=== PATIENT | male | born 1950 | race Caucasian/White ===

== ENCOUNTER 2016-12-19 18:30 | Emergency (ER) | payer OTHER ==
[~2016-12-19] VITALS: Ht 165.1 cm; Wt 72.5 kg
[2016-12-19 18:35] VITALS: Ht 165.1 cm; Wt 72.5 kg
[2016-12-19] MEDS ORDERED: METOCLOPRAMIDE (1 MG/ML) 10 ML CUP PO STA (20:56)
[2016-12-19] MEDS ORDERED: METOCLOPRAMIDE (1 MG/ML) 10 ML CUP PO PRN (21:00)
[2016-12-19 21:19] LABS: BASOPHILS % 0.4 % (0.0-2.0); EOSINOPHILS # 0.1 10^3/ul (0.0-0.5); EOSINOPHILS % 0.9 % (0.0-7.0); HEMATOCRIT 41.3 % (42.0-52.0); HEMOGLOBIN 13.7 g/dl (14.0-18.0); LYMPHOCYTES # 1.3 10^3/ul (0.8-2.9); LYMPHOCYTES % 17.3 % (15.0-51.0); MEAN CORPUSCULAR HEMOGLOBIN 28.9 pg (29.0-33.0); MEAN CORPUSCULAR HGB CONC 33.2 g/dl (32.0-37.0); MEAN CORPUSCULAR VOLUME 87.1 fl (82.0-101.0); MEAN PLATELET VOLUME 9.2 fl (7.4-10.4); MONOCYTE # 0.7 10^3/ul (0.3-0.9); MONOCYTES % 9.4 % (0.0-11.0); NEUTROPHIL # 5.5 10^3/ul (1.6-7.5); NEUTROPHILS % 71.7 % (39.0-77.0); PLATELET COUNT 147 10^3/UL (140-415); RED BLOOD COUNT 4.74 10^6/ul (4.70-6.10); RED CELL DISTRIBUTION WIDTH 12.1 % (11.5-14.5); WHITE BLOOD COUNT 7.7 10^3/ul (4.8-10.8)
[2016-12-19 21:31] LABS: ADD UMIC NO; UR ASCORBIC ACID NEGATIVE (NEGATIVE); UR BILIRUBIN (Dip) NEGATIVE (NEGATIVE); UR BLOOD (Dip) NEGATIVE (NEGATIVE); UR CLARITY CLEAR (CLEAR); UR COLOR YELLOW (YELLOW); UR GLUCOSE (Dip) NEGATIVE (NEGATIVE); UR KETONES (Dip) NEGATIVE (NEGATIVE); UR LEUKOCYTE ESTERASE (Dip) NEGATIVE Leu/ul (NEGATIVE); UR NITRITE (Dip) NEGATIVE (NEGATIVE); UR SPECIFIC GRAVITY (Dip) 1.026 (1.003-1.030); UR TOTAL PROTEIN (Dip) NEGATIVE (NEGATIVE); UR UROBILINOGEN (Dip) NEGATIVE (NEGATIVE)
[2016-12-19 21:39] LABS: ALBUMIN/GLOBULIN RATIO 1.17; BILIRUBIN,INDIRECT 0.8 mg/dl (0-1.1); BILIRUBIN,TOTAL 0.8 mg/dl (0.2-1.3); CREATININE 0.94 mg/dl (0.61-1.24); POTASSIUM 4.1 mmol/L (3.5-5.1); TOTAL PROTEIN 7.4 g/dl (6.1-8.1)
[2016-12-19] MEDS ORDERED: UDREG PO (22:02)
--- NOTE | 2016-12-20 01:26 | ERD ---
ER Documentation Chief Complaint Date/Time DATE: 12/20/16 TIME: 01:23 Chief Complaint Difficulty swallowing hot and cold food. Hx:neck surgery when he was 7yo HPI This is a 66-year-old male presenting to the emergency department complaining of esophageal spasms and difficulty swallowing solid and liquid food for the past month. Denies any fevers. Patient states that he was seen at [facility] yesterday and they did x-rays, ultrasound did not show any evidence. These have discussed with him that he needs to follow-up with a gastroneurologist. Patient states that he is in process of doing that. Denies any drooling or shortness of breath at this time ROS All systems reviewed and are negative except as per history of present illness. Medications Home Meds Active Scripts Metoclopramide* (Reglan*) 10 Mg/10 Ml Soln, 10 MG PO Q6, #120 ML Prov:JOSIE SOLIS PA-C 12/19/16 Allergies Allergies: Coded Allergies: No Known Allergy (Unverified , 12/19/16) PMhx/Soc Medical and Surgical Hx: pt denies Medical Hx History of Surgery: Yes (esphagus from chemical ingestion at 7 years) Anesthesia Reaction: No Hx Neurological Disorder: No Hx Respiratory Disorders: No Hx Cardiac Disorders: No Hx Psychiatric Problems: No Hx Miscellaneous Medical Probl: No Hx Alcohol Use: No Hx Substance Use: No Hx Tobacco Use: No Smoking Status: Never smoker Physical Exam Vitals Vital Signs Date Time Temp Pulse Resp B/P Pulse Ox O2 Delivery O2 Flow Rate FiO2 12/19/16 18:35 98.9 95 18 125/74 95 Physical Exam Const: [] Head: Atraumatic Eyes: Normal Conjunctiva ENT: Normal External Ears, Nose and Mouth. Neck: Full range of motion..~ No meningismus. Resp: Clear to auscultation bilaterally Cardio: Regular rate and rhythm, no murmurs Abd: Soft, non tender, non distended. Normal bowel sounds Skin: No petechiae or rashes Back: No midline or flank tenderness Ext: No cyanosis, or edema Neur: Awake and alert Psych: Normal Mood and Affect Result Diagram: 12/19/16202912/19/16 2030 Results 24 hrs Laboratory Tests Test 12/19/16 20:30 12/19/16 21:11 White Blood Count 7.710^3/ul Red Blood Count 4.7410^6/ul Hemoglobin 13.7g/dl Hematocrit 41.3% Mean Corpuscular Volume 87.1fl Mean Corpuscular Hemoglobin 28.9pg Mean Corpuscular Hemoglobin Concent 33.2g/dl Red Cell Distribution Width 12.1% Platelet Count 52710^3/UL Mean Platelet Volume 9.2fl Neutrophils % 71.7% Lymphocytes % 17.3% Monocytes % 9.4% Eosinophils % 0.9% Basophils % 0.4% Nucleated Red Blood Cells % 0.0/100WBC Neutrophils # 5.510^3/ul Lymphocytes # 1.310^3/ul Monocytes # 0.710^3/ul Eosinophils # 0.110^3/ul Basophils # 0.010^3/ul Nucleated Red Blood Cells # 0.010^3/ul Sodium Level 142mmol/L Potassium Level 4.1mmol/L Chloride Level 99mmol/L Carbon Dioxide Level 28mmol/L Anion Gap 19 Blood Urea Nitrogen 18mg/dl Creatinine 0.94mg/dl Glucose Level 99mg/dl Calcium Level 9.0mg/dl Total Bilirubin 0.8mg/dl Direct Bilirubin 0.00mg/dl Indirect Bilirubin 0.8mg/dl Aspartate Amino Transf (AST/SGOT) 20IU/L Alanine Aminotransferase (ALT/SGPT) 38IU/L Alkaline Phosphatase 90IU/L Total Protein 7.4g/dl Albumin 4.0g/dl Globulin 3.40g/dl Albumin/Globulin Ratio 1.17 Lipase 37U/L Urine Color YELLOW Urine Clarity CLEAR Urine pH 5.0 Urine Specific [place] 1.026 Urine Ketones NEGATIVEmg/dL Urine Nitrite NEGATIVEmg/dL Urine Bilirubin NEGATIVEmg/dL Urine Urobilinogen NEGATIVEmg/dL Urine Leukocyte Esterase NEGATIVELeu/ul Urine Hemoglobin NEGATIVEmg/dL Urine Glucose NEGATIVEmg/dL Urine Total Protein NEGATIVEmg/dl Current Medications Medications (Trade) Dose Ordered Sig/Ivette Route PRN Reason Start Time Stop Time Status Last Admin Dose Admin Metoclopramide HCl (Reglan Liq) 10 mg ONCE PRN PO SORE THROAT 12/19/16 21:00 12/19/16 21:00 DC Metoclopramide HCl (Reglan Liq) 10 mg ONCE STAT PO 12/19/16 20:56 12/19/16 20:57 DC 12/19/16 21:34 Procedures/MDM This is a 66-year-old male presenting to the emergency department with dysphagia for the past month. On examination, patient airways were intact. There was no evidence of any mass or swelling on examination. His vitals are stable. In the ED patient was given 10 mg of Reglan and passed the fluid challenge test. Patient states that he was able to drink a whole glass of water which is an improvement for him in the past month. I discussed with him that he is stable to be discharged home to follow-up with his GI specialist. Discussed return to the ER for worsening sensitive. He understands and agrees with plan. Prescription for Reglan was provided Departure Diagnosis: Primary Impression: Dysphagia Condition: Stable Patient Instructions: Dysphagia: Exercises, Understanding Dysphagia Additional Instructions: FOLLOW UP WITH YOUR PRIMARY CARE PHYSICIAN TOMORROW.Return to this facility if you are not improving as expected. Take all medicines as directed. Return to this facility if you are not improving as expected. JOSIE SOLIS PA-C Dec 20, 2016 01:26
== END 2016-12-19 22:04 | disposition home or self-care (01) ==
LOC: FTE 18:30
DX: R13.10 Dysphagia, unspecified (principal)
CPT/HCPCS: 36415; 80053; 81003; 83690; 85025; Z7502; Z7610; 99283

== ENCOUNTER 2017-01-25 07:37 | Day surgery (SDC) | payer OTHER ==
[2017-01-25] VITALS (8 sets, daily range): BP systolic 103–119; BP diastolic 59–72; PULSE 68–85; RESP 12–20; Ht 170.2 cm; Wt 70.0 kg
[~2017-01-25] VITALS: Ht 170.2 cm; Wt 70.0 kg
[~2017-01-25 07:37] MED LIST: UDREG PO
[2017-01-25] MEDS ORDERED: PRED10TA PO (08:28)
[2017-01-25] MEDS ORDERED: CEFAZOLIN 1 GM/50 ML (PMX) 50 ML IVPB ONE ×2 (08:30→09:57)
[2017-01-25] MEDS ORDERED: SOD CHLORIDE 0.9% 1,000 ML IV ONE (08:30)
[2017-01-25] MEDS ORDERED: POLYMYXIN/BACITRACIN 1L IRRIG IRR ONE (08:30)
[2017-01-25] MEDS ORDERED: LIDOCAINE 2%/EPI 30 ML INJ ONE (08:47)
[2017-01-25] MEDS ORDERED: HEPARIN 1000 UNITS/ML 10 ML INJ ONE (08:47)
[2017-01-25] MEDS ORDERED: SOD CHLORIDE 0.9% 500 ML ONE (08:47)
[2017-01-25] MEDS ORDERED: FENTAnyl 50 MCG/ML VIAL ONE (09:57)
[2017-01-25] MEDS ORDERED: MIDAZOLAM 1 MG/ML 2 ML INJ ONE (09:57)
[2017-01-25] MEDS ORDERED: HYDROCODONE/APAP (5/325) TAB PO PRN (11:00)
--- NOTE | 2017-01-25 11:54 | RADRPT ---
PROCEDURE: FLUOROSCOPIC AND ULTRASONOGRAPHIC-GUIDED PLACEMENT OF RIGHT CHEST PORT. CLINICAL INDICATION: History of esophageal cancer. Venous access for chemotherapy. TECHNIQUE: INTRAPROCEDURE MEDICATIONS: PB antibiotic solution 40 cc applied topically. 1 gram Ancef intravenous ly, intra-op. IV Versed and Fentanyl per protocol. Informed consent was obtained. The procedure, risks, benefits, complications and alternatives were explained to the patient. Risks including bleeding, infection, and pneumothorax were explained. The patient understood and was willing to proceed. A procedural pause was performed. The patient's name , date of , and procedure to be performed were verified. The central line was inserted with al l elements of maximal sterile barrier technique. All of the following were used: head covering, faci al mask, sterile gown, sterile gloves, a large sterile sheet, hand hygiene, and 2% chlorhexidine fo r cutaneous antisepsis. The right neck and anterior/superior chest wall were prepped and draped in usual sterile fashion. Limited sonography of the right neck was then performed. Noted is a patent right internal jugular ve in. Following the local injection of 1% lidocaine, the right internal jugular vein was punctured under s onographic guidance with a 20-gauge needle through which a 0.018 inch floppy tip guidewire was advan maddie into the superior vena cava with fluoroscopic guidance. The tract was dilated to 5 [place] and the wire was then replaced with a 0.035 in Amplatz guidewire. Serial dilatation was then performed and a 7 [place] peel away sheath was introduced. A site just inferior to the clavicle in the superior anterior right chest wall was localized. One pe rcent lidocaine was used as local anesthesia. A transverse 2.5 cm incision was made utilizing a 15 b lade scalpel. Utilizing blunt dissection a subcutaneous pocket was created inferior to the incision. The cavity was flushed with approximately 40 cc of PB antibiotic solution. The catheter was tunneled underneath the skin from the newly created pocket to the puncture site in the neck. The central line catheter was pulled through the tract. The catheter was then advanced thr ough the sheath until the tip was positioned in the right atrium. The peel-away sheath was removed. The catheter was flushed and clamped. The 6.6 [place] catheter was then connected to the Angiodynamics power port. The port was then placed into the pocket. Prior to closing the instrument and sponge count was verified and was correct. The subcutaneous tissue was closed with 3-0 Vicryl interrupted suture. The skin at the site of the pock et and in the neck was closed with 4-0 Vicryl suture in a running subcuticular technique. The port w as flushed with 1500 units of heparin in 1.5 cc utilizing a Tineo needle. The needle was removed. A dressing was applied. The patient tolerated procedure well. COMPARISON: None. FINDINGS: Ultrasound images were recorded and stored in the patient's medical record. Final radiographic images demonstrate the tip of the catheter in the upper right atrium. A total of 0.1 minutes of fluoroscopy time was used. 5 images of the chest were obtained with the Mango DSP. The ultrasound images demonstrate the needle entering the internal jugular vein. IMPRESSION: 1. Successful ultrasonographic and fluoroscopic guided placement of right chest power port. RPTAT: QQ .Star José MD, Date Time Electronically viewed and signed by .Star José MD, on 01/25/2017 11:53 .R/
--- NOTE | 2017-01-25 15:53 | RADRPT ---
PROCEDURE: Ultrasound guidance for placement of needle in right internal jugular vein. CLINICAL INDICATION: Venous access. TECHNIQUE: Prior to the procedure, informed consent was obtained. Risks including bleeding, infection, and pneu mothorax were explained to the patient. The patient understood and was willing to proceed. A procedu ral pause was performed. The patient's name, date of , and procedure to be performed were verif ied. The central line was inserted with all elements of maximal sterile barrier technique. All of th e following were used: head covering, facial mask, sterile gown, sterile gloves, a large sterile she et, hand hygiene, and 2% chlorhexidine for cutaneous antisepsis. The right neck and anterior/super ior chest wall was prepped and draped in usual sterile fashion. Limited sonography of the right neck was then performed. Noted is a patent right internal jugular ve in. Ultrasound images were recorded and stored in the patient's medical record. Following the local injection of Xylocaine, the right internal jugular vein was punctured under sono graphic guidance with a 20-gauge needle through which a 0.018 inch floppy tip guidewire was advanced into the superior vena cava. The patient tolerated the procedure well. The remainder of the proce dure was performed and dictated under separate cover. COMPARISON: None. FINDINGS: The ultrasound images demonstrate a patent right internal jugular vein. The subsequent images demon strate the needle entering the right internal jugular vein. IMPRESSION: 1. Ultrasound guidance for a needle placement in right internal jugular vein. RPTAT: QQ .Star José MD, Date Time Electronically viewed and signed by .Star José MD, on 01/25/2017 15:52 .R/
== END 2017-01-25 14:05 | disposition home or self-care (01) ==
LOC: SDS 07:37
PROVIDERS: ATTEND Internal Medicine Hematology & Oncology
DX: C15.9 Malignant neoplasm of esophagus, unspecified (principal)
CPT/HCPCS: 36561; 76942; C1788; J0690; J1644; J2250; J3010; J7040; Z7610

== ENCOUNTER 2017-02-27 21:46 | Inpatient (IN) | payer OTHER ==
[~2017-02-27] VITALS: Ht 166.4 cm; Wt 68.0 kg
[~2017-02-27 21:46] MED LIST changes: +PRED10TA PO; -UDREG PO
[2017-02-28] VITALS (13 sets, daily range): BP systolic 97–130; BP diastolic 57–67; PULSE 72–81; RESP 17–26; Ht 166.4 cm; Wt 68.0 kg
[2017-02-28] MEDS ORDERED: SOD CHLORIDE 0.9% 1,000 ML IV STA (02:28)
--- NOTE | 2017-02-28 02:39 | ERA ---
ER Documentation Chief Complaint Date/Time DATE: 02/28/17 TIME: 02:37 Chief Complaint SWALLOWING PROBLEM DUE TO ESOPHOGEAL CANCER TREATMENT HPI This is a 66-year-old male who is having some difficulty swallowing for the past couple of weeks but is getting worse the past couple days and today where he cannot even tolerate drinking water. Patient has a history of esophageal cancer and is postoperative. He is getting chemo and radiation to the esophagus. Patient states she has gradually had worsening ability to eat food and now drinking water. He said he able was able to drink some soup today at 3 PM but since that time cannot tolerate drinking any water. He says if he tries to drink water he starts to cough and gag. He says he has been coughing and spitting up clear mucus for 1 day. No fever no chest pain shortness of breath no abdominal pain vomiting or diarrhea ROS All systems reviewed and are negative except as per history of present illness. Medications Home Meds Reported Medications Prednisone* (Prednisone*) 10 Mg Tab, 45 MG PO DAILY, TAB 01/25/17 Allergies Allergies: Coded Allergies: No Known Allergy (Unverified , 01/25/17) PMhx/Soc History of Surgery: No Anesthesia Reaction: No Hx Neurological Disorder: No Hx Respiratory Disorders: Yes (Asthma) Hx Cardiac Disorders: No Hx Psychiatric Problems: No Hx Miscellaneous Medical Probl: Yes (esophageal cancer) Hx Alcohol Use: Yes (social) Hx Substance Use: No Hx Tobacco Use: No Smoking Status: Never smoker FmHx Family History: No coronary disease Physical Exam Vitals Vital Signs Date Time Temp Pulse Resp B/P Pulse Ox O2 Delivery O2 Flow Rate FiO2 02/28/17 04:00 91 19 117/68 98 Room Air 02/28/17 03:00 89 16 109/66 97 Room Air 02/28/17 02:00 85 21 109/67 100 Room Air 02/27/17 22:03 100.8 108 20 127/60 95 Physical Exam Const: Well-developed, well-nourished Head: Atraumatic, normocephalic Eyes: Normal Conjunctiva, PERRLA, EOMI, normal sclera, no nystagmus ENT: Normal External Ears, Nose and Mouth, moist mucus membranes. Neck: Full range of motion. No meningismus, no lymphadenopathy. Resp: Clear to auscultation bilaterally, no wheezing, rhonchi, rales Cardio: Regular rate and rhythm, no murmurs, S1 S2 present Abd: Soft, non tender x 4, non distended. Normal bowel sounds, no guarding or rebound, no pulsitile abdominal masses or bruits Skin: No petechiae or rashes, no ecchymosis , no maculopapular rash Back: No midline or flank tenderness Ext: No cyanosis, or edema, FROM x 4, normal inspection, neurovascularly intact x 4 Neur: Awake and alert, STR 5/5 x 4, sensation intact x 4, no focal findings, cerebellum intact Psych: Normal Mood and Affect Result Diagram: 02/28/175 02/28/17 0255 Results 24 hrs Laboratory Tests Test 02/28/17 02:55 White Blood Count 5.710^3/ul Red Blood Count 3.4010^6/ul Hemoglobin 9.8g/dl Hematocrit 29.7% Mean Corpuscular Volume 87.4fl Mean Corpuscular Hemoglobin 28.8pg Mean Corpuscular Hemoglobin Concent 33.0g/dl Red Cell Distribution Width 14.1% Platelet Count 81959^3/UL Mean Platelet Volume 9.4fl Neutrophils % % Segmented Neutrophils % (Manual) 91% Band Neutrophils % (Manual) 2% Lymphocytes % % Lymphocytes % (Manual) 4% Monocytes % % Monocytes % (Manual) 3% Eosinophils % % Basophils % % Nucleated Red Blood Cells % 0.0/100WBC Neutrophils # 10^3/ul Neutrophils # (Manual) 5.210^3/ul Band Neutrophils # 0.110^3/ul Absolute Lymphocytes (Manual) 0.210^3/ul Lymphocytes # 0.210^3/ul Monocytes # 0.210^3/ul Absolute Monocytes (Manual) 0.110^3/ul Eosinophils # 10^3/ul Basophils # 10^3/ul Nucleated Red Blood Cells # 10^3/ul Anisocytosis 1+ Ovalocytes FEW Sodium Level 142mmol/L Potassium Level 3.7mmol/L Chloride Level 105mmol/L Carbon Dioxide Level 32mmol/L Anion Gap 9 Blood Urea Nitrogen 17mg/dl Creatinine 0.82mg/dl Glucose Level 114mg/dl Calcium Level 8.3mg/dl Total Bilirubin 1.1mg/dl Direct Bilirubin 0.00mg/dl Indirect Bilirubin 1.1mg/dl Aspartate Amino Transf (AST/SGOT) 28IU/L Alanine Aminotransferase (ALT/SGPT) 51IU/L Alkaline Phosphatase 62IU/L Total Protein 5.8g/dl Albumin 3.0g/dl Globulin 2.80g/dl Albumin/Globulin Ratio 1.07 Current Medications Medications (Trade) Dose Ordered Sig/Ivette Route PRN Reason Start Time Stop Time Status Last Admin Dose Admin Sodium Chloride (NS) 1,000 ml @ 1,000 mls/hr Q1H STAT IV 02/28/17 02:28 02/28/17 03:27 DC 02/28/17 03:01 Procedures/MDM PROCEDURE: XR Chest. CLINICAL INDICATION: Abdominal pain TECHNIQUE: AP upright Portable chest. COMPARISON: No pertinent prior examinations were submitted for comparison. FINDINGS: The right port catheter is in satisfactory position. The cardiomediastinal silhouette is normal. The aorta is normal. There is mild bibasilar atelectasis No focal consolidation, pleural effusion or pneumothorax is seen. The osseous structures are intact. IMPRESSION: Right port catheter in satisfactory position. Bibasilar atelectasis. Physician Mary Jo Date Time Electronically viewed and signed by Physician Mary Jo on 02/28/2017 03: 43 CS/ CC: JO STEIN DO Spoke with Dr. Jessica andrew of GI. Patient be admitted to the hospital for EGD tomorrow. Patient esophagus causing some stricture or other pathology. He may need dilated or have a feeding tube placed We will admit for inpatient Departure Diagnosis: Primary Impression: Swallowing disorder Additional Impression: Dysphasia Condition: Stable JO STEIN DO Feb 28, 2017 02:39
--- NOTE | 2017-02-28 03:43 | RADRPT ---
PROCEDURE: XR Chest. CLINICAL INDICATION: Abdominal pain TECHNIQUE: AP upright Portable chest. COMPARISON: No pertinent prior examinations were submitted for comparison. FINDINGS: The right port catheter is in satisfactory position. The cardiomediastinal silhouette is normal. The aorta is normal. There is mild bibasilar atelectasi s No focal consolidation, pleural effusion or pneumothorax is seen. The osseous structures are int act. IMPRESSION: Right port catheter in satisfactory position. Bibasilar atelectasis. Physician Mary Jo Date Time Electronically viewed and signed by Nelly Olea Physician on 02/28/2017 03:43 CS/
[2017-02-28] MEDS ORDERED: SOD CHLORIDE 0.9% 1,000 ML IV SCH (04:48)
[2017-02-28] MEDS ORDERED: ONDANSETRON 4 MG INJ IV PRN ×3 (05:00→20:00)
[2017-02-28] MEDS ORDERED: ACETAMINOPHEN 325 MG TAB PO PRN (05:00)
[2017-02-28] MEDS: PANTOPRAZOLE 40 MG INJ IV SCH (08:26)
[2017-02-28] MEDS: DEXTROSE 5%-0.9% NACL 1,000 ML IV SCH ×2 (10:11→20:20)
--- NOTE | 2017-02-28 10:22 | QN ---
Documentation Comment Pt seen and examined RENEE HAN MD Feb 28, 2017 10:22
--- NOTE | 2017-02-28 10:22 | QN ---
Documentation Comment Pt seen and examined RENEE HAN MD Feb 28, 2017 10:22
--- NOTE | 2017-02-28 11:10 | CONS ---
Date/Time of Note Date/Time of Note DATE: 02/28/17 TIME: 10:52 Assessment/Plan Assessment/Plan Chief Complaint/Hosp Course Summary Assessment and Plan: Assessment: Dysphagia * esophageal cancer * Rule out radiation esophagitis Plan: Will order CT chest Will speak with patient's oncologist with tentative plan to place PEG Patient with dysphagia will remain n.p.o. Endoscopy - risks/benefits/alternatives/indications of procedure and sedation/ anesthesia discussed with patient who states understanding and gives informed consent to proceed. PARQ held and questions were answered. Patient seen in collaboration with Dr. Queen Chief Complaint/Reason for Visit: Dysphagia * esophageal cancer Chief Complaint/Reason for Visit: This is a pleasant 66-year-old male with recent diagnosis of esophageal cancer in October of this year status post chemotherapy 2, radiation 10. He had some kind of esophageal surgery at age 7 he cannot remember reason for surgery or which type of surgery. He began to complain of "tightness" when swallowing for the past 2 days. Yesterday unable to swallow at all.Attempted to drink water and subsequently vomited. He denies abd pain, nausea/vomiting, rectal bleeding, pyrosis, change in bowel habits. Has never had a colonoscopy, there is no family history of colon cancer. Last endoscopy was in October. Patient will need a PEG, however, per request of the family and oncologist will speak with oncologist Stephen Mariano before moving forward with procedure. Past Medical History: Esophageal l cancer S/P radiation 10 Chemotherapy 2 Allergies: No known allergies Family History: No pertinent Social History: Denies smoking Problems: Consultation Date/Type/Reason Admit Date/Time Feb 28, 2017 at 04:49 Date of Consultation: Feb 28, 2017 Type of Consultation: GI Reason for Consultation Dysphagia Constitutional: no complaints Eyes: no complaints ENT: dysphagia Respiratory: no complaints Cardiovascular: no complaints Gastrointestinal: flatus, passing stool, No blood, No constipation, No diarrhea, No nausea, No pain, No vomiting Genitourinary: no complaints Musculoskeletal: no complaints Skin: no complaints Psychological: no complaints Past Medical History Medical History: no pertinent history, cancer (Esophageal) Past Surgical History Esophageal surgery at age 7 Family History Significant Family History: no pertinent family hx Social History Smoking Status: Never smoker Exam/Review of Systems Vital Signs Vitals Vital Signs Date Time Temp Pulse Resp B/P Pulse Ox O2 Delivery O2 Flow Rate FiO2 02/28/17 07:20 98.3 82 18 121/66 97 02/28/17 06:30 Room Air Exam Constitutional: alert, oriented Psych: no complaints Head: atraumatic, normocephalic Eyes: nl conjunctiva ENMT: nl external ears & nose Neck: other (scar), supple Respiratory: clear to auscultation Cardiovascular: regular rate and rhythm Gastrointestinal: bowel sounds, other, soft, surgical scars, No ascites, No distended, No firm, No hepatomegaly, No mass, No rebound or guarding, No splenomegaly, No tender Genitourinary - Male: nl penis Extremities: normal pulses Results Result Diagram: 02/28/17 0255 02/28/17 0255 Results 24 hrs Laboratory Tests Test 02/28/17 02:55 White Blood Count 5.7 # Red Blood Count 3.40 #L Hemoglobin 9.8 #L Hematocrit 29.7 #L Mean Corpuscular Volume 87.4 Mean Corpuscular Hemoglobin 28.8 L Mean Corpuscular Hemoglobin Concent 33.0 Red Cell Distribution Width 14.1 Platelet Count 102 #L Mean Platelet Volume 9.4 Neutrophils % Segmented Neutrophils % (Manual) 91 H Band Neutrophils % (Manual) 2 Lymphocytes % Lymphocytes % (Manual) 4 L Monocytes % Monocytes % (Manual) 3 Eosinophils % Basophils % Nucleated Red Blood Cells % 0.0 Neutrophils # Neutrophils # (Manual) 5.2 Band Neutrophils # 0.1 Absolute Lymphocytes (Manual) 0.2 L Lymphocytes # 0.2 L Monocytes # 0.2 L Absolute Monocytes (Manual) 0.1 L Eosinophils # Basophils # Nucleated Red Blood Cells # Anisocytosis 1+ Ovalocytes FEW Sodium Level 142 Potassium Level 3.7 Chloride Level 105 Carbon Dioxide Level 32 H Anion Gap 9 Blood Urea Nitrogen 17 Creatinine 0.82 Glucose Level 114 Calcium Level 8.3 L Total Bilirubin 1.1 Direct Bilirubin 0.00 Indirect Bilirubin 1.1 Aspartate Amino Transf (AST/SGOT) 28 Alanine Aminotransferase (ALT/SGPT) 51 Alkaline Phosphatase 62 Total Protein 5.8 L Albumin 3.0 L Globulin 2.80 Albumin/Globulin Ratio 1.07 Medications Medications Current Medications Sodium Chloride 1,000 ml @ 80 mls/hr [id number] IV ; Start 02/28/17 at 04:48; Stop 02/28/17 at 17:17 Dextrose/Sodium Chloride (D5-NS) 1,000 ml @ 75 mls/hr [id number] IV Last administered on 02/28/17 10:11; Admin Dose 75 MLS/HR; Start 02/28/17 at 07:00 Pantoprazole (Protonix Iv) 40 mg DAILY@06 IV Last administered on 02/28/17 08 :26; Admin Dose 40 MG; Start 02/28/17 at 07:00 Morphine Sulfate (morphine) 2 mg Q4H PRN IV pain; Start 02/28/17 at 07:00 Acetaminophen (Tylenol Supp) 650 mg Q6H PRN NV pain and fever; Start 02/28/17 at 07:00 Ondansetron HCl (Zofran Inj) 4 mg Q6H PRN IV NAUSEA AND/OR VOMITING; Start at 07:00 Copies To: CC: RODRICK QUEEN MD, VICTORIA Feb 28, 2017 11:10
--- NOTE | 2017-02-28 13:51 | RADRPT ---
PROCEDURE: CT Chest without contrast. CLINICAL INDICATION: Dysphasia. Post esophageal surgery. TECHNIQUE: CT scan of the chest without contrast was performed on a multidetector high-resolution CT scanner. Coronal and sagittal reformatted images were obtained from the axial source images. The total exam CTDI equals 10.49 mGy and the total exam DLP equals 429.9 mGy-cm. One or more of the following dose reduction techniques were used: Automated exposure control. Adjustment of the mA and/or kV according to patient size. Use of iterative reconstruction technique. COMPARISON: None FINDINGS: There is a loop of extrathoracic bowel graft anastomosed with distal gastric body. There is patulous appearance of the bypassed upper thoracic esophagus which communicates with the posterior wall of t he trachea on image 4-34. There is mild bronchial wall thickening in the lung bases. Patchy ground-glass opacities are seen in the lung bases. No mass lesion to suggest neoplasm is identified. The central tracheobronchial tr ee is clear. The mediastinum is unremarkable without evidence for mass or lymphadenopathy. Right chest Port-A-Cat h with tip at the cavoatrial junction is present. The vascular structures of the mediastinum are nor mal in course and caliber. The heart size is normal without evidence for pericardial thickening or e ffusion. The axillary regions, subpectoral regions, and supraclavicular regions are all unremarkable. Imagin g obtained through the upper abdomen reveals no acute abnormality. The surrounding osseous structur es are remarkable for degenerative spondylosis of the spine. No osteolytic or osteoblastic lesion i s detected. IMPRESSION: 1. Extrathoracic bowel graft from the upper thoracic esophagus anastomosed with anterior wall of th e distal gastric body. 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 2. Mild bronchial wall thickening and patchy areas of ground-glass opacities in the lung bases which are nonspecific but can be seen with aspiration. RPTAT: BB .Seymour Gonzalez MD, Date Time Electronically viewed and signed by .Seymour Gonzalez MD, on 02/28/2017 13:50 .O/
[2017-02-28] MEDS ORDERED: CEFAZOLIN 1 GM/50 ML (PMX) 50 ML IVPB ONE (15:30)
[2017-02-28] MEDS ORDERED: PROPOFOL 200 MG INJ ONE (18:00)
[2017-02-28] MEDS ORDERED: LIDOCAINE 2% (SDV) 5 ML INJ ONE (18:55)
[2017-02-28] MEDS ORDERED: CEFAZOLIN 2 GM/50 ML (PMX) 50 ML IVPB ONE (19:05)
--- NOTE | 2017-02-28 19:43 | OPPN ---
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 Extracorporeal esophagogastric colonic bypass Post uneventful PEG Plan: Start feedings tomorrow Procedure Performed: Endoscopy (EGD plus PEG) Surgeon RODRICK MICHELE MD See signature line Dog Day Care Attendant none Anesthesia Type: MAC Anesthesiologist: TASIA BOURNE Tourniquet Time none EBL none Transfusion required none Biopsy 1: None Grafts/Implants Uzbek 20 gastrostomy tube Tubes/Drains none Complication(s) none Procedure Description After informed consent, with the patient/relatives understanding the procedure, its indications, potential risks and complications, including but not limited to : Allergic reaction, bleeding, perforation or infection, and all after all pertinent questions were answered to the patient's satisfaction, patient/ relative signed witnessed informed consent. Following this, premedication was administered slowly IV push under care of cardiovascular respiratory monitoring with pulse oximetry, and automatic blood pressure, and aoc aadc operations staff officer. Once to sedative effect was achieved the patient was placed in the left lateral decubitus, the panendoscope was introduced and advanced under visual control. Careful examination of the upper gastrointestinal tract, both on insertion as well as withdrawal of the instrument disclosed following findings: Esophagus: The [place] esophagus is obstructed by a large mass in the midesophagus. We will identify the extracorporeal esophagogastric bypass and antegrade advancing carefully until we reach the stomach. Stomach: Upon entrance to the stomach air was insufflated, the gastric garcia distended normally. There is evidence of previous surgery. Otherwise the mucosa appears within normal limits with no abnormalities. There is no evidence of gastritis, ulcers or neoplasm.] Pylorus: The pylorus was carefully examined and showed the following findings: [The pylorus appears patent and within normal limits, with no evidence of gastric outlet obstruction.] Duodenum: The duodenal mucosa was carefully examined in the duodenal bulb as well as the second portion of the duodenum and showed the following findings: [The mucosa appears unremarkable with no evidence of duodenitis, ulcer or neoplasm.] The instrument was then brought back to the stomach and the anterior wall mid- body was identified by transillumination and "finger indentation", this area was then marked in the anterior wall of the abdomen, it was cleansed with Betadine and infiltrated with Xylocaine 1%. Following this a trocar needle was introduced into the gastric lumen under visual control with the endoscope, once in the gastric lumen a guide wire was advanced and secured with a polypectomy snare, at this point the endoscope was withdrawn bringing the guidewire out through the patient's mouth. Following this a Uzbek #20 gastrostomy tube was introduced over the guidewire, with the Sachs-Vinne technique without difficulty , a small incision was performed in the skin to allow easy passage of the G-tube , once the position of the gastrostomy was confirmed, the external stopper and connectors were installed, and a clean dressing applied. The patient tolerated the procedure well and was transferred out of the endoscopy suite awake, and in good condition to continue recovery under observation, feedings will start in the next 12-24 hours and the discharge in the care will be instituted. Copies To: CC: RODRICK MICHELE MD, MORDO MD Feb 28, 2017 19:43
--- NOTE | 2017-02-28 19:43 | OPPN ---
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 Extracorporeal esophagogastric colonic bypass Post uneventful PEG Plan: Start feedings tomorrow Procedure Performed: Endoscopy (EGD plus PEG) Surgeon RODRICK MICHELE MD See signature line Supervisor Reinforced Steel Placing none Anesthesia Type: MAC Anesthesiologist: TASIA BOURNE Tourniquet Time none EBL none Transfusion required none Biopsy 1: None Grafts/Implants Divehi 20 gastrostomy tube Tubes/Drains none Complication(s) none Procedure Description After informed consent, with the patient/relatives understanding the procedure, its indications, potential risks and complications, including but not limited to : Allergic reaction, bleeding, perforation or infection, and all after all pertinent questions were answered to the patient's satisfaction, patient/ relative signed witnessed informed consent. Following this, premedication was administered slowly IV push under care of cardiovascular respiratory monitoring with pulse oximetry, and automatic blood pressure, and environmental monitoring technician. Once to sedative effect was achieved the patient was placed in the left lateral decubitus, the panendoscope was introduced and advanced under visual control. Careful examination of the upper gastrointestinal tract, both on insertion as well as withdrawal of the instrument disclosed following findings: Esophagus: The [place] esophagus is obstructed by a large mass in the midesophagus. We will identify the extracorporeal esophagogastric bypass and antegrade advancing carefully until we reach the stomach. Stomach: Upon entrance to the stomach air was insufflated, the gastric garcia distended normally. There is evidence of previous surgery. Otherwise the mucosa appears within normal limits with no abnormalities. There is no evidence of gastritis, ulcers or neoplasm.] Pylorus: The pylorus was carefully examined and showed the following findings: [The pylorus appears patent and within normal limits, with no evidence of gastric outlet obstruction.] Duodenum: The duodenal mucosa was carefully examined in the duodenal bulb as well as the second portion of the duodenum and showed the following findings: [The mucosa appears unremarkable with no evidence of duodenitis, ulcer or neoplasm.] The instrument was then brought back to the stomach and the anterior wall mid- body was identified by transillumination and "finger indentation", this area was then marked in the anterior wall of the abdomen, it was cleansed with Betadine and infiltrated with Xylocaine 1%. Following this a trocar needle was introduced into the gastric lumen under visual control with the endoscope, once in the gastric lumen a guide wire was advanced and secured with a polypectomy snare, at this point the endoscope was withdrawn bringing the guidewire out through the patient's mouth. Following this a Divehi #20 gastrostomy tube was introduced over the guidewire, with the Sachs-Vinne technique without difficulty , a small incision was performed in the skin to allow easy passage of the G-tube , once the position of the gastrostomy was confirmed, the external stopper and connectors were installed, and a clean dressing applied. The patient tolerated the procedure well and was transferred out of the endoscopy suite awake, and in good condition to continue recovery under observation, feedings will start in the next 12-24 hours and the discharge in the care will be instituted. Copies To: CC: RODRICK MICHELE MD, MORDO MD Feb 28, 2017 19:43
[2017-02-28] MEDS ORDERED: LABETALOL HCL 20MG INJ IV PRN (20:00)
[2017-02-28] MEDS ORDERED: DIPHENHYDRAMINE 50 MG INJ IV PRN (20:00)
[2017-02-28] MEDS ORDERED: MEPERIDINE 25 MG INJ IV PRN (20:00)
[2017-02-28] MEDS ORDERED: ALBUTEROL 0.083% (NEB) 2.5 MG/3 ML AMP HHN PRN (20:00)
[2017-02-28] MEDS ORDERED: EPHEDrine SULFATE 50 MG/5 ML SYG IV PRN (20:00)
[2017-02-28] MEDS ORDERED: OXYCODONE/ACETAMINOPHEN (5/325) TAB PO PRN ×2 (20:00)
[2017-02-28] MEDS ORDERED: FENTAnyl 50 MCG/ML VIAL IV PRN ×3 (20:00)
[2017-02-28] MEDS ORDERED: hydrALAzine 20 MG INJ IV PRN (20:00)
[2017-02-28] MEDS ORDERED: KETOROLAC 30 MG INJ IV PRN (20:00)
[2017-02-28] MEDS ORDERED: IPRATROPIUM (NEB) 0.5 MG/2.5 ML AMP HHN PRN (20:00)
[2017-02-28] MEDS ORDERED: CEFAZOLIN 1 GM/50 ML (PMX) 50 ML IVPB SCH (21:14)
[2017-03-01 02:00] VITALS: BP 119/61; PULSE 102; RESP 18
[2017-03-01] MEDS: DEXTROSE 5%-0.9% NACL 1,000 ML IV SCH (03:41)
[2017-03-01] MEDS: PANTOPRAZOLE 40 MG INJ IV SCH (05:36)
[2017-03-01 07:33] VITALS: BP 106/61; RESP 20
--- NOTE | 2017-03-01 10:19 | CONS ---
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 Extracorporeal esophagogastric colonic bypass Post uneventful PEG Plan: I ordered dietary consult for tube feed and rate ok to use PEG for meds and tube feeds Problems: Consultation Date/Type/Reason Admit Date/Time Feb 28, 2017 at 04:49 Initial Consult Date 02/28/17 Type of Consultation: GI 24 HR Interval Summary Free Text/Dictation no abdominal pain, s/p successful PEG placement Constitutional: improved Exam/Review of Systems Vital Signs Vitals Vital Signs Date Time Temp Pulse Resp B/P Pulse Ox O2 Delivery O2 Flow Rate FiO2 03/01/17 07:33 97.7 81 20 106/61 95 03/01/17 02:00 Room Air 02/28/17 19:31 5 Intake and Output 02/28/17 02/28/17 03/01/17 15:00 23:00 07:00 Intake Total 600 ml 515 ml Balance 600 ml 515 ml Exam Constitutional: alert, oriented, well developed Psych: nl mood/affect, no complaints Head: atraumatic, normocephalic Eyes: EOMI, nl conjunctiva, nl lids, nl sclera ENMT: mucosa pink and moist, nl external ears & nose, nl lips & teeth, nl nasal mucosa & septum Neck: non-tender, supple Respiratory: clear to auscultation, normal air movement Cardiovascular: nl pulses, regular rate and rhythm Gastrointestinal: bowel sounds, non-tender, other (PEG c/d/i), soft Results Result Diagram: 03/01/17 0449 03/01/17 0449 Results 24 hrs Laboratory Tests Test 03/01/17 04:49 White Blood Count 1.6 #L Red Blood Count 3.36 L Hemoglobin 9.6 L Hematocrit 29.3 L Mean Corpuscular Volume 87.2 Mean Corpuscular Hemoglobin 28.6 L Mean Corpuscular Hemoglobin Concent 32.8 Red Cell Distribution Width 13.7 Platelet Count 91 L Mean Platelet Volume 9.4 Neutrophils % Lymphocytes % Monocytes % Eosinophils % Basophils % Nucleated Red Blood Cells % 0.0 Neutrophils # Lymphocytes # Monocytes # Eosinophils # Basophils # Nucleated Red Blood Cells # Sodium Level 137 Potassium Level 3.5 Chloride Level 102 Carbon Dioxide Level 27 Anion Gap 12 Blood Urea Nitrogen 11 Creatinine 0.77 Glucose Level 139 Calcium Level 7.8 L Total Bilirubin 1.0 Direct Bilirubin 0.00 Indirect Bilirubin 1.0 Aspartate Amino Transf (AST/SGOT) 22 Alanine Aminotransferase (ALT/SGPT) 46 Alkaline Phosphatase 58 Total Protein 5.4 L Albumin 2.8 L Globulin 2.60 Albumin/Globulin Ratio 1.07 Medications Medications Current Medications Dextrose/Sodium Chloride (D5-NS) 1,000 ml @ 75 mls/hr [id number] IV Last administered on 03/01/17 03:41; Admin Dose 75 MLS/HR; Start 02/28/17 at 07:00 Pantoprazole (Protonix Iv) 40 mg DAILY@06 IV Last administered on 03/01/17 05 :36; Admin Dose 40 MG; Start 02/28/17 at 07:00 Morphine Sulfate (morphine) 2 mg Q4H PRN IV pain; Start 02/28/17 at 07:00 Acetaminophen (Tylenol Supp) 650 mg Q6H PRN [place] pain and fever; Start 02/28/17 at 07:00 Ondansetron HCl (Zofran Inj) 4 mg Q6H PRN IV NAUSEA AND/OR VOMITING; Start at 07:00 JAMESON LYN MD Mar 01, 2017 10:19
--- NOTE | 2017-03-01 10:19 | CONS ---
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 Extracorporeal esophagogastric colonic bypass Post uneventful PEG Plan: I ordered dietary consult for tube feed and rate ok to use PEG for meds and tube feeds Problems: Consultation Date/Type/Reason Admit Date/Time Feb 28, 2017 at 04:49 Initial Consult Date 02/28/17 Type of Consultation: GI 24 HR Interval Summary Free Text/Dictation no abdominal pain, s/p successful PEG placement Constitutional: improved Exam/Review of Systems Vital Signs Vitals Vital Signs Date Time Temp Pulse Resp B/P Pulse Ox O2 Delivery O2 Flow Rate FiO2 03/01/17 07:33 97.7 81 20 106/61 95 03/01/17 02:00 Room Air 02/28/17 19:31 5 Intake and Output 02/28/17 02/28/17 03/01/17 15:00 23:00 07:00 Intake Total 600 ml 515 ml Balance 600 ml 515 ml Exam Constitutional: alert, oriented, well developed Psych: nl mood/affect, no complaints Head: atraumatic, normocephalic Eyes: EOMI, nl conjunctiva, nl lids, nl sclera ENMT: mucosa pink and moist, nl external ears & nose, nl lips & teeth, nl nasal mucosa & septum Neck: non-tender, supple Respiratory: clear to auscultation, normal air movement Cardiovascular: nl pulses, regular rate and rhythm Gastrointestinal: bowel sounds, non-tender, other (PEG c/d/i), soft Results Result Diagram: 03/01/17 0449 03/01/17 0449 Results 24 hrs Laboratory Tests Test 03/01/17 04:49 White Blood Count 1.6 #L Red Blood Count 3.36 L Hemoglobin 9.6 L Hematocrit 29.3 L Mean Corpuscular Volume 87.2 Mean Corpuscular Hemoglobin 28.6 L Mean Corpuscular Hemoglobin Concent 32.8 Red Cell Distribution Width 13.7 Platelet Count 91 L Mean Platelet Volume 9.4 Neutrophils % Lymphocytes % Monocytes % Eosinophils % Basophils % Nucleated Red Blood Cells % 0.0 Neutrophils # Lymphocytes # Monocytes # Eosinophils # Basophils # Nucleated Red Blood Cells # Sodium Level 137 Potassium Level 3.5 Chloride Level 102 Carbon Dioxide Level 27 Anion Gap 12 Blood Urea Nitrogen 11 Creatinine 0.77 Glucose Level 139 Calcium Level 7.8 L Total Bilirubin 1.0 Direct Bilirubin 0.00 Indirect Bilirubin 1.0 Aspartate Amino Transf (AST/SGOT) 22 Alanine Aminotransferase (ALT/SGPT) 46 Alkaline Phosphatase 58 Total Protein 5.4 L Albumin 2.8 L Globulin 2.60 Albumin/Globulin Ratio 1.07 Medications Medications Current Medications Dextrose/Sodium Chloride (D5-NS) 1,000 ml @ 75 mls/hr [id number] IV Last administered on 03/01/17 03:41; Admin Dose 75 MLS/HR; Start 02/28/17 at 07:00 Pantoprazole (Protonix Iv) 40 mg DAILY@06 IV Last administered on 03/01/17 05 :36; Admin Dose 40 MG; Start 02/28/17 at 07:00 Morphine Sulfate (morphine) 2 mg Q4H PRN IV pain; Start 02/28/17 at 07:00 Acetaminophen (Tylenol Supp) 650 mg Q6H PRN [place] pain and fever; Start 02/28/17 at 07:00 Ondansetron HCl (Zofran Inj) 4 mg Q6H PRN IV NAUSEA AND/OR VOMITING; Start at 07:00 JAMESON LYN MD Mar 01, 2017 10:19
--- NOTE | 2017-03-01 10:51 | HP ---
DATE OF ADMISSION: 02/28/2017 REASON FOR ADMISSION: Dysphagia and odynophagia. HISTORY OF PRESENT ILLNESS: This is a 66-year-old male with a past medical history of [place] ingestio n when he was 7 years old. According to the patient, after that patient had a remnant of esophagus that was left. The patient just recently diagnosed with a cancer of the esophagus in October and just recently started on chemotherapy and radiation. According to the patient, he has taken 2 doses of c hemotherapy and has also taken 10 sessions of radiation. His last radiation was yesterday. All his consultants have been in [facility]. According to the patient, he had been doing fine un til he started began to have some tightness when swallowing for the last 2 days. Yesterday, the tawanda goldberg was unable to swallow at all. He attempted to drink water and subsequently vomited, even when he was eating with solids he was drinking with a little more water so that it can break it up. The patient denied any abdominal pain, nausea, vomiting and came to the emergency department. On arriva l to ED, the vital signs were: Blood pressure 101/63, heart rate 96, respirations 19, pulse 76. Arron ballard was started on IV fluids and we were called for further management. PAST MEDICAL HISTORY: Recently diagnosed esophageal cancer status post chemotherapy and radiation. ALLERGIES: NONE. PAST SURGICAL HISTORY: 1. The patient also had a PEG feeding tube placement when he was 7 years old. 2. Esophageal surgery when 7 years old. Status post [place] ingestion. SOCIAL HISTORY: Denies any history of smoking, alcohol or any drug use. Currently lives at home wi th the family. FAMILY HISTORY: No history of any cancer in the family. HOME MEDICATIONS: None. REVIEW OF SYSTEMS: The patient complains of some dysphagia, especially with liquids, some odynophag ia. Denies any chest pain, shortness of breath. Patient has been also having some cough. Denied a ny nausea, vomiting, diarrhea. Denies any hematemesis, any melena, any bright red per rectum. Leo es any focal neurological deficits. PHYSICAL EXAMINATION: VITAL SIGNS: Temperature afebrile, heart rate 76, respirations 19, blood pressure 101/63, saturatin g 96% on room air. GENERAL: The patient is awake, alert, oriented x4, does not appear to be in any acute distress. HEENT: Pupils equal, round, reactive to light. NECK: Supple. No JVD. HEART: Regular rate and rhythm. LUNGS: Clear to auscultate bilaterally. ABDOMEN: Soft, nontender. Positive bowel sounds. The patient had surgical scars. The patient has esophageal implantation just below the skin. The patient also has surgical scars from the prior fe eding tube. EXTREMITIES: No clubbing, cyanosis, or edema. NEUROLOGIC: A BMP within normal limit. BUN of 17, creatinine 0.82, albumin 3.0. White count 5.7, hemoglobin 9.8, platelet count 102. ASSESSMENT AND PLAN: Chest x-ray showed a right Port-A-Cath in satisfactory position, bibasilar ate lectasis. ASSESSMENT AND PLAN: 1. This is a 66-year-old male presenting with dysphagia, odynophagia, with a history of esophageal cancer status post chemotherapy and radiation. Patient has significant dysphagia and odynophagia. The patient had been receiving chemotherapy and radiation. It could be all due to radiation esophag itis or chemotherapy-induced. Plus, the patient has some remnant of the prior esophagus. 2. Thrombocytopenia, likely secondary to chemotherapy. PLAN: At this period of time, the patient is admitted to med/surg unit. The patient will be kept n .p.o., IV fluids, pain control, GI consultation with Dr. Queen has already been requested. The pat ient will most likely need a feeding tube. The rest of the treatment will depend on the patient's h ospitalization course. Dictated By: RENEE SINGH/SUSAN Conf#: [id number] DID#: [id number]
[2017-03-01 13:12] VITALS: BP 113/64; RESP 20
--- NOTE | 2017-03-01 13:40 | PN ---
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 #Extracorporeal esophagogastric colonic bypass # Dysphagia and odonophagia due to Radiation/chemo s/p G tube on # Pancytopenia likely secondary to chemo/radiation Recs - G tube feeding to be started today per Count Team Clerk - Home health arrangement - c/w monitor counts - Possible dc tmw Problems: Subjective 24 Hr Interval Summary Free Text/Dictation S/P PEG placement yesterday Not started on feeding yet Exam/Review of Systems Vital Signs Vitals Vital Signs Date Time Temp Pulse Resp B/P Pulse Ox O2 Delivery O2 Flow Rate FiO2 03/01/17 13:12 98.7 82 20 113/64 95 03/01/17 02:00 Room Air 02/28/17 19:31 5 Intake and Output 02/28/17 02/28/17 03/01/17 15:00 23:00 07:00 Intake Total 600 ml 515 ml Balance 600 ml 515 ml Exam Gen: Awake,alert Neck:supple CVS:Regular rate and rthym Abdomen: new G tube Skin: extracorporeal osophagus ext: no edema Results Result Diagram: 03/01/17 0449 03/01/17 0449 Results 24 hrs Laboratory Tests Test 03/01/17 04:49 White Blood Count 1.6 #L Red Blood Count 3.36 L Hemoglobin 9.6 L Hematocrit 29.3 L Mean Corpuscular Volume 87.2 Mean Corpuscular Hemoglobin 28.6 L Mean Corpuscular Hemoglobin Concent 32.8 Red Cell Distribution Width 13.7 Platelet Count 91 L Mean Platelet Volume 9.4 Neutrophils % Segmented Neutrophils % (Manual) 80 H Band Neutrophils % (Manual) 4 Lymphocytes % Lymphocytes % (Manual) 10 L Monocytes % Monocytes % (Manual) 6 Eosinophils % Basophils % Nucleated Red Blood Cells % 0.0 Neutrophils # Neutrophils # (Manual) 1.3 L Band Neutrophils # 0.0 Absolute Lymphocytes (Manual) 0.1 L Lymphocytes # Monocytes # Absolute Monocytes (Manual) 0.0 L Eosinophils # Basophils # Nucleated Red Blood Cells # Platelet Estimate DECREASED Polychromasia 3+ Poikilocytosis 1+ Anisocytosis 2+ Microcytosis 2+ Sodium Level 137 Potassium Level 3.5 Chloride Level 102 Carbon Dioxide Level 27 Anion Gap 12 Blood Urea Nitrogen 11 Creatinine 0.77 Glucose Level 139 Calcium Level 7.8 L Total Bilirubin 1.0 Direct Bilirubin 0.00 Indirect Bilirubin 1.0 Aspartate Amino Transf (AST/SGOT) 22 Alanine Aminotransferase (ALT/SGPT) 46 Alkaline Phosphatase 58 Total Protein 5.4 L Albumin 2.8 L Globulin 2.60 Albumin/Globulin Ratio 1.07 Medications Medications Current Medications Dextrose/Sodium Chloride (D5-NS) 1,000 ml @ 75 mls/hr [id number] IV Last administered on 03/01/17 03:41; Admin Dose 75 MLS/HR; Start 02/28/17 at 07:00 Pantoprazole (Protonix Iv) 40 mg DAILY@06 IV Last administered on 03/01/17 05 :36; Admin Dose 40 MG; Start 02/28/17 at 07:00 Morphine Sulfate (morphine) 2 mg Q4H PRN IV pain; Start 02/28/17 at 07:00 Acetaminophen (Tylenol Supp) 650 mg Q6H PRN [place] pain and fever; Start 02/28/17 at 07:00 Ondansetron HCl (Zofran Inj) 4 mg Q6H PRN IV NAUSEA AND/OR VOMITING; Start at 07:00 RENEE HAN MD Mar 01, 2017 13:40
--- NOTE | 2017-03-01 13:40 | PN ---
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 #Extracorporeal esophagogastric colonic bypass # Dysphagia and odonophagia due to Radiation/chemo s/p G tube on # Pancytopenia likely secondary to chemo/radiation Recs - G tube feeding to be started today per Entertainment Lawyer - Home health arrangement - c/w monitor counts - Possible dc tmw Problems: Subjective 24 Hr Interval Summary Free Text/Dictation S/P PEG placement yesterday Not started on feeding yet Exam/Review of Systems Vital Signs Vitals Vital Signs Date Time Temp Pulse Resp B/P Pulse Ox O2 Delivery O2 Flow Rate FiO2 03/01/17 13:12 98.7 82 20 113/64 95 03/01/17 02:00 Room Air 02/28/17 19:31 5 Intake and Output 02/28/17 02/28/17 03/01/17 15:00 23:00 07:00 Intake Total 600 ml 515 ml Balance 600 ml 515 ml Exam Gen: Awake,alert Neck:supple CVS:Regular rate and rthym Abdomen: new G tube Skin: extracorporeal osophagus ext: no edema Results Result Diagram: 03/01/17 0449 03/01/17 0449 Results 24 hrs Laboratory Tests Test 03/01/17 04:49 White Blood Count 1.6 #L Red Blood Count 3.36 L Hemoglobin 9.6 L Hematocrit 29.3 L Mean Corpuscular Volume 87.2 Mean Corpuscular Hemoglobin 28.6 L Mean Corpuscular Hemoglobin Concent 32.8 Red Cell Distribution Width 13.7 Platelet Count 91 L Mean Platelet Volume 9.4 Neutrophils % Segmented Neutrophils % (Manual) 80 H Band Neutrophils % (Manual) 4 Lymphocytes % Lymphocytes % (Manual) 10 L Monocytes % Monocytes % (Manual) 6 Eosinophils % Basophils % Nucleated Red Blood Cells % 0.0 Neutrophils # Neutrophils # (Manual) 1.3 L Band Neutrophils # 0.0 Absolute Lymphocytes (Manual) 0.1 L Lymphocytes # Monocytes # Absolute Monocytes (Manual) 0.0 L Eosinophils # Basophils # Nucleated Red Blood Cells # Platelet Estimate DECREASED Polychromasia 3+ Poikilocytosis 1+ Anisocytosis 2+ Microcytosis 2+ Sodium Level 137 Potassium Level 3.5 Chloride Level 102 Carbon Dioxide Level 27 Anion Gap 12 Blood Urea Nitrogen 11 Creatinine 0.77 Glucose Level 139 Calcium Level 7.8 L Total Bilirubin 1.0 Direct Bilirubin 0.00 Indirect Bilirubin 1.0 Aspartate Amino Transf (AST/SGOT) 22 Alanine Aminotransferase (ALT/SGPT) 46 Alkaline Phosphatase 58 Total Protein 5.4 L Albumin 2.8 L Globulin 2.60 Albumin/Globulin Ratio 1.07 Medications Medications Current Medications Dextrose/Sodium Chloride (D5-NS) 1,000 ml @ 75 mls/hr [id number] IV Last administered on 03/01/17 03:41; Admin Dose 75 MLS/HR; Start 02/28/17 at 07:00 Pantoprazole (Protonix Iv) 40 mg DAILY@06 IV Last administered on 03/01/17 05 :36; Admin Dose 40 MG; Start 02/28/17 at 07:00 Morphine Sulfate (morphine) 2 mg Q4H PRN IV pain; Start 02/28/17 at 07:00 Acetaminophen (Tylenol Supp) 650 mg Q6H PRN [place] pain and fever; Start 02/28/17 at 07:00 Ondansetron HCl (Zofran Inj) 4 mg Q6H PRN IV NAUSEA AND/OR VOMITING; Start at 07:00 RENEE HAN MD Mar 01, 2017 13:40
[2017-03-01] MEDS ORDERED: ACETAMINOPHEN 1000 MG/100 ML IVPB IVPB PRN (14:30)
[2017-03-01 20:00] VITALS: BP 119/66; PULSE 100; RESP 18
[2017-03-01] MEDS: ACETAMINOPHEN 650 MG SUPP PR PRN (22:37)
[2017-03-02 02:00] VITALS: BP 124/63; PULSE 99; RESP 18
[2017-03-02] MEDS: CEFTRIAXONE 1 GM/50 ML (PMX) 50 ML IVPB SCH (05:24)
[2017-03-02 07:46] VITALS: BP 108/56; RESP 18
[2017-03-02] MEDS: FAMOTIDINE 20 MG INJ IV SCH ×2 (09:33→21:26)
--- NOTE | 2017-03-02 14:18 | CONS ---
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 Extracorporeal esophagogastric colonic bypass Post uneventful PEG Plan: routine PEG care ok to use PEG for meds and tube feeds continue other supportive care per primary and other consultants Problems: Consultation Date/Type/Reason Admit Date/Time Mar 01, 2017 at 19:36 Initial Consult Date 02/28/17 Type of Consultation: GI 24 HR Interval Summary Free Text/Dictation tolerating tube feeds, no n/v Exam/Review of Systems Vital Signs Vitals Vital Signs Date Time Temp Pulse Resp B/P Pulse Ox O2 Delivery O2 Flow Rate FiO2 03/02/17 07:46 99.8 106 18 108/56 96 03/02/17 02:00 Room Air 02/28/17 19:31 5 Intake and Output 03/01/17 03/01/17 03/02/17 15:00 23:00 07:00 Intake Total 620 ml 61 ml 50 ml Balance 620 ml 61 ml 50 ml Exam Constitutional: alert, oriented, well developed Psych: nl mood/affect, no complaints Head: atraumatic, normocephalic Eyes: EOMI, nl conjunctiva, nl lids ENMT: nl external ears & nose, nl lips & teeth, nl nasal mucosa & septum Neck: non-tender, supple Respiratory: clear to auscultation, normal air movement Cardiovascular: nl pulses, regular rate and rhythm Gastrointestinal: bowel sounds, non-tender, soft Results Result Diagram: 03/02/17 0527 03/01/17 0449 Results 24 hrs Laboratory Tests Test 03/02/17 05:00 03/02/17 05:27 Urine Color YELLOW Urine Clarity CLEAR Urine pH 7.0 Urine Specific [place] 1.015 Urine Ketones NEGATIVE Urine Nitrite NEGATIVE Urine Bilirubin NEGATIVE Urine Urobilinogen 2+ H Urine Leukocyte Esterase NEGATIVE Urine Microscopic RBC 1 Urine Microscopic WBC 1 Urine Amorphous Crystals FEW A Urine Hemoglobin 2+ H Urine Glucose NEGATIVE Urine Total Protein NEGATIVE White Blood Count 0.6 #L Red Blood Count 3.84 L Hemoglobin 11.0 L Hematocrit 33.0 L Mean Corpuscular Volume 85.9 Mean Corpuscular Hemoglobin 28.6 L Mean Corpuscular Hemoglobin Concent 33.3 Red Cell Distribution Width 13.7 Platelet Count 110 #L Mean Platelet Volume 9.6 Neutrophils % Segmented Neutrophils % (Manual) 54 Band Neutrophils % (Manual) 1 Lymphocytes % Lymphocytes % (Manual) 30 Monocytes % Monocytes % (Manual) 13 H Eosinophils % Eosinophils % (Manual) 2 Basophils % Nucleated Red Blood Cells % 0.0 Neutrophils # Neutrophils # (Manual) 0.3 L Band Neutrophils # 0.0 Absolute Lymphocytes (Manual) 0.1 L Lymphocytes # Monocytes # Absolute Monocytes (Manual) 0.0 L Eosinophils # Basophils # Nucleated Red Blood Cells # Platelet Estimate DECREASED Giant Platelets 2 H Polychromasia 3+ Poikilocytosis 1+ Anisocytosis 2+ Ovalocytes 1+ Medications Medications Current Medications Morphine Sulfate (morphine) 2 mg Q4H PRN IV pain; Start 02/28/17 at 07:00 Acetaminophen (Tylenol Supp) 650 mg Q6H PRN [place] pain and fever Last administered on 03/01/17 22:37; Admin Dose 650 MG; Start 02/28/17 at 07:00 Ondansetron HCl (Zofran Inj) 4 mg Q6H PRN IV NAUSEA AND/OR VOMITING; Start at 07:00 Famotidine (Pepcid Iv) 20 mg Q12 IV Last administered on 03/02/17 09:33; Admin Dose 20 MG; Start 03/02/17 at 09:00 Acetaminophen 1000 mg 1,000 mg Q6H PRN IVPB PAIN; Start 03/01/17 at 14:30 Ceftriaxone Sodium (Rocephin) 50 ml @ 100 mls/hr Q24H IVPB Last administered on 03/02/17 05:24; Admin Dose 100 MLS/HR; Start 03/02/17 at 04:30 Filgrastim (Neupogen) 300 mcg DAILY@17 SC ; Start 03/02/17 at 17:00; Stop at 17:01 JAMESON LYN MD Mar 02, 2017 14:18
[2017-03-02 14:36] VITALS: BP 116/57; RESP 18
[2017-03-02] MEDS: ACETAMINOPHEN 650 MG SUPP PR PRN (15:46)
--- NOTE | 2017-03-02 16:54 | PN ---
Date/Time of Note Date/Time of Note DATE: 03/02/17 TIME: 16:52 Assessment/Plan VTE Prophylaxis VTE Prophylaxis Intervention: ambulation Lines/Catheters [facility] Saline [facility] Urinary Cath still in place: No Assessment/Plan Chief Complaint/Hosp Course 1. 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 Extracorporeal esophagogastric colonic bypass 3. Dysphagia and odonophagia due to Radiation/chemo s/p G tube on 4. Pancytopenia likely secondary to chemo/radiation 5. Bronchitis with sputum production Problems: Assessment/Plan 1. continue tube feeding 2. Start breathing treatment 3. Pain control Subjective 24 Hr Interval Summary Constitutional: no complaints Respiratory: cough, sputum Skin: no complaints Exam/Review of Systems Vital Signs Vitals Vital Signs Date Time Temp Pulse Resp B/P Pulse Ox O2 Delivery O2 Flow Rate FiO2 03/02/17 14:36 100.3 101 18 116/57 95 03/02/17 02:00 Room Air 02/28/17 19:31 5 Intake and Output 03/01/17 03/01/17 03/02/17 15:00 23:00 07:00 Intake Total 620 ml 61 ml 50 ml Balance 620 ml 61 ml 50 ml Exam Constitutional: alert, oriented Neck: other (scar) Cardiovascular: regular rate and rhythm Gastrointestinal: soft Genitourinary - Male: nl penis Results Result Diagram: 03/02/17 0527 03/01/17 0449 Results 24 hrs Laboratory Tests Test 03/02/17 05:00 03/02/17 05:27 Urine Color YELLOW Urine Clarity CLEAR Urine pH 7.0 Urine Specific [place] 1.015 Urine Ketones NEGATIVE Urine Nitrite NEGATIVE Urine Bilirubin NEGATIVE Urine Urobilinogen 2+ H Urine Leukocyte Esterase NEGATIVE Urine Microscopic RBC 1 Urine Microscopic WBC 1 Urine Amorphous Crystals FEW A Urine Hemoglobin 2+ H Urine Glucose NEGATIVE Urine Total Protein NEGATIVE White Blood Count 0.6 #L Red Blood Count 3.84 L Hemoglobin 11.0 L Hematocrit 33.0 L Mean Corpuscular Volume 85.9 Mean Corpuscular Hemoglobin 28.6 L Mean Corpuscular Hemoglobin Concent 33.3 Red Cell Distribution Width 13.7 Platelet Count 110 #L Mean Platelet Volume 9.6 Neutrophils % Segmented Neutrophils % (Manual) 54 Band Neutrophils % (Manual) 1 Lymphocytes % Lymphocytes % (Manual) 30 Monocytes % Monocytes % (Manual) 13 H Eosinophils % Eosinophils % (Manual) 2 Basophils % Nucleated Red Blood Cells % 0.0 Neutrophils # Neutrophils # (Manual) 0.3 L Band Neutrophils # 0.0 Absolute Lymphocytes (Manual) 0.1 L Lymphocytes # Monocytes # Absolute Monocytes (Manual) 0.0 L Eosinophils # Basophils # Nucleated Red Blood Cells # Platelet Estimate DECREASED Giant Platelets 2 H Polychromasia 3+ Poikilocytosis 1+ Anisocytosis 2+ Ovalocytes 1+ Medications Medications Current Medications Morphine Sulfate (morphine) 2 mg Q4H PRN IV pain; Start 02/28/17 at 07:00 Acetaminophen (Tylenol Supp) 650 mg Q6H PRN [place] pain and fever Last administered on 03/02/17 15:46; Admin Dose 650 MG; Start 02/28/17 at 07:00 Ondansetron HCl (Zofran Inj) 4 mg Q6H PRN IV NAUSEA AND/OR VOMITING; Start at 07:00 Famotidine (Pepcid Iv) 20 mg Q12 IV Last administered on 03/02/17 09:33; Admin Dose 20 MG; Start 03/02/17 at 09:00 Acetaminophen 1000 mg 1,000 mg Q6H PRN IVPB PAIN; Start 03/01/17 at 14:30 Ceftriaxone Sodium (Rocephin) 50 ml @ 100 mls/hr Q24H IVPB Last administered on 03/02/17 05:24; Admin Dose 100 MLS/HR; Start 03/02/17 at 04:30 Filgrastim (Neupogen) 300 mcg DAILY@17 SC ; Start 03/02/17 at 17:00; Stop at 17:01 LICO SALAS Mar 02, 2017 16:54
[2017-03-02] MEDS: ALBUTEROL/IPRATROPIUM (NEB) 3 ML AMP HHN SCH ×2 (17:00→20:46)
[2017-03-02] MEDS ORDERED: HYDROCODONE/APAP (5/325) TAB GTB PRN (17:00)
[2017-03-02] MEDS: FILGRASTIM 300 MCG INJ SC SCH (18:00)
[2017-03-02] MEDS ORDERED: VANCOMYCIN IV PER PHARMACY XX SCH (18:00)
--- NOTE | 2017-03-02 18:18 | RADRPT ---
PROCEDURE: XR Chest. CLINICAL INDICATION: Cough and fever. TECHNIQUE: Single frontal view. COMPARISON: None. FINDINGS: There is mild atelectasis at the lung bases. The lungs are otherwise clear. There is a tunneled righ t internal jugular vein implanted port central venous catheter with a week real junction region. The heart size is normal. There is no pleural effusion. There is no pneumothorax. IMPRESSION: 1. Right IJ implanted port central line in satisfactory position. 2. Mild atelectasis at the lung bases. 3. Otherwise unremarkable chest radiograph. 4. No change from 02/28/2017. RPTAT: QQ .Star José MD, MD Date Time Electronically viewed and signed by .Star José MD, MD on 03/02/2017 18:17 .R/
[2017-03-02 19:41] VITALS: BP 113/67; RESP 20
[2017-03-02] MEDS ORDERED: VANCOMYCIN 1.25 GM in SOD CHLORIDE 0.9% 250 ML IVPB SCH (20:30)
[2017-03-03] MEDS: ALBUTEROL/IPRATROPIUM (NEB) 3 ML AMP HHN SCH ×6 (01:41→20:10)
[2017-03-03 02:26] VITALS: BP 112/55; RESP 20
[2017-03-03] MEDS: CEFTRIAXONE 1 GM/50 ML (PMX) 50 ML IVPB SCH (04:14)
[2017-03-03 07:41] VITALS: BP 117/60; RESP 18
[2017-03-03] MEDS: FAMOTIDINE 20 MG INJ IV SCH ×2 (08:12→20:58)
[2017-03-03] MEDS: VANCOMYCIN 750 MG in SOD CHLORIDE 0.9% 150 ML IVPB SCH ×2 (09:52→20:59)
--- NOTE | 2017-03-03 13:02 | PN ---
Date/Time of Note Date/Time of Note DATE: 03/03/17 TIME: 13:00 Assessment/Plan VTE Prophylaxis VTE Prophylaxis Intervention: SCD's Lines/Catheters IV [facility]from [facility] Saline [facility] Urinary Cath still in place: No Assessment/Plan Chief Complaint/Hosp Course 1. 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 Extracorporeal esophagogastric colonic bypass 3. Dysphagia and odonophagia due to Radiation/chemo s/p G tube on 4. Pancytopenia likely secondary to chemo/radiation 5. Bronchitis with sputum production Problems: Assessment/Plan 1. continue breathing treatment 2.continue neutropenic precaution 3. continue a/b Subjective 24 Hr Interval Summary Constitutional: improved, no complaints Respiratory: cough, no complaints, other, pain, pleuritic pain, shortness of breath, sputum, wheezing Gastrointestinal: no complaints Exam/Review of Systems Vital Signs Vitals Vital Signs Date Time Temp Pulse Resp B/P Pulse Ox O2 Delivery O2 Flow Rate FiO2 03/03/17 09:48 98 20 98 21 03/03/17 07:41 100.4 117/60 03/02/17 02:00 Room Air 02/28/17 19:31 5 Intake and Output 03/02/17 03/02/17 03/03/17 15:00 23:00 07:00 Intake Total 660 ml 700 ml 1200 ml Balance 660 ml 700 ml 1200 ml Exam Constitutional: alert, oriented Head: atraumatic, normocephalic Eyes: nl conjunctiva Respiratory: congested cough, crackles/rales, diminished breath sounds Cardiovascular: regular rate and rhythm Results Result Diagram: 03/03/17 0600 03/03/17 0559 Results 24 hrs Laboratory Tests Test 03/03/17 05:59 03/03/17 06:00 Sodium Level 137 Potassium Level 3.5 Chloride Level 103 Carbon Dioxide Level 28 Anion Gap 10 Blood Urea Nitrogen 13 Creatinine 0.75 Glucose Level 161 Lactic Acid Level 1.1 Calcium Level 8.1 L White Blood Count 0.2 #L Red Blood Count 3.18 L Hemoglobin 9.0 L Hematocrit 26.9 L Mean Corpuscular Volume 84.6 Mean Corpuscular Hemoglobin 28.3 L Mean Corpuscular Hemoglobin Concent 33.5 Red Cell Distribution Width 13.7 Platelet Count 77 #L Mean Platelet Volume 10.0 Neutrophils % Segmented Neutrophils % (Manual) 19 L Band Neutrophils % (Manual) 4 Lymphocytes % Lymphocytes % (Manual) 59 H Reactive Lymphocytes % (Manual) 2 H Monocytes % Monocytes % (Manual) 14 H Eosinophils % Eosinophils % (Manual) 1 Basophils % Basophils % (Manual) 1 Myelocytes % (Manual) 1 H Nucleated Red Blood Cells % 1 H Neutrophils # Neutrophils # (Manual) 0.0 L Band Neutrophils # 0.0 Absolute Lymphocytes (Manual) 0.1 L Lymphocytes # Reactive Lymphocytes # 0.0 Monocytes # Absolute Monocytes (Manual) 0.0 L Eosinophils # Basophils # Basophils # (Manual) 0.0 Myelocytes # 0.0 Nucleated Red Blood Cells # Platelet Estimate DECREASED Giant Platelets 1 H Polychromasia 1+ Poikilocytosis 1+ Anisocytosis 3+ Microcytosis 3+ Medications Medications Current Medications Morphine Sulfate (morphine) 2 mg Q4H PRN IV pain; Start 02/28/17 at 07:00 Acetaminophen (Tylenol Supp) 650 mg Q6H PRN [place] pain and fever Last administered on 03/02/17 15:46; Admin Dose 650 MG; Start 02/28/17 at 07:00 Ondansetron HCl (Zofran Inj) 4 mg Q6H PRN IV NAUSEA AND/OR VOMITING; Start at 07:00 Famotidine (Pepcid Iv) 20 mg Q12 IV Last administered on 03/03/17 08:12; Admin Dose 20 MG; Start 03/02/17 at 09:00 Acetaminophen 1000 mg 1,000 mg Q6H PRN IVPB PAIN; Start 03/01/17 at 14:30 Ceftriaxone Sodium (Rocephin) 50 ml @ 100 mls/hr Q24H IVPB Last administered on 03/03/17 04:14; Admin Dose 100 MLS/HR; Start 03/02/17 at 04:30 Filgrastim (Neupogen) 300 mcg DAILY@17 SC Last administered on 03/02/17 18:00 ; Admin Dose 300 MCG; Start 03/02/17 at 17:00; Stop 03/06/17 at 17:01 Acetaminophen/ Hydrocodone Bitart 1 tab 1 tab Q6 PRN GTB MODERATE PAIN LEVEL 4- 6; Start 03/02/17 at 17:00 Vancomycin HCl/ Sodium Chloride (Vancocin/NS) 150 ml @ 75 mls/hr Q12H IVPB Last administered on 03/03/17t 09:52; Admin Dose 75 MLS/HR; Start 03/03/17 at 09:30 LICO SALAS Mar 03, 2017 13:02
[2017-03-03 14:00] VITALS: BP 117/66; RESP 18
[2017-03-03] MEDS: FILGRASTIM 300 MCG INJ SC SCH (16:42)
--- NOTE | 2017-03-03 18:45 | CONS ---
Date/Time of Note Date/Time of Note DATE: 03/03/17 TIME: 18:15 Assessment/Plan Assessment/Plan Chief Complaint/Hosp Course 65 yo with #Cervical Esophageal Squamous Cell Carcinoma - s/p 10 fractions of XRT and 2 doses of Carboplatin/ Taxol last given on - once patient acute issues resolve patient will resume treatment with radiation and chemotherapy. #Radiation Esophagitis -s/p PEG placement -continue tube feedings #Neutropenic fevers -UA with GNR -continue Broad spectrum antibiotics -continue Neupogen at least until ANC > 1000 #Bronchitis -continue breathing treatments Problems: Consultation Date/Type/Reason Admit Date/Time Mar 01, 2017 at 19:36 Date of Consultation: Mar 04, 2017 Type of Consultation: oncology Reason for Consultation esophageal cancer Referring Provider: KATHERINE ELDER of Present Illness 66-year-old with a recent diagnosis of esophageal cancer, currently being treated by Dr Mariano in [place]. PT initally presented with 3 mo of progressive cough and fullness in the upper chest. Pt has a significant past medical history other than esophageal stricture status post chemical ingestion at age 7 and underwent Extracorporeal esophagogastric colonic bypass. The patient was referred to a maintenance carpenter , he underwent a formal upper endoscopy, he was found demonstrate evidence of partial obstruction in the upper third of the esophagus, biopsy was consistent with squamous cell carcinoma. Pt awad since started concurrent chemotherapy with radiation. Cyce 1 was given on 02/05 and cycle 2 on 02/26. He has received 10 doses of radiation. Pt presented on 02/28 with tightness in his chest and inability to tolerate po' s including water. Pt has since been evaluated by GI and had a PEG placed on . Pt has since developed Thrombocytopenia including severe neutropenia. Pt is now on broad spectrum antibiotics including vancomycin and ceftriaxone for neutropenic fever. Urine culture is positive for GNR. We have been consulted to assist with management of this patient. Constitutional: improved, no complaints Eyes: no complaints ENT: dysphagia Respiratory: cough, no complaints, other, pain, pleuritic pain, shortness of breath, sputum, wheezing Cardiovascular: no complaints Gastrointestinal: no complaints Genitourinary: no complaints Musculoskeletal: no complaints Skin: no complaints Psychological: nl mood/affect, no complaints Past Medical History Medical History: no pertinent history, cancer (Esophageal) Past Surgical History s/p transposition of colon at 7 years old Family History Significant Family History: no pertinent family hx Social History Alcohol Use: none Smoking Status: Never smoker Drug Use: none Exam/Review of Systems Vital Signs Vitals Vital Signs Date Time Temp Pulse Resp B/P Pulse Ox O2 Delivery O2 Flow Rate FiO2 03/03/17 17:30 95 20 97 21 03/03/17 14:00 99.1 117/66 03/02/17 02:00 Room Air 02/28/17 19:31 5 Intake and Output 03/02/17 03/02/17 03/03/17 15:00 23:00 07:00 Intake Total 660 ml 700 ml 1200 ml Balance 660 ml 700 ml 1200 ml Exam Constitutional: alert, frail, oriented Psych: no complaints Head: normocephalic Eyes: nl conjunctiva ENMT: nl external ears & nose Neck: non-tender, supple Respiratory: clear to auscultation Cardiovascular: nl pulses, regular rate and rhythm Gastrointestinal: other (PEG in place) Musculoskeletal: nl extremities to inspection Extremities: normal pulses Neurological: PHYSICIAN ASSISTANT SURGERY II-XII intact Results Result Diagram: 03/03/17 0600 03/03/17 0559 Results 24 hrs Laboratory Tests Test 03/03/17 05:59 03/03/17 06:00 Sodium Level 137 Potassium Level 3.5 Chloride Level 103 Carbon Dioxide Level 28 Anion Gap 10 Blood Urea Nitrogen 13 Creatinine 0.75 Glucose Level 161 Lactic Acid Level 1.1 Calcium Level 8.1 L White Blood Count 0.2 #L Red Blood Count 3.18 L Hemoglobin 9.0 L Hematocrit 26.9 L Mean Corpuscular Volume 84.6 Mean Corpuscular Hemoglobin 28.3 L Mean Corpuscular Hemoglobin Concent 33.5 Red Cell Distribution Width 13.7 Platelet Count 77 #L Mean Platelet Volume 10.0 Neutrophils % Segmented Neutrophils % (Manual) 19 L Band Neutrophils % (Manual) 4 Lymphocytes % Lymphocytes % (Manual) 59 H Reactive Lymphocytes % (Manual) 2 H Monocytes % Monocytes % (Manual) 14 H Eosinophils % Eosinophils % (Manual) 1 Basophils % Basophils % (Manual) 1 Myelocytes % (Manual) 1 H Nucleated Red Blood Cells % 1 H Neutrophils # Neutrophils # (Manual) 0.0 L Band Neutrophils # 0.0 Absolute Lymphocytes (Manual) 0.1 L Lymphocytes # Reactive Lymphocytes # 0.0 Monocytes # Absolute Monocytes (Manual) 0.0 L Eosinophils # Basophils # Basophils # (Manual) 0.0 Myelocytes # 0.0 Nucleated Red Blood Cells # Platelet Estimate DECREASED Giant Platelets 1 H Polychromasia 1+ Poikilocytosis 1+ Anisocytosis 3+ Microcytosis 3+ Medications Medications Current Medications Morphine Sulfate (morphine) 2 mg Q4H PRN IV pain; Start 02/28/17 at 07:00 Acetaminophen (Tylenol Supp) 650 mg Q6H PRN [place] pain and fever Last administered on 03/02/17 15:46; Admin Dose 650 MG; Start 02/28/17 at 07:00 Ondansetron HCl (Zofran Inj) 4 mg Q6H PRN IV NAUSEA AND/OR VOMITING; Start at 07:00 Famotidine (Pepcid Iv) 20 mg Q12 IV Last administered on 03/03/17 08:12; Admin Dose 20 MG; Start 03/02/17 at 09:00 Acetaminophen 1000 mg 1,000 mg Q6H PRN IVPB PAIN; Start 03/01/17 at 14:30 Ceftriaxone Sodium (Rocephin) 50 ml @ 100 mls/hr Q24H IVPB Last administered on 03/03/17 04:14; Admin Dose 100 MLS/HR; Start 03/02/17 at 04:30 Filgrastim (Neupogen) 300 mcg DAILY@17 SC Last administered on 03/03/17 16:42 ; Admin Dose 300 MCG; Start 03/02/17 at 17:00; Stop 03/06/17 at 17:01 Acetaminophen/ Hydrocodone Bitart 1 tab 1 tab Q6 PRN GTB MODERATE PAIN LEVEL 4- 6; Start 03/02/17 at 17:00 Vancomycin HCl/ Sodium Chloride (Vancocin/NS) 150 ml @ 75 mls/hr Q12H IVPB Last administered on 03/03/17 09:52; Admin Dose 75 MLS/HR; Start 03/03/17 at 09:30 Miscellaneous Information (*Rx Drug Level Order Reminder*) VANCO TROUGH @ 0, 830 ON ... ONCE ONCE XX ; Start 03/04/17 at 08:30; Stop 03/04/17 at 08:31 ROSEMARY TOLENTINO M.D. Mar 03, 2017 18:25
[2017-03-03 20:53] VITALS: BP 137/65; RESP 18
--- NOTE | 2017-03-03 22:13 | CONS ---
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 Queen to resume care of this patient tomorrow. Problems: Consultation Date/Type/Reason Admit Date/Time Mar 01, 2017 at 19:36 Initial Consult Date 02/28/17 Type of Consultation: GI Referring Provider: KATHERINE ELDER MD 24 HR Interval Summary Free Text/Dictation tolerates tube feeds, no n/v Exam/Review of Systems Vital Signs Vitals Vital Signs Date Time Temp Pulse Resp B/P Pulse Ox O2 Delivery O2 Flow Rate FiO2 03/03/17 20:53 98.6 125 18 137/65 95 03/03/17 20:11 21 03/02/17 02:00 Room Air 02/28/17 19:31 5 Intake and Output 03/02/17 03/02/17 03/03/17 15:00 23:00 07:00 Intake Total 660 ml 700 ml 1200 ml Balance 660 ml 700 ml 1200 ml Exam Constitutional: alert, oriented, well developed Psych: nl mood/affect, no complaints Head: atraumatic, normocephalic Eyes: EOMI, nl conjunctiva, nl lids ENMT: nl external ears & nose, nl lips & teeth, nl nasal mucosa & septum Neck: non-tender, supple Respiratory: clear to auscultation, normal air movement Cardiovascular: nl pulses, regular rate and rhythm Gastrointestinal: bowel sounds, non-tender, other (PEG c/d/i), soft Results Result Diagram: 03/03/17 0600 03/03/17 0559 Results 24 hrs Laboratory Tests Test 03/03/17 05:59 03/03/17 06:00 Sodium Level 137 Potassium Level 3.5 Chloride Level 103 Carbon Dioxide Level 28 Anion Gap 10 Blood Urea Nitrogen 13 Creatinine 0.75 Glucose Level 161 Lactic Acid Level 1.1 Calcium Level 8.1 L White Blood Count 0.2 #L Red Blood Count 3.18 L Hemoglobin 9.0 L Hematocrit 26.9 L Mean Corpuscular Volume 84.6 Mean Corpuscular Hemoglobin 28.3 L Mean Corpuscular Hemoglobin Concent 33.5 Red Cell Distribution Width 13.7 Platelet Count 77 #L Mean Platelet Volume 10.0 Neutrophils % Segmented Neutrophils % (Manual) 19 L Band Neutrophils % (Manual) 4 Lymphocytes % Lymphocytes % (Manual) 59 H Reactive Lymphocytes % (Manual) 2 H Monocytes % Monocytes % (Manual) 14 H Eosinophils % Eosinophils % (Manual) 1 Basophils % Basophils % (Manual) 1 Myelocytes % (Manual) 1 H Nucleated Red Blood Cells % 1 H Neutrophils # Neutrophils # (Manual) 0.0 L Band Neutrophils # 0.0 Absolute Lymphocytes (Manual) 0.1 L Lymphocytes # Reactive Lymphocytes # 0.0 Monocytes # Absolute Monocytes (Manual) 0.0 L Eosinophils # Basophils # Basophils # (Manual) 0.0 Myelocytes # 0.0 Nucleated Red Blood Cells # Platelet Estimate DECREASED Giant Platelets 1 H Polychromasia 1+ Poikilocytosis 1+ Anisocytosis 3+ Microcytosis 3+ Medications Medications Current Medications Morphine Sulfate (morphine) 2 mg Q4H PRN IV pain; Start 02/28/17 at 07:00 Acetaminophen (Tylenol Supp) 650 mg Q6H PRN [place] pain and fever Last administered on 03/02/17 15:46; Admin Dose 650 MG; Start 02/28/17 at 07:00 Ondansetron HCl (Zofran Inj) 4 mg Q6H PRN IV NAUSEA AND/OR VOMITING; Start at 07:00 Famotidine (Pepcid Iv) 20 mg Q12 IV Last administered on 03/03/17 20:58; Admin Dose 20 MG; Start 03/02/17 at 09:00 Acetaminophen 1000 mg 1,000 mg Q6H PRN IVPB PAIN; Start 03/01/17 at 14:30 Ceftriaxone Sodium (Rocephin) 50 ml @ 100 mls/hr Q24H IVPB Last administered on 03/03/17 04:14; Admin Dose 100 MLS/HR; Start 03/02/17 at 04:30 Filgrastim (Neupogen) 300 mcg DAILY@17 SC Last administered on 03/03/17 16:42 ; Admin Dose 300 MCG; Start 03/02/17 at 17:00; Stop 03/06/17 at 17:01 Acetaminophen/ Hydrocodone Bitart 1 tab 1 tab Q6 PRN GTB MODERATE PAIN LEVEL 4- 6; Start 03/02/17 at 17:00 Vancomycin HCl/ Sodium Chloride (Vancocin/NS) 150 ml @ 75 mls/hr Q12H IVPB Last administered on 03/03/17t 20:59; Admin Dose 75 MLS/HR; Start 03/03/17 at 09:30 Miscellaneous Information (*Rx Drug Level Order Reminder*) VANCO TROUGH @ 0, 830 ON ... ONCE ONCE XX ; Start 03/04/17 at 08:30; Stop 03/04/17 at 08:31 JAMESON LYN MD Mar 03, 2017 22:13
[2017-03-04] MEDS: ALBUTEROL/IPRATROPIUM (NEB) 3 ML AMP HHN SCH ×6 (00:20→21:21)
[2017-03-04 02:42] VITALS: BP 114/67; RESP 18
[2017-03-04] MEDS: CEFTRIAXONE 1 GM/50 ML (PMX) 50 ML IVPB SCH (05:03)
[2017-03-04 07:19] VITALS: BP 119/74; RESP 20
[2017-03-04] MEDS: VANCOMYCIN 750 MG in SOD CHLORIDE 0.9% 150 ML IVPB SCH (09:44)
--- NOTE | 2017-03-04 11:36 | PN ---
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 Queen Subjective: Course reviewed with nursing staff Patient interviewed and examined All labs, imaging and other results reviewed The patient c/o diarrhea x2 days, denies BRBPR stool for c-diff sent in and is currently pending. Patient started on antibiotic therapy, will need to consider changing TF if c-diff in negative. Problems: Exam/Review of Systems Vital Signs Vitals Vital Signs Date Time Temp Pulse Resp B/P Pulse Ox O2 Delivery O2 Flow Rate FiO2 03/04/17 10:07 98 20 98 21 03/04/17 07:19 98.0 119/74 03/02/17 02:00 Room Air 02/28/17 19:31 5 Intake and Output 03/03/17 03/03/17 03/04/17 15:00 23:00 07:00 Intake Total 150 ml 850 ml 1130 ml Balance 150 ml 850 ml 1130 ml Results Result Diagram: 03/04/17 0836 03/03/17 0559 Results 24 hrs Laboratory Tests Test 03/04/17 08:36 White Blood Count 0.4 #L Red Blood Count 3.69 L Hemoglobin 10.6 L Hematocrit 31.2 L Mean Corpuscular Volume 84.6 Mean Corpuscular Hemoglobin 28.7 L Mean Corpuscular Hemoglobin Concent 34.0 Red Cell Distribution Width 13.7 Platelet Count 98 #L Mean Platelet Volume 10.2 Neutrophils % Segmented Neutrophils % (Manual) 22 L Band Neutrophils % (Manual) 2 Lymphocytes % Lymphocytes % (Manual) 66 H Reactive Lymphocytes % (Manual) 1 H Monocytes % Monocytes % (Manual) 9 Eosinophils % Basophils % Nucleated Red Blood Cells % 0.0 Neutrophils # Neutrophils # (Manual) 0.1 L Band Neutrophils # 0.0 Absolute Lymphocytes (Manual) 0.2 L Lymphocytes # 0.3 L Reactive Lymphocytes # 0.0 Monocytes # 0.0 L Absolute Monocytes (Manual) 0.0 L Eosinophils # Basophils # Nucleated Red Blood Cells # Vancomycin Level Trough < 5.0 L Medications Medications Current Medications Morphine Sulfate (morphine) 2 mg Q4H PRN IV pain; Start 02/28/17 at 07:00 Acetaminophen (Tylenol Supp) 650 mg Q6H PRN [place] pain and fever Last administered on 03/02/17 15:46; Admin Dose 650 MG; Start 02/28/17 at 07:00 Ondansetron HCl (Zofran Inj) 4 mg Q6H PRN IV NAUSEA AND/OR VOMITING; Start at 07:00 Acetaminophen 1000 mg 1,000 mg Q6H PRN IVPB PAIN; Start 03/01/17 at 14:30 Ceftriaxone Sodium (Rocephin) 50 ml @ 100 mls/hr Q24H IVPB Last administered on 03/04/17 05:03; Admin Dose 100 MLS/HR; Start 03/02/17 at 04:30 Filgrastim (Neupogen) 300 mcg DAILY@17 SC Last administered on 03/03/17 16:42 ; Admin Dose 300 MCG; Start 03/02/17 at 17:00; Stop 03/06/17 at 17:01 Acetaminophen/ Hydrocodone Bitart 1 tab 1 tab Q6 PRN GTB MODERATE PAIN LEVEL 4- 6; Start 03/02/17 at 17:00 Vancomycin HCl/ Sodium Chloride (Vancocin/NS) 150 ml @ 75 mls/hr Q12H IVPB Last administered on 03/04/17 09:44; Admin Dose 75 MLS/HR; Start 03/03/17 at 09:30 Famotidine 20 mg 20 mg Q12 PEG ; Start 03/04/17 at 21:00 Sodium Chloride (NS) 1,000 ml @ 75 mls/hr [id number] IV ; Start 03/04/17 at 11:30 RASTA HUGHES Mar 04, 2017 11:36
--- NOTE | 2017-03-04 11:36 | PN ---
Date/Time of Note Date/Time of Note DATE: 03/04/17 TIME: 11:33 Assessment/Plan VTE Prophylaxis VTE Prophylaxis Intervention: SCD's Lines/Catheters 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 Queen Subjective: Course reviewed with nursing staff Patient interviewed and examined All labs, imaging and other results reviewed The patient c/o diarrhea x2 days, denies BRBPR stool for c-diff sent in and is currently pending. Patient started on antibiotic therapy, will need to consider changing TF if c-diff in negative. Problems: Exam/Review of Systems Vital Signs Vitals Vital Signs Date Time Temp Pulse Resp B/P Pulse Ox O2 Delivery O2 Flow Rate FiO2 03/04/17 10:07 98 20 98 21 03/04/17 07:19 98.0 119/74 03/02/17 02:00 Room Air 02/28/17 19:31 5 Intake and Output 03/03/17 03/03/17 03/04/17 15:00 23:00 07:00 Intake Total 150 ml 850 ml 1130 ml Balance 150 ml 850 ml 1130 ml Results Result Diagram: 03/04/17 0836 03/03/17 0559 Results 24 hrs Laboratory Tests Test 03/04/17 08:36 White Blood Count 0.4 #L Red Blood Count 3.69 L Hemoglobin 10.6 L Hematocrit 31.2 L Mean Corpuscular Volume 84.6 Mean Corpuscular Hemoglobin 28.7 L Mean Corpuscular Hemoglobin Concent 34.0 Red Cell Distribution Width 13.7 Platelet Count 98 #L Mean Platelet Volume 10.2 Neutrophils % Segmented Neutrophils % (Manual) 22 L Band Neutrophils % (Manual) 2 Lymphocytes % Lymphocytes % (Manual) 66 H Reactive Lymphocytes % (Manual) 1 H Monocytes % Monocytes % (Manual) 9 Eosinophils % Basophils % Nucleated Red Blood Cells % 0.0 Neutrophils # Neutrophils # (Manual) 0.1 L Band Neutrophils # 0.0 Absolute Lymphocytes (Manual) 0.2 L Lymphocytes # 0.3 L Reactive Lymphocytes # 0.0 Monocytes # 0.0 L Absolute Monocytes (Manual) 0.0 L Eosinophils # Basophils # Nucleated Red Blood Cells # Vancomycin Level Trough < 5.0 L Medications Medications Current Medications Morphine Sulfate (morphine) 2 mg Q4H PRN IV pain; Start 02/28/17 at 07:00 Acetaminophen (Tylenol Supp) 650 mg Q6H PRN [place] pain and fever Last administered on 03/02/17 15:46; Admin Dose 650 MG; Start 02/28/17 at 07:00 Ondansetron HCl (Zofran Inj) 4 mg Q6H PRN IV NAUSEA AND/OR VOMITING; Start at 07:00 Acetaminophen 1000 mg 1,000 mg Q6H PRN IVPB PAIN; Start 03/01/17 at 14:30 Ceftriaxone Sodium (Rocephin) 50 ml @ 100 mls/hr Q24H IVPB Last administered on 03/04/17 05:03; Admin Dose 100 MLS/HR; Start 03/02/17 at 04:30 Filgrastim (Neupogen) 300 mcg DAILY@17 SC Last administered on 03/03/17 16:42 ; Admin Dose 300 MCG; Start 03/02/17 at 17:00; Stop 03/06/17 at 17:01 Acetaminophen/ Hydrocodone Bitart 1 tab 1 tab Q6 PRN GTB MODERATE PAIN LEVEL 4- 6; Start 03/02/17 at 17:00 Vancomycin HCl/ Sodium Chloride (Vancocin/NS) 150 ml @ 75 mls/hr Q12H IVPB Last administered on 03/04/17 09:44; Admin Dose 75 MLS/HR; Start 03/03/17 at 09:30 Famotidine 20 mg 20 mg Q12 PEG ; Start 03/04/17 at 21:00 Sodium Chloride (NS) 1,000 ml @ 75 mls/hr [id number] IV ; Start 03/04/17 at 11:30 RASTA HUGHES Mar 04, 2017 11:36
--- NOTE | 2017-03-04 11:40 | PN ---
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 s/p 10 fractions of XRT and 2 doses of Carboplatin/ Taxol last given on 02/25/17 #Extracorporeal esophagogastric colonic bypass # Dysphagia and odonophagia due to Radiation/chemo s/p G tube on # Pancytopenia likely secondary to chemo/radiation # Bronchitis # Diarrhoea r/o Cdiff/chemo induced/ tube feeding # Neutropenic fevers with Enterbacter UTI/ Bronchitis and now diarrhoea Recs - Spoke to Dr Retana, hold chemo for tmw as pt is neutropenic - c/w Neupogen - Pending C diff, start on iv fluids for diarrhoea - Nebs - c/w Vancomycin and Rocephin - c/w Isolation - GI/DVT prophylaxsis - Will consider switching TF formula id diarrhoea is non infectious/ not chemo induced Problems: Subjective 24 Hr Interval Summary Free Text/Dictation Pt having diarrhoea since last night had 1 episode last night , 5 episodes this am Feels weak, tired Exam/Review of Systems Vital Signs Vitals Vital Signs Date Time Temp Pulse Resp B/P Pulse Ox O2 Delivery O2 Flow Rate FiO2 03/04/17 10:07 98 20 98 21 03/04/17 07:19 98.0 119/74 03/02/17 02:00 Room Air 02/28/17 19:31 5 Intake and Output 03/03/17 03/03/17 03/04/17 15:00 23:00 07:00 Intake Total 150 ml 850 ml 1130 ml Balance 150 ml 850 ml 1130 ml Exam Constitutional: alert, oriented Head: atraumatic, normocephalic Eyes: nl conjunctiva Respiratory: congested cough, crackles/rales, diminished breath sounds Cardiovascular: regular rate and rhythm Results Result Diagram: 03/04/17 0836 03/03/17 0559 Results 24 hrs Laboratory Tests Test 03/04/17 08:36 White Blood Count 0.4 #L Red Blood Count 3.69 L Hemoglobin 10.6 L Hematocrit 31.2 L Mean Corpuscular Volume 84.6 Mean Corpuscular Hemoglobin 28.7 L Mean Corpuscular Hemoglobin Concent 34.0 Red Cell Distribution Width 13.7 Platelet Count 98 #L Mean Platelet Volume 10.2 Neutrophils % Segmented Neutrophils % (Manual) 22 L Band Neutrophils % (Manual) 2 Lymphocytes % Lymphocytes % (Manual) 66 H Reactive Lymphocytes % (Manual) 1 H Monocytes % Monocytes % (Manual) 9 Eosinophils % Basophils % Nucleated Red Blood Cells % 0.0 Neutrophils # Neutrophils # (Manual) 0.1 L Band Neutrophils # 0.0 Absolute Lymphocytes (Manual) 0.2 L Lymphocytes # 0.3 L Reactive Lymphocytes # 0.0 Monocytes # 0.0 L Absolute Monocytes (Manual) 0.0 L Eosinophils # Basophils # Nucleated Red Blood Cells # Vancomycin Level Trough < 5.0 L Medications Medications Current Medications Morphine Sulfate (morphine) 2 mg Q4H PRN IV pain; Start 02/28/17 at 07:00 Acetaminophen (Tylenol Supp) 650 mg Q6H PRN [place] pain and fever Last administered on 03/02/17 15:46; Admin Dose 650 MG; Start 02/28/17 at 07:00 Ondansetron HCl (Zofran Inj) 4 mg Q6H PRN IV NAUSEA AND/OR VOMITING; Start at 07:00 Acetaminophen 1000 mg 1,000 mg Q6H PRN IVPB PAIN; Start 03/01/17 at 14:30 Ceftriaxone Sodium (Rocephin) 50 ml @ 100 mls/hr Q24H IVPB Last administered on 03/04/17 05:03; Admin Dose 100 MLS/HR; Start 03/02/17 at 04:30 Filgrastim (Neupogen) 300 mcg DAILY@17 SC Last administered on 03/03/17 16:42 ; Admin Dose 300 MCG; Start 03/02/17 at 17:00; Stop 03/06/17 at 17:01 Acetaminophen/ Hydrocodone Bitart 1 tab 1 tab Q6 PRN GTB MODERATE PAIN LEVEL 4- 6; Start 03/02/17 at 17:00 Vancomycin HCl/ Sodium Chloride (Vancocin/NS) 150 ml @ 75 mls/hr Q12H IVPB Last administered on 03/04/17 09:44; Admin Dose 75 MLS/HR; Start 03/03/17 at 09:30 Famotidine (Pepcid) 20 mg Q12 PEG ; Start 03/04/17 at 21:00 RENEE HAN MD Mar 04, 2017 11:40
[2017-03-04] MEDS: SOD CHLORIDE 0.9% 1,000 ML IV SCH (12:25)
[2017-03-04 12:57] VITALS: BP 132/75; RESP 20
[2017-03-04] MEDS ORDERED: LOPERAMIDE LIQUID CUP 1 MG/5 ML CUP GTB PRN (16:30)
[2017-03-04] MEDS: FILGRASTIM 300 MCG INJ SC SCH (17:00)
[2017-03-04] MEDS: VANCOMYCIN 1 GM in NS 250 ML IVPB SCH (18:41)
[2017-03-04 20:35] VITALS: BP 130/68; RESP 20
[2017-03-04] MEDS: CEFEPIME 1GM/50 ML (PMX) 50 ML IVPB SCH (20:56)
[2017-03-04] MEDS: FAMOTIDINE 20 MG TAB PEG SCH (20:56)
[2017-03-05] MEDS: SOD CHLORIDE 0.9% 1,000 ML IV SCH ×3 (00:34→14:10)
[2017-03-05] MEDS: ALBUTEROL/IPRATROPIUM (NEB) 3 ML AMP HHN SCH ×6 (01:16→20:17)
[2017-03-05] MEDS: VANCOMYCIN 1 GM in NS 250 ML IVPB SCH ×2 (01:45→09:45)
[2017-03-05 02:30] VITALS: BP 125/63; RESP 20
[2017-03-05 07:28] VITALS: BP 118/68; RESP 19
[2017-03-05] MEDS: CEFEPIME 1GM/50 ML (PMX) 50 ML IVPB SCH ×2 (08:33→20:49)
[2017-03-05] MEDS: FAMOTIDINE 20 MG TAB PEG SCH ×2 (08:35→20:49)
--- NOTE | 2017-03-05 10:48 | PN ---
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 s/p 10 fractions of XRT and 2 doses of Carboplatin/ Taxol last given on 02/25/17 #Extracorporeal esophagogastric colonic bypass # Dysphagia and odonophagia due to Radiation/chemo s/p G tube on # Pancytopenia likely secondary to chemo/radiation # Bronchitis resolving # Diarrhoea r/o Cdiff/chemo induced/ tube feeding # Neutropenic fevers with Enterbacter UTI/ Bronchitis and now diarrhoea Recs - Counts improving WBC 1.8, - Talking to GI regarding TF as still residuals - C diff negative - c/w gentle iv fluids total 1 L - d/c vancomycin - c/w Cefepime - GI/DVT prophylaxsis - Will consider switching TF formula id diarrhoea is non infectious/ not chemo induced Problems: Subjective 24 Hr Interval Summary Free Text/Dictation Feels little better No bm today Still having lot of residuals Exam/Review of Systems Vital Signs Vitals Vital Signs Date Time Temp Pulse Resp B/P Pulse Ox O2 Delivery O2 Flow Rate FiO2 03/05/17 09:08 100 21 03/05/17 09:02 114 20 03/05/17 07:28 98.6 118/68 03/02/17 02:00 Room Air Intake and Output 03/04/17 03/04/17 03/05/17 14:59 22:59 06:59 Intake Total 150 ml 1375 ml 1775 ml Balance 150 ml 1375 ml 1775 ml Exam Constitutional: alert, oriented Head: atraumatic, normocephalic Eyes: nl conjunctiva Respiratory: congested cough, diminished breath sounds Cardiovascular: regular rate and rhythm Results Result Diagram: 03/05/17 0609 03/05/17 0609 Results 24 hrs Laboratory Tests Test 03/05/17 06:09 White Blood Count 1.8 #L Red Blood Count 3.49 L Hemoglobin 9.7 L Hematocrit 30.2 L Mean Corpuscular Volume 86.5 Mean Corpuscular Hemoglobin 27.8 L Mean Corpuscular Hemoglobin Concent 32.1 Red Cell Distribution Width 14.8 H Platelet Count 126 #L Mean Platelet Volume 10.2 Neutrophils % Lymphocytes % Monocytes % Eosinophils % Basophils % Nucleated Red Blood Cells % 1.1 H Neutrophils # Lymphocytes # Monocytes # Eosinophils # Basophils # Nucleated Red Blood Cells # Sodium Level 141 Potassium Level 3.8 Chloride Level 106 Carbon Dioxide Level 28 Anion Gap 11 Blood Urea Nitrogen 19 Creatinine 0.84 Glucose Level 182 Calcium Level 8.7 Phosphorus Level 2.5 Magnesium Level 1.9 Medications Medications Current Medications Morphine Sulfate (morphine) 2 mg Q4H PRN IV pain; Start 02/28/17 at 07:00 Acetaminophen (Tylenol Supp) 650 mg Q6H PRN [place] pain and fever Last administered on 03/02/17 15:46; Admin Dose 650 MG; Start 02/28/17 at 07:00 Ondansetron HCl (Zofran Inj) 4 mg Q6H PRN IV NAUSEA AND/OR VOMITING; Start at 07:00 Acetaminophen (Ofirmev 1000mg/ 100ml Iv) 1,000 mg Q6H PRN IVPB PAIN; Start at 14:30 Filgrastim (Neupogen) 300 mcg DAILY@17 SC Last administered on 03/04/17 17:00 ; Admin Dose 300 MCG; Start 03/02/17 at 17:00; Stop 03/06/17 at 17:01 Acetaminophen/ Hydrocodone Bitart ([place] (5/325)) 1 tab Q6 PRN GTB MODERATE PAIN LEVEL 4-6; Start 03/02/17 at 17:00 Famotidine 20 mg 20 mg Q12 PEG Last administered on 03/05/17 08:35; Admin Dose 20 MG; Start 03/04/17 at 21:00 Sodium Chloride 1,000 ml @ 75 mls/hr [id number] IV Last administered on 05:47; Admin Dose 75 MLS/HR; Start 03/04/17 at 11:30 Vancomycin HCl 250 ml @ 125 mls/hr Q8H IVPB Last administered on 03/05/17 09 :45; Admin Dose 125 MLS/HR; Start 03/04/17 at 18:00 Cefepime HCl (Maxipime 1gm/50 ml (Pmx)) 50 ml @ 100 mls/hr Q12 IVPB Last administered on 03/05/17t 08:33; Admin Dose 100 MLS/HR; Start 03/04/17 at 21: 00 Loperamide HCl (Imodium Liquid Cup) 2 mg QID PRN GTB DIARRHEA; Start 03/04/17 at 16:30 RENEE HAN MD Mar 05, 2017 10:48
--- NOTE | 2017-03-05 10:48 | PN ---
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 s/p 10 fractions of XRT and 2 doses of Carboplatin/ Taxol last given on 02/25/17 #Extracorporeal esophagogastric colonic bypass # Dysphagia and odonophagia due to Radiation/chemo s/p G tube on # Pancytopenia likely secondary to chemo/radiation # Bronchitis resolving # Diarrhoea r/o Cdiff/chemo induced/ tube feeding # Neutropenic fevers with Enterbacter UTI/ Bronchitis and now diarrhoea Recs - Counts improving WBC 1.8, - Talking to GI regarding TF as still residuals - C diff negative - c/w gentle iv fluids total 1 L - d/c vancomycin - c/w Cefepime - GI/DVT prophylaxsis - Will consider switching TF formula id diarrhoea is non infectious/ not chemo induced Problems: Subjective 24 Hr Interval Summary Free Text/Dictation Feels little better No bm today Still having lot of residuals Exam/Review of Systems Vital Signs Vitals Vital Signs Date Time Temp Pulse Resp B/P Pulse Ox O2 Delivery O2 Flow Rate FiO2 03/05/17 09:08 100 21 03/05/17 09:02 114 20 03/05/17 07:28 98.6 118/68 03/02/17 02:00 Room Air Intake and Output 03/04/17 03/04/17 03/05/17 14:59 22:59 06:59 Intake Total 150 ml 1375 ml 1775 ml Balance 150 ml 1375 ml 1775 ml Exam Constitutional: alert, oriented Head: atraumatic, normocephalic Eyes: nl conjunctiva Respiratory: congested cough, diminished breath sounds Cardiovascular: regular rate and rhythm Results Result Diagram: 03/05/17 0609 03/05/17 0609 Results 24 hrs Laboratory Tests Test 03/05/17 06:09 White Blood Count 1.8 #L Red Blood Count 3.49 L Hemoglobin 9.7 L Hematocrit 30.2 L Mean Corpuscular Volume 86.5 Mean Corpuscular Hemoglobin 27.8 L Mean Corpuscular Hemoglobin Concent 32.1 Red Cell Distribution Width 14.8 H Platelet Count 126 #L Mean Platelet Volume 10.2 Neutrophils % Lymphocytes % Monocytes % Eosinophils % Basophils % Nucleated Red Blood Cells % 1.1 H Neutrophils # Lymphocytes # Monocytes # Eosinophils # Basophils # Nucleated Red Blood Cells # Sodium Level 141 Potassium Level 3.8 Chloride Level 106 Carbon Dioxide Level 28 Anion Gap 11 Blood Urea Nitrogen 19 Creatinine 0.84 Glucose Level 182 Calcium Level 8.7 Phosphorus Level 2.5 Magnesium Level 1.9 Medications Medications Current Medications Morphine Sulfate (morphine) 2 mg Q4H PRN IV pain; Start 02/28/17 at 07:00 Acetaminophen (Tylenol Supp) 650 mg Q6H PRN [place] pain and fever Last administered on 03/02/17 15:46; Admin Dose 650 MG; Start 02/28/17 at 07:00 Ondansetron HCl (Zofran Inj) 4 mg Q6H PRN IV NAUSEA AND/OR VOMITING; Start at 07:00 Acetaminophen (Ofirmev 1000mg/ 100ml Iv) 1,000 mg Q6H PRN IVPB PAIN; Start at 14:30 Filgrastim (Neupogen) 300 mcg DAILY@17 SC Last administered on 03/04/17 17:00 ; Admin Dose 300 MCG; Start 03/02/17 at 17:00; Stop 03/06/17 at 17:01 Acetaminophen/ Hydrocodone Bitart ([place] (5/325)) 1 tab Q6 PRN GTB MODERATE PAIN LEVEL 4-6; Start 03/02/17 at 17:00 Famotidine 20 mg 20 mg Q12 PEG Last administered on 03/05/17 08:35; Admin Dose 20 MG; Start 03/04/17 at 21:00 Sodium Chloride 1,000 ml @ 75 mls/hr [id number] IV Last administered on 05:47; Admin Dose 75 MLS/HR; Start 03/04/17 at 11:30 Vancomycin HCl 250 ml @ 125 mls/hr Q8H IVPB Last administered on 03/05/17 09 :45; Admin Dose 125 MLS/HR; Start 03/04/17 at 18:00 Cefepime HCl (Maxipime 1gm/50 ml (Pmx)) 50 ml @ 100 mls/hr Q12 IVPB Last administered on 03/05/17t 08:33; Admin Dose 100 MLS/HR; Start 03/04/17 at 21: 00 Loperamide HCl (Imodium Liquid Cup) 2 mg QID PRN GTB DIARRHEA; Start 03/04/17 at 16:30 RENEE HAN MD Mar 05, 2017 10:48
--- NOTE | 2017-03-05 11:20 | PN ---
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 Queen Subjective: Course reviewed with nursing staff Patient interviewed and examined All labs, imaging and other results reviewed The patient area has resolved, C. difficile negative Antibiotics have been D/C'd, pt feels discouraged regarding poor absorption of TF. Problems: Exam/Review of Systems Vital Signs Vitals Vital Signs Date Time Temp Pulse Resp B/P Pulse Ox O2 Delivery O2 Flow Rate FiO2 03/05/17 09:08 100 21 03/05/17 09:02 114 20 03/05/17 07:28 98.6 118/68 03/02/17 02:00 Room Air Intake and Output 03/04/17 03/04/17 03/05/17 15:00 23:00 07:00 Intake Total 150 ml 1375 ml 1775 ml Balance 150 ml 1375 ml 1775 ml Exam Constitutional: alert, frail, oriented Psych: no complaints Head: atraumatic, normocephalic Eyes: nl conjunctiva Neck: non-tender Respiratory: clear to auscultation Cardiovascular: regular rate and rhythm Gastrointestinal: bowel sounds, soft, surgical scars, No ascites, No distended, No firm, No hepatomegaly, No mass, No rebound or guarding, No splenomegaly, No tender Results Result Diagram: 03/05/17 0609 03/05/17 0609 Results 24 hrs Laboratory Tests Test 03/05/17 06:09 White Blood Count 1.8 #L Red Blood Count 3.49 L Hemoglobin 9.7 L Hematocrit 30.2 L Mean Corpuscular Volume 86.5 Mean Corpuscular Hemoglobin 27.8 L Mean Corpuscular Hemoglobin Concent 32.1 Red Cell Distribution Width 14.8 H Platelet Count 126 #L Mean Platelet Volume 10.2 Neutrophils % Lymphocytes % Monocytes % Eosinophils % Basophils % Nucleated Red Blood Cells % 1.1 H Neutrophils # Lymphocytes # Monocytes # Eosinophils # Basophils # Nucleated Red Blood Cells # Sodium Level 141 Potassium Level 3.8 Chloride Level 106 Carbon Dioxide Level 28 Anion Gap 11 Blood Urea Nitrogen 19 Creatinine 0.84 Glucose Level 182 Calcium Level 8.7 Phosphorus Level 2.5 Magnesium Level 1.9 Medications Medications Current Medications Morphine Sulfate (morphine) 2 mg Q4H PRN IV pain; Start 02/28/17 at 07:00 Acetaminophen (Tylenol Supp) 650 mg Q6H PRN [place] pain and fever Last administered on 03/02/17 15:46; Admin Dose 650 MG; Start 02/28/17 at 07:00 Ondansetron HCl (Zofran Inj) 4 mg Q6H PRN IV NAUSEA AND/OR VOMITING; Start at 07:00 Acetaminophen (Ofirmev 1000mg/ 100ml Iv) 1,000 mg Q6H PRN IVPB PAIN; Start at 14:30 Filgrastim (Neupogen) 300 mcg DAILY@17 SC Last administered on 03/04/17 17:00 ; Admin Dose 300 MCG; Start 03/02/17 at 17:00; Stop 03/06/17 at 17:01 Acetaminophen/ Hydrocodone Bitart ([place] (5/325)) 1 tab Q6 PRN GTB MODERATE PAIN LEVEL 4-6; Start 03/02/17 at 17:00 Famotidine 20 mg 20 mg Q12 PEG Last administered on 03/05/17 08:35; Admin Dose 20 MG; Start 03/04/17 at 21:00 Sodium Chloride 1,000 ml @ 75 mls/hr [id number] IV Last administered on 05:47; Admin Dose 75 MLS/HR; Start 03/04/17 at 11:30 Cefepime HCl (Maxipime 1gm/50 ml (Pmx)) 50 ml @ 100 mls/hr Q12 IVPB Last administered on 03/05/17 08:33; Admin Dose 100 MLS/HR; Start 03/04/17 at 21: 00 Loperamide HCl (Imodium Liquid Cup) 2 mg QID PRN GTB DIARRHEA; Start 03/04/17 at 16:30 RASTA HUGHES Mar 05, 2017 11:20
--- NOTE | 2017-03-05 11:20 | PN ---
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 Queen Subjective: Course reviewed with nursing staff Patient interviewed and examined All labs, imaging and other results reviewed The patient area has resolved, C. difficile negative Antibiotics have been D/C'd, pt feels discouraged regarding poor absorption of TF. Problems: Exam/Review of Systems Vital Signs Vitals Vital Signs Date Time Temp Pulse Resp B/P Pulse Ox O2 Delivery O2 Flow Rate FiO2 03/05/17 09:08 100 21 03/05/17 09:02 114 20 03/05/17 07:28 98.6 118/68 03/02/17 02:00 Room Air Intake and Output 03/04/17 03/04/17 03/05/17 15:00 23:00 07:00 Intake Total 150 ml 1375 ml 1775 ml Balance 150 ml 1375 ml 1775 ml Exam Constitutional: alert, frail, oriented Psych: no complaints Head: atraumatic, normocephalic Eyes: nl conjunctiva Neck: non-tender Respiratory: clear to auscultation Cardiovascular: regular rate and rhythm Gastrointestinal: bowel sounds, soft, surgical scars, No ascites, No distended, No firm, No hepatomegaly, No mass, No rebound or guarding, No splenomegaly, No tender Results Result Diagram: 03/05/17 0609 03/05/17 0609 Results 24 hrs Laboratory Tests Test 03/05/17 06:09 White Blood Count 1.8 #L Red Blood Count 3.49 L Hemoglobin 9.7 L Hematocrit 30.2 L Mean Corpuscular Volume 86.5 Mean Corpuscular Hemoglobin 27.8 L Mean Corpuscular Hemoglobin Concent 32.1 Red Cell Distribution Width 14.8 H Platelet Count 126 #L Mean Platelet Volume 10.2 Neutrophils % Lymphocytes % Monocytes % Eosinophils % Basophils % Nucleated Red Blood Cells % 1.1 H Neutrophils # Lymphocytes # Monocytes # Eosinophils # Basophils # Nucleated Red Blood Cells # Sodium Level 141 Potassium Level 3.8 Chloride Level 106 Carbon Dioxide Level 28 Anion Gap 11 Blood Urea Nitrogen 19 Creatinine 0.84 Glucose Level 182 Calcium Level 8.7 Phosphorus Level 2.5 Magnesium Level 1.9 Medications Medications Current Medications Morphine Sulfate (morphine) 2 mg Q4H PRN IV pain; Start 02/28/17 at 07:00 Acetaminophen (Tylenol Supp) 650 mg Q6H PRN [place] pain and fever Last administered on 03/02/17 15:46; Admin Dose 650 MG; Start 02/28/17 at 07:00 Ondansetron HCl (Zofran Inj) 4 mg Q6H PRN IV NAUSEA AND/OR VOMITING; Start at 07:00 Acetaminophen (Ofirmev 1000mg/ 100ml Iv) 1,000 mg Q6H PRN IVPB PAIN; Start at 14:30 Filgrastim (Neupogen) 300 mcg DAILY@17 SC Last administered on 03/04/17 17:00 ; Admin Dose 300 MCG; Start 03/02/17 at 17:00; Stop 03/06/17 at 17:01 Acetaminophen/ Hydrocodone Bitart ([place] (5/325)) 1 tab Q6 PRN GTB MODERATE PAIN LEVEL 4-6; Start 03/02/17 at 17:00 Famotidine 20 mg 20 mg Q12 PEG Last administered on 03/05/17 08:35; Admin Dose 20 MG; Start 03/04/17 at 21:00 Sodium Chloride 1,000 ml @ 75 mls/hr [id number] IV Last administered on 05:47; Admin Dose 75 MLS/HR; Start 03/04/17 at 11:30 Cefepime HCl (Maxipime 1gm/50 ml (Pmx)) 50 ml @ 100 mls/hr Q12 IVPB Last administered on 03/05/17 08:33; Admin Dose 100 MLS/HR; Start 03/04/17 at 21: 00 Loperamide HCl (Imodium Liquid Cup) 2 mg QID PRN GTB DIARRHEA; Start 03/04/17 at 16:30 RASTA HUGHES Mar 05, 2017 11:20
[2017-03-05] MEDS: METOCLOPRAMIDE 10 MG INJ IV SCH ×3 (11:58→23:30)
--- NOTE | 2017-03-05 13:29 | CONS ---
Date/Time of Note Date/Time of Note DATE: 03/05/17 TIME: 13:28 Assessment/Plan Assessment/Plan Chief Complaint/Hosp Course 65 yo with #Cervical Esophageal Squamous Cell Carcinoma - s/p 10 fractions of XRT and 2 doses of Carboplatin/ Taxol last given on - once patient acute issues resolve patient will resume treatment with radiation and chemotherapy. #Radiation Esophagitis -s/p PEG placement -continue tube feedings #Neutropenic fevers -UA with GNR -continue Broad spectrum antibiotics -continue Neupogen at least until ANC > 1000 #Bronchitis -continue breathing treatments Problems: Consultation Date/Type/Reason Admit Date/Time Mar 01, 2017 at 19:36 Initial Consult Date 03/04/17 Type of Consultation: Oncology Reason for Consultation esophageal cancer Referring Provider: KATHERINE ELDER MD 24 HR Interval Summary Free Text/Dictation pt still with high residuals from G tube. no fevers. remains neutropenic Exam/Review of Systems Vital Signs Vitals Vital Signs Date Time Temp Pulse Resp B/P Pulse Ox O2 Delivery O2 Flow Rate FiO2 03/05/17 12:20 101 18 100 21 03/05/17 07:28 98.6 118/68 03/02/17 02:00 Room Air Intake and Output 03/04/17 03/04/17 03/05/17 15:00 23:00 07:00 Intake Total 150 ml 1375 ml 1775 ml Balance 150 ml 1375 ml 1775 ml Exam Constitutional: alert, oriented Psych: no complaints Head: atraumatic, normocephalic Eyes: nl conjunctiva ENMT: nl external ears & nose Neck: non-tender, supple Respiratory: clear to auscultation, normal air movement Cardiovascular: regular rate and rhythm Gastrointestinal: other (G tube in place), soft Musculoskeletal: nl extremities to inspection Results Result Diagram: 03/05/17 0609 03/05/17 0609 Results 24 hrs Laboratory Tests Test 03/05/17 06:09 White Blood Count 1.8 #L Red Blood Count 3.49 L Hemoglobin 9.7 L Hematocrit 30.2 L Mean Corpuscular Volume 86.5 Mean Corpuscular Hemoglobin 27.8 L Mean Corpuscular Hemoglobin Concent 32.1 Red Cell Distribution Width 14.8 H Platelet Count 126 #L Mean Platelet Volume 10.2 Neutrophils % Lymphocytes % Monocytes % Eosinophils % Basophils % Nucleated Red Blood Cells % 1.1 H Neutrophils # Lymphocytes # Monocytes # Eosinophils # Basophils # Nucleated Red Blood Cells # Sodium Level 141 Potassium Level 3.8 Chloride Level 106 Carbon Dioxide Level 28 Anion Gap 11 Blood Urea Nitrogen 19 Creatinine 0.84 Glucose Level 182 Calcium Level 8.7 Phosphorus Level 2.5 Magnesium Level 1.9 Medications Medications Current Medications Morphine Sulfate (morphine) 2 mg Q4H PRN IV pain; Start 02/28/17 at 07:00 Acetaminophen (Tylenol Supp) 650 mg Q6H PRN [place] pain and fever Last administered on 03/02/17 15:46; Admin Dose 650 MG; Start 02/28/17 at 07:00 Ondansetron HCl (Zofran Inj) 4 mg Q6H PRN IV NAUSEA AND/OR VOMITING; Start at 07:00 Acetaminophen (Ofirmev 1000mg/ 100ml Iv) 1,000 mg Q6H PRN IVPB PAIN; Start at 14:30 Filgrastim (Neupogen) 300 mcg DAILY@17 SC Last administered on 03/04/17 17:00 ; Admin Dose 300 MCG; Start 03/02/17 at 17:00; Stop 03/06/17 at 17:01 Acetaminophen/ Hydrocodone Bitart ([place] (5/325)) 1 tab Q6 PRN GTB MODERATE PAIN LEVEL 4-6; Start 03/02/17 at 17:00 Famotidine 20 mg 20 mg Q12 PEG Last administered on 03/05/17 08:35; Admin Dose 20 MG; Start 03/04/17 at 21:00 Sodium Chloride 1,000 ml @ 75 mls/hr [id number] IV Last administered on 05:47; Admin Dose 75 MLS/HR; Start 03/04/17 at 11:30 Cefepime HCl (Maxipime 1gm/50 ml (Pmx)) 50 ml @ 100 mls/hr Q12 IVPB Last administered on 03/05/17 08:33; Admin Dose 100 MLS/HR; Start 03/04/17 at 21: 00 Loperamide HCl (Imodium Liquid Cup) 2 mg QID PRN GTB DIARRHEA; Start 03/04/17 at 16:30 Metoclopramide HCl (Reglan) 10 mg Q6 IV Last administered on 03/05/17t 11:58; Admin Dose 10 MG; Start 03/05/17 at 12:00 ROSEMARY TOLENTINO M.D. Mar 05, 2017 13:29
[2017-03-05 14:14] VITALS: BP 130/72; RESP 19
[2017-03-05] MEDS: FILGRASTIM 300 MCG INJ SC SCH (17:24)
[2017-03-05 20:41] VITALS: BP 119/72; RESP 20
[2017-03-06] MEDS: ALBUTEROL/IPRATROPIUM (NEB) 3 ML AMP HHN SCH ×6 (01:07→21:01)
[2017-03-06 02:00] VITALS: BP 130/78; RESP 20
[2017-03-06] MEDS: METOCLOPRAMIDE 10 MG INJ IV SCH ×4 (05:45→23:26)
[2017-03-06 07:47] VITALS: BP 125/77; RESP 16
[2017-03-06] MEDS: CEFEPIME 1GM/50 ML (PMX) 50 ML IVPB SCH ×2 (08:55→20:34)
[2017-03-06] MEDS: FAMOTIDINE 20 MG TAB PEG SCH ×2 (09:00→20:34)
--- NOTE | 2017-03-06 09:46 | PN ---
Date/Time of Note Date/Time of Note DATE: 03/06/17 TIME: 09:41 Assessment/Plan VTE Prophylaxis VTE Prophylaxis Intervention: SCD's Lines/Catheters IV C[facility] Type (from [facility]): Peripheral IV Urinary Cath still in place: No Assessment/Plan Chief Complaint/Hosp Course 66 y/o with #Esophageal Squamou s CA in [place] esophagus s/p 10 fractions of XRT and 2 doses of Carboplatin/ Taxol last given on 02/25/17 #Extracorporeal esophagogastric colonic bypass # Dysphagia and odonophagia due to Radiation/chemo s/p G tube on # Pancytopenia likely secondary to chemo/radiation # Bronchitis resolving # Diarrhoea r/o Cdiff/chemo induced/ tube feeding resolved # Neutropenic fevers with Enterbacter UTI/ Bronchitis and now diarrhoea resolved Recs - Counts improving WBC 5.4, d/c neutropenic precautions ans neupogen - KUB stat to r/o obstruction - c/w iv reglan - if no bowel obstruction then will change to bolus feeding - c/w gentle iv fluids total 1 L - c/w Cefepime - GI/DVT prophylaxsis - Will consider switching TF formula id diarrhoea is non infectious/ not chemo induced Problems: Subjective 24 Hr Interval Summary Free Text/Dictation +Stilll not able to tolerate feeding no BM X 1 day Exam/Review of Systems Vital Signs Vitals Vital Signs Date Time Temp Pulse Resp B/P Pulse Ox O2 Delivery O2 Flow Rate FiO2 03/06/17 08:55 108 16 95 21 03/06/17 07:47 98.0 125/77 Intake and Output 03/05/17 03/05/17 03/06/17 15:00 23:00 07:00 Intake Total 300 ml 1020 ml 485 ml Output Total 200 ml Balance 300 ml 1020 ml 285 ml Exam onstitutional: alert, oriented Head: atraumatic, normocephalic Eyes: nl conjunctiva Respiratory: congested cough, diminished breath sounds Cardiovascular: regular rate and rhythm Abdomen:decreased bowel sounds Results Result Diagram: 03/06/17 0545 03/06/17 0545 Results 24 hrs Laboratory Tests Test 03/06/17 05:45 White Blood Count 5.4 # Red Blood Count 3.50 L Hemoglobin 10.0 L Hematocrit 30.2 L Mean Corpuscular Volume 86.3 Mean Corpuscular Hemoglobin 28.6 L Mean Corpuscular Hemoglobin Concent 33.1 Red Cell Distribution Width 14.8 H Platelet Count 117 L Mean Platelet Volume 10.8 H Neutrophils % Segmented Neutrophils % (Manual) 49 Band Neutrophils % (Manual) 30 H Lymphocytes % Lymphocytes % (Manual) 5 L Reactive Lymphocytes % (Manual) 4 H Monocytes % Monocytes % (Manual) 11 Eosinophils % Basophils % Metamyelocytes % (manual) 1 H Myelocytes % (Manual) 1 H Nucleated Red Blood Cells % 3 H Neutrophils # Neutrophils # (Manual) 2.7 Band Neutrophils # 1.6 H Absolute Lymphocytes (Manual) 0.2 L Lymphocytes # Reactive Lymphocytes # 0.2 H Monocytes # Absolute Monocytes (Manual) 0.5 Eosinophils # Basophils # Metamyelocytes # 0.0 Myelocytes # 0.0 Nucleated Red Blood Cells # Platelet Estimate DECREASED Polychromasia 1+ Poikilocytosis 2+ Anisocytosis 2+ Microcytosis 2+ Ovalocytes 1+ Sodium Level 143 Potassium Level 3.8 Chloride Level 106 Carbon Dioxide Level 26 Anion Gap 15 Blood Urea Nitrogen 27 H Creatinine 0.75 Glucose Level 153 Calcium Level 8.6 Phosphorus Level 3.3 Magnesium Level 2.0 Total Bilirubin 0.4 Direct Bilirubin 0.00 Indirect Bilirubin 0.4 Aspartate Amino Transf (AST/SGOT) 25 Alanine Aminotransferase (ALT/SGPT) 39 Alkaline Phosphatase 81 Total Protein 6.3 Albumin 3.1 L Globulin 3.20 Albumin/Globulin Ratio 0.96 Medications Medications Current Medications Morphine Sulfate (morphine) 2 mg Q4H PRN IV pain; Start 02/28/17 at 07:00 Acetaminophen (Tylenol Supp) 650 mg Q6H PRN [place] pain and fever Last administered on 03/02/17 15:46; Admin Dose 650 MG; Start 02/28/17 at 07:00 Ondansetron HCl (Zofran Inj) 4 mg Q6H PRN IV NAUSEA AND/OR VOMITING; Start at 07:00 Acetaminophen (Ofirmev 1000mg/ 100ml Iv) 1,000 mg Q6H PRN IVPB PAIN; Start at 14:30 Acetaminophen/ Hydrocodone Bitart ([place] (5/325)) 1 tab Q6 PRN GTB MODERATE PAIN LEVEL 4-6; Start 03/02/17 at 17:00 Famotidine 20 mg 20 mg Q12 PEG Last administered on 03/05/17 20:49; Admin Dose 20 MG; Start 03/04/17 at 21:00 Cefepime HCl (Maxipime 1gm/50 ml (Pmx)) 50 ml @ 100 mls/hr Q12 IVPB Last administered on 03/06/17 08:55; Admin Dose 100 MLS/HR; Start 03/04/17 at 21: 00 Loperamide HCl (Imodium Liquid Cup) 2 mg QID PRN GTB DIARRHEA; Start 03/04/17 at 16:30 Metoclopramide HCl 10 mg 10 mg Q6 IV Last administered on 03/06/17 05:45; Admin Dose 10 MG; Start 03/05/17 at 12:00 Sodium Chloride (NS) 1,000 ml @ 50 mls/hr Q20H IV ; Start 03/06/17 at 10:00; Status UNV RENEE HAN MD Mar 06, 2017 09:46
--- NOTE | 2017-03-06 10:08 | PN ---
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 Continue Reglan Continue other supportive care per primary and other consultants Patient seen in collaboration with Dr. Queen Subjective: Course reviewed with nursing staff Patient interviewed and examined All labs, imaging and other results reviewed The patient without bm for 3 days, BS hypoactive, KUB ordered Will reevaulate feeding type Pt feeling discouraged at this time Problems: Exam/Review of Systems Vital Signs Vitals Vital Signs Date Time Temp Pulse Resp B/P Pulse Ox O2 Delivery O2 Flow Rate FiO2 03/06/17 08:55 108 16 95 21 03/06/17 07:47 98.0 125/77 Intake and Output 03/05/17 03/05/17 03/06/17 15:00 23:00 07:00 Intake Total 300 ml 1020 ml 485 ml Output Total 200 ml Balance 300 ml 1020 ml 285 ml Exam Constitutional: alert, oriented Psych: no complaints Head: atraumatic, normocephalic Eyes: nl conjunctiva ENMT: nl external ears & nose, nl lips & teeth Neck: non-tender, supple Respiratory: clear to auscultation Cardiovascular: regular rate and rhythm Gastrointestinal: bowel sounds (hypoactive), surgical scars, No ascites, No distended, No firm, No hepatomegaly, No mass, No rebound or guarding, No splenomegaly, No tender Musculoskeletal: muscle weakness Results Result Diagram: 03/06/1745 03/06/17 0545 Results 24 hrs Laboratory Tests Test 03/06/17 05:45 White Blood Count 5.4 # Red Blood Count 3.50 L Hemoglobin 10.0 L Hematocrit 30.2 L Mean Corpuscular Volume 86.3 Mean Corpuscular Hemoglobin 28.6 L Mean Corpuscular Hemoglobin Concent 33.1 Red Cell Distribution Width 14.8 H Platelet Count 117 L Mean Platelet Volume 10.8 H Neutrophils % Segmented Neutrophils % (Manual) 49 Band Neutrophils % (Manual) 30 H Lymphocytes % Lymphocytes % (Manual) 5 L Reactive Lymphocytes % (Manual) 4 H Monocytes % Monocytes % (Manual) 11 Eosinophils % Basophils % Metamyelocytes % (manual) 1 H Myelocytes % (Manual) 1 H Nucleated Red Blood Cells % 3 H Neutrophils # Neutrophils # (Manual) 2.7 Band Neutrophils # 1.6 H Absolute Lymphocytes (Manual) 0.2 L Lymphocytes # Reactive Lymphocytes # 0.2 H Monocytes # Absolute Monocytes (Manual) 0.5 Eosinophils # Basophils # Metamyelocytes # 0.0 Myelocytes # 0.0 Nucleated Red Blood Cells # Platelet Estimate DECREASED Polychromasia 1+ Poikilocytosis 2+ Anisocytosis 2+ Microcytosis 2+ Ovalocytes 1+ Sodium Level 143 Potassium Level 3.8 Chloride Level 106 Carbon Dioxide Level 26 Anion Gap 15 Blood Urea Nitrogen 27 H Creatinine 0.75 Glucose Level 153 Calcium Level 8.6 Phosphorus Level 3.3 Magnesium Level 2.0 Total Bilirubin 0.4 Direct Bilirubin 0.00 Indirect Bilirubin 0.4 Aspartate Amino Transf (AST/SGOT) 25 Alanine Aminotransferase (ALT/SGPT) 39 Alkaline Phosphatase 81 Total Protein 6.3 Albumin 3.1 L Globulin 3.20 Albumin/Globulin Ratio 0.96 Medications Medications Current Medications Morphine Sulfate (morphine) 2 mg Q4H PRN IV pain; Start 02/28/17 at 07:00 Acetaminophen (Tylenol Supp) 650 mg Q6H PRN [place] pain and fever Last administered on 03/02/17 15:46; Admin Dose 650 MG; Start 02/28/17 at 07:00 Ondansetron HCl (Zofran Inj) 4 mg Q6H PRN IV NAUSEA AND/OR VOMITING; Start at 07:00 Acetaminophen (Ofirmev 1000mg/ 100ml Iv) 1,000 mg Q6H PRN IVPB PAIN; Start at 14:30 Acetaminophen/ Hydrocodone Bitart ([place] (5/325)) 1 tab Q6 PRN GTB MODERATE PAIN LEVEL 4-6; Start 03/02/17 at 17:00 Famotidine 20 mg 20 mg Q12 PEG Last administered on 03/05/17 20:49; Admin Dose 20 MG; Start 03/04/17 at 21:00 Cefepime HCl (Maxipime 1gm/50 ml (Pmx)) 50 ml @ 100 mls/hr Q12 IVPB Last administered on 03/06/17 08:55; Admin Dose 100 MLS/HR; Start 03/04/17 at 21: 00 Loperamide HCl (Imodium Liquid Cup) 2 mg QID PRN GTB DIARRHEA; Start 03/04/17 at 16:30 Metoclopramide HCl 10 mg 10 mg Q6 IV Last administered on 03/06/17 05:45; Admin Dose 10 MG; Start 03/05/17 at 12:00 Sodium Chloride (NS) 1,000 ml @ 50 mls/hr Q20H IV ; Start 03/06/17 at 10:00 RASTA HUGHES Mar 06, 2017 10:08
[2017-03-06] MEDS: SOD CHLORIDE 0.9% 1,000 ML IV SCH (11:30)
[2017-03-06 15:01] VITALS: BP 132/74; RESP 16
--- NOTE | 2017-03-06 16:40 | RADRPT ---
PROCEDURE: XR ABDOMEN. CLINICAL INDICATION: Abdominal pain. Rule out obstruction. TECHNIQUE: 2 views of the abdomen were obtained. COMPARISON: None. FINDINGS: There is a single loop of dilated small bowel within the right side of the abdomen, measuring 4.3 cm . Stool filled large bowel noted. No evidence of subdiaphragmatic free air. No gross abnormal calcif ications overlying the urinary tracts. The visualized osseous structures are unremarkable. A percuta neous gastrostomy tube is noted. IMPRESSION: 1. Single loop of dilated small bowel within the right side of the abdomen. Findings may represent f ocal ileus. Normal caliber loops of large bowel are identified. No gross evidence of complete bowel obstruction noted at this time. RPTAT: AAPP Physician Sebastian Date Time Electronically viewed and signed by Physician Sebastian on 03/06/2017 16:39 RICHARD/
[2017-03-06 19:36] VITALS: BP 128/75; RESP 20
[2017-03-07] MEDS: ALBUTEROL/IPRATROPIUM (NEB) 3 ML AMP HHN SCH ×4 (01:20→11:55)
[2017-03-07 02:16] VITALS: BP 127/70; RESP 20
[2017-03-07] MEDS: METOCLOPRAMIDE 10 MG INJ IV SCH ×3 (06:32→18:00)
[2017-03-07] MEDS: SOD CHLORIDE 0.9% 1,000 ML IV SCH (06:34)
[2017-03-07 07:44] VITALS: BP 116/70; RESP 16
[2017-03-07] MEDS: FAMOTIDINE 20 MG TAB PEG SCH (09:00)
--- NOTE | 2017-03-07 09:07 | PN ---
Date/Time of Note Date/Time of Note DATE: 03/07/17 TIME: 09:07 Assessment/Plan VTE Prophylaxis VTE Prophylaxis Intervention: contraindicated Lines/Catheters IV Catheter Type (from [facility]): Peripheral IV Urinary Cath still in place: No Assessment/Plan Chief Complaint/Hosp Course 66 y/o with #Esophageal Squamou s CA in [place] esophagus s/p 10 fractions of XRT and 2 doses of Carboplatin/ Taxol last given on 02/25/17 #Extracorporeal esophagogastric colonic bypass # Dysphagia and odonophagia due to Radiation/chemo s/p G tube on # Pancytopenia likely secondary to chemo/radiation # Bronchitis resolving # Diarrhoea r/o Cdiff/chemo induced/ tube feeding resolved # Neutropenic fevers with Enterbacter UTI/ Bronchitis and now diarrhoea resolved Recs - Counts improved - NPO - Small bowel follow thru per GI - hold TF - c/w iv reglan - c/w gentle iv fluids total 1 L - c/w Cefepime - GI/DVT prophylaxsis Problems: Subjective 24 Hr Interval Summary Free Text/Dictation No BM X 2 days Still high residuals KUB+Ileus Exam/Review of Systems Vital Signs Vitals Vital Signs Date Time Temp Pulse Resp B/P Pulse Ox O2 Delivery O2 Flow Rate FiO2 03/07/17 08:04 114 18 98 21 03/07/17 07:44 98.1 116/70 Intake and Output 03/06/17 03/06/17 03/07/17 15:00 23:00 07:00 Intake Total 50 ml 950 ml 575 ml Balance 50 ml 950 ml 575 ml Exam Constitutional: alert, oriented Head: atraumatic, normocephalic Eyes: nl conjunctiva Respiratory: congested cough, diminished breath sounds Cardiovascular: regular rate and rhythm Abdomen:decreased bowel sounds Results Result Diagram: 03/07/17 0515 03/06/17 0545 Results 24 hrs Laboratory Tests Test 03/07/17 05:15 White Blood Count 4.9 Red Blood Count 3.33 L Hemoglobin 9.3 L Hematocrit 28.9 L Mean Corpuscular Volume 86.8 Mean Corpuscular Hemoglobin 27.9 L Mean Corpuscular Hemoglobin Concent 32.2 Red Cell Distribution Width 15.3 H Platelet Count 105 L Mean Platelet Volume 10.4 Neutrophils % 80.7 H Lymphocytes % 4.1 L Monocytes % 7.5 Eosinophils % 0.0 Basophils % 0.8 Nucleated Red Blood Cells % 0.6 H Neutrophils # 4.0 Lymphocytes # 0.2 L Monocytes # 0.4 Eosinophils # 0.0 Basophils # 0.0 Nucleated Red Blood Cells # 0.0 Medications Medications Current Medications Morphine Sulfate (morphine) 2 mg Q4H PRN IV pain; Start 02/28/17 at 07:00 Acetaminophen (Tylenol Supp) 650 mg Q6H PRN [place] pain and fever Last administered on 03/02/17 15:46; Admin Dose 650 MG; Start 02/28/17 at 07:00 Ondansetron HCl (Zofran Inj) 4 mg Q6H PRN IV NAUSEA AND/OR VOMITING; Start at 07:00 Acetaminophen (Ofirmev 1000mg/ 100ml Iv) 1,000 mg Q6H PRN IVPB PAIN; Start at 14:30 Acetaminophen/ Hydrocodone Bitart ([place] (5/325)) 1 tab Q6 PRN GTB MODERATE PAIN LEVEL 4-6; Start 03/02/17 at 17:00 Famotidine 20 mg 20 mg Q12 PEG Last administered on 03/06/17 20:34; Admin Dose 20 MG; Start 03/04/17 at 21:00 Cefepime HCl (Maxipime 1gm/50 ml (Pmx)) 50 ml @ 100 mls/hr Q12 IVPB Last administered on 03/06/17 20:34; Admin Dose 100 MLS/HR; Start 03/04/17 at 21: 00 Loperamide HCl (Imodium Liquid Cup) 2 mg QID PRN GTB DIARRHEA; Start 03/04/17 at 16:30 Metoclopramide HCl 10 mg 10 mg Q6 IV Last administered on 03/07/17 06:32; Admin Dose 10 MG; Start 03/05/17 at 12:00 Sodium Chloride (NS) 1,000 ml @ 50 mls/hr Q20H IV Last administered on 06:34; Admin Dose 50 MLS/HR; Start 03/06/17 at 10:00 RENEE HAN MD Mar 07, 2017 09:07
[2017-03-07] MEDS: CEFEPIME 1GM/50 ML (PMX) 50 ML IVPB SCH ×2 (09:17→20:58)
[2017-03-07] MEDS: morphine 2 MG INJ IV PRN ×2 (09:23→16:29)
--- NOTE | 2017-03-07 09:41 | PN ---
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 Queen Subjective: Course reviewed with nursing staff Patient interviewed and examined All labs, imaging and other results reviewed The patient without bm for 3 days, BS hypoactive Will keep npo and obtain further work-up discussed results with patient Problems: Exam/Review of Systems Vital Signs Vitals Vital Signs Date Time Temp Pulse Resp B/P Pulse Ox O2 Delivery O2 Flow Rate FiO2 03/07/17 08:04 114 18 98 21 03/07/17 07:44 98.1 116/70 Intake and Output 03/06/17 03/06/17 03/07/17 15:00 23:00 07:00 Intake Total 50 ml 950 ml 575 ml Balance 50 ml 950 ml 575 ml Results Result Diagram: 03/07/17 0515 03/06/17 0545 Results 24 hrs Laboratory Tests Test 03/07/17 05:15 White Blood Count 4.9 Red Blood Count 3.33 L Hemoglobin 9.3 L Hematocrit 28.9 L Mean Corpuscular Volume 86.8 Mean Corpuscular Hemoglobin 27.9 L Mean Corpuscular Hemoglobin Concent 32.2 Red Cell Distribution Width 15.3 H Platelet Count 105 L Mean Platelet Volume 10.4 Neutrophils % 80.7 H Lymphocytes % 4.1 L Monocytes % 7.5 Eosinophils % 0.0 Basophils % 0.8 Nucleated Red Blood Cells % 0.6 H Neutrophils # 4.0 Lymphocytes # 0.2 L Monocytes # 0.4 Eosinophils # 0.0 Basophils # 0.0 Nucleated Red Blood Cells # 0.0 Medications Medications Current Medications Morphine Sulfate (morphine) 2 mg Q4H PRN IV pain Last administered on t 09:23; Admin Dose 2 MG; Start 02/28/17 at 07:00 Acetaminophen (Tylenol Supp) 650 mg Q6H PRN [place] pain and fever Last administered on 03/02/17 15:46; Admin Dose 650 MG; Start 02/28/17 at 07:00 Ondansetron HCl (Zofran Inj) 4 mg Q6H PRN IV NAUSEA AND/OR VOMITING Last administered on 03/07/17 09:17; Admin Dose 4 MG; Start 02/28/17 at 07:00 Acetaminophen (Ofirmev 1000mg/ 100ml Iv) 1,000 mg Q6H PRN IVPB PAIN; Start at 14:30 Acetaminophen/ Hydrocodone Bitart 1 tab 1 tab Q6 PRN GTB MODERATE PAIN LEVEL 4- 6; Start 03/02/17 at 17:00 Cefepime HCl (Maxipime 1gm/50 ml (Pmx)) 50 ml @ 100 mls/hr Q12 IVPB Last administered on 03/07/17 09:17; Admin Dose 100 MLS/HR; Start 03/04/17 at 21: 00 Loperamide HCl (Imodium Liquid Cup) 2 mg QID PRN GTB DIARRHEA; Start 03/04/17 at 16:30 Metoclopramide HCl 10 mg 10 mg Q6 IV Last administered on 03/07/17 06:32; Admin Dose 10 MG; Start 03/05/17 at 12:00 Sodium Chloride (NS) 1,000 ml @ 50 mls/hr Q20H IV Last administered on 06:34; Admin Dose 50 MLS/HR; Start 03/06/17 at 10:00 Famotidine (Pepcid Iv) 20 mg BID IV ; Start 03/07/17 at 21:00; Status RASTA FARAH Mar 07, 2017 09:41
[2017-03-07] MEDS ORDERED: ALBUTEROL/IPRATROPIUM (NEB) 3 ML AMP HHN PRN (12:30)
[2017-03-07] MEDS ORDERED: DIATR MEGLU/DIATRIZOATE SODIUM 120 ML BTL ONE (13:41)
[2017-03-07 16:03] VITALS: BP 145/82; RESP 18
[2017-03-07] MEDS: DEXTROSE 5%-0.9% NACL 1,000 ML IV SCH (17:30)
--- NOTE | 2017-03-07 17:36 | CONS ---
Date/Time of Note Date/Time of Note DATE: 03/07/17 TIME: 17:35 Assessment/Plan Assessment/Plan Chief Complaint/Hosp Course 65 yo with #Cervical Esophageal Squamous Cell Carcinoma - s/p 10 fractions of XRT and 2 doses of Carboplatin/ Taxol last given on - once patient acute issues resolve patient will resume treatment with radiation and chemotherapy. #Radiation Esophagitis -s/p PEG placement -continue tube feedings #Neutropenic fevers -UA with GNR -continue Broad spectrum antibiotics -continue Neupogen at least until ANC > 1000 #Bronchitis -continue breathing treatments Problems: Consultation Date/Type/Reason Admit Date/Time Mar 01, 2017 at 19:36 Initial Consult Date 03/04/17 Type of Consultation: Oncology Reason for Consultation esophageal ca Referring Provider: KATHERINE ELDER MD 24 HR Interval Summary Free Text/Dictation pt is very nauseous this morning Exam/Review of Systems Vital Signs Vitals Vital Signs Date Time Temp Pulse Resp B/P Pulse Ox O2 Delivery O2 Flow Rate FiO2 03/07/17 16:03 97.7 137 18 145/82 94 03/07/17 08:04 21 Intake and Output 03/06/17 03/06/17 03/07/17 15:00 23:00 07:00 Intake Total 50 ml 950 ml 575 ml Balance 50 ml 950 ml 575 ml Exam Constitutional: alert, distress, oriented Psych: no complaints Head: normocephalic Eyes: nl conjunctiva ENMT: nl external ears & nose Neck: non-tender, supple Respiratory: clear to auscultation Cardiovascular: regular rate and rhythm Gastrointestinal: other (g tube in place) Musculoskeletal: nl extremities to inspection Extremities: normal pulses Neurological: BLASTING CLAY MINER II-XII intact Results Result Diagram: 03/07/17 0515 03/06/17 0545 Results 24 hrs Laboratory Tests Test 03/07/17 05:15 White Blood Count 4.9 Red Blood Count 3.33 L Hemoglobin 9.3 L Hematocrit 28.9 L Mean Corpuscular Volume 86.8 Mean Corpuscular Hemoglobin 27.9 L Mean Corpuscular Hemoglobin Concent 32.2 Red Cell Distribution Width 15.3 H Platelet Count 105 L Mean Platelet Volume 10.4 Neutrophils % 80.7 H Lymphocytes % 4.1 L Monocytes % 7.5 Eosinophils % 0.0 Basophils % 0.8 Nucleated Red Blood Cells % 0.6 H Neutrophils # 4.0 Lymphocytes # 0.2 L Monocytes # 0.4 Eosinophils # 0.0 Basophils # 0.0 Nucleated Red Blood Cells # 0.0 Medications Medications Current Medications Morphine Sulfate (morphine) 2 mg Q4H PRN IV pain Last administered on 16:29; Admin Dose 2 MG; Start 02/28/17 at 07:00 Acetaminophen (Tylenol Supp) 650 mg Q6H PRN [place] pain and fever Last administered on 03/02/17 15:46; Admin Dose 650 MG; Start 02/28/17 at 07:00 Ondansetron HCl (Zofran Inj) 4 mg Q6H PRN IV NAUSEA AND/OR VOMITING Last administered on 03/07/17 09:17; Admin Dose 4 MG; Start 02/28/17 at 07:00 Acetaminophen (Ofirmev 1000mg/ 100ml Iv) 1,000 mg Q6H PRN IVPB PAIN; Start at 14:30 Acetaminophen/ Hydrocodone Bitart 1 tab 1 tab Q6 PRN GTB MODERATE PAIN LEVEL 4- 6; Start 03/02/17 at 17:00 Cefepime HCl (Maxipime 1gm/50 ml (Pmx)) 50 ml @ 100 mls/hr Q12 IVPB Last administered on 03/07/17 09:17; Admin Dose 100 MLS/HR; Start 03/04/17 at 21: 00 Loperamide HCl (Imodium Liquid Cup) 2 mg QID PRN GTB DIARRHEA; Start 03/04/17 at 16:30 Metoclopramide HCl (Reglan) 10 mg Q6 IV Last administered on 03/07/17 16:28; Admin Dose 10 MG; Start 03/05/17 at 12:00 Famotidine 20 mg 20 mg BID IV ; Start 03/07/17 at 21:00 Dextrose/Sodium Chloride (D5-NS) 1,000 ml @ 75 mls/hr [id number] IV ; Start 03/07 at 17:30 ROSEMARY TOLENTINO M.D. Mar 07, 2017 17:36
[2017-03-07 20:00] VITALS: BP 146/68; RESP 20
[2017-03-07] MEDS: FAMOTIDINE 20 MG INJ IV SCH (20:58)
[2017-03-08] MEDS: METOCLOPRAMIDE 10 MG INJ IV SCH ×5 (00:11→20:21)
[2017-03-08 02:00] VITALS: BP 123/69; RESP 20
[2017-03-08] MEDS: DEXTROSE 5%-0.9% NACL 1,000 ML IV SCH ×2 (02:55→06:16)
[2017-03-08 07:24] VITALS: BP 131/66; RESP 16
--- NOTE | 2017-03-08 09:00 | RADRPT ---
PROCEDURE: Small bowel follow-through. CLINICAL INDICATION: Abdomen pain. TECHNIQUE: Water-soluble contrast was administered Via the gastrostomy tubeand several spot and ov erhead radiographs of the abdomen were obtained. COMPARISON: CT scan of the chest dated 02/28/2017. FINDINGS: On the preliminary radiograph, the gastrostomy tube is noted in the stomach. There is gaseous disten francois of the small bowel. The initial image with contrast in the stomach demonstrates reflux into a segment of colon which is extending superiorly in the anterior chest wall as seen on prior CT scan. Subsequent images of the abdomen up to 2 hours demonstrate dilated proximal small bowel with decreas ed motility. The final images a 3-hour image which demonstrates markedly dilated gastrointestinal contrast.. IMPRESSION: 1. Gastrostomy tube in the stomach. 2. Reflux of contrast from the stomach into a segment of colon extending superiorly in the anterior chest wall as seen on prior CT scan. 3. Dilated small bowel consistent with ileus or obstruction. 4. Markedly dilated contrast seen on the final 3-hour image. It cannot be determined whether or not there is a mechanical obstruction. RPTAT: QQ .Star José MD, Date Time Electronically viewed and signed by .Star José MD, on 03/08/2017 09:00 .R/
[2017-03-08] MEDS: CEFEPIME 1GM/50 ML (PMX) 50 ML IVPB SCH ×2 (09:17→22:09)
[2017-03-08] MEDS: FAMOTIDINE 20 MG INJ IV SCH ×2 (09:17→20:21)
--- NOTE | 2017-03-08 09:49 | PN ---
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 Reflux of contrast from the stomach into a segment of colon extending superiorly in the anterior chest wall as seen on prior CT scan. Dilated small bowel consistent with ileus or obstruction. Markedly dilated contrast seen on the final 3-hour image. It cannot be determined whether or not there is a mechanical obstruction. Keep NPO G-tube to LIS KUB tomorrow Continue other supportive care per primary and other consultants Patient seen in collaboration with Dr. Queen Subjective: Course reviewed with nursing staff Patient interviewed and examined All labs, imaging and other results reviewed discussed results with patient Problems: Exam/Review of Systems Vital Signs Vitals Vital Signs Date Time Temp Pulse Resp B/P Pulse Ox O2 Delivery O2 Flow Rate FiO2 03/08/17 07:24 98.1 105 16 131/66 96 03/07/17 08:04 21 Intake and Output 03/07/17 03/07/17 03/08/17 15:00 23:00 07:00 Intake Total 50 ml 650 ml 225 ml Output Total 203 ml Balance 50 ml 447 ml 225 ml Results Result Diagram: 03/08/17 0614 03/08/17 0614 Results 24 hrs Laboratory Tests Test 03/08/17 06:14 White Blood Count 4.3 L Red Blood Count 3.08 L Hemoglobin 8.9 L Hematocrit 27.7 L Mean Corpuscular Volume 89.9 Mean Corpuscular Hemoglobin 28.9 L Mean Corpuscular Hemoglobin Concent 32.1 Red Cell Distribution Width 15.6 H Platelet Count 121 L Mean Platelet Volume 10.3 Neutrophils % 80.0 H Lymphocytes % 6.2 L Monocytes % 6.7 Eosinophils % 0.0 Basophils % 0.9 Nucleated Red Blood Cells % 0.5 H Neutrophils # 3.5 Lymphocytes # 0.3 L Monocytes # 0.3 Eosinophils # 0.0 Basophils # 0.0 Nucleated Red Blood Cells # 0.0 Sodium Level 148 H Potassium Level 3.3 L Chloride Level 114 H Carbon Dioxide Level 26 Anion Gap 11 Blood Urea Nitrogen 30 H Creatinine 0.88 Glucose Level 118 Calcium Level 8.7 Medications Medications Current Medications Morphine Sulfate (morphine) 2 mg Q4H PRN IV pain Last administered on 16:29; Admin Dose 2 MG; Start 02/28/17 at 07:00 Acetaminophen (Tylenol Supp) 650 mg Q6H PRN [place] pain and fever Last administered on 03/02/17 15:46; Admin Dose 650 MG; Start 02/28/17 at 07:00 Ondansetron HCl (Zofran Inj) 4 mg Q6H PRN IV NAUSEA AND/OR VOMITING Last administered on 03/07/17 09:17; Admin Dose 4 MG; Start 02/28/17 at 07:00 Acetaminophen (Ofirmev 1000mg/ 100ml Iv) 1,000 mg Q6H PRN IVPB PAIN; Start at 14:30 Acetaminophen/ Hydrocodone Bitart 1 tab 1 tab Q6 PRN GTB MODERATE PAIN LEVEL 4- 6; Start 03/02/17 at 17:00 Cefepime HCl (Maxipime 1gm/50 ml (Pmx)) 50 ml @ 100 mls/hr Q12 IVPB Last administered on 03/08/17 09:17; Admin Dose 100 MLS/HR; Start 03/04/17 at 21: 00 Loperamide HCl (Imodium Liquid Cup) 2 mg QID PRN GTB DIARRHEA; Start 03/04/17 at 16:30 Metoclopramide HCl (Reglan) 10 mg Q6 IV Last administered on 03/08/17 05:33; Admin Dose 10 MG; Start 03/05/17 at 12:00 Famotidine 20 mg 20 mg BID IV Last administered on 03/08/17 09:17; Admin Dose 20 MG; Start 03/07/17 at 21:00 Dextrose/Sodium Chloride 1,000 ml @ 70 mls/hr [id number] IV ; Start 03/08/17 at 10:00 Potassium Chloride (KCl 40 MEQ/250 ML NS) 250 ml @ 62.5 mls/hr ONCE ONCE IVPB ; Start 03/08/17 at 10:00; Stop 03/08/17 at 13:59 RASTA HUGHES Mar 08, 2017 09:49
[2017-03-08] MEDS ORDERED: POTASSIUM CHLORIDE 250 ML IVPB ONE (10:00)
[2017-03-08] MEDS: DEXTROSE 5%-0.45% NACL 1,000 ML IV SCH (10:38)
--- NOTE | 2017-03-08 12:19 | PN ---
LICO SALAS 03/08/17 1219: Date/Time of Note Date/Time of Note DATE: 03/08/17 TIME: 12:19 Assessment/Plan VTE Prophylaxis VTE Prophylaxis Intervention: ambulation Lines/Catheters IV [facility] (from [facility]): Peripheral IV Urinary Cath still in place: No Assessment/Plan Chief Complaint/Hosp Course 1. Esophageal CA in [place] esophagus 2. Extracorporeal esophagogastric colonic bypass 3. Dysphagia and odonophagia due to Radiation/chemo s/p G tube on 4. Pancytopenia likely secondary to chemo/radiation, resolved 5. Bronchitis with sputum production, resolved 6. tube feeding problems Problems: Assessment/Plan 1.Npo 2. KUB tomorrow 3. Continue current regime Subjective 24 Hr Interval Summary Gastrointestinal: diarrhea Exam/Review of Systems Vital Signs Vitals Vital Signs Date Time Temp Pulse Resp B/P Pulse Ox O2 Delivery O2 Flow Rate FiO2 03/08/17 07:24 98.1 105 16 131/66 96 03/07/17 08:04 21 Intake and Output 03/07/17 03/07/17 03/08/17 15:00 23:00 07:00 Intake Total 50 ml 650 ml 225 ml Output Total 203 ml Balance 50 ml 447 ml 225 ml Exam Constitutional: alert, oriented Respiratory: clear to auscultation Cardiovascular: regular rate and rhythm Gastrointestinal: other (GT), soft Results Result Diagram: 03/08/17 0614 03/08/17 0614 Results 24 hrs Laboratory Tests Test 03/08/17 06:14 White Blood Count 4.3 L Red Blood Count 3.08 L Hemoglobin 8.9 L Hematocrit 27.7 L Mean Corpuscular Volume 89.9 Mean Corpuscular Hemoglobin 28.9 L Mean Corpuscular Hemoglobin Concent 32.1 Red Cell Distribution Width 15.6 H Platelet Count 121 L Mean Platelet Volume 10.3 Neutrophils % 80.0 H Lymphocytes % 6.2 L Monocytes % 6.7 Eosinophils % 0.0 Basophils % 0.9 Nucleated Red Blood Cells % 0.5 H Neutrophils # 3.5 Lymphocytes # 0.3 L Monocytes # 0.3 Eosinophils # 0.0 Basophils # 0.0 Nucleated Red Blood Cells # 0.0 Sodium Level 148 H Potassium Level 3.3 L Chloride Level 114 H Carbon Dioxide Level 26 Anion Gap 11 Blood Urea Nitrogen 30 H Creatinine 0.88 Glucose Level 118 Calcium Level 8.7 Medications Medications Current Medications Morphine Sulfate (morphine) 2 mg Q4H PRN IV pain Last administered on 16:29; Admin Dose 2 MG; Start 02/28/17 at 07:00 Acetaminophen (Tylenol Supp) 650 mg Q6H PRN [place] pain and fever Last administered on 03/02/17 15:46; Admin Dose 650 MG; Start 02/28/17 at 07:00 Ondansetron HCl (Zofran Inj) 4 mg Q6H PRN IV NAUSEA AND/OR VOMITING Last administered on 03/07/17 09:17; Admin Dose 4 MG; Start 02/28/17 at 07:00 Acetaminophen (Ofirmev 1000mg/ 100ml Iv) 1,000 mg Q6H PRN IVPB PAIN; Start at 14:30 Acetaminophen/ Hydrocodone Bitart 1 tab 1 tab Q6 PRN GTB MODERATE PAIN LEVEL 4- 6; Start 03/02/17 at 17:00 Cefepime HCl (Maxipime 1gm/50 ml (Pmx)) 50 ml @ 100 mls/hr Q12 IVPB Last administered on 03/08/17 09:17; Admin Dose 100 MLS/HR; Start 03/04/17 at 21: 00 Loperamide HCl (Imodium Liquid Cup) 2 mg QID PRN GTB DIARRHEA; Start 03/04/17 at 16:30 Metoclopramide HCl (Reglan) 10 mg Q6 IV Last administered on 03/08/17 05:33; Admin Dose 10 MG; Start 03/05/17 at 12:00 Famotidine 20 mg 20 mg BID IV Last administered on 03/08/17 09:17; Admin Dose 20 MG; Start 03/07/17 at 21:00 Dextrose/Sodium Chloride 1,000 ml @ 70 mls/hr [id number] IV Last administered on 03/08/17 10:38; Admin Dose 70 MLS/HR; Start 03/08/17 at 10:00 Potassium Chloride (KCl 40 MEQ/250 ML NS) 250 ml @ 62.5 mls/hr ONCE ONCE IVPB Last administered on 03/08/17 10:42; Admin Dose 62.5 MLS/HR; Start at 10:00; Stop 03/08/17 at 13:59 RENEE HAN MD 03/08/17 1754: Exam/Review of Systems Results Result Diagram: 03/08/17 0614 03/08/17 0614 LICO SALAS Mar 08, 2017 12:19 RENEE HAN MD Mar 08, 2017 17:54
[2017-03-08 14:25] VITALS: BP 133/71; RESP 16
[2017-03-08 20:00] VITALS: BP 121/68; RESP 20
[2017-03-09] MEDS: METOCLOPRAMIDE 10 MG INJ IV SCH ×5 (01:24→23:46)
[2017-03-09 02:00] VITALS: BP 128/65; RESP 20
[2017-03-09] MEDS: DEXTROSE 5%-0.45% NACL 1,000 ML IV SCH ×3 (05:10→18:52)
[2017-03-09 07:43] VITALS: BP 136/67; RESP 16
[2017-03-09] MEDS: FAMOTIDINE 20 MG INJ IV SCH ×2 (09:54→20:44)
[2017-03-09] MEDS: CEFEPIME 1GM/50 ML (PMX) 50 ML IVPB SCH ×2 (09:54→20:44)
--- NOTE | 2017-03-09 10:37 | RADRPT ---
PROCEDURE: XR Abdomen. CLINICAL INDICATION: Obstruction TECHNIQUE: AP abdomen x-ray. COMPARISON: CT chest from 02/28/2017 and small bowel study from 03/07/2017 FINDINGS: A gastrostomy tube is again noted. Previously administered contrast is now noted to opacify the dist al ascending colon, transverse colon, descending colon and proximal sigmoid colon. No significant co ntrast opacification of small bowel loops is noted. No dilated loops of small bowel or air-fluid lev els are noted to suggest a small bowel obstruction. IMPRESSION: Oral contrast is noted to opacify the colon without evidence of a small bowel obstruction, as above. RPTAT: EE Physician Blanca Date Time Electronically viewed and signed by Physician Blanca on 03/09/2017 10:36 /
--- NOTE | 2017-03-09 12:42 | PN ---
Date/Time of Note Date/Time of Note DATE: 03/09/17 TIME: 12:40 Assessment/Plan VTE Prophylaxis VTE Prophylaxis Intervention: ambulation Lines/Catheters IV [facility]ter Type (from [facility]): Peripheral IV Urinary Cath still in place: No Assessment/Plan Chief Complaint/Hosp Course 1. Esophageal CA in [place] esophagus 2. Extracorporeal esophagogastric colonic bypass 3. Dysphagia and odonophagia due to Radiation/chemo s/p G tube on 4. Pancytopenia likely secondary to chemo/radiation, resolved 5. Bronchitis with sputum production, resolved 6.Ileus resolving Problems: Assessment/Plan 1. continue IV fluids while NPO 2. Wait for GI dr to clear him up and start po feeding Subjective 24 Hr Interval Summary Constitutional: improved, no complaints Exam/Review of Systems Vital Signs Vitals Vital Signs Date Time Temp Pulse Resp B/P Pulse Ox O2 Delivery O2 Flow Rate FiO2 03/09/17 07:43 97.9 92 16 136/67 99 03/07/17 08:04 21 Intake and Output 03/08/17 03/08/17 03/09/17 15:00 23:00 07:00 Intake Total 275 ml 500 ml 800 ml Output Total 100 ml Balance 275 ml 400 ml 800 ml Exam Constitutional: alert, oriented Neck: supple Respiratory: clear to auscultation Cardiovascular: regular rate and rhythm Gastrointestinal: bowel sounds (present), soft Results Result Diagram: 03/09/17 0525 03/08/17 0614 Results 24 hrs Laboratory Tests Test 03/09/17 05:25 White Blood Count 2.9 #L Red Blood Count 2.88 L Hemoglobin 8.2 L Hematocrit 26.5 L Mean Corpuscular Volume 92.0 Mean Corpuscular Hemoglobin 28.5 L Mean Corpuscular Hemoglobin Concent 30.9 L Red Cell Distribution Width 15.3 H Platelet Count 87 #L Mean Platelet Volume 9.9 Neutrophils % Segmented Neutrophils % (Manual) 80 H Band Neutrophils % (Manual) 7 H Lymphocytes % Lymphocytes % (Manual) 5 L Monocytes % Monocytes % (Manual) 5 Eosinophils % Basophils % Myelocytes % (Manual) 3 H Nucleated Red Blood Cells % 0.0 Neutrophils # Neutrophils # (Manual) 2.3 Band Neutrophils # 0.2 Absolute Lymphocytes (Manual) 0.1 L Lymphocytes # Monocytes # Absolute Monocytes (Manual) 0.1 L Eosinophils # Basophils # Myelocytes # 0.0 Nucleated Red Blood Cells # Platelet Estimate DECREASED Giant Platelets 1 H Polychromasia 3+ Poikilocytosis 1+ Anisocytosis 1+ Microcytosis 1+ Medications Medications Current Medications Morphine Sulfate (morphine) 2 mg Q4H PRN IV pain Last administered on 16:29; Admin Dose 2 MG; Start 02/28/17 at 07:00 Acetaminophen (Tylenol Supp) 650 mg Q6H PRN [place] pain and fever Last administered on 03/02/17 15:46; Admin Dose 650 MG; Start 02/28/17 at 07:00 Ondansetron HCl (Zofran Inj) 4 mg Q6H PRN IV NAUSEA AND/OR VOMITING Last administered on 03/07/17 09:17; Admin Dose 4 MG; Start 02/28/17 at 07:00 Acetaminophen (Ofirmev 1000mg/ 100ml Iv) 1,000 mg Q6H PRN IVPB PAIN; Start at 14:30 Acetaminophen/ Hydrocodone Bitart 1 tab 1 tab Q6 PRN GTB MODERATE PAIN LEVEL 4- 6; Start 03/02/17 at 17:00 Cefepime HCl (Maxipime 1gm/50 ml (Pmx)) 50 ml @ 100 mls/hr Q12 IVPB Last administered on 03/09/17 09:54; Admin Dose 100 MLS/HR; Start 03/04/17 at 21: 00 Loperamide HCl (Imodium Liquid Cup) 2 mg QID PRN GTB DIARRHEA; Start 03/04/17 at 16:30 Metoclopramide HCl (Reglan) 10 mg Q6 IV Last administered on 03/09/17 06:18; Admin Dose 10 MG; Start 03/05/17 at 12:00 Famotidine 20 mg 20 mg BID IV Last administered on 03/09/17 09:54; Admin Dose 20 MG; Start 03/07/17 at 21:00 Dextrose/Sodium Chloride (D5-1/2ns) 1,000 ml @ 70 mls/hr [id number] IV Last administered on 03/09/17 05:10; Admin Dose 70 MLS/HR; Start 03/08/17 at 10:00 LICO SALAS Mar 09, 2017 12:42
[2017-03-09 13:42] VITALS: BP 126/64; RESP 18
--- NOTE | 2017-03-09 14:13 | PN ---
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 Continue other supportive care per primary and other consultants Patient seen in collaboration with Dr. Queen Subjective: Course reviewed with nursing staff Patient interviewed and examined All labs, imaging and other results reviewed Pt very excited to restart TF- denies n/v or abd pain PHYSICAL EXAMINATION: GENERAL: Well developed, well nourished, alert & oriented x 3, in no acute distress SKIN: No lesions, no stigmata chronic liver disease, no evidence of bleeding diathesis LYMPHATIC: No palpable lymphadenopathy. HEAD: Normocephalic, atraumatic, no tenderness. EYES: Pupils equal reactive to light and accommodation, full extraocular movements, sclera clear, non-icteric, no discharge. EARS/NOSE AND THROAT: Ears normal, nose normal, oropharynx normal, oral membranes well hydrated without lesions. NECK: Supple, no masses, thyroid normal, JVP within normal limits, carotids normal without bruits. CHEST: Inspection within normal limits. CARDIOVASCULAR: Heart: Regular rate and rhythm, no murmurs, gallops or rubs. Peripheral pulses present within normal limits, no cyanosis, clubbing or edemas. No pulsatile abdominal mass RESPIRATORY: Lungs clear to auscultation and percussion, no wheezing, no rubs GASTROINTESTINAL AND LIVER: Abdomen: Soft, non tenderness, non-distended, no hernias, no masses, no organomegaly, no ascites, no guarding, no rebound tenderness, normoactive bowel sounds. Rectal: Deferred. Problems: Exam/Review of Systems Vital Signs Vitals Vital Signs Date Time Temp Pulse Resp B/P Pulse Ox O2 Delivery O2 Flow Rate FiO2 03/09/17 13:42 97.5 91 18 126/64 97 03/07/17 08:04 21 Intake and Output 03/08/17 03/08/17 03/09/17 15:00 23:00 07:00 Intake Total 275 ml 500 ml 800 ml Output Total 100 ml Balance 275 ml 400 ml 800 ml Results Result Diagram: 03/09/17 0525 03/08/17 0614 Results 24 hrs Laboratory Tests Test 03/09/17 05:25 White Blood Count 2.9 #L Red Blood Count 2.88 L Hemoglobin 8.2 L Hematocrit 26.5 L Mean Corpuscular Volume 92.0 Mean Corpuscular Hemoglobin 28.5 L Mean Corpuscular Hemoglobin Concent 30.9 L Red Cell Distribution Width 15.3 H Platelet Count 87 #L Mean Platelet Volume 9.9 Neutrophils % Segmented Neutrophils % (Manual) 80 H Band Neutrophils % (Manual) 7 H Lymphocytes % Lymphocytes % (Manual) 5 L Monocytes % Monocytes % (Manual) 5 Eosinophils % Basophils % Myelocytes % (Manual) 3 H Nucleated Red Blood Cells % 0.0 Neutrophils # Neutrophils # (Manual) 2.3 Band Neutrophils # 0.2 Absolute Lymphocytes (Manual) 0.1 L Lymphocytes # Monocytes # Absolute Monocytes (Manual) 0.1 L Eosinophils # Basophils # Myelocytes # 0.0 Nucleated Red Blood Cells # Platelet Estimate DECREASED Giant Platelets 1 H Polychromasia 3+ Poikilocytosis 1+ Anisocytosis 1+ Microcytosis 1+ Medications Medications Current Medications Morphine Sulfate (morphine) 2 mg Q4H PRN IV pain Last administered on 16:29; Admin Dose 2 MG; Start 02/28/17 at 07:00 Acetaminophen (Tylenol Supp) 650 mg Q6H PRN [place] pain and fever Last administered on 03/02/17 15:46; Admin Dose 650 MG; Start 02/28/17 at 07:00 Ondansetron HCl (Zofran Inj) 4 mg Q6H PRN IV NAUSEA AND/OR VOMITING Last administered on 03/07/17 09:17; Admin Dose 4 MG; Start 02/28/17 at 07:00 Acetaminophen (Ofirmev 1000mg/ 100ml Iv) 1,000 mg Q6H PRN IVPB PAIN; Start at 14:30 Acetaminophen/ Hydrocodone Bitart 1 tab 1 tab Q6 PRN GTB MODERATE PAIN LEVEL 4- 6; Start 03/02/17 at 17:00 Cefepime HCl (Maxipime 1gm/50 ml (Pmx)) 50 ml @ 100 mls/hr Q12 IVPB Last administered on 03/09/17 09:54; Admin Dose 100 MLS/HR; Start 03/04/17 at 21: 00 Loperamide HCl (Imodium Liquid Cup) 2 mg QID PRN GTB DIARRHEA; Start 03/04/17 at 16:30 Metoclopramide HCl (Reglan) 10 mg Q6 IV Last administered on 03/09/17 13:21; Admin Dose 10 MG; Start 03/05/17 at 12:00 Famotidine 20 mg 20 mg BID IV Last administered on 03/09/17 09:54; Admin Dose 20 MG; Start 03/07/17 at 21:00 Dextrose/Sodium Chloride (D5-1/2ns) 1,000 ml @ 70 mls/hr [id number] IV Last administered on 03/09/17 05:10; Admin Dose 70 MLS/HR; Start 03/08/17 at 10:00 RASTA HUGHES Mar 09, 2017 14:13
[2017-03-09 19:49] VITALS: BP 116/63; RESP 20
[2017-03-10 01:44] VITALS: BP 111/64; RESP 18
[2017-03-10] MEDS: DEXTROSE 5%-0.45% NACL 1,000 ML IV SCH ×2 (04:54→09:37)
[2017-03-10] MEDS: METOCLOPRAMIDE 10 MG INJ IV SCH ×4 (06:06→23:34)
[2017-03-10 07:26] VITALS: BP 113/69; RESP 18
[2017-03-10] MEDS: FAMOTIDINE 20 MG INJ IV SCH ×2 (09:30→20:21)
[2017-03-10] MEDS: CEFEPIME 1GM/50 ML (PMX) 50 ML IVPB SCH ×2 (09:30→20:21)
[2017-03-10] MEDS ORDERED: POTASSIUM CHLORIDE 250 ML IVPB ONE (10:00)
[2017-03-10] MEDS ORDERED: DEXTROSE 5% 500 ML IV SCH (10:30)
--- NOTE | 2017-03-10 10:34 | PN ---
Date/Time of Note Date/Time of Note DATE: 03/10/17 TIME: 10:27 Assessment/Plan VTE Prophylaxis VTE Prophylaxis Intervention: SCD's Lines/Catheters [facility] (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 s/p 10 fractions of XRT and 2 doses of Carboplatin/ Taxol last given on 02/25/17 #Extracorporeal esophagogastric colonic bypass # Dysphagia and odonophagia due to Radiation/chemo s/p G tube on # Pancytopenia likely secondary to chemo/radiation> worsening again # Bronchitis resolving # Diarrhoea r/o Cdiff/chemo induced/ tube feeding resolved # Neutropenic fevers with Enterbacter UTI/ Bronchitis and now diarrhoea resolved # Ileus resolving # Hypokalemia Recs - Counts dropping again, c/w monitor - Increase TF to goal today - Home health - Change iv fluids to d5 w for 500 cc for hypernatremia - Replete K - c/w iv reglan - c/w Cefepime - GI/DVT prophylaxsis Problems: Subjective 24 Hr Interval Summary Free Text/Dictation Tolerating TF at 30 cc/hr Had BM this am Exam/Review of Systems Vital Signs Vitals Vital Signs Date Time Temp Pulse Resp B/P Pulse Ox O2 Delivery O2 Flow Rate FiO2 03/10/17 07:26 97.5 87 18 113/69 96 03/07/17 08:04 21 Intake and Output 03/09/17 03/09/17 03/10/17 15:00 23:00 07:00 Intake Total 50 ml 850 ml 1020 ml Output Total 3 ml Balance 50 ml 850 ml 1017 ml Exam onstitutional: alert, oriented Head: atraumatic, normocephalic Eyes: nl conjunctiva Respiratory: congested cough, diminished breath sounds Cardiovascular: regular rate and rhythm Abdomen:+ bowel sounds, G tube Results Result Diagram: 03/10/17 0531 03/10/17 0531 Results 24 hrs Laboratory Tests Test 03/10/17 05:31 White Blood Count 2.3 #L Red Blood Count 2.81 L Hemoglobin 8.1 L Hematocrit 25.5 L Mean Corpuscular Volume 90.7 Mean Corpuscular Hemoglobin 28.8 L Mean Corpuscular Hemoglobin Concent 31.8 L Red Cell Distribution Width 14.8 H Platelet Count 87 L Mean Platelet Volume 9.8 Neutrophils % 74.5 Lymphocytes % 12.3 L Monocytes % 7.5 Eosinophils % 0.0 Basophils % 0.4 Nucleated Red Blood Cells % 0.0 Neutrophils # 1.7 Lymphocytes # 0.3 L Monocytes # 0.2 L Eosinophils # 0.0 Basophils # 0.0 Nucleated Red Blood Cells # 0.0 Sodium Level 148 H Potassium Level 3.2 L Chloride Level 114 H Carbon Dioxide Level 28 Anion Gap 9 Blood Urea Nitrogen 16 # Creatinine 0.66 Glucose Level 129 Calcium Level 8.3 L Medications Medications Current Medications Morphine Sulfate (morphine) 2 mg Q4H PRN IV pain Last administered on 16:29; Admin Dose 2 MG; Start 02/28/17 at 07:00 Acetaminophen (Tylenol Supp) 650 mg Q6H PRN [place] pain and fever Last administered on 03/02/17 15:46; Admin Dose 650 MG; Start 02/28/17 at 07:00 Ondansetron HCl (Zofran Inj) 4 mg Q6H PRN IV NAUSEA AND/OR VOMITING Last administered on 03/07/17 09:17; Admin Dose 4 MG; Start 02/28/17 at 07:00 Acetaminophen (Ofirmev 1000mg/ 100ml Iv) 1,000 mg Q6H PRN IVPB PAIN; Start at 14:30 Acetaminophen/ Hydrocodone Bitart 1 tab 1 tab Q6 PRN GTB MODERATE PAIN LEVEL 4- 6; Start 03/02/17 at 17:00 Cefepime HCl (Maxipime 1gm/50 ml (Pmx)) 50 ml @ 100 mls/hr Q12 IVPB Last administered on 03/10/17 09:30; Admin Dose 100 MLS/HR; Start 03/04/17 at 21: 00 Loperamide HCl (Imodium Liquid Cup) 2 mg QID PRN GTB DIARRHEA; Start 03/04/17 at 16:30 Metoclopramide HCl (Reglan) 10 mg Q6 IV Last administered on 03/10/17 06:06; Admin Dose 10 MG; Start 03/05/17 at 12:00 Famotidine 20 mg 20 mg BID IV Last administered on 03/10/17 09:30; Admin Dose 20 MG; Start 03/07/17 at 21:00 Potassium Chloride (KCl 40 MEQ/250 ML NS) 250 ml @ 62.5 mls/hr ONCE ONCE IVPB ; Start 03/10/17 at 10:00; Stop 03/10/17 at 13:59 RENEE HAN MD Mar 10, 2017 10:34
[2017-03-10 13:46] VITALS: BP 123/70; RESP 20
--- NOTE | 2017-03-10 15:13 | PN ---
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 Queen Subjective: Course reviewed with nursing staff Patient interviewed and examined All labs, imaging and other results reviewed Pt feels well tolerating tube feeding without issues, wound culture from ostomy site plan results positive for gram negative rods will continue antibiotics Change routine PEG care to 4 times daily with Betadine and Polysporin, continue to monitor closely. PHYSICAL EXAMINATION: GENERAL: Well developed, well nourished, alert & oriented x 3, in no acute distress SKIN: No lesions, no stigmata chronic liver disease, no evidence of bleeding diathesis, drainage from ostomy site. LYMPHATIC: No palpable lymphadenopathy. HEAD: Normocephalic, atraumatic, no tenderness. EYES: Pupils equal reactive to light and accommodation, full extraocular movements, sclera clear, non-icteric, no discharge. EARS/NOSE AND THROAT: Ears normal, nose normal, oropharynx normal, oral membranes well hydrated without lesions. NECK: Supple, no masses, thyroid normal, JVP within normal limits, carotids normal without bruits. CHEST: Inspection within normal limits. CARDIOVASCULAR: Heart: Regular rate and rhythm, no murmurs, gallops or rubs. Peripheral pulses present within normal limits, no cyanosis, clubbing or edemas. No pulsatile abdominal mass RESPIRATORY: Lungs clear to auscultation and percussion, no wheezing, no rubs GASTROINTESTINAL AND LIVER: Abdomen: Soft, non tenderness, non-distended, no hernias, no masses, no organomegaly, no ascites, no guarding, no rebound tenderness, normoactive bowel sounds. Rectal: Deferred. Problems: Exam/Review of Systems Vital Signs Vitals Vital Signs Date Time Temp Pulse Resp B/P Pulse Ox O2 Delivery O2 Flow Rate FiO2 03/10/17 13:46 97.6 85 20 123/70 98 03/07/17 08:04 21 Intake and Output 03/09/17 03/09/17 03/10/17 15:00 23:00 07:00 Intake Total 50 ml 850 ml 1020 ml Output Total 3 ml Balance 50 ml 850 ml 1017 ml Results Result Diagram: 03/10/17 0531 03/10/17 0531 Results 24 hrs Laboratory Tests Test 03/10/17 05:31 White Blood Count 2.3 #L Red Blood Count 2.81 L Hemoglobin 8.1 L Hematocrit 25.5 L Mean Corpuscular Volume 90.7 Mean Corpuscular Hemoglobin 28.8 L Mean Corpuscular Hemoglobin Concent 31.8 L Red Cell Distribution Width 14.8 H Platelet Count 87 L Mean Platelet Volume 9.8 Neutrophils % 74.5 Lymphocytes % 12.3 L Monocytes % 7.5 Eosinophils % 0.0 Basophils % 0.4 Nucleated Red Blood Cells % 0.0 Neutrophils # 1.7 Lymphocytes # 0.3 L Monocytes # 0.2 L Eosinophils # 0.0 Basophils # 0.0 Nucleated Red Blood Cells # 0.0 Sodium Level 148 H Potassium Level 3.2 L Chloride Level 114 H Carbon Dioxide Level 28 Anion Gap 9 Blood Urea Nitrogen 16 # Creatinine 0.66 Glucose Level 129 Calcium Level 8.3 L Medications Medications Current Medications Morphine Sulfate (morphine) 2 mg Q4H PRN IV pain Last administered on 16:29; Admin Dose 2 MG; Start 02/28/17 at 07:00 Acetaminophen (Tylenol Supp) 650 mg Q6H PRN [place] pain and fever Last administered on 03/02/17 15:46; Admin Dose 650 MG; Start 02/28/17 at 07:00 Ondansetron HCl (Zofran Inj) 4 mg Q6H PRN IV NAUSEA AND/OR VOMITING Last administered on 03/07/17 09:17; Admin Dose 4 MG; Start 02/28/17 at 07:00 Acetaminophen (Ofirmev 1000mg/ 100ml Iv) 1,000 mg Q6H PRN IVPB PAIN; Start at 14:30 Acetaminophen/ Hydrocodone Bitart 1 tab 1 tab Q6 PRN GTB MODERATE PAIN LEVEL 4- 6; Start 03/02/17 at 17:00 Cefepime HCl (Maxipime 1gm/50 ml (Pmx)) 50 ml @ 100 mls/hr Q12 IVPB Last administered on 03/10/17 09:30; Admin Dose 100 MLS/HR; Start 03/04/17 at 21: 00 Loperamide HCl (Imodium Liquid Cup) 2 mg QID PRN GTB DIARRHEA; Start 03/04/17 at 16:30 Metoclopramide HCl (Reglan) 10 mg Q6 IV Last administered on 03/10/17 12:50; Admin Dose 10 MG; Start 03/05/17 at 12:00 Famotidine 20 mg 20 mg BID IV Last administered on 03/10/17 09:30; Admin Dose 20 MG; Start 03/07/17 at 21:00 Dextrose (D5W) 500 ml @ 50 mls/hr Q10H IV Last administered on 03/10/17 11: 04; Admin Dose 50 MLS/HR; Start 03/10/17 at 10:30; Stop 03/10/17 at 20:29 RASTA HUGHES Mar 10, 2017 15:13
[2017-03-10 20:17] VITALS: BP 110/65; RESP 18
[2017-03-11 02:00] VITALS: BP 116/70; RESP 18
[2017-03-11] MEDS: METOCLOPRAMIDE 10 MG INJ IV SCH ×4 (05:37→23:57)
[2017-03-11 07:25] VITALS: BP 123/73; RESP 20
[2017-03-11] MEDS: CEFEPIME 1GM/50 ML (PMX) 50 ML IVPB SCH ×2 (10:04→20:36)
[2017-03-11] MEDS: FAMOTIDINE 20 MG INJ IV SCH (10:04)
[2017-03-11 13:48] VITALS: BP 118/75; RESP 20
--- NOTE | 2017-03-11 18:22 | PN ---
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 s/p 10 fractions of XRT and 2 doses of Carboplatin/ Taxol last given on 02/25/17 #Extracorporeal esophagogastric colonic bypass # Dysphagia and odonophagia due to Radiation/chemo s/p G tube on # Pancytopenia likely secondary to chemo/radiation> worsening again # Bronchitis resolving # Diarrhoea r/o Cdiff/chemo induced/ tube feeding resolved # Neutropenic fevers with Enterbacter UTI/ Bronchitis and now diarrhoea resolved # Ileus resolving ESBL INF PLAN ANTIBIOTIC Problems: Subjective 24 Hr Interval Summary Respiratory: no complaints Cardiovascular: no complaints Gastrointestinal: No pain Exam/Review of Systems Vital Signs Vitals Vital Signs Date Time Temp Pulse Resp B/P Pulse Ox O2 Delivery O2 Flow Rate FiO2 03/11/17 13:48 98.4 99 20 118/75 98 03/07/17 08:04 21 Intake and Output 03/10/17 03/10/17 03/11/17 15:00 23:00 07:00 Intake Total 1285 ml 980 ml Output Total 350 ml Balance 1285 ml 630 ml Exam Neck: supple Respiratory: clear to auscultation Cardiovascular: regular rate and rhythm Gastrointestinal: bowel sounds (+), soft Results Result Diagram: 03/11/17 0511 03/11/17 0511 Results 24 hrs Laboratory Tests Test 03/11/17 05:11 White Blood Count 5.2 # Red Blood Count 3.24 L Hemoglobin 9.3 L Hematocrit 28.7 L Mean Corpuscular Volume 88.6 Mean Corpuscular Hemoglobin 28.7 L Mean Corpuscular Hemoglobin Concent 32.4 Red Cell Distribution Width 14.9 H Platelet Count 118 #L Mean Platelet Volume 10.4 Neutrophils % 86.8 H Lymphocytes % 6.5 L Monocytes % 4.6 Eosinophils % 0.0 Basophils % 0.4 Nucleated Red Blood Cells % 0.0 Neutrophils # 4.5 Lymphocytes # 0.3 L Monocytes # 0.2 L Eosinophils # 0.0 Basophils # 0.0 Nucleated Red Blood Cells # 0.0 Sodium Level 143 Potassium Level 3.6 Chloride Level 109 Carbon Dioxide Level 26 Anion Gap 12 Blood Urea Nitrogen 15 Creatinine 0.65 Glucose Level 155 Calcium Level 8.0 L Phosphorus Level 3.3 Magnesium Level 1.9 Total Bilirubin 0.4 Direct Bilirubin 0.00 Indirect Bilirubin 0.4 Aspartate Amino Transf (AST/SGOT) 30 Alanine Aminotransferase (ALT/SGPT) 54 Alkaline Phosphatase 86 Total Protein 5.4 L Albumin 2.8 L Globulin 2.60 Albumin/Globulin Ratio 1.07 Medications Medications Current Medications Morphine Sulfate (morphine) 2 mg Q4H PRN IV pain Last administered on 16:29; Admin Dose 2 MG; Start 02/28/17 at 07:00 Acetaminophen (Tylenol Supp) 650 mg Q6H PRN [place] pain and fever Last administered on 03/02/17 15:46; Admin Dose 650 MG; Start 02/28/17 at 07:00 Ondansetron HCl (Zofran Inj) 4 mg Q6H PRN IV NAUSEA AND/OR VOMITING Last administered on 03/07/17 09:17; Admin Dose 4 MG; Start 02/28/17 at 07:00 Acetaminophen (Ofirmev 1000mg/ 100ml Iv) 1,000 mg Q6H PRN IVPB PAIN; Start at 14:30 Acetaminophen/ Hydrocodone Bitart 1 tab 1 tab Q6 PRN GTB MODERATE PAIN LEVEL 4- 6; Start 03/02/17 at 17:00 Cefepime HCl (Maxipime 1gm/50 ml (Pmx)) 50 ml @ 100 mls/hr Q12 IVPB Last administered on 03/11/17 10:04; Admin Dose 100 MLS/HR; Start 03/04/17 at 21: 00 Loperamide HCl (Imodium Liquid Cup) 2 mg QID PRN GTB DIARRHEA; Start 03/04/17 at 16:30 Metoclopramide HCl (Reglan) 10 mg Q6 IV Last administered on 03/11/17 18:19; Admin Dose 10 MG; Start 03/05/17 at 12:00 Famotidine (Pepcid Iv) 20 mg BID IV Last administered on 03/11/17 10:04; Admin Dose 20 MG; Start 03/07/17 at 21:00 KATHERINE ELDER MD Mar 11, 2017 18:22
--- NOTE | 2017-03-11 20:06 | PN ---
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 Post uneventful PEG 02/28/17 Diarrhea/resolved Plan: PEG care QID with polysporin and Betadine Continue TF feeding increase as tolerated Continue other supportive care per primary and other consultants Subjective: Course reviewed with nursing staff Patient interviewed and examined All labs, imaging and other results reviewed Pt feels well tolerating tube feeding without issues, Wound appears better with new GT site care We will continue present regimen for the time being PHYSICAL EXAMINATION: GENERAL: Well developed, well nourished, alert & oriented x 3, in no acute distress SKIN: No lesions, no stigmata chronic liver disease, no evidence of bleeding diathesis, drainage from ostomy site. LYMPHATIC: No palpable lymphadenopathy. HEAD: Normocephalic, atraumatic, no tenderness. EYES: Pupils equal reactive to light and accommodation, full extraocular movements, sclera clear, non-icteric, no discharge. EARS/NOSE AND THROAT: Ears normal, nose normal, oropharynx normal, oral membranes well hydrated without lesions. NECK: Supple, no masses, thyroid normal, JVP within normal limits, carotids normal without bruits. CHEST: Inspection within normal limits. CARDIOVASCULAR: Heart: Regular rate and rhythm, no murmurs, gallops or rubs. Peripheral pulses present within normal limits, no cyanosis, clubbing or edemas. No pulsatile abdominal mass RESPIRATORY: Lungs clear to auscultation and percussion, no wheezing, no rubs GASTROINTESTINAL AND LIVER: Abdomen: GT tube in place minimal skin erythema. Soft, non tenderness, non-distended, no hernias, no masses, no organomegaly, no ascites, no guarding, no rebound tenderness, normoactive bowel sounds. Rectal: Deferred. Problems: Exam/Review of Systems Vital Signs Vitals Vital Signs Date Time Temp Pulse Resp B/P Pulse Ox O2 Delivery O2 Flow Rate FiO2 03/11/17 13:48 98.4 99 20 118/75 98 03/07/17 08:04 21 Intake and Output 10/03/10/17 03/11/17 15:00 23:00 07:00 Intake Total 1285 ml 1360 ml Output Total 350 ml Balance 1285 ml 1010 ml Results Result Diagram: 03/11/17 0511 03/11/17 0511 Results 24 hrs Laboratory Tests Test 03/11/17 05:11 White Blood Count 5.2 # Red Blood Count 3.24 L Hemoglobin 9.3 L Hematocrit 28.7 L Mean Corpuscular Volume 88.6 Mean Corpuscular Hemoglobin 28.7 L Mean Corpuscular Hemoglobin Concent 32.4 Red Cell Distribution Width 14.9 H Platelet Count 118 #L Mean Platelet Volume 10.4 Neutrophils % 86.8 H Lymphocytes % 6.5 L Monocytes % 4.6 Eosinophils % 0.0 Basophils % 0.4 Nucleated Red Blood Cells % 0.0 Neutrophils # 4.5 Lymphocytes # 0.3 L Monocytes # 0.2 L Eosinophils # 0.0 Basophils # 0.0 Nucleated Red Blood Cells # 0.0 Sodium Level 143 Potassium Level 3.6 Chloride Level 109 Carbon Dioxide Level 26 Anion Gap 12 Blood Urea Nitrogen 15 Creatinine 0.65 Glucose Level 155 Calcium Level 8.0 L Phosphorus Level 3.3 Magnesium Level 1.9 Total Bilirubin 0.4 Direct Bilirubin 0.00 Indirect Bilirubin 0.4 Aspartate Amino Transf (AST/SGOT) 30 Alanine Aminotransferase (ALT/SGPT) 54 Alkaline Phosphatase 86 Total Protein 5.4 L Albumin 2.8 L Globulin 2.60 Albumin/Globulin Ratio 1.07 Medications Medications Current Medications Morphine Sulfate (morphine) 2 mg Q4H PRN IV pain Last administered on 16:29; Admin Dose 2 MG; Start 02/28/17 at 07:00 Acetaminophen (Tylenol Supp) 650 mg Q6H PRN [place] pain and fever Last administered on 03/02/17 15:46; Admin Dose 650 MG; Start 02/28/17 at 07:00 Ondansetron HCl (Zofran Inj) 4 mg Q6H PRN IV NAUSEA AND/OR VOMITING Last administered on 03/07/17 09:17; Admin Dose 4 MG; Start 02/28/17 at 07:00 Acetaminophen (Ofirmev 1000mg/ 100ml Iv) 1,000 mg Q6H PRN IVPB PAIN; Start at 14:30 Acetaminophen/ Hydrocodone Bitart 1 tab 1 tab Q6 PRN GTB MODERATE PAIN LEVEL 4- 6; Start 03/02/17 at 17:00 Cefepime HCl (Maxipime 1gm/50 ml (Pmx)) 50 ml @ 100 mls/hr Q12 IVPB Last administered on 03/11/17 10:04; Admin Dose 100 MLS/HR; Start 03/04/17 at 21: 00 Loperamide HCl (Imodium Liquid Cup) 2 mg QID PRN GTB DIARRHEA; Start 03/04/17 at 16:30 Metoclopramide HCl (Reglan) 10 mg Q6 IV Last administered on 03/11/17 18:19; Admin Dose 10 MG; Start 03/05/17 at 12:00 Famotidine (Pepcid) 20 mg BID PEG ; Start 03/11/17 at 21:00 RODRICK MICHELE MD Mar 11, 2017 20:06
[2017-03-11 20:12] VITALS: BP 108/68; RESP 20
[2017-03-11] MEDS: FAMOTIDINE 20 MG TAB PEG SCH (20:35)
[2017-03-12 02:04] VITALS: BP 119/71; RESP 20
[2017-03-12] MEDS: METOCLOPRAMIDE 10 MG INJ IV SCH ×3 (05:28→17:39)
[2017-03-12 08:00] VITALS: BP 144/65; RESP 18
[2017-03-12] MEDS: FAMOTIDINE 20 MG TAB PEG SCH ×2 (09:44→21:33)
[2017-03-12] MEDS: CEFEPIME 1GM/50 ML (PMX) 50 ML IVPB SCH ×2 (09:44→21:34)
--- NOTE | 2017-03-12 10:53 | RADRPT ---
PROCEDURE: Ultrasound of the left lower extremity venous system. CLINICAL INDICATION: Left lower extremity pain and swelling. TECHNIQUE: Lira scale with and without compression, color doppler, spectral doppler of the venous system of the left lower extremity was performed. Venous augmentation maneuvers were utilized. COMPARISON: No prior studies are available for comparison. FINDINGS: RIGHT: Common femoral vein:Patent and compressible. Femoral vein:Noncompressible thrombus present. Popliteal vein:Noncompressible thrombus present. Visualized calf veins:Patent and compressible. Soft tissues:Normal IMPRESSION: 1. Findings consistent with deep venous thrombosis in the left femoral and popliteal veins. Note: A telephone message was left for Lauro George on 03/12/2017 10:50:36 AM. RPTAT: [facility] Physician Willi Date Time Electronically viewed and signed by Physician Willi on 03/12/2017 10:52 /
--- NOTE | 2017-03-12 11:48 | PN ---
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 Queen Subjective: Course reviewed with nursing staff Patient interviewed and examined All labs, imaging and other results reviewed Pt feels well tolerating tube feeding without issues, Wound appears better with new GT site care, Cleared from GI point of view However, new evidence of DVT will need anticoagulant therapy PHYSICAL EXAMINATION: GENERAL: Well developed, well nourished, alert & oriented x 3, in no acute distress SKIN: No lesions, no stigmata chronic liver disease, no evidence of bleeding diathesis, drainage from ostomy site. LYMPHATIC: No palpable lymphadenopathy. HEAD: Normocephalic, atraumatic, no tenderness. EYES: Pupils equal reactive to light and accommodation, full extraocular movements, sclera clear, non-icteric, no discharge. EARS/NOSE AND THROAT: Ears normal, nose normal, oropharynx normal, oral membranes well hydrated without lesions. NECK: Supple, no masses, thyroid normal, JVP within normal limits, carotids normal without bruits. CHEST: Inspection within normal limits. CARDIOVASCULAR: Heart: Regular rate and rhythm, no murmurs, gallops or rubs. Peripheral pulses present within normal limits, no cyanosis, clubbing or edemas. No pulsatile abdominal mass RESPIRATORY: Lungs clear to auscultation and percussion, no wheezing, no rubs GASTROINTESTINAL AND LIVER: Abdomen: Soft, non tenderness, non-distended, no hernias, no masses, no organomegaly, no ascites, no guarding, no rebound tenderness, normoactive bowel sounds. Rectal: Deferred. Problems: Exam/Review of Systems Vital Signs Vitals Vital Signs Date Time Temp Pulse Resp B/P Pulse Ox O2 Delivery O2 Flow Rate FiO2 03/12/17 08:00 97.8 59 18 144/65 94 Intake and Output 03/11/17 03/11/17 03/12/17 15:00 23:00 07:00 Intake Total 50 ml 625 ml Balance 50 ml 625 ml Results Result Diagram: 03/11/1711 03/11/17 0511 Medications Medications Current Medications Morphine Sulfate (morphine) 2 mg Q4H PRN IV pain Last administered on 16:29; Admin Dose 2 MG; Start 02/28/17 at 07:00 Acetaminophen (Tylenol Supp) 650 mg Q6H PRN [place] pain and fever Last administered on 03/02/17 15:46; Admin Dose 650 MG; Start 02/28/17 at 07:00 Ondansetron HCl (Zofran Inj) 4 mg Q6H PRN IV NAUSEA AND/OR VOMITING Last administered on 03/07/17 09:17; Admin Dose 4 MG; Start 02/28/17 at 07:00 Acetaminophen (Ofirmev 1000mg/ 100ml Iv) 1,000 mg Q6H PRN IVPB PAIN; Start at 14:30 Acetaminophen/ Hydrocodone Bitart 1 tab 1 tab Q6 PRN GTB MODERATE PAIN LEVEL 4- 6; Start 03/02/17 at 17:00 Cefepime HCl (Maxipime 1gm/50 ml (Pmx)) 50 ml @ 100 mls/hr Q12 IVPB Last administered on 03/12/17 09:44; Admin Dose 100 MLS/HR; Start 03/04/17 at 21: 00 Loperamide HCl (Imodium Liquid Cup) 2 mg QID PRN GTB DIARRHEA; Start 03/04/17 at 16:30 Metoclopramide HCl (Reglan) 10 mg Q6 IV Last administered on 03/12/17 05:28; Admin Dose 10 MG; Start 03/05/17 at 12:00 Famotidine (Pepcid) 20 mg BID PEG Last administered on 03/12/17 09:44; Admin Dose 20 MG; Start 03/11/17 at 21:00 Apixaban (Eliquis) 10 mg BID PO ; Start 03/12/17 at 11:30; Stop 03/18/17 at 11: 29 Apixaban (Eliquis) 5 mg BID PO ; Start 03/18/17 at 21:00 RASTA HUGHES Mar 12, 2017 11:48
[2017-03-12] MEDS: APIXABAN 5 MG TABLET PO SCH ×2 (12:52→21:34)
[2017-03-12 15:02] VITALS: BP 108/64; RESP 20
[2017-03-12] MEDS ORDERED: ENOXAPARIN 80 MG/0.8 ML SYG SC ONE (17:00)
--- NOTE | 2017-03-12 17:14 | PN ---
Date/Time of Note Date/Time of Note DATE: 03/12/17 TIME: 17:12 Assessment/Plan VTE Prophylaxis VTE Prophylaxis Intervention: other Lines/Catheters [facility] Type (from [facility]): Peripheral IV Urinary Cath still in place: No Assessment/Plan Chief Complaint/Hosp Course #Esophageal [place] in [place] esophagus s/p 10 fractions of XRT and 2 doses of Carboplatin/ Taxol last given on 02/25/17 #Extracorporeal esophagogastric colonic bypass # Dysphagia and odonophagia due to Radiation/chemo s/p G tube on # Pancytopenia likely secondary to chemo/radiation> worsening again # Bronchitis resolving # Diarrhoea r/o Cdiff/chemo induced/ tube feeding resolved # Neutropenic fevers with Enterbacter UTI/ Bronchitis and now diarrhoea resolved # Ileus resolving dvt ESBL INF PLAN ANTIBIOTIC eliquis Problems: Subjective 24 Hr Interval Summary Subjective hx not possible: other (left leg edema positive dvt) Exam/Review of Systems Vital Signs Vitals Vital Signs Date Time Temp Pulse Resp B/P Pulse Ox O2 Delivery O2 Flow Rate FiO2 03/12/17 15:02 97.6 101 20 108/64 96 Intake and Output 03/11/17 03/11/17 03/12/17 15:00 23:00 07:00 Intake Total 50 ml 625 ml Balance 50 ml 625 ml Exam Neck: supple Respiratory: clear to auscultation Cardiovascular: regular rate and rhythm Gastrointestinal: bowel sounds (+), soft Extremities: edema (++) Results Result Diagram: 03/11/17 0503/11/17 0511 Medications Medications Current Medications Morphine Sulfate (morphine) 2 mg Q4H PRN IV pain Last administered on 16:29; Admin Dose 2 MG; Start 02/28/17 at 07:00 Acetaminophen (Tylenol Supp) 650 mg Q6H PRN [place] pain and fever Last administered on 03/02/17 15:46; Admin Dose 650 MG; Start 02/28/17 at 07:00 Ondansetron HCl (Zofran Inj) 4 mg Q6H PRN IV NAUSEA AND/OR VOMITING Last administered on 03/07/17 09:17; Admin Dose 4 MG; Start 02/28/17 at 07:00 Acetaminophen (Ofirmev 1000mg/ 100ml Iv) 1,000 mg Q6H PRN IVPB PAIN; Start at 14:30 Acetaminophen/ Hydrocodone Bitart 1 tab 1 tab Q6 PRN GTB MODERATE PAIN LEVEL 4- 6; Start 03/02/17 at 17:00 Cefepime HCl (Maxipime 1gm/50 ml (Pmx)) 50 ml @ 100 mls/hr Q12 IVPB Last administered on 03/12/17 09:44; Admin Dose 100 MLS/HR; Start 03/04/17 at 21: 00 Loperamide HCl (Imodium Liquid Cup) 2 mg QID PRN GTB DIARRHEA; Start 03/04/17 at 16:30 Metoclopramide HCl (Reglan) 10 mg Q6 IV Last administered on 03/12/17 12:52; Admin Dose 10 MG; Start 03/05/17 at 12:00 Famotidine (Pepcid) 20 mg BID PEG Last administered on 03/12/17 09:44; Admin Dose 20 MG; Start 03/11/17 at 21:00 Apixaban (Eliquis) 10 mg BID PO Last administered on 03/12/17 12:52; Admin Dose 10 MG; Start 03/12/17 at 11:30; Stop 03/18/17 at 11:29 Apixaban (Eliquis) 5 mg BID PO ; Start 03/18/17 at 21:00 KATHERINE ELDER MD Mar 12, 2017 17:14
[2017-03-12 19:33] VITALS: RESP 20
[2017-03-13] MEDS: METOCLOPRAMIDE 10 MG INJ IV SCH ×3 (00:08→12:40)
[2017-03-13 02:00] VITALS: BP 112/63; RESP 20
[2017-03-13 07:41] VITALS: BP 111/59; RESP 16
[2017-03-13] MEDS: APIXABAN 5 MG TABLET PO SCH (09:25)
[2017-03-13] MEDS: FAMOTIDINE 20 MG TAB PEG SCH (09:25)
[2017-03-13] MEDS: CEFEPIME 1GM/50 ML (PMX) 50 ML IVPB SCH (09:25)
--- NOTE | 2017-03-13 10:23 | PN ---
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 Queen Subjective: Course reviewed with nursing staff Patient interviewed and examined All labs, imaging and other results reviewed Pt feels well, Wilber TF at goal of 40ml/hr, ostomy site continues to heal well continue PEG care. Cleared from GI point of view positive for DVT on Eliquis PHYSICAL EXAMINATION: GENERAL: Well developed, well nourished, alert & oriented x 3, in no acute distress SKIN: No lesions, no stigmata chronic liver disease, no evidence of bleeding diathesis, drainage from ostomy site. LYMPHATIC: No palpable lymphadenopathy. HEAD: Normocephalic, atraumatic, no tenderness. EYES: Pupils equal reactive to light and accommodation, full extraocular movements, sclera clear, non-icteric, no discharge. EARS/NOSE AND THROAT: Ears normal, nose normal, oropharynx normal, oral membranes well hydrated without lesions. NECK: Supple, no masses, thyroid normal, JVP within normal limits, carotids normal without bruits. CHEST: Inspection within normal limits. CARDIOVASCULAR: Heart: Regular rate and rhythm, no murmurs, gallops or rubs. Peripheral pulses present within normal limits, no cyanosis, clubbing or edemas. No pulsatile abdominal mass RESPIRATORY: Lungs clear to auscultation and percussion, no wheezing, no rubs GASTROINTESTINAL AND LIVER: Abdomen: Soft, non tenderness, non-distended, no hernias, no masses, no organomegaly, no ascites, no guarding, no rebound tenderness, normoactive bowel sounds. Rectal: Deferred. Problems: Exam/Review of Systems Vital Signs Vitals Vital Signs Date Time Temp Pulse Resp B/P Pulse Ox O2 Delivery O2 Flow Rate FiO2 03/13/17 07:41 97.9 97 16 111/59 99 Intake and Output 03/12/17 03/12/17 03/13/17 15:00 23:00 07:00 Intake Total 50 ml 610 ml 0 ml Balance 50 ml 610 ml 0 ml Results Result Diagram: 03/11/1751003/11/17 0511 Medications Medications Current Medications Morphine Sulfate (morphine) 2 mg Q4H PRN IV pain Last administered on 16:29; Admin Dose 2 MG; Start 02/28/17 at 07:00 Acetaminophen (Tylenol Supp) 650 mg Q6H PRN [place] pain and fever Last administered on 03/02/17 15:46; Admin Dose 650 MG; Start 02/28/17 at 07:00 Ondansetron HCl (Zofran Inj) 4 mg Q6H PRN IV NAUSEA AND/OR VOMITING Last administered on 03/07/17 09:17; Admin Dose 4 MG; Start 02/28/17 at 07:00 Acetaminophen (Ofirmev 1000mg/ 100ml Iv) 1,000 mg Q6H PRN IVPB PAIN; Start at 14:30 Acetaminophen/ Hydrocodone Bitart 1 tab 1 tab Q6 PRN GTB MODERATE PAIN LEVEL 4- 6; Start 03/02/17 at 17:00 Cefepime HCl (Maxipime 1gm/50 ml (Pmx)) 50 ml @ 100 mls/hr Q12 IVPB Last administered on 03/13/17 09:25; Admin Dose 100 MLS/HR; Start 03/04/17 at 21:00 Loperamide HCl (Imodium Liquid Cup) 2 mg QID PRN GTB DIARRHEA; Start 03/04/17 at 16:30 Metoclopramide HCl (Reglan) 10 mg Q6 IV Last administered on 03/13/17 05:55; Admin Dose 10 MG; Start 03/05/17 at 12:00 Famotidine (Pepcid) 20 mg BID PEG Last administered on 03/13/17 09:25; Admin Dose 20 MG; Start 03/11/17 at 21:00 Apixaban (Eliquis) 10 mg BID PO Last administered on 03/13/17 09:25; Admin Dose 10 MG; Start 03/12/17 at 11:30; Stop 03/18/17 at 11:29 Apixaban (Eliquis) 5 mg BID PO ; Start 03/18/17 at 21:00 RASTA HUGHES Mar 13, 2017 10:23
--- NOTE | 2017-03-13 10:29 | PDOCDIS ---
Discharge Instructions CONDITION Patient Condition: Stable HOME CARE INSTRUCTIONS: Special Diet: Tube feeding ACTIVITY: Activity Restrictions: Slowly Increase Activity FOLLOW UP/APPOINTMENTS Follow-up Plan f/u own pcp1 wk f/u dr arnett or own oncologist [address] phan 2 wks KATHERINE ELDER MD Mar 13, 2017 10:29
[2017-03-13] MEDS ORDERED: APIX5TAB PO (10:33)
[2017-03-13] MEDS ORDERED: CEFE1FRO IV (10:33)
[2017-03-13] MEDS ORDERED: FAMO20TA18 PEG (10:33)
--- NOTE | 2017-03-13 15:00 | CONS ---
Date/Time of Note Date/Time of Note DATE: 03/13/17 TIME: 14:59 Assessment/Plan Assessment/Plan Chief Complaint/Hosp Course 65 yo with #Cervical Esophageal Squamous Cell Carcinoma - s/p 10 fractions of XRT and 2 doses of Carboplatin/ Taxol last given on - once patient acute issues resolve patient will resume treatment with radiation and chemotherapy. #Radiation Esophagitis -s/p PEG placement -continue tube feedings #Neutropenic fevers -UA with GNR -continue Broad spectrum antibiotics -continue Neupogen at least until ANC > 1000 #Bronchitis -continue breathing treatments #LLE DVT, acute -started on Eliquis 5 mg BID Problems: Consultation Date/Type/Reason Admit Date/Time Mar 01, 2017 at 19:36 Initial Consult Date 03/04/17 Type of Consultation: Oncology Reason for Consultation esophageal cancer, DVT Referring Provider: KATHERINE ELDER MD 24 HR Interval Summary Free Text/Dictation pt was diagnosed with LLE DVT yesterday. started on Eliquis Exam/Review of Systems Vital Signs Vitals Vital Signs Date Time Temp Pulse Resp B/P Pulse Ox O2 Delivery O2 Flow Rate FiO2 03/13/17 07:41 97.9 97 16 111/59 99 Intake and Output 03/12/17 03/12/17 03/13/17 15:00 23:00 07:00 Intake Total 50 ml 610 ml 0 ml Balance 50 ml 610 ml 0 ml Exam Constitutional: alert, oriented Head: normocephalic Eyes: nl conjunctiva ENMT: nl external ears & nose Neck: non-tender, supple Respiratory: clear to auscultation Cardiovascular: regular rate and rhythm Gastrointestinal: other ( G tube in place) Musculoskeletal: nl extremities to inspection Results Result Diagram: 03/11/1751003/11/17510 Medications Medications Current Medications Morphine Sulfate (morphine) 2 mg Q4H PRN IV pain Last administered on 16:29; Admin Dose 2 MG; Start 02/28/17 at 07:00 Acetaminophen (Tylenol Supp) 650 mg Q6H PRN [place] pain and fever Last administered on 03/02/17 15:46; Admin Dose 650 MG; Start 02/28/17 at 07:00 Ondansetron HCl (Zofran Inj) 4 mg Q6H PRN IV NAUSEA AND/OR VOMITING Last administered on 03/07/17 09:17; Admin Dose 4 MG; Start 02/28/17 at 07:00 Acetaminophen (Ofirmev 1000mg/ 100ml Iv) 1,000 mg Q6H PRN IVPB PAIN; Start at 14:30 Acetaminophen/ Hydrocodone Bitart 1 tab 1 tab Q6 PRN GTB MODERATE PAIN LEVEL 4- 6; Start 03/02/17 at 17:00 Cefepime HCl (Maxipime 1gm/50 ml (Pmx)) 50 ml @ 100 mls/hr Q12 IVPB Last administered on 03/13/17 09:25; Admin Dose 100 MLS/HR; Start 03/04/17 at 21:00 Loperamide HCl (Imodium Liquid Cup) 2 mg QID PRN GTB DIARRHEA; Start 03/04/17 at 16:30 Metoclopramide HCl (Reglan) 10 mg Q6 IV Last administered on 03/13/17 12:40; Admin Dose 10 MG; Start 03/05/17 at 12:00 Famotidine (Pepcid) 20 mg BID PEG Last administered on 03/13/17 09:25; Admin Dose 20 MG; Start 03/11/17 at 21:00 Apixaban (Eliquis) 10 mg BID PO Last administered on 03/13/17 09:25; Admin Dose 10 MG; Start 03/12/17 at 11:30; Stop 03/18/17 at 11:29 Apixaban (Eliquis) 5 mg BID PO ; Start 03/18/17 at 21:00 ROSEMARY TOLENTINO M.D. Mar 13, 2017 15:00
[2017-03-13 15:18] VITALS: BP 110/63; RESP 16
--- NOTE | 2017-03-17 11:52 | QN ---
Documentation Comment [id number] KATHERINE ELDER MD Mar 17, 2017 11:52
--- NOTE | 2017-03-17 11:52 | QN ---
Documentation Comment [id number] KATHERINE ELDER MD Mar 17, 2017 11:52
--- NOTE | 2017-03-17 18:50 | DS ---
DATE OF ADMISSION: 03/01/2017 DATE OF DISCHARGE: 03/13/2017 HOSPITAL COURSE: The patient was admitted with the diagnosis of dysphagia, has history of esophageal cancer, history of chemoradiation, thrombocytopenia, was seen by Dr. Queen in consultation, underwent G-tube placement. The patient had a diagnosis of dysphagia radiation- induced, esophageal cancer in [place] esophagus, extracorporeal esophagogastric chronic bypass. The patient started on feeding, was also seen by Dr. Coco Retana in consultation. Dr. Retana's impressions, cervical esophageal squamous cell carcinoma status post of x-ray treatment and two doses of carboplatin, Taxol, radiation esophagitis, neutropenic fever, bronchitis. The patient received pain medicine and PPI. Patient also required a feeding through a pump. The patient had Enterobacter UTI and bronchitis, which is being treated. The patient has status post diarrhea, is resolved. Patient has lower extremity edema, noted to have a deep venous thrombosis of the left lower extremity and was started on Eliquis and patient was cleared to be discharged home. DISCHARGE DIAGNOSES: Cervical esophageal squamous cell carcinoma, history of radiation and chemo and radiation esophagitis, status post G-tube placement, neutropenic fever, resolved, bronchitis. The patient has deep venous thrombosis of the left lower extremity, malnutrition, anemia, thrombocytopenia, electrolyte imbalance. DISCHARGE MEDICATIONS: Patient to continue apixaban, cefepime and Pepcid. DISCHARGE INSTRUCTIONS: Follow up with PCP, Dr. Retana, as an outpatient. The patient is stable at the time of discharge. Dictated By: KATHERINE ELDER MD BS/NTS Conf#: [id number] DID#: [id number] [facility]
--- NOTE | 2017-03-17 18:50 | DS ---
DATE OF ADMISSION: 03/01/2017 DATE OF DISCHARGE: 03/13/2017 HOSPITAL COURSE: The patient was admitted with the diagnosis of dysphagia, has history of esophageal cancer, history of chemoradiation, thrombocytopenia, was seen by Dr. Queen in consultation, underwent G-tube placement. The patient had a diagnosis of dysphagia radiation- induced, esophageal cancer in [place] esophagus, extracorporeal esophagogastric chronic bypass. The patient started on feeding, was also seen by Dr. Coco Retana in consultation. Dr. Retana's impressions, cervical esophageal squamous cell carcinoma status post of x-ray treatment and two doses of carboplatin, Taxol, radiation esophagitis, neutropenic fever, bronchitis. The patient received pain medicine and PPI. Patient also required a feeding through a pump. The patient had Enterobacter UTI and bronchitis, which is being treated. The patient has status post diarrhea, is resolved. Patient has lower extremity edema, noted to have a deep venous thrombosis of the left lower extremity and was started on Eliquis and patient was cleared to be discharged home. DISCHARGE DIAGNOSES: Cervical esophageal squamous cell carcinoma, history of radiation and chemo and radiation esophagitis, status post G-tube placement, neutropenic fever, resolved, bronchitis. The patient has deep venous thrombosis of the left lower extremity, malnutrition, anemia, thrombocytopenia, electrolyte imbalance. DISCHARGE MEDICATIONS: Patient to continue apixaban, cefepime and Pepcid. DISCHARGE INSTRUCTIONS: Follow up with PCP, Dr. Retana, as an outpatient. The patient is stable at the time of discharge. Dictated By: KATHERINE ELDER MD BS/NTS Conf#: [id number] DID#: [id number] [facility]
[2017-03-18] MEDS ORDERED: APIXABAN 5 MG TABLET PO SCH (21:00)
== END 2017-03-13 18:40 | disposition home health service (06) | DRG 374 ==
LOC: FTE 21:46 → MS2 02-28 04:49 → OBSVTOIN 03-01 19:36 → MS2 03-01 23:00
PROVIDERS: ADMIT Internal Medicine Nephrology; ATTEND Internal Medicine Nephrology
PROC: 0DH63UZ Insertion of Feeding Device into Stomach, Percutaneous Approach (ICD-10-PCS; principal; 2017-02-28 18:30)
PROC: 3E04305 Introduction of Other Antineoplastic into Central Vein, Percutaneous Approach (ICD-10-PCS; 2017-03-01)
DX: C15.4 Malignant neoplasm of middle third of esophagus (principal); D61.810 Antineoplastic chemotherapy induced pancytopenia; K22.2 Esophageal obstruction; Z94.82 Intestine transplant status; D70.9 Neutropenia, unspecified; N39.0 Urinary tract infection, site not specified; K56.7 Ileus, unspecified; B96.89 Other specified bacterial agents as the cause of diseases classified elsewhere; J40 Bronchitis, not specified as acute or chronic; K20.8 Other esophagitis; R50.81 Fever presenting with conditions classified elsewhere; T45.1X5A Adverse effect of antineoplastic and immunosuppressive drugs, initial encounter; Y84.2 Radiological procedure and radiotherapy as the cause of abnormal reaction of the patient, or of later complication, without mention of misadventure at the time of the procedure; Y73.1 Therapeutic (nonsurgical) and rehabilitative gastroenterology and urology devices associated with adverse incidents; R19.7 Diarrhea, unspecified; R60.9 Edema, unspecified
CPT/HCPCS: 36415; 71010; 71250; 74000; 74250; 80048; 80053; 80202; 81001; 83605; 83735; 84100; 85025; 87040; 87070; 87075; 87086; 93971; 94640; 94664; C9113; G0378; J0690; J0692; J0696; J2270; J2405; J2765; J3370; J3480; J7030; J7042; J7050; J7070

== ENCOUNTER 2017-03-29 16:41 | Inpatient (IN) | payer OTHER ==
[~2017-03-29] VITALS: Ht 165.1 cm; Wt 71.5 kg
[~2017-03-29 16:41] MED LIST changes: +APIX5TAB PO; +CEFE1FRO IV; +FAMO20TA18 PEG; -PRED10TA PO
--- NOTE | 2017-03-29 18:53 | ERD ---
ER Documentation Chief Complaint Chief Complaint Sent from MD for evaluation R/O Anemia HPI This is a 66-year-old male with a past medical history of esophageal cancer status post esophagectomy and esophageal replacement, currently on chemoradiation, last chemo was 1 week ago, last radiation was today, left lower extremity DVT currently on Eliquis, GERD on Pepcid who is presenting with concerns of anemia. The patient is reportedly been pale, fatigued with some mild lightheadedness over the last week, since his last chemotherapy. He had blood work drawn yesterday, and his physician called him today and stated that his hemoglobin was quite low and that he needed to come to the hospital for transfusion. His hemoglobin was reportedly 6.6. The patient otherwise feels well. The patient denies feeling sick recently. The patient denies fever or chills. The patient has had no headache or vision changes. The patient does not endorse neck or back pain. The patient denies lightheadedness or dizziness. The patient has had no chest pain or shortness of breath or trouble breathing. The patient denies nausea or vomiting. The patient denies abdominal pain or changes to bowel movements or urination. The patient has had no focal deficits. The patient has had no weakness or numbness or tingling to the face or extremities. ROS All systems reviewed and are negative except as per history of present illness. Medications Home Meds Active Scripts Famotidine* (Famotidine*) 20 Mg Tablet, 20 MG PEG BID for 30 Days, TAB Prov:KATHERINE ELDER MD 03/13/17 Reported Medications Apixaban* (Eliquis*) 5 Mg Tablet, 10 MG PO BID, TAB 03/29/17 Discontinued Reported Medications Famotidine* (Famotidine*) 20 Mg Tablet, 20 MG PO BID, #60 TAB 03/29/17 Discontinued Scripts Cefepime Hcl/Dextrose, Iso-Osm (Cefepime 1 Gm Injection) 1 Gm/50 Ml Froz.piggy, 1 GM IV BID for 3 Days Prov:KATHERINE ELDER MD 03/13/17 Apixaban* (Eliquis*) 5 Mg Tablet, 10 MG PO BID, #14 TAB Prov:KATHERINE ELDER MD 03/13/17 Apixaban* (Eliquis*) 5 Mg Tablet, 5 MG PO BID, #60 TAB Prov:KATHERINE ELDER MD 03/13/17 Allergies Allergies: Coded Allergies: No Known Allergy (Unverified , 03/29/17) PMhx/Soc History of Surgery: Yes (Esophagectomy and replacement, G-tube placement) Anesthesia Reaction: No Hx Neurological Disorder: No Hx Respiratory Disorders: No Hx Cardiac Disorders: Yes (Anemia) Hx Psychiatric Problems: No Hx Miscellaneous Medical Probl: Yes (Esophageal cancer) Hx Alcohol Use: No Hx Substance Use: No Hx Tobacco Use: No FmHx Family History: No coronary disease, No diabetes Physical Exam Vitals Vital Signs Date Time Temp Pulse Resp B/P Pulse Ox O2 Delivery O2 Flow Rate FiO2 03/29/17 19:19 98.0 81 20 111/65 99 Room Air 03/29/17 16:47 98.0 96 20 106/55 99 Physical Exam Const: No apparent distress, well-developed, well-nourished Head: Normocephalic, Atraumatic Eyes: Conjunctival pallor. extraocular movements intact. Pupils equal, round and reactive to light ENT: Normal External Ears, Nose and Mouth. Neck: Full range of motion. No meningismus. Resp: Clear to auscultation bilaterally, No wheezes, rales or rhonchi Cardio: Regular rate and rhythm. No murmurs, rubs or gallops. R chest port. Palpable esophageal replacement in chest, unchanged from baseline. Abd: Soft, non tender, non distended. Normal bowel sounds Skin: No petechiae or rashes. Pallor Back: No midline tenderness. No CVA tenderness Ext: No cyanosis, or edema Neur: Awake and alert, oriented 4. Cranial nerves intact. No facial droop. Normal strength, sensation and coordination. Psych: Normal Mood and Affect Result Diagram: 03/30/17 0701 03/30/17 0652 Results 24 hrs Laboratory Tests Test 03/29/17 19:13 03/29/17 21:30 White Blood Count 2.610^3/ul Red Blood Count 1.9410^6/ul Hemoglobin 5.7g/dl Hematocrit 18.2% Mean Corpuscular Volume 93.8fl Mean Corpuscular Hemoglobin 29.4pg Mean Corpuscular Hemoglobin Concent 31.3g/dl Red Cell Distribution Width 19.9% Platelet Count 9110^3/UL Mean Platelet Volume 10.5fl Neutrophils % % Segmented Neutrophils % (Manual) 77% Lymphocytes % % Lymphocytes % (Manual) 12% Monocytes % % Monocytes % (Manual) 11% Eosinophils % % Basophils % % Nucleated Red Blood Cells % 0.0/100WBC Neutrophils # 10^3/ul Absolute Lymphocytes (Manual) 0.310^3/ul Lymphocytes # 0.310^3/ul Monocytes # 0.310^3/ul Absolute Monocytes (Manual) 0.210^3/ul Eosinophils # 10^3/ul Basophils # 10^3/ul Nucleated Red Blood Cells # 10^3/ul Prothrombin Time 16.6Sec Prothrombin Time Ratio 1.3 INR International Normalized Ratio 1.33 Activated Partial Thromboplast Time 49.0Sec Sodium Level 140mmol/L Potassium Level 3.8mmol/L Chloride Level 100mmol/L Carbon Dioxide Level 29mmol/L Anion Gap 15 Blood Urea Nitrogen 15mg/dl Creatinine 0.80mg/dl Glucose Level 99mg/dl Calcium Level 8.1mg/dl Total Bilirubin 0.3mg/dl Direct Bilirubin 0.00mg/dl Indirect Bilirubin 0.3mg/dl Aspartate Amino Transf (AST/SGOT) 16IU/L Alanine Aminotransferase (ALT/SGPT) 30IU/L Alkaline Phosphatase 91IU/L Total Protein 5.8g/dl Albumin 3.0g/dl Globulin 2.80g/dl Albumin/Globulin Ratio 1.07 Urine Color YELLOW Urine Clarity CLEAR Urine pH 5.0 Urine Specific [place] 1.025 Urine Ketones NEGATIVEmg/dL Urine Nitrite NEGATIVEmg/dL Urine Bilirubin NEGATIVEmg/dL Urine Urobilinogen 2+mg/dL Urine Leukocyte Esterase NEGATIVELeu/ul Urine Hemoglobin NEGATIVEmg/dL Urine Glucose NEGATIVEmg/dL Urine Total Protein NEGATIVEmg/dl Current Medications Medications (Trade) Dose Ordered Sig/Ivette Route PRN Reason Start Time Stop Time Status Last Admin Dose Admin Sodium Chloride (NS) 250 ml @ 0 mls/hr Q0M ONCE IV 03/29/17 19:30 03/29/17 19:34 DC 03/29/17 19:30 Procedures/MDM MDM The patient's presentation warrants further investigation. LABS The patient's blood work was obtained and reviewed. The patient's CBC shows pancytopenia, likely associated with his chemotherapy. The patient does not have signs or symptoms of an infection at this time. He is not neutropenic and does not have a fever. While his platelet count is low, it does not need to be emergently repleted. The patient's hemoglobin is less than 6. The patient is quite pale, and I do feel that he would benefit from a transfusion of packed red blood cells. The patient's CMP shows no signs of metabolic or electrolyte emergencies. The patient has unremarkable renal and hepatic function testing. He does have a mild hypoalbuminemia. INR was mildly elevated at 1.33. EKG EKG read by me: Rate/Rhythm: Regular rate and rhythm at a rate of 97 bpm Intervals: Normal [place]: Normal Impression: No evidence of ischemia or arrhythmia IMAGING CXR There is a tunneled right internal jugular vein implanted port central venous catheter with the tip in the cavoatrial junction. The lungs are clear. The heart size is normal. There is no pleural effusion. There is no pneumothorax. IMPRESSION: Satisfactory position of central venous catheter. Otherwise unremarkable chest radiograph. Electronically viewed and signed by .Star José MD, on 03/29/2017 18:56 TREATMENT/DISPOSITION The patient will be admitted to the hospital for blood transfusion and monitoring of his hematologic status. The risks and benefits of blood transfusion was discussed and the patient consented to the transfusion. At this time, I feel that the patient requires admission for further evaluation and management. The patient will be admitted to [facility] in accordance with the patient's insurance. The patient was accepted by Dr. Elder at 21:38PM on March 29, 2017. CRITICAL CARE NOTE Time: 35 minutes excluding all billable procedures. Treatments/Evaluations: Evaluation of the patient's medical record including previous records & current laboratory/imaging studies, close monitoring, potential interventions if hemodynamically unstable or cardiopulmonary decline or neurologic decline, maintaining tight fluid balance, any discussions with the family regarding the patient's status and prognosis. Disclaimer: Inadvertent spelling and grammatical errors are likely due to EHR/ dictation software use and do not reflect on the overall quality of patient care. Note that the electronic time recorded on this note does not necessarily reflect the actual time of the patient encounter. Departure Diagnosis: Primary Impression: Pancytopenia due to antineoplastic chemotherapy Additional Impressions: Anemia Anemia type: unspecified type Qualified Code: D64.9 - Anemia, unspecified type Thrombocytopenia Leukopenia Leukopenia type: lymphocytopenia Qualified Code: D72.810 - Lymphocytopenia Hypoalbuminemia Condition: ZACHARIAH Morris MD 17, 2017 18:52
--- NOTE | 2017-03-29 18:56 | RADRPT ---
PROCEDURE: XR Chest. CLINICAL INDICATION: Shortness of breath. TECHNIQUE: Single frontal view. COMPARISON: 03/02/2017. FINDINGS: There is a tunneled right internal jugular vein implanted port central venous catheter with the tip in the cavoatrial junction. The lungs are clear. The heart size is normal. There is no pleural effusion. There is no pneumothorax. IMPRESSION: 1. Satisfactory position of central venous catheter. 2. Otherwise unremarkable chest radiograph. RPTAT: QQ .Star José MD, Date Time Electronically viewed and signed by .Star José MD, MD on 03/29/2017 18:56 .R/
[2017-03-29 19:19] VITALS: TEMP 98
[2017-03-29] MEDS ORDERED: SOD CHLORIDE 0.9% 250 ML IV ONE (19:30)
[2017-03-29 19:38] LABS: ABNORMAL IP MESSAGE 1; HEMATOCRIT 18.2 % (42.0-52.0); MEAN CORPUSCULAR HEMOGLOBIN 29.4 pg (29.0-33.0); MEAN CORPUSCULAR HGB CONC 31.3 g/dl (32.0-37.0); MEAN CORPUSCULAR VOLUME 93.8 fl (82.0-101.0); MEAN PLATELET VOLUME 10.5 fl (7.4-10.4); PLATELET COUNT 91 10^3/UL (140-415); POSITIVE DIFF @See below; RED BLOOD COUNT 1.94 10^6/ul (4.70-6.10); RED CELL DISTRIBUTION WIDTH 19.9 % (11.5-14.5); WHITE BLOOD COUNT 2.6 10^3/ul (4.8-10.8)
[2017-03-29 19:42] LABS: HEMOGLOBIN 5.7 g/dl (14.0-18.0)
[2017-03-29 19:56] LABS: INR 1.33; PROTIME 16.6 Sec (12.2-14.2); PT RATIO 1.3
[2017-03-29 19:58] LABS: ALBUMIN/GLOBULIN RATIO 1.07; BILIRUBIN,INDIRECT 0.3 mg/dl (0-1.1); BILIRUBIN,TOTAL 0.3 mg/dl (0.2-1.3); CALCIUM 8.1 mg/dl (8.4-10.2); CREATININE 0.8 mg/dl (0.61-1.24); POTASSIUM 3.8 mmol/L (3.5-5.1); TOTAL PROTEIN 5.8 g/dl (6.1-8.1)
[2017-03-29] MEDS ORDERED: FAMO20TA18 PO (20:41)
[2017-03-29] MEDS ORDERED: APIX5TAB PO (20:41)
[2017-03-29 21:32] LABS: LYMPHOCYTES # 0.3 10^3/ul (0.8-2.9); MONOCYTE # 0.3 10^3/ul (0.3-0.9); MONOCYTES % (M) 11 % (0-11)
[2017-03-29] MEDS ORDERED: ACETAMINOPHEN 325 MG TAB PO PRN (22:00)
[2017-03-29] MEDS ORDERED: ONDANSETRON 4 MG INJ IV PRN (22:00)
[2017-03-29 22:15] LABS: ADD UMIC NO; UR ASCORBIC ACID 40 mg/dL (NEGATIVE); UR BILIRUBIN (Dip) NEGATIVE (NEGATIVE); UR BLOOD (Dip) NEGATIVE (NEGATIVE); UR CLARITY CLEAR (CLEAR); UR COLOR YELLOW (YELLOW); UR GLUCOSE (Dip) NEGATIVE (NEGATIVE); UR KETONES (Dip) NEGATIVE (NEGATIVE); UR LEUKOCYTE ESTERASE (Dip) NEGATIVE Leu/ul (NEGATIVE); UR NITRITE (Dip) NEGATIVE (NEGATIVE); UR SPECIFIC GRAVITY (Dip) 1.025 (1.003-1.030); UR TOTAL PROTEIN (Dip) NEGATIVE (NEGATIVE); UR UROBILINOGEN (Dip) 2+ mg/dL (NEGATIVE)
[2017-03-29 22:48] VITALS: Ht 165.1 cm; Wt 71.5 kg
[2017-03-29 23:01] VITALS: BP 109/57; RESP 18
[2017-03-29] MEDS ORDERED: ALBUTEROL/IPRATROPIUM (NEB) 3 ML AMP HHN PRN (23:30)
[2017-03-29 23:52] VITALS: BP 109/57; PULSE 98; RESP 18
[2017-03-30 02:32] VITALS: BP 111/59; RESP 18
[2017-03-30] MEDS: PANTOPRAZOLE 40 MG INJ IV SCH (05:48)
[2017-03-30 07:25] VITALS: BP 105/58; RESP 18
[2017-03-30 08:14] LABS: ABNORMAL IP MESSAGE 1; HEMATOCRIT 23.5 % (42.0-52.0); HEMOGLOBIN 7.6 g/dl (14.0-18.0); MEAN CORPUSCULAR HEMOGLOBIN 29.3 pg (29.0-33.0); MEAN CORPUSCULAR HGB CONC 32.3 g/dl (32.0-37.0); MEAN CORPUSCULAR VOLUME 90.7 fl (82.0-101.0); MEAN PLATELET VOLUME 10.7 fl (7.4-10.4); PLATELET COUNT 96 10^3/UL (140-415); POSITIVE DIFF @See below; RED BLOOD COUNT 2.59 10^6/ul (4.70-6.10); WHITE BLOOD COUNT 2.8 10^3/ul (4.8-10.8)
[2017-03-30 08:43] LABS: ALBUMIN 2.6 g/dl (3.3-4.9); ALBUMIN/GLOBULIN RATIO 0.86; BILIRUBIN,INDIRECT 0.7 mg/dl (0-1.1); BILIRUBIN,TOTAL 0.7 mg/dl (0.2-1.3); CALCIUM 8.4 mg/dl (8.4-10.2); CREATININE 0.63 mg/dl (0.61-1.24); TOTAL PROTEIN 5.6 g/dl (6.1-8.1)
[2017-03-30 09:11] LABS: ANISOCYTOSIS 1+ (0-0); BASOPHILS % (M) 2 % (0-2); GIANT THROMBO% (M) 1 % (0-0); HYPOCHROMASIA 1+ (0-0); MONOCYTES % (M) 7 % (0-11); OVALOCYTES 1+ (0-0); PLATELET ESTIMATE DECREASED; POIKILOCYTOSIS 1+ (0-0); POLYCHROMASIA 1+ (0-0)
[2017-03-30] MEDS: ACETAMINOPHEN 650MG/20.3ML CUP GTB PRN (09:40)
[2017-03-30] MEDS: APIXABAN 5 MG TABLET PO SCH ×3 (09:47→21:35)
--- NOTE | 2017-03-30 11:39 | HP ---
Date/Time of Note Date/Time of Note DATE: 03/30/17 TIME: 11:36 Assessment/Plan VTE Prophylaxis VTE Prophylaxis Intervention: ambulation Lines/Catheters IV [facility]atheter [facility] (from [facility] Port-A-Cath R chest Assessment/Plan Chief Complaint/Hosp Course 1. 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 Extracorporeal esophagogastric colonic bypass 3. Dysphagia and odonophagia 4. Pancytopenia likely secondary to chemo/radiation> worsening again 5. Bronchitis Problems: Assessment/Plan 1. ferrlicit IVPB 5 days 2. Bactroban around G tube, keep it open 3. tube feeding HPI/ROS Admit Date/Time Admit Date/Time Mar 29, 2017 at 21:39 Hx of Present Illness This is a 66-year-old male with a past medical history of esophageal cancer status post esophagectomy and esophageal replacement, currently on chemoradiation, last chemo was 1 week ago, last radiation was , with history of left lower extremity DVT currently on Eliquis, GERD on Pepcid who is presenting to ER with concerns of anemia. The patient is reportedly been pale, fatigued with some mild lightheadedness over the last week, since his last chemotherapy. He had blood work drawn yesterday, and his physician called him today and stated that his hemoglobin was quite low and that he needed to come to the hospital for transfusion. His hemoglobin was reportedly 6.6. ROS Constitutional: fatigue, other (unable to swallow for 2 weks), weight change Respiratory: cough (productive) Cardiovascular: no complaints Gastrointestinal: nausea Musculoskeletal: no complaints PMH/Family/Social Past Medical History Medical History: deep vein thrombosis, high cholesterol, hypertension, other ( esophageal cancer) Past Surgical History Extracorporeal esophagogastric colonic bypass Family History Significant Family History: no pertinent family hx Social History Alcohol Use: none Smoking Status: Never smoker Drug Use: none Exam/Review of Systems Vital Signs Vitals Vital Signs Date Time Temp Pulse Resp B/P Pulse Ox O2 Delivery O2 Flow Rate FiO2 03/30/17 07:25 98.7 89 18 105/58 99 03/29/17 23:52 Room Air Intake and Output 03/29/17 03/29/17 03/30/17 15:00 23:00 07:00 Intake Total 350 ml 588 ml Balance 350 ml 588 ml Exam Constitutional: alert, oriented Eyes: nl conjunctiva ENMT: nl external ears & nose Neck: supple Respiratory: clear to auscultation, other (productive cough) Gastrointestinal: other (white slough around G tube), soft, surgical scars Musculoskeletal: nl extremities to inspection Extremities: normal pulses Neurological: QUALITY SYSTEMS ENGINEER II-XII intact Labs Result Diagram: 03/30/1701 03/30/17 0652 Medications Medications Current Medications Apixaban (Eliquis) 5 mg BID PO Last administered on 03/30/17 09:47; Admin Dose 5 MG; Start 03/30/17 at 09:00 Pantoprazole (Protonix Iv) 40 mg DAILY@06 IV Last administered on 03/30/17 05 :48; Admin Dose 40 MG; Start 03/30/17 at 06:00 Acetaminophen (Tylenol Liquid) 650 mg Q4H PRN GTB PAIN AND OR ELEVATED TEMP Last administered on 03/30/17 09:40; Admin Dose 650 MG; Start 03/29/17 at 23: 30 LICO SALAS Mar 30, 2017 11:39
[2017-03-30] MEDS: MUPIROCIN 2% 22 GM OINT TOP SCH ×2 (12:56→21:35)
[2017-03-30] MEDS: SOD FERRIC GLUC COMPLX 125 MG in SOD CHLORIDE 0.9% 100 ML IVPB SCH (12:58)
[2017-03-30 14:32] VITALS: BP 98/55; RESP 18
[2017-03-30 20:57] VITALS: BP 103/58; RESP 20
[2017-03-30] MEDS: DEXTROSE 5%-0.45% NACL 1,000 ML IV SCH (22:27)
[2017-03-31 02:27] VITALS: BP 100/59; RESP 18
[2017-03-31] MEDS: PANTOPRAZOLE 40 MG INJ IV SCH (05:45)
[2017-03-31 06:13] LABS: ABNORMAL IP MESSAGE 1; BASOPHILS % 0.4 % (0.0-2.0); EOSINOPHILS % 0.4 % (0.0-7.0); HEMATOCRIT 23.3 % (42.0-52.0); HEMOGLOBIN 7.7 g/dl (14.0-18.0); LYMPHOCYTES # 0.3 10^3/ul (0.8-2.9); LYMPHOCYTES % 13.2 % (15.0-51.0); MEAN CORPUSCULAR HEMOGLOBIN 30.2 pg (29.0-33.0); MEAN CORPUSCULAR VOLUME 91.4 fl (82.0-101.0); MEAN PLATELET VOLUME 10.2 fl (7.4-10.4); MONOCYTE # 0.3 10^3/ul (0.3-0.9); NEUTROPHIL # 1.6 10^3/ul (1.6-7.5); PLATELET COUNT 89 10^3/UL (140-415); POSITIVE DIFF @See below; RED BLOOD COUNT 2.55 10^6/ul (4.70-6.10); WHITE BLOOD COUNT 2.4 10^3/ul (4.8-10.8)
[2017-03-31 08:00] VITALS: BP 101/65; RESP 18
--- NOTE | 2017-03-31 08:42 | CONS ---
Date/Time of Note Date/Time of Note DATE: 03/31/17 TIME: 08:29 Assessment/Plan Assessment/Plan Chief Complaint/Hosp Course Assessment: Accidental displacement of gastrostomy tube Esophageal CA in [place] esophagus Dysphagia/Odynophagia Radiation esophagitis Extracorporeal esophagogastric colonic interposition Post uneventful PEG 02/28/17 Plan: New EGD plus PEG. Patient informed including risks, benefits alternatives. Will be added to tomorrow's schedule patient aware late schedule . 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 Patient developed esophageal cancer in the [place] esophagus and has received adjuvant radiation and chemotherapy. The patient is currently unable to swallow due to esophagitis and aspiration risk. A gastrostomy tube was placed recently. The patient was tolerating feedings without difficulty but unfortunately yesterday gastrostomy tube came out and could not be replaced. At this time the ostomy site is almost completely closed therefore the patient will required new EGD with PEG. The patient was informed he will be added to the schedule tomorrow. The patient understands the procedure including risks, benefits and alternatives. Respiratory: cough (productive) Cardiovascular: no complaints Gastrointestinal: nausea, other (See HPI) Musculoskeletal: no complaints Past Medical History Esophageal CA Neoadjuvant chemoradiation regimen Esophagogastric colon interposition, extracorporeal Causing esophageal injury as a child Medical History: deep vein thrombosis, high cholesterol, hypertension, other ( esophageal cancer) Past Surgical History Extracorporeal esophagogastric colon interposition Social History Alcohol Use: none Smoking Status: Never smoker Drug Use: none Exam/Review of Systems Vital Signs Vitals Vital Signs Date Time Temp Pulse Resp B/P Pulse Ox O2 Delivery O2 Flow Rate FiO2 03/31/17 08:00 98.6 88 18 101/65 96 03/29/17 23:52 Room Air Intake and Output 03/30/17 03/30/17 03/31/17 15:00 23:00 07:00 Intake Total 740 ml 430 ml Output Total 200 ml Balance 740 ml 230 ml Exam PHYSICAL EXAMINATION: GENERAL: Well developed, well nourished, alert & oriented x 3, in no acute distress SKIN: No lesions, no stigmata chronic liver disease, no evidence of bleeding diathesis LYMPHATIC: No palpable lymphadenopathy. HEAD: Normocephalic, atraumatic, no tenderness. EYES: Pupils equal reactive to light and accommodation, full extraocular movements, sclera clear, non-icteric, no discharge. EARS/NOSE AND THROAT: Ears normal, nose normal, oropharynx normal, oral membranes well hydrated without lesions. NECK: Extracorporeal esophagogastric colon interposition evident. Otherwise supple, no masses, thyroid normal, JVP within normal limits, carotids normal without bruits. CHEST: Extracorporeal esophagogastric colon interposition evident. Otherwise inspection within normal limits. CARDIOVASCULAR: Heart: Regular rate and rhythm, no murmurs, gallops or rubs. Peripheral pulses present within normal limits, no cyanosis, clubbing or edemas. No pulsatile abdominal mass RESPIRATORY: Lungs clear to auscultation and percussion, no wheezing, no rubs GASTROINTESTINAL AND LIVER: Abdomen: Previous GT site almost completely closed. Otherwise soft, non tenderness, non-distended, no hernias, no masses, no organomegaly, no ascites, no guarding, no rebound tenderness, normoactive bowel sounds. Rectal: Deferred. GENITOURINARY: [Male genitalia within normal limits.] EXTREMITIES: No cyanosis, clubbing or edema. [MUSCULO-SKELETAL: Gait and station within normal limits, range of motion adequate.] [NEUROLOGIC: Cranial nerves II-XII intact, Motor within normal limits, Sensory within normal limits. Reflexes within normal limits. PSYCHIATRIC: Alert & oriented x 3, mood/affect/judgement adequate] Results Result Diagram: 03/31/17 0506 03/30/17 0652 Results 24 hrs Laboratory Tests Test 03/31/17 05:06 03/31/17 05:40 White Blood Count 2.4 L Red Blood Count 2.55 L Hemoglobin 7.7 L Hematocrit 23.3 L Mean Corpuscular Volume 91.4 Mean Corpuscular Hemoglobin 30.2 Mean Corpuscular Hemoglobin Concent 33.0 Red Cell Distribution Width 18.0 H Platelet Count 89 L Mean Platelet Volume 10.2 Neutrophils % 69.0 Lymphocytes % 13.2 L Monocytes % 14.0 H Eosinophils % 0.4 Basophils % 0.4 Nucleated Red Blood Cells % 0.0 Neutrophils # 1.6 Lymphocytes # 0.3 L Monocytes # 0.3 Eosinophils # 0.0 Basophils # 0.0 Nucleated Red Blood Cells # 0.0 Lab Scanned Report BLOOD TRANSFUSION Medications Medications Current Medications Apixaban (Eliquis) 5 mg BID PO Last administered on 03/30/17 09:47; Admin Dose 5 MG; Start 03/30/17 at 09:00 Pantoprazole (Protonix Iv) 40 mg DAILY@06 IV Last administered on 03/30/17 05 :48; Admin Dose 40 MG; Start 03/30/17 at 06:00 Acetaminophen 650 mg 650 mg Q4H PRN GTB PAIN AND OR ELEVATED TEMP Last administered on 03/30/17 09:40; Admin Dose 650 MG; Start 03/29/17 at 23:30 Ferric Sodium Gluconate Complex/ Sodium Chloride (Ferrlecit/NS) 110 ml @ 110 mls/hr Q24H IVPB Last administered on 03/30/17 12:58; Admin Dose 110 MLS/HR; Start 03/30/17 at 13:00; Stop 04/03/17 at 13:59 Mupirocin (Bactroban) 1 applic BID TOP Last administered on 03/30/17 21:35; Admin Dose 1 APPLIC; Start 03/30/17 at 12:00 IV Flush (NS 10 ml) 10 ml QAM IV ; Start 03/31/17 at 09:00 IV Flush 10 ml 10 ml PRN PRN IV FLUSH LINE; Start 03/30/17 at 15:00 Dextrose/Sodium Chloride (D5-1/2ns) 1,000 ml @ 50 mls/hr Q20H IV Last administered on 03/30/17 22:27; Admin Dose 50 MLS/HR; Start 03/30/17 at 22:00 Copies To: CC: RODRICK MICHELE MD, MORDO MD Mar 31, 2017 08:40
[2017-03-31] MEDS: APIXABAN 5 MG TABLET PO SCH ×2 (09:00→21:00)
[2017-03-31] MEDS ORDERED: CEFAZOLIN 2 GM in SOD CHLORIDE 0.9% 50 ML IVPB SCH (09:00)
[2017-03-31] MEDS: MUPIROCIN 2% 22 GM OINT TOP SCH ×2 (11:01→21:28)
--- NOTE | 2017-03-31 11:55 | PN ---
Date/Time of Note Date/Time of Note DATE: 03/31/17 TIME: 11:53 Assessment/Plan VTE Prophylaxis VTE Prophylaxis Intervention: ambulation Lines/Catheters IV [facility] Port-A-Cath R chest Assessment/Plan Chief Complaint/Hosp Course 1. 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 Extracorporeal esophagogastric colonic bypass 3. Dysphagia and odonophagia 4. Pancytopenia likely secondary to chemo/radiation> worsening again 5. Bronchitis 6. S/p accidental GT removal, dr Michelle aware Problems: Assessment/Plan 1. Continue IV fluids 2. Ambulation, hold Eliquiz 3. G tube reinsertion tomorrow Subjective 24 Hr Interval Summary Constitutional: improved, no complaints Exam/Review of Systems Vital Signs Vitals Vital Signs Date Time Temp Pulse Resp B/P Pulse Ox O2 Delivery O2 Flow Rate FiO2 03/31/17 08:00 98.6 88 18 101/65 96 03/29/17 23:52 Room Air Intake and Output 03/30/17 03/30/17 03/31/17 14:59 22:59 06:59 Intake Total 740 ml 430 ml Output Total 200 ml Balance 740 ml 230 ml Exam Constitutional: alert, oriented Neck: supple Respiratory: clear to auscultation Cardiovascular: regular rate and rhythm Gastrointestinal: other (GT falled out), soft, surgical scars Results Result Diagram: 03/31/17 0506 03/30/17 0652 Results 24 hrs Laboratory Tests Test 03/31/17 05:06 03/31/17 05:40 White Blood Count 2.4 L Red Blood Count 2.55 L Hemoglobin 7.7 L Hematocrit 23.3 L Mean Corpuscular Volume 91.4 Mean Corpuscular Hemoglobin 30.2 Mean Corpuscular Hemoglobin Concent 33.0 Red Cell Distribution Width 18.0 H Platelet Count 89 L Mean Platelet Volume 10.2 Neutrophils % 69.0 Lymphocytes % 13.2 L Monocytes % 14.0 H Eosinophils % 0.4 Basophils % 0.4 Nucleated Red Blood Cells % 0.0 Neutrophils # 1.6 Lymphocytes # 0.3 L Monocytes # 0.3 Eosinophils # 0.0 Basophils # 0.0 Nucleated Red Blood Cells # 0.0 Lab Scanned Report BLOOD TRANSFUSION Medications Medications Current Medications Apixaban (Eliquis) 5 mg BID PO Last administered on 03/30/17 09:47; Admin Dose 5 MG; Start 03/30/17 at 09:00 Pantoprazole (Protonix Iv) 40 mg DAILY@06 IV Last administered on 03/30/17 05 :48; Admin Dose 40 MG; Start 03/30/17 at 06:00 Acetaminophen 650 mg 650 mg Q4H PRN GTB PAIN AND OR ELEVATED TEMP Last administered on 03/30/17 09:40; Admin Dose 650 MG; Start 03/29/17 at 23:30 Ferric Sodium Gluconate Complex/ Sodium Chloride (Ferrlecit/NS) 110 ml @ 110 mls/hr Q24H IVPB Last administered on 03/30/17 12:58; Admin Dose 110 MLS/HR; Start 03/30/17 at 13:00; Stop 04/03/17 at 13:59 Mupirocin (Bactroban) 1 applic BID TOP Last administered on 03/31/17 11:01; Admin Dose 1 APPLIC; Start 03/30/17 at 12:00 IV Flush (NS 10 ml) 10 ml QAM IV Last administered on 03/31/17 11:00; Admin Dose 10 ML; Start 03/31/17 at 09:00 IV Flush 10 ml 10 ml PRN PRN IV FLUSH LINE; Start 03/30/17 at 15:00 Dextrose/Sodium Chloride 1,000 ml @ 50 mls/hr Q20H IV Last administered on 22:27; Admin Dose 50 MLS/HR; Start 03/30/17 at 22:00 Cefazolin Sodium/ Sodium Chloride (Ancef/NS) 50 ml @ 100 mls/hr ONCE IVPB ; Start 04/01/17 at 06:00; Stop 04/01/17 at 15:00 LICO SALAS Mar 31, 2017 11:55
[2017-03-31 14:00] VITALS: BP 105/61; PULSE 89; RESP 18
[2017-03-31] MEDS: SOD FERRIC GLUC COMPLX 125 MG in SOD CHLORIDE 0.9% 100 ML IVPB SCH (14:59)
[2017-03-31] MEDS: DEXTROSE 5%-0.45% NACL 1,000 ML IV SCH (18:41)
[2017-03-31 20:34] VITALS: BP 92/58; RESP 20
[2017-04-01] VITALS (12 sets, daily range): BP systolic 90–111; BP diastolic 51–65; PULSE 84–90; RESP 11–20
[2017-04-01] MEDS: PANTOPRAZOLE 40 MG INJ IV SCH (05:20)
[2017-04-01] MEDS ORDERED: CEFAZOLIN 2 GM in SOD CHLORIDE 0.9% 50 ML IVPB SCH (06:00)
[2017-04-01] MEDS: APIXABAN 5 MG TABLET PO SCH ×2 (08:23→22:22)
[2017-04-01] MEDS: MUPIROCIN 2% 22 GM OINT TOP SCH ×2 (08:29→22:20)
--- NOTE | 2017-04-01 11:02 | PN ---
Date/Time of Note Date/Time of Note DATE: 04/01/17 TIME: 11:02 Assessment/Plan VTE Prophylaxis VTE Prophylaxis Intervention: ambulation Lines/Catheters IV [facility] (from [facility] PORT A CATH Assessment/Plan Chief Complaint/Hosp Course 1. 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 Extracorporeal esophagogastric colonic bypass 3. Dysphagia and odonophagia 4. Pancytopenia likely secondary to chemo/radiation> worsening again 5. Bronchitis 6. S/p accidental GT removal, dr Michelle aware Problems: Assessment/Plan 1. NPO 2. continue IV fluids 3. Insertion GT today Subjective 24 Hr Interval Summary Constitutional: improved, no complaints Exam/Review of Systems Vital Signs Vitals Vital Signs Date Time Temp Pulse Resp B/P Pulse Ox O2 Delivery O2 Flow Rate FiO2 04/01/17 07:33 98.0 80 20 96/57 95 04/01/17 02:00 Room Air Intake and Output 03/31/17 03/31/17 04/01/17 14:59 22:59 06:59 Intake Total 760 ml 600 ml Balance 760 ml 600 ml Exam Constitutional: alert, oriented Gastrointestinal: soft, surgical scars (absent Gtube) Results Result Diagram: 03/31/17 0506 03/30/17 0652 Medications Medications Current Medications Apixaban (Eliquis) 5 mg BID PO Last administered on 03/30/17 09:47; Admin Dose 5 MG; Start 03/30/17 at 09:00 Pantoprazole (Protonix Iv) 40 mg DAILY@06 IV Last administered on 04/01/17 05 :20; Admin Dose 40 MG; Start 03/30/17 at 06:00 Acetaminophen 650 mg 650 mg Q4H PRN GTB PAIN AND OR ELEVATED TEMP Last administered on 03/30/17 09:40; Admin Dose 650 MG; Start 03/29/17 at 23:30 Ferric Sodium Gluconate Complex/ Sodium Chloride (Ferrlecit/NS) 110 ml @ 110 mls/hr Q24H IVPB Last administered on 03/31/17 14:59; Admin Dose 110 MLS/HR; Start 03/30/17 at 13:00; Stop 04/03/17 at 13:59 Mupirocin (Bactroban) 1 applic BID TOP Last administered on 04/01/17 08:29; Admin Dose 1 APPLIC; Start 03/30/17 at 12:00 IV Flush (NS 10 ml) 10 ml QAM IV Last administered on 04/01/17 08:23; Admin Dose 10 ML; Start 03/31/17 at 09:00 IV Flush 10 ml 10 ml PRN PRN IV FLUSH LINE; Start 03/30/17 at 15:00 Dextrose/Sodium Chloride 1,000 ml @ 50 mls/hr Q20H IV Last administered on 18:41; Admin Dose 50 MLS/HR; Start 03/30/17 at 22:00 Cefazolin Sodium/ Sodium Chloride (Ancef/NS) 50 ml @ 100 mls/hr ONCE IVPB ; Start 04/01/17 at 06:00; Stop 04/01/17 at 15:00 LICO SALAS Apr 01, 2017 11:02
[2017-04-01] MEDS: SOD FERRIC GLUC COMPLX 125 MG in SOD CHLORIDE 0.9% 100 ML IVPB SCH (12:58)
[2017-04-01] MEDS: DEXTROSE 5%-0.45% NACL 1,000 ML IV SCH (12:58)
[2017-04-01] MEDS ORDERED: CEFAZOLIN 2 GM/50 ML (PMX) 50 ML IVPB ONE (15:23)
[2017-04-01] MEDS ORDERED: METOCLOPRAMIDE 10 MG INJ ONE (15:26)
[2017-04-01] MEDS ORDERED: FENTAnyl 50 MCG/ML VIAL ONE (15:26)
[2017-04-01] MEDS ORDERED: LIDOCAINE 100 MG SYRINGE ONE (15:26)
[2017-04-01] MEDS ORDERED: FAMOTIDINE 20 MG INJ ONE (15:26)
[2017-04-01] MEDS ORDERED: PROPOFOL 40 ML ONE (15:26)
--- NOTE | 2017-04-01 16:39 | OPPN ---
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 May use gastrostomy tube for medications Gastrostomy tube site care Procedure Performed: Other (EGD plus PEG) Surgeon RODRICK MICHELE MD See signature line Meter Changes Records Clerk none Anesthesia Type: MAC Anesthesiologist: Thor Michel M.D. Tourniquet Time none EBL none Transfusion required none Biopsy 1: None Grafts/Implants none Tubes/Drains none Complication(s) none Disposition: PACU Procedure Description After informed consent, with the patient/relatives understanding the procedure, its indications, potential risks and complications, including but not limited to : Allergic reaction, bleeding, perforation or infection, and all after all pertinent questions were answered to the patient's satisfaction, patient/ relative signed witnessed informed consent. Following this, premedication was administered slowly IV push under care of cardiovascular respiratory monitoring with pulse oximetry, and automatic blood pressure, and flooring sales manager. Once to sedative effect was achieved the patient was placed in the left lateral decubitus, the panendoscope was introduced and advanced under visual control. Careful examination of the upper gastrointestinal tract, both on insertion as well as withdrawal of the instrument disclosed following findings: ESOPHAGUS: The mucosa of the entire esophagus was carefully examined and showed the following findings: There is an extracorporeal esophagogastric colon interposition. The [place] esophagus shows a large mass in the midesophagus clearly malignant in nature. Stomach: Upon entrance to the stomach air was insufflated, the gastric garcia distended normally. The mucosa of the fundus, body and antrum of the stomach was carefully examined both head-on and on retroflexion, and showed the following findings: [The mucosa appears within normal limits with no abnormalities. There is no evidence of gastritis, ulcers or neoplasm.] Pylorus: The pylorus was carefully examined and showed the following findings: [The pylorus appears patent and within normal limits, with no evidence of gastric outlet obstruction.] Duodenum: The duodenal mucosa was carefully examined in the duodenal bulb as well as the second portion of the duodenum and showed the following findings: [The mucosa appears unremarkable with no evidence of duodenitis, ulcer or neoplasm.] The instrument was then brought back to the stomach and the anterior wall mid- body was identified by transillumination and "finger indentation", this area was then marked in the anterior wall of the abdomen, it was cleansed with Betadine and infiltrated with Xylocaine 1%. Following this a trocar needle was introduced into the gastric lumen under visual control with the endoscope, once in the gastric lumen a guide wire was advanced and secured with a polypectomy snare, at this point the endoscope was withdrawn bringing the guidewire out through the patient's mouth. Following this a Croatian #20 gastrostomy tube was introduced over the guidewire, with the Lori-Javier technique without difficulty , a small incision was performed in the skin to allow easy passage of the G-tube , once the position of the gastrostomy was confirmed, the external stopper and connectors were installed, and a clean dressing applied. The patient tolerated the procedure well and was transferred out of the endoscopy suite awake, and in good condition to continue recovery under observation, feedings will start in the next 12-24 hours and the discharge in the care will be instituted. Copies To: CC: RODRICK MICHELE MD, MORDO MD Apr 01, 2017 16:39
[2017-04-01] MEDS: CEFAZOLIN 1 GM/50 ML (PMX) 50 ML IVPB SCH (22:23)
[2017-04-02 02:00] VITALS: BP 90/52; RESP 20
[2017-04-02] MEDS: PANTOPRAZOLE 40 MG INJ IV SCH (05:54)
[2017-04-02 06:28] LABS: ABNORMAL IP MESSAGE 1; HEMATOCRIT 22.2 % (42.0-52.0); HEMOGLOBIN 7.4 g/dl (14.0-18.0); LYMPHOCYTES # 0.2 10^3/ul (0.8-2.9); LYMPHOCYTES % 4.9 % (15.0-51.0); MEAN CORPUSCULAR HEMOGLOBIN 30.6 pg (29.0-33.0); MEAN CORPUSCULAR HGB CONC 33.3 g/dl (32.0-37.0); MEAN CORPUSCULAR VOLUME 91.7 fl (82.0-101.0); MEAN PLATELET VOLUME 10.2 fl (7.4-10.4); MONOCYTE # 0.2 10^3/ul (0.3-0.9); MONOCYTES % 6.6 % (0.0-11.0); NEUTROPHILS % 87.1 % (39.0-77.0); POSITIVE DIFF @See below; RED BLOOD COUNT 2.42 10^6/ul (4.70-6.10); WHITE BLOOD COUNT 3.5 10^3/ul (4.8-10.8)
[2017-04-02 06:55] LABS: PLATELET COUNT 78 10^3/UL (140-415)
[2017-04-02 07:18] LABS: CALCIUM 7.9 mg/dl (8.4-10.2); CREATININE 0.65 mg/dl (0.61-1.24); POTASSIUM 3.4 mmol/L (3.5-5.1)
[2017-04-02 07:51] VITALS: BP 98/53; RESP 19
[2017-04-02 08:17] LABS: ADD UMIC NO; UR ASCORBIC ACID NEGATIVE (NEGATIVE); UR BILIRUBIN (Dip) NEGATIVE (NEGATIVE); UR BLOOD (Dip) NEGATIVE (NEGATIVE); UR CLARITY CLEAR (CLEAR); UR COLOR AMBER (YELLOW); UR GLUCOSE (Dip) NEGATIVE (NEGATIVE); UR KETONES (Dip) TRACE mg/dL (NEGATIVE); UR LEUKOCYTE ESTERASE (Dip) NEGATIVE Leu/ul (NEGATIVE); UR NITRITE (Dip) NEGATIVE (NEGATIVE); UR SPECIFIC GRAVITY (Dip) 1.032 (1.003-1.030); UR TOTAL PROTEIN (Dip) NEGATIVE (NEGATIVE); UR UROBILINOGEN (Dip) 2+ mg/dL (NEGATIVE)
[2017-04-02] MEDS: CEFAZOLIN 1 GM/50 ML (PMX) 50 ML IVPB SCH ×2 (09:14→20:37)
[2017-04-02] MEDS: APIXABAN 5 MG TABLET PO SCH ×2 (09:14→20:37)
[2017-04-02] MEDS: MUPIROCIN 2% 22 GM OINT TOP SCH ×2 (09:14→20:38)
--- NOTE | 2017-04-02 09:52 | RADRPT ---
PROCEDURE: XR portable chest CLINICAL INDICATION: Fever TECHNIQUE: Portable semi upright chest radiograph COMPARISON: Portable semiupright chest radiograph 03/29/2017 FINDINGS: The tip of the central venous catheter projects in the right atrium. Bilateral lower lung zone subsegmental atelectasis is new. No other significant interval changes seen. IMPRESSION: 1. New bilateral lower lung zone subsegmental atelectasis RPTAT: TT Neena Sandoval Physician Date Time Electronically viewed and signed by Neena Sandoval Physician on 04/02/2017 09:52 JS/
[2017-04-02] MEDS: DEXTROSE 5%-0.45% NACL 1,000 ML IV SCH ×2 (10:00→16:02)
[2017-04-02] MEDS: SOD FERRIC GLUC COMPLX 125 MG in SOD CHLORIDE 0.9% 100 ML IVPB SCH (12:02)
[2017-04-02 13:54] VITALS: BP 107/58; RESP 20
[2017-04-02] MEDS: ACETAMINOPHEN 650MG/20.3ML CUP GTB PRN (13:59)
--- NOTE | 2017-04-02 14:21 | PN ---
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 Queen Subjective: Course reviewed with nursing staff Patient interviewed and examined All labs, imaging and other results reviewed The patient is doing well, tolerating Tf well at this time. Hgb 7.4, will transfuse 1 unit PBRC's No c/o nausea or abd pain. Continue current regimen. Edema LLE, pt dx with DVT to LE last hospitalization, on anti-coagulant therapy. PHYSICAL EXAMINATION: GENERAL: Well developed, well nourished, alert & oriented x 3, in no acute distress SKIN: No lesions, no stigmata chronic liver disease, no evidence of bleeding diathesis LYMPHATIC: No palpable lymphadenopathy. HEAD: Normocephalic, atraumatic, no tenderness. EYES: Pupils equal reactive to light and accommodation, full extraocular movements, sclera clear, non-icteric, no discharge. EARS/NOSE AND THROAT: Ears normal, nose normal, oropharynx normal, oral membranes well hydrated without lesions. NECK: Extracorporeal esophagogastric colon interposition evident. CHEST: Extracorporeal esophagogastric colon interposition evident. Otherwise inspection within normal limits. CARDIOVASCULAR: Heart: Regular rate and rhythm, RESPIRATORY: Lungs clear to auscultation and percussion, no wheezing, no rubs GASTROINTESTINAL AND LIVER: Abdomen: Previous GT site almost completely closed. Otherwise soft, non tenderness, non-distended, no hernias, no masses, no organomegaly, no ascites, no guarding, no rebound tenderness, normoactive bowel sounds. Rectal: Deferred. GENITOURINARY: Male genitalia within normal limits. EXTREMITIES: No cyanosis, clubbing, edmea to LLE Problems: Exam/Review of Systems Vital Signs Vitals Vital Signs Date Time Temp Pulse Resp B/P Pulse Ox O2 Delivery O2 Flow Rate FiO2 04/02/17 13:54 100.5 101 20 107/58 98 04/01/17 16:47 Room Air Intake and Output 04/01/17 04/01/17 04/02/17 15:00 23:00 07:00 Intake Total 400 ml 310 ml 525 ml Output Total 400 ml Balance 400 ml -90 ml 525 ml Results Result Diagram: 04/02/17 0553 04/02/17 0553 Results 24 hrs Laboratory Tests Test 04/01/17 22:17 04/02/17 05:12 04/02/17 05:53 Bedside Glucose 122 Urine Color LIVE Urine Clarity CLEAR Urine pH 5.0 Urine Specific [place] 1.032 H Urine Ketones TRACE A Urine Nitrite NEGATIVE Urine Bilirubin NEGATIVE Urine Urobilinogen 2+ H Urine Leukocyte Esterase NEGATIVE Urine Hemoglobin NEGATIVE Urine Glucose NEGATIVE Urine Total Protein NEGATIVE White Blood Count 3.5 #L Red Blood Count 2.42 L Hemoglobin 7.4 L Hematocrit 22.2 L Mean Corpuscular Volume 91.7 Mean Corpuscular Hemoglobin 30.6 Mean Corpuscular Hemoglobin Concent 33.3 Red Cell Distribution Width 18.0 H Platelet Count 78 L Mean Platelet Volume 10.2 Neutrophils % 87.1 H Lymphocytes % 4.9 L Monocytes % 6.6 Eosinophils % 0.0 Basophils % 0.0 Nucleated Red Blood Cells % 0.0 Neutrophils # 3.0 Lymphocytes # 0.2 L Monocytes # 0.2 L Eosinophils # 0.0 Basophils # 0.0 Nucleated Red Blood Cells # 0.0 Sodium Level 137 Potassium Level 3.4 L Chloride Level 102 Carbon Dioxide Level 26 Anion Gap 12 Blood Urea Nitrogen 9 Creatinine 0.65 Glucose Level 121 Calcium Level 7.9 L Medications Medications Current Medications Apixaban (Eliquis) 5 mg BID PO Last administered on 04/02/17 09:14; Admin Dose 5 MG; Start 03/30/17 at 09:00 Pantoprazole (Protonix Iv) 40 mg DAILY@06 IV Last administered on 04/02/17 05 :54; Admin Dose 40 MG; Start 03/30/17 at 06:00 Acetaminophen 650 mg 650 mg Q4H PRN GTB PAIN AND OR ELEVATED TEMP Last administered on 04/02/17 13:59; Admin Dose 650 MG; Start 03/29/17 at 23:30 Ferric Sodium Gluconate Complex/ Sodium Chloride (Ferrlecit/NS) 110 ml @ 110 mls/hr Q24H IVPB Last administered on 04/02/17 12:02; Admin Dose 110 MLS/HR; Start 03/30/17 at 13:00; Stop 04/03/17 at 13:59 Mupirocin (Bactroban) 1 applic BID TOP Last administered on 04/02/17 09:14; Admin Dose 1 APPLIC; Start 03/30/17 at 12:00 IV Flush (NS 10 ml) 10 ml QAM IV Last administered on 04/02/17 09:15; Admin Dose 10 ML; Start 03/31/17 at 09:00 IV Flush 10 ml 10 ml PRN PRN IV FLUSH LINE; Start 03/30/17 at 15:00 Dextrose/Sodium Chloride 1,000 ml @ 50 mls/hr Q20H IV Last administered on 12:58; Admin Dose 50 MLS/HR; Start 03/30/17 at 22:00 Cefazolin Sodium (Ancef 1 Gm/50 ml (Pmx)) 50 ml @ 100 mls/hr Q12 IVPB Last administered on 04/02/17 09:14; Admin Dose 100 MLS/HR; Start 04/01/17 at 22: 00 RASTA HUGHES Apr 02, 2017 14:20
[2017-04-02] MEDS ORDERED: POTASSIUM CHLORIDE 250 ML IVPB ONE ×2 (15:30→21:00)
[2017-04-02 15:45] LABS: PATH REVIEW CH
--- NOTE | 2017-04-02 19:41 | PN ---
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 Extracorporeal esophagogastric colonic bypass 3. Dysphagia and odonophagia 4. Pancytopenia likely secondary to chemo/radiation> worsening again 5. Bronchitis 6. S/p NEW G tube placement today 7 Fevers 101 yesterday Recs - s/p 1 unit prbc - cx pending results - c/w ancef for now - chest xray b/l atelactasis - c/w TF 20 cc/hr advance as tolerated Problems: Subjective 24 Hr Interval Summary Free Text/Dictation Had fevers 101 yesterday g tube was placed TF 20 cc/hr on ancef got 1 unit PRBC Exam/Review of Systems Vital Signs Vitals Vital Signs Date Time Temp Pulse Resp B/P Pulse Ox O2 Delivery O2 Flow Rate FiO2 04/02/17 13:54 100.5 101 20 107/58 98 04/01/17 16:47 Room Air Intake and Output 04/01/17 04/01/17 04/02/17 15:00 23:00 07:00 Intake Total 400 ml 310 ml 525 ml Output Total 400 ml Balance 400 ml -90 ml 525 ml Exam onstitutional: alert, oriented Gastrointestinal: G TUBE Results Result Diagram: 04/02/17 0553 04/02/17 0553 Results 24 hrs Laboratory Tests Test 04/01/17 22:17 04/02/17 05:12 04/02/17 05:53 Bedside Glucose 122 Urine Color LIVE Urine Clarity CLEAR Urine pH 5.0 Urine Specific [place] 1.032 H Urine Ketones TRACE A Urine Nitrite NEGATIVE Urine Bilirubin NEGATIVE Urine Urobilinogen 2+ H Urine Leukocyte Esterase NEGATIVE Urine Hemoglobin NEGATIVE Urine Glucose NEGATIVE Urine Total Protein NEGATIVE White Blood Count 3.5 #L Red Blood Count 2.42 L Hemoglobin 7.4 L Hematocrit 22.2 L Mean Corpuscular Volume 91.7 Mean Corpuscular Hemoglobin 30.6 Mean Corpuscular Hemoglobin Concent 33.3 Red Cell Distribution Width 18.0 H Platelet Count 78 L Mean Platelet Volume 10.2 Neutrophils % 87.1 H Lymphocytes % 4.9 L Monocytes % 6.6 Eosinophils % 0.0 Basophils % 0.0 Nucleated Red Blood Cells % 0.0 Neutrophils # 3.0 Lymphocytes # 0.2 L Monocytes # 0.2 L Eosinophils # 0.0 Basophils # 0.0 Nucleated Red Blood Cells # 0.0 Sodium Level 137 Potassium Level 3.4 L Chloride Level 102 Carbon Dioxide Level 26 Anion Gap 12 Blood Urea Nitrogen 9 Creatinine 0.65 Glucose Level 121 Calcium Level 7.9 L Medications Medications Current Medications Apixaban (Eliquis) 5 mg BID PO Last administered on 04/02/17 09:14; Admin Dose 5 MG; Start 03/30/17 at 09:00 Pantoprazole (Protonix Iv) 40 mg DAILY@06 IV Last administered on 04/02/17 05 :54; Admin Dose 40 MG; Start 03/30/17 at 06:00 Acetaminophen 650 mg 650 mg Q4H PRN GTB PAIN AND OR ELEVATED TEMP Last administered on 04/02/17 13:59; Admin Dose 650 MG; Start 03/29/17 at 23:30 Ferric Sodium Gluconate Complex/ Sodium Chloride (Ferrlecit/NS) 110 ml @ 110 mls/hr Q24H IVPB Last administered on 04/02/17 12:02; Admin Dose 110 MLS/HR; Start 03/30/17 at 13:00; Stop 04/03/17 at 13:59 Mupirocin (Bactroban) 1 applic BID TOP Last administered on 04/02/17 09:14; Admin Dose 1 APPLIC; Start 03/30/17 at 12:00 IV Flush (NS 10 ml) 10 ml QAM IV Last administered on 04/02/17 09:15; Admin Dose 10 ML; Start 03/31/17 at 09:00 IV Flush 10 ml 10 ml PRN PRN IV FLUSH LINE; Start 03/30/17 at 15:00 Dextrose/Sodium Chloride 1,000 ml @ 50 mls/hr Q20H IV Last administered on 16:02; Admin Dose 50 MLS/HR; Start 03/30/17 at 22:00 Cefazolin Sodium 50 ml @ 100 mls/hr Q12 IVPB Last administered on 04/02/17 09:14; Admin Dose 100 MLS/HR; Start 04/01/17 at 22:00 Potassium Chloride (KCl 40 MEQ/250 ML NS) 250 ml @ 62.5 mls/hr ONCE ONCE IVPB ; Start 04/02/17 at 21:00; Stop 04/03/17 at 00:59 RENEE HAN MD Apr 02, 2017 19:40
[2017-04-02 20:00] VITALS: BP 116/59; RESP 16
[2017-04-03 02:20] VITALS: BP 114/66; RESP 16
[2017-04-03] MEDS: ACETAMINOPHEN 650MG/20.3ML CUP GTB PRN ×2 (02:21→14:10)
[2017-04-03] MEDS: PANTOPRAZOLE 40 MG INJ IV SCH (05:23)
[2017-04-03 06:15] LABS: ABNORMAL IP MESSAGE 1; BASOPHILS % 0.2 % (0.0-2.0); HEMATOCRIT 25.7 % (42.0-52.0); HEMOGLOBIN 8.5 g/dl (14.0-18.0); LYMPHOCYTES # 0.2 10^3/ul (0.8-2.9); LYMPHOCYTES % 4.5 % (15.0-51.0); MEAN CORPUSCULAR HEMOGLOBIN 30.7 pg (29.0-33.0); MEAN CORPUSCULAR HGB CONC 33.1 g/dl (32.0-37.0); MEAN CORPUSCULAR VOLUME 92.8 fl (82.0-101.0); MONOCYTE # 0.3 10^3/ul (0.3-0.9); MONOCYTES % 5.5 % (0.0-11.0); NEUTROPHIL # 4.5 10^3/ul (1.6-7.5); NEUTROPHILS % 88.6 % (39.0-77.0); PLATELET COUNT 81 10^3/UL (140-415); POSITIVE DIFF @See below; RED BLOOD COUNT 2.77 10^6/ul (4.70-6.10); RED CELL DISTRIBUTION WIDTH 17.6 % (11.5-14.5); WHITE BLOOD COUNT 5.1 10^3/ul (4.8-10.8)
[2017-04-03 06:44] LABS: ALBUMIN 2.6 g/dl (3.3-4.9); ALBUMIN/GLOBULIN RATIO 0.96; BILIRUBIN,INDIRECT 0.4 mg/dl (0-1.1); BILIRUBIN,TOTAL 0.4 mg/dl (0.2-1.3); CALCIUM 7.9 mg/dl (8.4-10.2); CREATININE 0.64 mg/dl (0.61-1.24); POTASSIUM 3.6 mmol/L (3.5-5.1); TOTAL PROTEIN 5.3 g/dl (6.1-8.1)
[2017-04-03 07:21] LABS: MAGNESIUM 1.6 mg/dl (1.7-2.5); PHOSPHORUS 2.9 mg/dl (2.5-4.9)
[2017-04-03 07:25] VITALS: BP 98/53; RESP 16
[2017-04-03] MEDS: CEFAZOLIN 1 GM/50 ML (PMX) 50 ML IVPB SCH (08:39)
[2017-04-03] MEDS: APIXABAN 5 MG TABLET PO SCH ×2 (08:39→20:59)
[2017-04-03] MEDS: MUPIROCIN 2% 22 GM OINT TOP SCH ×2 (08:40→20:59)
[2017-04-03] MEDS: SOD FERRIC GLUC COMPLX 125 MG in SOD CHLORIDE 0.9% 100 ML IVPB SCH (13:34)
--- NOTE | 2017-04-03 13:44 | PN ---
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 Queen Subjective: Course reviewed with nursing staff Patient interviewed and examined All labs, imaging and other results reviewed The patient feels well, tolerating TF well, remains on antibiotics for positive blood cx. Will place order for PEG care QID and PRN with Betadine. PHYSICAL EXAMINATION: GENERAL: Well developed, well nourished, alert & oriented x 3, in no acute distress SKIN: No lesions, no stigmata chronic liver disease, no evidence of bleeding diathesis, g-tube LYMPHATIC: No palpable lymphadenopathy. HEAD: Normocephalic, atraumatic, no tenderness. EYES: Pupils equal reactive to light and accommodation, full extraocular movements, sclera clear, non-icteric, no discharge. EARS/NOSE AND THROAT: Ears normal, nose normal, oropharynx normal, oral membranes well hydrated without lesions. NECK: Extracorporeal esophagogastric colon interposition evident. CHEST: Extracorporeal esophagogastric colon interposition evident. Otherwise inspection within normal limits. CARDIOVASCULAR: Heart: Regular rate and rhythm, RESPIRATORY: Lungs clear to auscultation and percussion, no wheezing, no rubs GASTROINTESTINAL AND LIVER: Abdomen: Previous GT site almost completely closed. Otherwise soft, non tenderness, non-distended, no hernias, no masses, no organomegaly, no ascites, no guarding, no rebound tenderness, normoactive bowel sounds. Rectal: Deferred. GENITOURINARY: Male genitalia within normal limits. EXTREMITIES: No cyanosis, clubbing, edema to LLE Problems: Exam/Review of Systems Vital Signs Vitals Vital Signs Date Time Temp Pulse Resp B/P Pulse Ox O2 Delivery O2 Flow Rate FiO2 04/03/17 07:25 99.3 84 16 98/53 96 04/01/17 16:47 Room Air Intake and Output 04/02/17 04/02/17 04/03/17 14:59 22:59 06:59 Intake Total 160 ml 1280 ml 560 ml Output Total 0 ml Balance 160 ml 1280 ml 560 ml Results Result Diagram: 04/03/1753004/03/17530 Results 24 hrs Laboratory Tests Test 04/03/17 05:31 04/03/17 06:35 White Blood Count 5.1 # Red Blood Count 2.77 L Hemoglobin 8.5 L Hematocrit 25.7 L Mean Corpuscular Volume 92.8 Mean Corpuscular Hemoglobin 30.7 Mean Corpuscular Hemoglobin Concent 33.1 Red Cell Distribution Width 17.6 H Platelet Count 81 L Mean Platelet Volume 10.0 Neutrophils % 88.6 H Lymphocytes % 4.5 L Monocytes % 5.5 Eosinophils % 0.0 Basophils % 0.2 Nucleated Red Blood Cells % 0.0 Neutrophils # 4.5 Lymphocytes # 0.2 L Monocytes # 0.3 Eosinophils # 0.0 Basophils # 0.0 Nucleated Red Blood Cells # 0.0 Sodium Level 137 Potassium Level 3.6 Chloride Level 105 Carbon Dioxide Level 27 Anion Gap 9 Blood Urea Nitrogen 9 Creatinine 0.64 Glucose Level 156 Calcium Level 7.9 L Phosphorus Level 2.9 Magnesium Level 1.6 L Total Bilirubin 0.4 Direct Bilirubin 0.00 Indirect Bilirubin 0.4 Aspartate Amino Transf (AST/SGOT) 17 Alanine Aminotransferase (ALT/SGPT) 27 Alkaline Phosphatase 101 Total Protein 5.3 L Albumin 2.6 L Globulin 2.70 Albumin/Globulin Ratio 0.96 Lab Scanned Report BLOOD TRANSFUSION Medications Medications Current Medications Apixaban (Eliquis) 5 mg BID PO Last administered on 04/03/17 08:39; Admin Dose 5 MG; Start 03/30/17 at 09:00 Pantoprazole (Protonix Iv) 40 mg DAILY@06 IV Last administered on 04/03/17 05 :23; Admin Dose 40 MG; Start 03/30/17 at 06:00 Acetaminophen 650 mg 650 mg Q4H PRN GTB PAIN AND OR ELEVATED TEMP Last administered on 04/03/17 02:21; Admin Dose 650 MG; Start 03/29/17 at 23:30 Ferric Sodium Gluconate Complex/ Sodium Chloride (Ferrlecit/NS) 110 ml @ 110 mls/hr Q24H IVPB Last administered on 04/03/17 13:34; Admin Dose 110 MLS/HR; Start 03/30/17 at 13:00; Stop 04/03/17 at 13:59 Mupirocin (Bactroban) 1 applic BID TOP Last administered on 04/03/17 08:40; Admin Dose 1 APPLIC; Start 03/30/17 at 12:00 IV Flush (NS 10 ml) 10 ml QAM IV Last administered on 04/03/17 09:00; Admin Dose 10 ML; Start 03/31/17 at 09:00 IV Flush 10 ml 10 ml PRN PRN IV FLUSH LINE; Start 03/30/17 at 15:00 Dextrose/Sodium Chloride 1,000 ml @ 50 mls/hr Q20H IV Last administered on 16:02; Admin Dose 50 MLS/HR; Start 03/30/17 at 22:00 Cefazolin Sodium (Ancef 1 Gm/50 ml (Pmx)) 50 ml @ 100 mls/hr Q12 IVPB Last administered on 04/03/17 08:39; Admin Dose 100 MLS/HR; Start 04/01/17 at 22: 00 RASTA HUGHES Apr 03, 2017 13:44
[2017-04-03 14:01] VITALS: BP 114/56; RESP 18
--- NOTE | 2017-04-03 14:35 | PN ---
LICO SALAS 04/03/17 1435: Date/Time of Note Date/Time of Note DATE: 04/03/17 TIME: 14:34 Assessment/Plan VTE Prophylaxis VTE Prophylaxis Intervention: ambulation, anti-embolic stocking Lines/Catheters IV Catheter Type (from Nrsg): PORT A CATH Urinary Cath still in place: No Assessment/Plan Chief Complaint/Hosp Course 1. 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 Extracorporeal esophagogastric colonic bypass 3. Dysphagia and odonophagia 4. Pancytopenia likely secondary to chemo/radiation> worsening again 5. Bronchitis 6. GT in place Problems: Assessment/Plan 1. Stop IV fluids 2. continue tube feeding 3. ID consult for blood culture positive 4. Discharge pending Subjective 24 Hr Interval Summary Constitutional: improved, no complaints Exam/Review of Systems Vital Signs Vitals Vital Signs Date Time Temp Pulse Resp B/P Pulse Ox O2 Delivery O2 Flow Rate FiO2 04/03/17 14:01 101.5 97 18 114/56 97 04/01/17 16:47 Room Air Intake and Output 04/02/17 04/02/17 04/03/17 14:59 22:59 06:59 Intake Total 160 ml 1280 ml 560 ml Output Total 0 ml Balance 160 ml 1280 ml 560 ml Exam Constitutional: alert, oriented Neck: supple Respiratory: clear to auscultation Cardiovascular: regular rate and rhythm Gastrointestinal: other (G tube ) Results Result Diagram: 04/03/17 0531 04/03/17 0531 Results 24 hrs Laboratory Tests Test 04/03/17 05:31 04/03/17 06:35 White Blood Count 5.1 # Red Blood Count 2.77 L Hemoglobin 8.5 L Hematocrit 25.7 L Mean Corpuscular Volume 92.8 Mean Corpuscular Hemoglobin 30.7 Mean Corpuscular Hemoglobin Concent 33.1 Red Cell Distribution Width 17.6 H Platelet Count 81 L Mean Platelet Volume 10.0 Neutrophils % 88.6 H Lymphocytes % 4.5 L Monocytes % 5.5 Eosinophils % 0.0 Basophils % 0.2 Nucleated Red Blood Cells % 0.0 Neutrophils # 4.5 Lymphocytes # 0.2 L Monocytes # 0.3 Eosinophils # 0.0 Basophils # 0.0 Nucleated Red Blood Cells # 0.0 Sodium Level 137 Potassium Level 3.6 Chloride Level 105 Carbon Dioxide Level 27 Anion Gap 9 Blood Urea Nitrogen 9 Creatinine 0.64 Glucose Level 156 Calcium Level 7.9 L Phosphorus Level 2.9 Magnesium Level 1.6 L Total Bilirubin 0.4 Direct Bilirubin 0.00 Indirect Bilirubin 0.4 Aspartate Amino Transf (AST/SGOT) 17 Alanine Aminotransferase (ALT/SGPT) 27 Alkaline Phosphatase 101 Total Protein 5.3 L Albumin 2.6 L Globulin 2.70 Albumin/Globulin Ratio 0.96 Lab Scanned Report BLOOD TRANSFUSION Medications Medications Current Medications Apixaban (Eliquis) 5 mg BID PO Last administered on 04/03/17 08:39; Admin Dose 5 MG; Start 03/30/17 at 09:00 Pantoprazole (Protonix Iv) 40 mg DAILY@06 IV Last administered on 04/03/17 05 :23; Admin Dose 40 MG; Start 03/30/17 at 06:00 Acetaminophen (Tylenol Liquid) 650 mg Q4H PRN GTB PAIN AND OR ELEVATED TEMP Last administered on 04/03/17 14:10; Admin Dose 650 MG; Start 03/29/17 at 23: 30 Mupirocin (Bactroban) 1 applic BID TOP Last administered on 04/03/17 08:40; Admin Dose 1 APPLIC; Start 03/30/17 at 12:00 IV Flush (NS 10 ml) 10 ml QAM IV Last administered on 04/03/17 09:00; Admin Dose 10 ML; Start 03/31/17 at 09:00 IV Flush 10 ml 10 ml PRN PRN IV FLUSH LINE; Start 03/30/17 at 15:00 Dextrose/Sodium Chloride 1,000 ml @ 50 mls/hr Q20H IV Last administered on 16:02; Admin Dose 50 MLS/HR; Start 03/30/17 at 22:00 Cefazolin Sodium (Ancef 1 Gm/50 ml (Pmx)) 50 ml @ 100 mls/hr Q12 IVPB Last administered on 04/03/17 08:39; Admin Dose 100 MLS/HR; Start 04/01/17 at 22: 00 RENEE HAN MD 04/03/17 1525: Assessment/Plan Assessment/Plan Assessment/Plan bld cx+ gram+ve , however ID dced abx?? odell cx Exam/Review of Systems Results Result Diagram: 04/03/17 0531 04/03/17 0531 LICO SALAS Apr 03, 2017 14:35 RENEE HAN MD Apr 03, 2017 17:55
[2017-04-03 15:00] VITALS: PULSE 85
[2017-04-03] MEDS ORDERED: MAGNESIUM SULFATE 1 GM/D5W 100 ML IVPB ONE (15:00)
[2017-04-03] MEDS ORDERED: POTASSIUM PHOSPHATE 30 MM in SOD CHLORIDE 0.9% 250 ML IVPB ONE (15:00)
[2017-04-03] MEDS ORDERED: MAGNESIUM SULFATE (GM) 50% 2 ML INJ IM ONE (15:00)
--- NOTE | 2017-04-03 17:35 | CONS ---
DATE OF ADMISSION: 03/29/2017 DATE OF CONSULTATION: 04/03/2017 TYPE OF CONSULTATION: Infectious disease. REASON FOR CONSULTATION: Antibiotic management. HISTORY OF PRESENT ILLNESS: Rodrigo Powers is a 66-year-old male with numerous problems who comes in with a history of esophageal cancer and is being seen for antibiotic management. His past probl ems include: 1. Esophageal cancer, status post esophagectomy and esophageal replacement. 2. Chemoradiation, last chemotherapy was 1 week ago, last radiation was on the . The patient p resented on the . 3. He also has a history of left lower extremity DVT, currently on Eliquis. 4. Other problems include GERD and anemia of chronic disease. He comes in with mild lightheadedness since his last chemotherapy. He complains of fatigue. He is unable to swallow. He also has weight change as well as a cough. On admission, his white count was 2.8, H and H 7.6 and 23.5, platelet count 96,000, so he has pancytopenia. BUN and creatinine 13/0. 63. His hemoglobin and hematocrit was 5.7 and 18.2 on the . Currently, his white count is 5.1, H and H 8.5 and 25.7, platelet count of 81,000. BUN and creatinine are 9/0.64. Urine is 2+ urobil inogen, nitrite negative, leukocyte esterase negative. Microbiology: On the , he had positive blood culture for gram-positive cocci 1 out of 2. Chest x-ray from the showed new bilateral lo wer lung zone subsegmental atelectasis. He has a central venous catheter projecting into the right atrium. Bilateral lower lung zone subsegmental atelectasis is new. No other significant interval c hanges. The patient is currently on cefazolin for unknown reasons. The patient has esophageal squa mous carcinoma as noted. PAST MEDICAL HISTORY: Operations as outlined. FAMILY HISTORY: Noncontributory. SOCIAL HISTORY: He does not smoke, drink or abuse drugs. ALLERGIES: NONE TO PENICILLIN, SULFA OR FOODS. MEDICATIONS: Per chart. REVIEW OF SYSTEMS: As per HPI. PHYSICAL EXAMINATION: GENERAL: The patient is a chronically ill-appearing male who is alert, awake, responsive, in no acu te distress. VITAL SIGNS: Stable. He is afebrile. SKIN: Without generalized rash. HEENT: Within normal limits. NECK: Supple. LYMPH NODES: None palpable. CHEST: He has a Port-A-Cath in the chest. LUNGS: Decreased breath sounds at the bases. HEART: Without murmur or gallop. ABDOMEN: Soft, nontender. The patient has a G-tube in place. There was accidental displacement of the gastrostomy tube on 04/01, and it was reinserted. EXTREMITIES: Without cyanosis, clubbing or edema. RECTAL AND GENITAL: Deferred. NEUROLOGIC: No focal neurological abnormality. IMPRESSION AND PLAN: I am going to discontinue his cefazolin and repeat blood cultures if they were not done. I will dictate my findings to the hospitalist and to Dr. Queen and Dr. Bar. Dictated By: ABBY [place] MD, JD/SUSAN Conf#: [id number] DID#: [id number] CC: KATHERINE ELDER MD;*EndCC*
[2017-04-03 20:29] VITALS: BP 97/52; RESP 20
[2017-04-04] MEDS: ACETAMINOPHEN 650MG/20.3ML CUP GTB PRN ×2 (02:02→14:54)
[2017-04-04 02:06] VITALS: BP 99/55; RESP 20
[2017-04-04] MEDS: PANTOPRAZOLE 40 MG INJ IV SCH (05:43)
[2017-04-04 07:58] VITALS: BP 99/54; RESP 16
[2017-04-04] MEDS: MUPIROCIN 2% 22 GM OINT TOP SCH ×2 (08:13→20:53)
[2017-04-04] MEDS: APIXABAN 5 MG TABLET PO SCH (08:13)
--- NOTE | 2017-04-04 10:37 | PN ---
Date/Time of Note Date/Time of Note DATE: 04/04/17 TIME: 10:33 Assessment/Plan VTE Prophylaxis VTE Prophylaxis Intervention: SCD's Lines/Catheters IV Catheter Type (from Nrs): port a cath Urinary Cath still in place: No Assessment/Plan Chief Complaint/Hosp Course Assessment: Accidental displacement of gastrostomy tube PEG 04/01/17 Impression: Uneventful percutaneous endoscopic gastrostomy tube placement Placement of [place] 20 gastrostomy tube Extracorporeal esophagogastric colon interposition Large obstructing esophageal CA in the [place] esophagus Esophageal CA in [place] esophagus Dysphagia/Odynophagia Radiation esophagitis Extracorporeal esophagogastric colonic interposition Plan: Hold TF at this time Cx fluid from PEG site CT abd with IV and contrast via g-tube Gastrostomy tube site care QID and PRN with Betadine Antibiotics per ID consult Continue to monitor H/H transfuse if less than 7.5 Pt seen in collaboration with Dr. Queen Subjective: Course reviewed with nursing staff Patient interviewed and examined All labs, imaging and other results reviewed The patient feels well, with abscess at g-tube site, will order cx of drainage and CT scan. Will defer antibiotic to ID senior product consultant. PHYSICAL EXAMINATION: GENERAL: Well developed, well nourished, alert & oriented x 3, in no acute distress SKIN: No lesions, no stigmata chronic liver disease, no evidence of bleeding diathesis, g-tube LYMPHATIC: No palpable lymphadenopathy. HEAD: Normocephalic, atraumatic, no tenderness. EYES: Pupils equal reactive to light and accommodation, full extraocular movements, sclera clear, non-icteric, no discharge. EARS/NOSE AND THROAT: Ears normal, nose normal, oropharynx normal, oral membranes well hydrated without lesions. NECK: Extracorporeal esophagogastric colon interposition evident. CHEST: Extracorporeal esophagogastric colon interposition evident. Otherwise inspection within normal limits. CARDIOVASCULAR: Heart: Regular rate and rhythm, RESPIRATORY: Lungs clear to auscultation and percussion, no wheezing, no rubs GASTROINTESTINAL AND LIVER: Abdomen: Previous GT site almost completely closed. Otherwise soft, non tenderness, non-distended, no hernias, no masses, no organomegaly, no ascites, no guarding, no rebound tenderness, normoactive bowel sounds. Rectal: Deferred. GENITOURINARY: Male genitalia within normal limits. EXTREMITIES: No cyanosis, clubbing, edema to LLE Problems: Exam/Review of Systems Vital Signs Vitals Vital Signs Date Time Temp Pulse Resp B/P Pulse Ox O2 Delivery O2 Flow Rate FiO2 04/04/17 07:58 98.8 88 16 99/54 98 04/01/17 16:47 Room Air Intake and Output 04/03/17 04/03/17 04/04/17 15:00 23:00 07:00 Intake Total 980 ml 420 ml 460 ml Balance 980 ml 420 ml 460 ml Results Result Diagram: 04/03/1753004/03/17530 Medications Medications Current Medications Apixaban (Eliquis) 5 mg BID PO Last administered on 04/04/17 08:13; Admin Dose 5 MG; Start 03/30/17 at 09:00 Pantoprazole (Protonix Iv) 40 mg DAILY@06 IV Last administered on 04/04/17 05 :43; Admin Dose 40 MG; Start 03/30/17 at 06:00 Acetaminophen (Tylenol Liquid) 650 mg Q4H PRN GTB PAIN AND OR ELEVATED TEMP Last administered on 04/04/17 02:02; Admin Dose 650 MG; Start 03/29/17 at 23: 30 Mupirocin (Bactroban) 1 applic BID TOP Last administered on 04/04/17 08:13; Admin Dose 1 APPLIC; Start 03/30/17 at 12:00 IV Flush (NS 10 ml) 10 ml QAM IV Last administered on 04/04/17 08:13; Admin Dose 10 ML; Start 03/31/17 at 09:00 IV Flush (NS 10 ml) 10 ml PRN PRN IV FLUSH LINE; Start 03/30/17 at 15:00 RASTA HUGHES Apr 04, 2017 10:37
[2017-04-04] MEDS ORDERED: BARIUM SULF 2% 450 ML BTL (BERRY SMOOTHIE) PO ONE (11:00)
--- NOTE | 2017-04-04 13:03 | PN ---
LICO PITTS 04/04/17 1303: Date/Time of Note Date/Time of Note DATE: 04/04/17 TIME: 13:01 Assessment/Plan VTE Prophylaxis VTE Prophylaxis Intervention: ambulation Lines/Catheters IV [facility] Type (from [email or web address] PORT A CATH Urinary Cath still in place: No Assessment/Plan Chief Complaint/Hosp Course 1. Esophageal Squamous CA in [place] esophagus s/p chemoradiotherapy last given on 03/29/17 2. Extracorporeal esophagogastric colonic bypass 3. Dysphagia and odonophagia 4. Pancytopenia likely secondary to chemo/radiation> worsening again 5. Bronchitis 6. New GT in place 7. Cellulitis of abdominal wall with abscess forming/ Problems: Assessment/Plan 1. CT pending with contrast 2. Stop eliquiz and start lovenox today 3. Keep NPO 4. IV fluids to give Subjective 24 Hr Interval Summary Constitutional: no complaints Skin: other (GT tube) Exam/Review of Systems Vital Signs Vitals Vital Signs Date Time Temp Pulse Resp B/P Pulse Ox O2 Delivery O2 Flow Rate FiO2 04/04/17 07:58 98.8 88 16 99/54 98 04/01/17 16:47 Room Air Intake and Output 04/03/17 04/03/17 04/04/17 15:00 23:00 07:00 Intake Total 980 ml 420 ml 460 ml Balance 980 ml 420 ml 460 ml Exam Constitutional: alert, oriented Respiratory: clear to auscultation, congested cough Cardiovascular: regular rate and rhythm Gastrointestinal: other (GT ), soft, surgical scars Results Result Diagram: 04/03/17 0531 04/03/17 0531 Medications Medications Current Medications Apixaban (Eliquis) 5 mg BID PO Last administered on 04/04/17 08:13; Admin Dose 5 MG; Start 03/30/17 at 09:00 Pantoprazole (Protonix Iv) 40 mg DAILY@06 IV Last administered on 04/04/17 05 :43; Admin Dose 40 MG; Start 03/30/17 at 06:00 Acetaminophen (Tylenol Liquid) 650 mg Q4H PRN GTB PAIN AND OR ELEVATED TEMP Last administered on 04/04/17 02:02; Admin Dose 650 MG; Start 03/29/17 at 23: 30 Mupirocin (Bactroban) 1 applic BID TOP Last administered on 04/04/17 08:13; Admin Dose 1 APPLIC; Start 03/30/17 at 12:00 IV Flush (NS 10 ml) 10 ml QAM IV Last administered on 04/04/17 08:13; Admin Dose 10 ML; Start 03/31/17 at 09:00 IV Flush 10 ml 10 ml PRN PRN IV FLUSH LINE; Start 03/30/17 at 15:00 Meropenem/Sodium Chloride 50 ml @ 100 mls/hr Q8 IVPB ; Start 04/04/17 at 14:00 Linezolid (Zyvox 600mg/D5W (Pmx)) 300 ml @ 300 mls/hr Q12 IVPB ; Start at 12:30 RENEE HAN MD 04/04/17 1502: Assessment/Plan Assessment/Plan Chief Complaint/Hosp Course cellulitis/ abscess at old g tube site, restarted iv abx iv fluids, hold TF Problems: Exam/Review of Systems Results Result Diagram: 04/03/17 0531 04/03/17 0531 LICO SALAS Apr 04, 2017 13:03 RENEE HAN MD Apr 04, 2017 15:02
[2017-04-04] MEDS: LINEZOLID 600 MG/D5W (PMX) 300 ML IVPB SCH ×2 (13:51→20:49)
[2017-04-04] MEDS: ENOXAPARIN 30 MG/0.3 ML SYG SC SCH (14:33)
[2017-04-04 14:50] VITALS: BP 98/53; RESP 16
[2017-04-04] MEDS: MEROPENEM 500MG/50 ML (PMX) 50 ML IVPB SCH ×2 (14:54→22:11)
[2017-04-04] MEDS: DEXTROSE 5%-0.9% NACL 1,000 ML IV SCH (16:09)
[2017-04-04] MEDS ORDERED: IOHEXOL 300MG/ML 150 ML BTL ONE (18:10)
[2017-04-04] MEDS ORDERED: SOD CHLORIDE 0.9% 100 ML ONE (18:10)
--- NOTE | 2017-04-04 19:52 | RADRPT ---
PROCEDURE: CT abdomen with intravenous contrast. CLINICAL INDICATION: Pain. TECHNIQUE: CT of the abdomen was performed utilizing axial images with reconstructions in sagittal and coronal planes after administration of 90 cc Omnipaque 300. Due to extravasation of contrast at the IV site, this should be considered a noncontrast exam. The administered radiation dose is CTDI 17 mGy, DLP 945 mGy-cm. One or more of the following dose reduction techniques were used: automated exposure control, adjustment of the mA and/or kV according to patient size and/or use of iterative r econstruction technique. DICOM images are available. COMPARISON: No pertinent prior examinations were submitted for comparison. FINDINGS: Visualized Chest: Mild atelectasis or scarring is noted within the lung bases. Abdomen: The liver, spleen, pancreas, gallbladder,and adrenal glands are unremarkable. The kidneys are without hydronephrosis. No definite urinary calculi are seen. A percutaneous gastrostomy tube is seen with tip in the gastric antrum. There are some inflammatory changes adjacent to the gastrostomy site. There is also a collection of gaseous debris is inferior t o the gastrostomy site. This measures up to 2.2 x 2.5 cm in greatest axial dimensions. The patient also appears to be status post colonic interposition surgery with transplantation of the colon into the anterior subcutaneous chest. Numerous thickened small bowel loops are noted througho ut the abdomen with surrounding mesenteric inflammatory changes. There is no evidence of intra-abdominal adenopathy or free fluid. Osseous structures: Unremarkable. IMPRESSION: Small collection of gaseous debris inferior to a gastrostomy site, presumably a small abscess. Numerous thickened small bowel loops in the left abdomen compatible with enteritis. RPTAT: HIKT .Grant Sue MD, MD Date Time Electronically viewed and signed by .Grant Sue MD, MD on 04/04/2017 19:52 .T/
[2017-04-04 20:00] VITALS: BP 101/55; RESP 20
[2017-04-05 02:00] VITALS: BP 96/53; RESP 20
[2017-04-05] MEDS: MEROPENEM 500MG/50 ML (PMX) 50 ML IVPB SCH ×3 (06:05→21:26)
[2017-04-05] MEDS: LANSOPRAZOLE 30 MG CAP GTB SCH (06:05)
[2017-04-05 06:34] LABS: ABNORMAL IP MESSAGE 1; BASOPHILS % 0.3 % (0.0-2.0); HEMATOCRIT 26.5 % (42.0-52.0); HEMOGLOBIN 8.6 g/dl (14.0-18.0); LYMPHOCYTES # 0.2 10^3/ul (0.8-2.9); LYMPHOCYTES % 6.3 % (15.0-51.0); MEAN CORPUSCULAR HEMOGLOBIN 30.3 pg (29.0-33.0); MEAN CORPUSCULAR HGB CONC 32.5 g/dl (32.0-37.0); MEAN CORPUSCULAR VOLUME 93.3 fl (82.0-101.0); MONOCYTE # 0.2 10^3/ul (0.3-0.9); MONOCYTES % 5.2 % (0.0-11.0); NEUTROPHIL # 3.1 10^3/ul (1.6-7.5); NEUTROPHILS % 87.6 % (39.0-77.0); POSITIVE DIFF @See below; RED BLOOD COUNT 2.84 10^6/ul (4.70-6.10); RED CELL DISTRIBUTION WIDTH 17.2 % (11.5-14.5); WHITE BLOOD COUNT 3.5 10^3/ul (4.8-10.8)
[2017-04-05 06:56] LABS: PLATELET COUNT 87 10^3/UL (140-415)
[2017-04-05 07:19] LABS: CALCIUM 8.1 mg/dl (8.4-10.2); CREATININE 0.61 mg/dl (0.61-1.24); POTASSIUM 3.6 mmol/L (3.5-5.1)
[2017-04-05 07:31] VITALS: BP 98/54; RESP 16
--- NOTE | 2017-04-05 08:14 | PN ---
DATE: 04/04/2017 SUBJECTIVE: Patient is alert, feels good, continues to spike fevers with a T-max of 101.8 today. Brittany olvera also was seen by gastroenterology team and apparently had a large abscess around his G-tube s ite that was squeezed out and drainage were sent for cultures. No labs this morning. Indwelling PEG. PHYSICAL EXAMINATION: GENERAL: Well-developed, elderly [place] man who is alert, in no distress. HEENT: Head atraumatic, normocephalic. Sclerae anicteric. Buccal mucosa dry. NECK: Supple. CHEST: Rise symmetrical. Breath sounds clear. HEART: S1, S2. ABDOMEN: Soft. Bowel sounds present. EXTREMITIES: Without cyanosis or edema. SKIN: With significant erythema around G-tube site and foul odor. ASSESSMENT: 1. Systemic inflammatory response syndrome with fevers secondary to G-tube site cellulitis with abs cess. 2. Status post coagulase-negative staph bacteremia. 3. History of esophageal cancer status post esophagectomy, chemoradiation. 4. Right chest Port-A-Cath. 5. History of left lower extremity deep venous thrombosis. 6. Acute on chronic anemia. PLAN: Remains hemodynamically stable. CT of the abdomen ordered. Cultures pending. We are going to start him on Zyvox and meropenem. Dictated By: CHANELL DAVIES MEETING MANAGER for ABBY MORRELL/SUSAN Conf#: [id number] DID#: [id number]
[2017-04-05] MEDS: LINEZOLID 600 MG/D5W (PMX) 300 ML IVPB SCH ×2 (09:06→20:41)
[2017-04-05] MEDS: MUPIROCIN 2% 22 GM OINT TOP SCH ×2 (09:07→21:25)
[2017-04-05] MEDS: ENOXAPARIN 30 MG/0.3 ML SYG SC SCH (09:26)
--- NOTE | 2017-04-05 11:09 | PN ---
Date/Time of Note Date/Time of Note DATE: 04/05/17 TIME: 11:05 Assessment/Plan VTE Prophylaxis VTE Prophylaxis Intervention: SCD's Lines/Catheters IV Catheter Type (from Nrs): PORT-A-CATH Urinary Cath still in place: No Assessment/Plan Chief Complaint/Hosp Course Assessment: Accidental displacement of gastrostomy tube PEG 04/01/17 Impression: Uneventful percutaneous endoscopic gastrostomy tube placement Placement of [place] 20 gastrostomy tube Extracorporeal esophagogastric colon interposition Large obstructing esophageal CA in the [place] esophagus Recommend surgical consult Cellulitis with abscess at g-tube site/started on anitbiotics Esophageal CA in [place] esophagus Dysphagia/Odynophagia Radiation esophagitis Extracorporeal esophagogastric colonic interposition Plan: Cx from g-tube site pending CT abd with IV and contrast via g-tube reviewed and copied below Small collection of gaseous debris inferior to a gastrostomy site, presumably a small abscess. Numerous thickened small bowel loops in the left abdomen compatible with enteritis. Gastrostomy tube site care QID and PRN with Betadine Continue antibiotics Continue to monitor H/H transfuse if less than 7.5 Pt seen in collaboration with Dr. Queen Subjective: Course reviewed with nursing staff Patient interviewed and examined All labs, imaging and other results reviewed The patient feels well, josseline Tf well now at goal. Pt has started antibiotics for cellulitics and abscess at g-tube site. He currently denies abd pain nausea or vomiting. PHYSICAL EXAMINATION: GENERAL: Well developed, well nourished, alert & oriented x 3, in no acute distress SKIN: No lesions, no stigmata chronic liver disease, no evidence of bleeding diathesis, g-tube LYMPHATIC: No palpable lymphadenopathy. HEAD: Normocephalic, atraumatic, no tenderness. EYES: Pupils equal reactive to light and accommodation, full extraocular movements, sclera clear, non-icteric, no discharge. EARS/NOSE AND THROAT: Ears normal, nose normal, oropharynx normal, oral membranes well hydrated without lesions. NECK: Extracorporeal esophagogastric colon interposition evident. CHEST: Extracorporeal esophagogastric colon interposition evident. Otherwise inspection within normal limits. CARDIOVASCULAR: Heart: Regular rate and rhythm, RESPIRATORY: Lungs clear to auscultation and percussion, no wheezing, no rubs GASTROINTESTINAL AND LIVER: Abdomen: Previous GT site almost completely closed. Otherwise soft, non tenderness, non-distended, no hernias, no masses, no organomegaly, no ascites, no guarding, no rebound tenderness, normoactive bowel sounds. Rectal: Deferred. GENITOURINARY: Male genitalia within normal limits. EXTREMITIES: No cyanosis, clubbing, edema to LLE Problems: Exam/Review of Systems Vital Signs Vitals Vital Signs Date Time Temp Pulse Resp B/P Pulse Ox O2 Delivery O2 Flow Rate FiO2 04/05/17 07:31 98.3 89 16 98/54 96 04/01/17 16:47 Room Air Intake and Output 04/04/17 04/04/17 04/05/17 15:00 23:00 07:00 Intake Total 300 ml 500 ml 50 ml Balance 300 ml 500 ml 50 ml Results Result Diagram: 04/05/1760504/05/17 06 Results 24 hrs Laboratory Tests Test 04/05/17 06:06 White Blood Count 3.5 #L Red Blood Count 2.84 L Hemoglobin 8.6 L Hematocrit 26.5 L Mean Corpuscular Volume 93.3 Mean Corpuscular Hemoglobin 30.3 Mean Corpuscular Hemoglobin Concent 32.5 Red Cell Distribution Width 17.2 H Platelet Count 87 L Mean Platelet Volume 10.0 Neutrophils % 87.6 H Lymphocytes % 6.3 L Monocytes % 5.2 Eosinophils % 0.0 Basophils % 0.3 Nucleated Red Blood Cells % 0.0 Neutrophils # 3.1 Lymphocytes # 0.2 L Monocytes # 0.2 L Eosinophils # 0.0 Basophils # 0.0 Nucleated Red Blood Cells # 0.0 Sodium Level 137 Potassium Level 3.6 Chloride Level 101 Carbon Dioxide Level 27 Anion Gap 13 Blood Urea Nitrogen 10 Creatinine 0.61 Glucose Level 106 Calcium Level 8.1 L Medications Medications Current Medications Acetaminophen (Tylenol Liquid) 650 mg Q4H PRN GTB PAIN AND OR ELEVATED TEMP Last administered on 04/04/17 14:54; Admin Dose 650 MG; Start 03/29/17 at 23: 30 Mupirocin (Bactroban) 1 applic BID TOP Last administered on 04/05/17 09:07; Admin Dose 1 APPLIC; Start 03/30/17 at 12:00 IV Flush (NS 10 ml) 10 ml QAM IV Last administered on 04/05/17 09:06; Admin Dose 10 ML; Start 11/19/17 at 09:00 IV Flush 10 ml 10 ml PRN PRN IV FLUSH LINE; Start 03/30/17 at 15:00 Meropenem/Sodium Chloride 50 ml @ 100 mls/hr Q8 IVPB Last administered on 06:05; Admin Dose 100 MLS/HR; Start 04/04/17 at 14:00 Linezolid (Zyvox 600mg/D5W (Pmx)) 300 ml @ 300 mls/hr Q12 IVPB Last administered on 04/05/17 09:06; Admin Dose 300 MLS/HR; Start 04/04/17 at 12: 30 Enoxaparin Sodium (Lovenox) 30 mg DAILY SC Last administered on 04/05/17 09: 26; Admin Dose 30 MG; Start 04/04/17 at 13:30 Lansoprazole 30 mg 30 mg DAILY@06 GTB Last administered on 04/05/17 06:05; Admin Dose 30 MG; Start 04/05/17 at 06:00 Dextrose/Sodium Chloride (D5-NS) 1,000 ml @ 50 mls/hr Q20H IV Last administered on 04/04/17 16:09; Admin Dose 50 MLS/HR; Start 04/04/17 at 15:30 RASTA HUGHES Apr 05, 2017 11:09
[2017-04-05] MEDS: DEXTROSE 5%-0.9% NACL 1,000 ML IV SCH ×2 (11:30→20:42)
--- NOTE | 2017-04-05 12:12 | PN ---
LICO SALAS 04/05/17 1212: Date/Time of Note Date/Time of Note DATE: 04/05/17 TIME: 12:11 Assessment/Plan VTE Prophylaxis VTE Prophylaxis Intervention: LMWH Lines/Catheters IV Catheter Type (from Nrs): PORT-A-CATH Urinary Cath still in place: No Assessment/Plan Chief Complaint/Hosp Course 1. Esophageal Squamous CA in [place] esophagus s/p chemoradiotherapy last given on 03/29/17 2. Extracorporeal esophagogastric colonic bypass 3. Dysphagia and odynophagia. 4. Pancytopenia likely secondary to chemo/radiation> worsening again 5. Bronchitis 6. New GT in place 7. Cellulitis of abdominal wall with abscess forming/ 8.SIRS with abdominal wall small abscess Problems: Assessment/Plan 1. dr Pierson as a surgical consult 2. Continue a/b 3. Continue Ferrlicit Subjective 24 Hr Interval Summary Constitutional: improved, no complaints Exam/Review of Systems Vital Signs Vitals Vital Signs Date Time Temp Pulse Resp B/P Pulse Ox O2 Delivery O2 Flow Rate FiO2 04/05/17 07:31 98.3 89 16 98/54 96 04/01/17 16:47 Room Air Intake and Output 04/04/17 04/04/17 04/05/17 15:00 23:00 07:00 Intake Total 300 ml 500 ml 50 ml Balance 300 ml 500 ml 50 ml Exam Constitutional: alert, oriented Gastrointestinal: other (g tube), soft Results Result Diagram: 04/05/17 0606 04/05/17 0606 Results 24 hrs Laboratory Tests Test 04/05/17 06:06 White Blood Count 3.5 #L Red Blood Count 2.84 L Hemoglobin 8.6 L Hematocrit 26.5 L Mean Corpuscular Volume 93.3 Mean Corpuscular Hemoglobin 30.3 Mean Corpuscular Hemoglobin Concent 32.5 Red Cell Distribution Width 17.2 H Platelet Count 87 L Mean Platelet Volume 10.0 Neutrophils % 87.6 H Lymphocytes % 6.3 L Monocytes % 5.2 Eosinophils % 0.0 Basophils % 0.3 Nucleated Red Blood Cells % 0.0 Neutrophils # 3.1 Lymphocytes # 0.2 L Monocytes # 0.2 L Eosinophils # 0.0 Basophils # 0.0 Nucleated Red Blood Cells # 0.0 Sodium Level 137 Potassium Level 3.6 Chloride Level 101 Carbon Dioxide Level 27 Anion Gap 13 Blood Urea Nitrogen 10 Creatinine 0.61 Glucose Level 106 Calcium Level 8.1 L Medications Medications Current Medications Acetaminophen (Tylenol Liquid) 650 mg Q4H PRN GTB PAIN AND OR ELEVATED TEMP Last administered on 04/04/17 14:54; Admin Dose 650 MG; Start 03/29/17 at 23: 30 Mupirocin (Bactroban) 1 applic BID TOP Last administered on 04/05/17 09:07; Admin Dose 1 APPLIC; Start 03/30/17 at 12:00 IV Flush (NS 10 ml) 10 ml QAM IV Last administered on 04/05/17 09:06; Admin Dose 10 ML; Start 03/31/17 at 09:00 IV Flush 10 ml 10 ml PRN PRN IV FLUSH LINE; Start 03/30/17 at 15:00 Meropenem/Sodium Chloride 50 ml @ 100 mls/hr Q8 IVPB Last administered on 06:05; Admin Dose 100 MLS/HR; Start 04/04/17 at 14:00 Linezolid (Zyvox 600mg/D5W (Pmx)) 300 ml @ 300 mls/hr Q12 IVPB Last administered on 04/05/17 09:06; Admin Dose 300 MLS/HR; Start 04/04/17 at 12: 30 Enoxaparin Sodium (Lovenox) 30 mg DAILY SC Last administered on 04/05/17 09: 26; Admin Dose 30 MG; Start 04/04/17 at 13:30 Lansoprazole 30 mg 30 mg DAILY@06 GTB Last administered on 04/05/17 06:05; Admin Dose 30 MG; Start 04/05/17 at 06:00 Dextrose/Sodium Chloride (D5-NS) 1,000 ml @ 50 mls/hr Q20H IV Last administered on 04/04/17 16:09; Admin Dose 50 MLS/HR; Start 04/04/17 at 15:30 RENEE HAN MD 04/05/17 1545: Assessment/Plan Assessment/Plan Assessment/Plan Abscess drainage by surgery c/w zyvox, meropenam, awaiting cx Exam/Review of Systems Results Result Diagram: 04/05/1706 04/05/17 0606 LICO SALAS Apr 05, 2017 12:12 RENEE HAN MD Apr 05, 2017 15:45
[2017-04-05 14:51] VITALS: BP 93/50; RESP 18
--- NOTE | 2017-04-05 15:11 | CONS ---
Date/Time of Note Date/Time of Note DATE: 04/05/17 TIME: 15:10 Assessment/Plan Assessment/Plan Chief Complaint/Hosp Course ID PROGRESS NOTE CURRENT ABX: DAY # => Zyvox + Merrem 24H INTERVAL SUMMARY * Clincally stable -- no c/o * 04/04/17 CT A/P: A percutaneous gastrostomy tube is seen with tip in the gastric antrum. There are some inflammatory changes adjacent to the gastrostomy site. There is also a collection of gaseous debris is inferior to the gastrostomy site. This measures up to 2.2 x 2.5 cm in greatest axial dimensions. The patient also appears to be status post colonic interposition surgery with transplantation of the colon into the anterior subcutaneous chest. Numerous thickened small bowel loops are noted throughout the abdomen with surrounding mesenteric inflammatory changes.There is no evidence of intra- abdominal adenopathy or free fluid. * IMPRESSION:Small collection of gaseous debris inferior to a gastrostomy site , presumably a small abscess. Numerous thickened small bowel loops in the left abdomen compatible with enteritis. * 04/04/17 ABD Wound: WOUND CULTURE Preliminary Organism 1 GRAM NEGATIVE [place] QUANTITY 1+ PHYSICAL EXAMINATION: GENERAL: VSS, afebrile, NAD HEENT: Unremarkable NECK: Supple, trach midline CHEST: Equal chest rise bilaterally, without dyspnea on observation HEART: RRR ABDOMEN: Soft, NT EXT: Warm, SKIN: No rash, no diaphoresis ID ASSESSMENT: 66 yo M admit V[facility]: 1. Systemic inflammatory response syndrome with fevers secondary to small abscess inferior to old GT site + Enteritis * BCx (-) * 04/04/17 ABD Wound: WOUND CULTURE Preliminary Organism 1 GRAM NEGATIVE [place] QUANTITY 1+ 2. Status post coagulase-negative staph bacteremia. 3. History of esophageal cancer status post esophagectomy, chemoradiation. 4. Right chest Port-A-Cath. 5. History of left lower extremity deep venous thrombosis. 6. Acute on chronic anemia. ( -)MRSA ABX ALLERGIES: KNDA INVASIVES: PIV CURRENT ABX: *=> Zyvox + Merrem ID RECOMMENDATIONS/PLAN: 1. Continue ABX, consider surgical consult for abscess drainage. . Problems: Consultation Date/Type/Reason Admit Date/Time Mar 29, 2017 at 21:39 Initial Consult Date 03/31/17 Type of Consultation: ID Exam/Review of Systems Vital Signs Vitals Vital Signs Date Time Temp Pulse Resp B/P Pulse Ox O2 Delivery O2 Flow Rate FiO2 04/05/17 14:51 97.7 83 18 93/50 97 04/01/17 16:47 Room Air Intake and Output 04/04/17 04/04/17 04/05/17 14:59 22:59 06:59 Intake Total 300 ml 500 ml 50 ml Balance 300 ml 500 ml 50 ml Results Result Diagram: 04/05/17 0606 04/05/17 0606 Results 24 hrs Laboratory Tests Test 04/05/17 06:06 White Blood Count 3.5 #L Red Blood Count 2.84 L Hemoglobin 8.6 L Hematocrit 26.5 L Mean Corpuscular Volume 93.3 Mean Corpuscular Hemoglobin 30.3 Mean Corpuscular Hemoglobin Concent 32.5 Red Cell Distribution Width 17.2 H Platelet Count 87 L Mean Platelet Volume 10.0 Neutrophils % 87.6 H Lymphocytes % 6.3 L Monocytes % 5.2 Eosinophils % 0.0 Basophils % 0.3 Nucleated Red Blood Cells % 0.0 Neutrophils # 3.1 Lymphocytes # 0.2 L Monocytes # 0.2 L Eosinophils # 0.0 Basophils # 0.0 Nucleated Red Blood Cells # 0.0 Sodium Level 137 Potassium Level 3.6 Chloride Level 101 Carbon Dioxide Level 27 Anion Gap 13 Blood Urea Nitrogen 10 Creatinine 0.61 Glucose Level 106 Calcium Level 8.1 L Medications Medications Current Medications Acetaminophen (Tylenol Liquid) 650 mg Q4H PRN GTB PAIN AND OR ELEVATED TEMP Last administered on 04/04/17 14:54; Admin Dose 650 MG; Start 03/29/17 at 23: 30 Mupirocin (Bactroban) 1 applic BID TOP Last administered on 04/05/17 09:07; Admin Dose 1 APPLIC; Start 03/30/17 at 12:00 IV Flush (NS 10 ml) 10 ml QAM IV Last administered on 04/05/17 09:06; Admin Dose 10 ML; Start 03/31/17 at 09:00 IV Flush 10 ml 10 ml PRN PRN IV FLUSH LINE; Start 03/30/17 at 15:00 Meropenem/Sodium Chloride 50 ml @ 100 mls/hr Q8 IVPB Last administered on 14:38; Admin Dose 100 MLS/HR; Start 04/04/17 at 14:00 Linezolid (Zyvox 600mg/D5W (Pmx)) 300 ml @ 300 mls/hr Q12 IVPB Last administered on 04/05/17 09:06; Admin Dose 300 MLS/HR; Start 04/04/17 at 12: 30 Enoxaparin Sodium (Lovenox) 30 mg DAILY SC Last administered on 04/05/17 09: 26; Admin Dose 30 MG; Start 04/04/17 at 13:30 Lansoprazole 30 mg 30 mg DAILY@06 GTB Last administered on 04/05/17 06:05; Admin Dose 30 MG; Start 04/05/17 at 06:00 Dextrose/Sodium Chloride 1,000 ml @ 50 mls/hr Q20H IV Last administered on 16:09; Admin Dose 50 MLS/HR; Start 04/04/17 at 15:30 Ferric Sodium Gluconate Complex/ Sodium Chloride (Ferrlecit/NS) 110 ml @ 100 mls/hr Q24H IVPB ; Start 04/05/17 at 14:00; Stop 04/07/17 at 15:05 GUILHERME AMEZCUA NP Apr 05, 2017 15:11
[2017-04-05] MEDS: SOD FERRIC GLUC COMPLX 125 MG in SOD CHLORIDE 0.9% 100 ML IVPB SCH (15:14)
[2017-04-06 02:00] VITALS: BP 100/54; PULSE 86; RESP 18
[2017-04-06] MEDS: LANSOPRAZOLE 30 MG CAP GTB SCH (05:31)
[2017-04-06] MEDS: MEROPENEM 500MG/50 ML (PMX) 50 ML IVPB SCH ×3 (05:31→22:18)
[2017-04-06 06:34] LABS: ABNORMAL IP MESSAGE 1; HEMATOCRIT 25.2 % (42.0-52.0); HEMOGLOBIN 8.2 g/dl (14.0-18.0); LYMPHOCYTES # 0.2 10^3/ul (0.8-2.9); LYMPHOCYTES % 9.7 % (15.0-51.0); MEAN CORPUSCULAR HEMOGLOBIN 30.4 pg (29.0-33.0); MEAN CORPUSCULAR HGB CONC 32.5 g/dl (32.0-37.0); MEAN CORPUSCULAR VOLUME 93.3 fl (82.0-101.0); MEAN PLATELET VOLUME 10.1 fl (7.4-10.4); MONOCYTE # 0.1 10^3/ul (0.3-0.9); MONOCYTES % 6.8 % (0.0-11.0); NEUTROPHIL # 1.7 10^3/ul (1.6-7.5); PLATELET COUNT 80 10^3/UL (140-415); POSITIVE DIFF @See below; RED CELL DISTRIBUTION WIDTH 16.8 % (11.5-14.5); WHITE BLOOD COUNT 2.1 10^3/ul (4.8-10.8)
[2017-04-06] MEDS: DEXTROSE 5%-0.9% NACL 1,000 ML IV SCH (07:30)
[2017-04-06 07:37] VITALS: BP 96/52; RESP 20
[2017-04-06] MEDS: MUPIROCIN 2% 22 GM OINT TOP SCH ×2 (08:54→20:40)
[2017-04-06] MEDS: LINEZOLID 600 MG/D5W (PMX) 300 ML IVPB SCH ×2 (08:54→20:39)
[2017-04-06] MEDS: ENOXAPARIN 30 MG/0.3 ML SYG SC SCH (08:57)
--- NOTE | 2017-04-06 12:04 | PN ---
Date/Time of Note Date/Time of Note DATE: 04/06/17 TIME: 12:01 Assessment/Plan VTE Prophylaxis VTE Prophylaxis Intervention: ambulation Lines/Catheters IV [facility]from [facility] PORT-A-CATH Urinary Cath still in place: No Assessment/Plan Chief Complaint/Hosp Course 1. 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 Extracorporeal esophagogastric colonic bypass 3. Dysphagia and odynophagia. 4. Pancytopenia likely secondary to chemo/radiation> worsening again 5. Bronchitis 6. New GT in place 7. Cellulitis of abdominal wall with abscess forming/ 8. SIRS with abdominal wall small abscess, draining Problems: Assessment/Plan 1. refused to have a IV and PO contrast, keep Ct scan without contrast 2. continue ferrlicit. 3. Wound care Subjective 24 Hr Interval Summary Constitutional: improved, no complaints Gastrointestinal: other (old G tube hole with purulent discharge) Exam/Review of Systems Vital Signs Vitals Vital Signs Date Time Temp Pulse Resp B/P Pulse Ox O2 Delivery O2 Flow Rate FiO2 04/06/17 07:37 97.8 73 20 96/52 98 04/06/17 02:00 Room Air Intake and Output 04/05/17 04/05/17 04/06/17 15:00 23:00 07:00 Intake Total 1230 ml 1640 ml 800 ml Balance 1230 ml 1640 ml 800 ml Exam Constitutional: alert, oriented Cardiovascular: regular rate and rhythm Gastrointestinal: other (purulent discharge from old hole of G tube), soft, surgical scars Results Result Diagram: 04/06/17 0543 04/05/17 0606 Results 24 hrs Laboratory Tests Test 04/06/17 05:43 White Blood Count 2.1 #L Red Blood Count 2.70 L Hemoglobin 8.2 L Hematocrit 25.2 L Mean Corpuscular Volume 93.3 Mean Corpuscular Hemoglobin 30.4 Mean Corpuscular Hemoglobin Concent 32.5 Red Cell Distribution Width 16.8 H Platelet Count 80 L Mean Platelet Volume 10.1 Neutrophils % 83.0 H Lymphocytes % 9.7 L Monocytes % 6.8 Eosinophils % 0.0 Basophils % 0.0 Nucleated Red Blood Cells % 0.0 Neutrophils # 1.7 Lymphocytes # 0.2 L Monocytes # 0.1 L Eosinophils # 0.0 Basophils # 0.0 Nucleated Red Blood Cells # 0.0 Medications Medications Current Medications Acetaminophen (Tylenol Liquid) 650 mg Q4H PRN GTB PAIN AND OR ELEVATED TEMP Last administered on 04/04/17 14:54; Admin Dose 650 MG; Start 03/29/17 at 23: 30 Mupirocin (Bactroban) 1 applic BID TOP Last administered on 04/06/17 08:54; Admin Dose 1 APPLIC; Start 03/30/17 at 12:00 IV Flush (NS 10 ml) 10 ml QAM IV Last administered on 04/06/17 08:54; Admin Dose 10 ML; Start 03/31/17 at 09:00 IV Flush 10 ml 10 ml PRN PRN IV FLUSH LINE; Start 03/30/17 at 15:00 Meropenem/Sodium Chloride 50 ml @ 100 mls/hr Q8 IVPB Last administered on 05:31; Admin Dose 100 MLS/HR; Start 04/04/17 at 14:00 Linezolid (Zyvox 600mg/D5W (Pmx)) 300 ml @ 300 mls/hr Q12 IVPB Last administered on 04/06/17 08:54; Admin Dose 300 MLS/HR; Start 04/04/17 at 12: 30 Enoxaparin Sodium (Lovenox) 30 mg DAILY SC Last administered on 04/06/17 08: 57; Admin Dose 30 MG; Start 04/04/17 at 13:30 Lansoprazole 30 mg 30 mg DAILY@06 GTB Last administered on 04/06/17 05:31; Admin Dose 30 MG; Start 04/05/17 at 06:00 Dextrose/Sodium Chloride 1,000 ml @ 50 mls/hr Q20H IV Last administered on 20:42; Admin Dose 50 MLS/HR; Start 04/04/17 at 15:30 Ferric Sodium Gluconate Complex/ Sodium Chloride (Ferrlecit/NS) 110 ml @ 100 mls/hr Q24H IVPB Last administered on 04/05/17 15:14; Admin Dose 100 MLS/HR; Start 04/05/17 at 14:00; Stop 04/07/17 at 15:05 LICO SALAS Apr 06, 2017 12:04
--- NOTE | 2017-04-06 12:09 | PN ---
Date/Time of Note Date/Time of Note DATE: 04/06/17 TIME: 11:58 Assessment/Plan VTE Prophylaxis VTE Prophylaxis Intervention: SCD's Lines/Catheters IV [facility] Type [facility] PORT-A-CATH Urinary Cath still in place: No Assessment/Plan Chief Complaint/Hosp Course Assessment: Accidental displacement of gastrostomy tube PEG 04/01/17 Impression: Uneventful percutaneous endoscopic gastrostomy tube placement Placement of [place] 20 gastrostomy tube Extracorporeal esophagogastric colon interposition Large obstructing esophageal CA in the [place] esophagus Recommend surgical consult Cellulitis with abscess at g-tube site/started on antibiotics Esophageal CA in [place] esophagus Dysphagia/Odynophagia 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 patient cannot tolerate contrast- and declines test Gastrostomy tube site care QID and PRN with Betadine Continue antibiotics Continue to monitor H/H transfuse if less than 7.5 Pt seen in collaboration with Dr. Queen Subjective: Course reviewed with nursing staff Patient interviewed and examined All labs, imaging and other results reviewed The patient feels well, he is not able to tolerate contrast, large amount given via g-tube made patient c/o nausea, pt also with poor IV access, not able josseline tolerate iv contrast, thus will not be ablt to move froward with Ct enterography , will cx and restart TF PHYSICAL EXAMINATION: GENERAL: Well developed, well nourished, alert & oriented x 3, in no acute distress SKIN: No lesions, no stigmata chronic liver disease, no evidence of bleeding diathesis, g-tube LYMPHATIC: No palpable lymphadenopathy. HEAD: Normocephalic, atraumatic, no tenderness. EYES: Pupils equal reactive to light and accommodation, full extraocular movements, sclera clear, non-icteric, no discharge. EARS/NOSE AND THROAT: Ears normal, nose normal, oropharynx normal, oral membranes well hydrated without lesions. NECK: Extracorporeal esophagogastric colon interposition evident. CHEST: Extracorporeal esophagogastric colon interposition evident. Otherwise inspection within normal limits. CARDIOVASCULAR: Heart: Regular rate and rhythm, RESPIRATORY: Lungs clear to auscultation and percussion, no wheezing, no rubs GASTROINTESTINAL AND LIVER: Abdomen: Previous GT site almost completely closed. Otherwise soft, non tenderness, non-distended, no hernias, no masses, no organomegaly, no ascites, no guarding, no rebound tenderness, normoactive bowel sounds. Rectal: Deferred. GENITOURINARY: Male genitalia within normal limits. EXTREMITIES: No cyanosis, clubbing, edema to LLE Problems: Exam/Review of Systems Vital Signs Vitals Vital Signs Date Time Temp Pulse Resp B/P Pulse Ox O2 Delivery O2 Flow Rate FiO2 04/06/17 07:37 97.8 73 20 96/52 98 04/06/17 02:00 Room Air Intake and Output 04/05/17 04/05/17 04/06/17 15:00 23:00 07:00 Intake Total 1230 ml 1640 ml 800 ml Balance 1230 ml 1640 ml 800 ml Results Result Diagram: 04/06/17 0543 04/05/17 0606 Results 24 hrs Laboratory Tests Test 04/06/17 05:43 White Blood Count 2.1 #L Red Blood Count 2.70 L Hemoglobin 8.2 L Hematocrit 25.2 L Mean Corpuscular Volume 93.3 Mean Corpuscular Hemoglobin 30.4 Mean Corpuscular Hemoglobin Concent 32.5 Red Cell Distribution Width 16.8 H Platelet Count 80 L Mean Platelet Volume 10.1 Neutrophils % 83.0 H Lymphocytes % 9.7 L Monocytes % 6.8 Eosinophils % 0.0 Basophils % 0.0 Nucleated Red Blood Cells % 0.0 Neutrophils # 1.7 Lymphocytes # 0.2 L Monocytes # 0.1 L Eosinophils # 0.0 Basophils # 0.0 Nucleated Red Blood Cells # 0.0 Medications Medications Current Medications Acetaminophen (Tylenol Liquid) 650 mg Q4H PRN GTB PAIN AND OR ELEVATED TEMP Last administered on 04/04/17 14:54; Admin Dose 650 MG; Start 03/29/17 at 23: 30 Mupirocin (Bactroban) 1 applic BID TOP Last administered on 04/06/17 08:54; Admin Dose 1 APPLIC; Start 03/30/17 at 12:00 IV Flush (NS 10 ml) 10 ml QAM IV Last administered on 04/06/17 08:54; Admin Dose 10 ML; Start 03/31/17 at 09:00 IV Flush 10 ml 10 ml PRN PRN IV FLUSH LINE; Start 03/30/17 at 15:00 Meropenem/Sodium Chloride 50 ml @ 100 mls/hr Q8 IVPB Last administered on 05:31; Admin Dose 100 MLS/HR; Start 04/04/17 at 14:00 Linezolid (Zyvox 600mg/D5W (Pmx)) 300 ml @ 300 mls/hr Q12 IVPB Last administered on 04/06/17 08:54; Admin Dose 300 MLS/HR; Start 04/04/17 at 12: 30 Enoxaparin Sodium (Lovenox) 30 mg DAILY SC Last administered on 04/06/17 08: 57; Admin Dose 30 MG; Start 04/04/17 at 13:30 Lansoprazole 30 mg 30 mg DAILY@06 GTB Last administered on 04/06/17 05:31; Admin Dose 30 MG; Start 04/05/17 at 06:00 Dextrose/Sodium Chloride 1,000 ml @ 50 mls/hr Q20H IV Last administered on 20:42; Admin Dose 50 MLS/HR; Start 04/04/17 at 15:30 Ferric Sodium Gluconate Complex/ Sodium Chloride (Ferrlecit/NS) 110 ml @ 100 mls/hr Q24H IVPB Last administered on 04/05/17 15:14; Admin Dose 100 MLS/HR; Start 04/05/17 at 14:00; Stop 04/07/17 at 15:05 RASTA HUGHES Apr 06, 2017 12:08
[2017-04-06 13:40] VITALS: BP 97/53; RESP 20
--- NOTE | 2017-04-06 14:58 | CONS ---
Date/Time of Note Date/Time of Note DATE: 04/06/17 TIME: 14:55 Assessment/Plan Assessment/Plan Chief Complaint/Hosp Course ID PROGRESS NOTE CURRENT ABX: DAY # => Zyvox + Merrem 24H INTERVAL SUMMARY * A/A/O -> Tells me the abscess is responding to convervative ABX -- it is not draining; yet it has decreased in size -- Clincally stable -- no c/o * 04/04/17 CT A/P: A percutaneous gastrostomy tube is seen with tip in the gastric antrum. There are some inflammatory changes adjacent to the gastrostomy site. There is also a collection of gaseous debris is inferior to the gastrostomy site. This measures up to 2.2 x 2.5 cm in greatest axial dimensions. The patient also appears to be status post colonic interposition surgery with transplantation of the colon into the anterior subcutaneous chest. Numerous thickened small bowel loops are noted throughout the abdomen with surrounding mesenteric inflammatory changes.There is no evidence of intra- abdominal adenopathy or free fluid. * IMPRESSION:Small collection of gaseous debris inferior to a gastrostomy site , presumably a small abscess. Numerous thickened small bowel loops in the left abdomen compatible with enteritis. * 04/04/17 ABD Wound: WOUND CULTURE Preliminary Organism 1 PSEUDOMONAS AERUGINOSA QUANTITY 2+ Organism 2 GRAM NEGATIVE SHAQUILLE QUANTITY 1+ P.AERUG M.I.C. RX --------- --- AMIKACIN <=2 S AZTREONAM R CEFEPIME 16 I CEFTAZIDIME 16 I CIPROFLOXACIN I IMIPENEM 2 S LEVOFLOXACIN >=8 R TOBRAMYCIN <=1 S PIPERACILLIN/TAZOBACTAM R PHYSICAL EXAMINATION: GENERAL: VSS, afebrile, NAD HEENT: Unremarkable NECK: Supple, trach midline CHEST: Equal chest rise bilaterally, without dyspnea on observation HEART: RRR ABDOMEN: Soft, NT EXT: Warm, SKIN: No rash, no diaphoresis ID ASSESSMENT: 66 yo M admit VPH: 1. Systemic inflammatory response syndrome with fevers secondary to small abscess inferior to old GT site + Enteritis * BCx (-) * 04/04/17 ABD Wound: WOUND CULTURE Preliminary * Organism 2 GRAM NEGATIVE SHAQUILLE QUANTITY 1+ Organism 1 PSEUDOMONAS AERUGINOSA P.AERUG M.I.C. RX --------- --- AMIKACIN <=2 S AZTREONAM R CEFEPIME 16 I CEFTAZIDIME 16 I CIPROFLOXACIN I IMIPENEM 2 S LEVOFLOXACIN >=8 R TOBRAMYCIN <=1 S PIPERACILLIN/TAZOBACTAM R 2. Status post coagulase-negative staph bacteremia. 3. History of esophageal cancer status post esophagectomy, chemoradiation. 4. Right chest Port-A-Cath. 5. History of left lower extremity deep venous thrombosis. 6. Acute on chronic anemia. ( -)MRSA ABX ALLERGIES: KNDA INVASIVES: PIV CURRENT ABX: *=> Zyvox + Merrem ID RECOMMENDATIONS/PLAN: 1. Continue ABX, consider surgical consult for abscess drainage. 2. F.U final ID GNR #2 still pending . Problems: Consultation Date/Type/Reason Admit Date/Time Mar 29, 2017 at 21:39 Initial Consult Date 03/31/17 Type of Consultation: ID Exam/Review of Systems Vital Signs Vitals Vital Signs Date Time Temp Pulse Resp B/P Pulse Ox O2 Delivery O2 Flow Rate FiO2 04/06/17 13:40 98.0 82 20 97/53 99 04/06/17 02:00 Room Air Intake and Output 04/05/17 04/05/17 04/06/17 15:00 23:00 07:00 Intake Total 1230 ml 1640 ml 800 ml Balance 1230 ml 1640 ml 800 ml Results Result Diagram: 04/06/17 0543 04/05/17 0606 Results 24 hrs Laboratory Tests Test 04/06/17 05:43 White Blood Count 2.1 #L Red Blood Count 2.70 L Hemoglobin 8.2 L Hematocrit 25.2 L Mean Corpuscular Volume 93.3 Mean Corpuscular Hemoglobin 30.4 Mean Corpuscular Hemoglobin Concent 32.5 Red Cell Distribution Width 16.8 H Platelet Count 80 L Mean Platelet Volume 10.1 Neutrophils % 83.0 H Lymphocytes % 9.7 L Monocytes % 6.8 Eosinophils % 0.0 Basophils % 0.0 Nucleated Red Blood Cells % 0.0 Neutrophils # 1.7 Lymphocytes # 0.2 L Monocytes # 0.1 L Eosinophils # 0.0 Basophils # 0.0 Nucleated Red Blood Cells # 0.0 Medications Medications Current Medications Acetaminophen (Tylenol Liquid) 650 mg Q4H PRN GTB PAIN AND OR ELEVATED TEMP Last administered on 04/04/17 14:54; Admin Dose 650 MG; Start 03/29/17 at 23: 30 Mupirocin (Bactroban) 1 applic BID TOP Last administered on 04/06/17 08:54; Admin Dose 1 APPLIC; Start 03/30/17 at 12:00 IV Flush (NS 10 ml) 10 ml QAM IV Last administered on 04/06/17 08:54; Admin Dose 10 ML; Start 03/31/17 at 09:00 IV Flush 10 ml 10 ml PRN PRN IV FLUSH LINE; Start 03/30/17 at 15:00 Meropenem/Sodium Chloride 50 ml @ 100 mls/hr Q8 IVPB Last administered on 05:31; Admin Dose 100 MLS/HR; Start 04/04/17 at 14:00 Linezolid (Zyvox 600mg/D5W (Pmx)) 300 ml @ 300 mls/hr Q12 IVPB Last administered on 04/06/17 08:54; Admin Dose 300 MLS/HR; Start 04/04/17 at 12: 30 Enoxaparin Sodium (Lovenox) 30 mg DAILY SC Last administered on 04/06/17 08: 57; Admin Dose 30 MG; Start 04/04/17 at 13:30 Lansoprazole 30 mg 30 mg DAILY@06 GTB Last administered on 04/06/17 05:31; Admin Dose 30 MG; Start 04/05/17 at 06:00 Dextrose/Sodium Chloride 1,000 ml @ 50 mls/hr Q20H IV Last administered on 20:42; Admin Dose 50 MLS/HR; Start 04/04/17 at 15:30 Ferric Sodium Gluconate Complex/ Sodium Chloride (Ferrlecit/NS) 110 ml @ 100 mls/hr Q24H IVPB Last administered on 04/05/17t 15:14; Admin Dose 100 MLS/HR; Start 04/05/17 at 14:00; Stop 04/07/17 at 15:05 GUILHERME AMEZCUA NP Apr 06, 2017 14:58
[2017-04-06] MEDS ORDERED: BARIUM SULF 2% 450 ML BTL (BERRY SMOOTHIE) PO ONE (15:00)
[2017-04-06] MEDS: SOD FERRIC GLUC COMPLX 125 MG in SOD CHLORIDE 0.9% 100 ML IVPB SCH (15:51)
[2017-04-06 20:00] VITALS: BP 96/55; RESP 14
[2017-04-07 02:00] VITALS: BP 92/52; RESP 14
[2017-04-07] MEDS: DEXTROSE 5%-0.9% NACL 1,000 ML IV SCH (03:18)
[2017-04-07] MEDS: LANSOPRAZOLE 30 MG CAP GTB SCH (05:28)
[2017-04-07] MEDS: MEROPENEM 500MG/50 ML (PMX) 50 ML IVPB SCH ×3 (05:28→22:17)
[2017-04-07 07:46] VITALS: BP 91/54; RESP 20
[2017-04-07] MEDS: MUPIROCIN 2% 22 GM OINT TOP SCH ×2 (08:29→20:38)
[2017-04-07] MEDS: LINEZOLID 600 MG/D5W (PMX) 300 ML IVPB SCH ×2 (08:30→20:27)
[2017-04-07] MEDS: ENOXAPARIN 30 MG/0.3 ML SYG SC SCH (09:00)
--- NOTE | 2017-04-07 11:50 | PN ---
Date/Time of Note Date/Time of Note DATE: 04/07/17 TIME: 11:46 Assessment/Plan VTE Prophylaxis VTE Prophylaxis Intervention: SCD's Lines/Catheters IV Catheter Type (from Nrs): PORT A CATH Urinary Cath still in place: No Assessment/Plan Chief Complaint/Hosp Course Assessment: Accidental displacement of gastrostomy tube PEG 04/01/17 Impression: Uneventful percutaneous endoscopic gastrostomy tube placement Placement of [place] 20 gastrostomy tube Extracorporeal esophagogastric colon interposition Large obstructing esophageal CA in the [place] esophagus Recommend surgical consult Cellulitis with abscess at g-tube site/started on antibiotics Esophageal CA in [place] esophagus Dysphagia/Odynophagia 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 Queen Subjective: Course reviewed with nursing staff Patient interviewed and examined All labs, imaging and other results reviewed The patient feels well, tolerating TF well without difficulty. Pt ok to be d/c'd from GI point of view, will need to continue antibiotics upon discharge. PHYSICAL EXAMINATION: GENERAL: Well developed, well nourished, alert & oriented x 3, in no acute distress SKIN: No lesions, no stigmata chronic liver disease, no evidence of bleeding diathesis, g-tube LYMPHATIC: No palpable lymphadenopathy. HEAD: Normocephalic, atraumatic, no tenderness. EYES: Pupils equal reactive to light and accommodation, full extraocular movements, sclera clear, non-icteric, no discharge. EARS/NOSE AND THROAT: Ears normal, nose normal, oropharynx normal, oral membranes well hydrated without lesions. NECK: Extracorporeal esophagogastric colon interposition evident. CHEST: Extracorporeal esophagogastric colon interposition evident. Otherwise inspection within normal limits. CARDIOVASCULAR: Heart: Regular rate and rhythm, RESPIRATORY: Lungs clear to auscultation and percussion, no wheezing, no rubs GASTROINTESTINAL AND LIVER: Abdomen: Previous GT site almost completely closed. Otherwise soft, non tenderness, non-distended, no hernias, no masses, no organomegaly, no ascites, no guarding, no rebound tenderness, normoactive bowel sounds. Rectal: Deferred. GENITOURINARY: Male genitalia within normal limits. EXTREMITIES: No cyanosis, clubbing, edema to LLE Problems: Exam/Review of Systems Vital Signs Vitals Vital Signs Date Time Temp Pulse Resp B/P Pulse Ox O2 Delivery O2 Flow Rate FiO2 04/07/17 07:46 97.4 84 20 91/54 97 04/06/17 02:00 Room Air Intake and Output 04/06/17 04/06/17 04/07/17 14:59 22:59 06:59 Intake Total 300 ml 860 ml 1800 ml Balance 300 ml 860 ml 1800 ml Results Result Diagram: 04/06/17 0543 04/05/17 0606 Medications Medications Current Medications Acetaminophen (Tylenol Liquid) 650 mg Q4H PRN GTB PAIN AND OR ELEVATED TEMP Last administered on 04/04/17 14:54; Admin Dose 650 MG; Start 03/29/17 at 23: 30 Mupirocin (Bactroban) 1 applic BID TOP Last administered on 04/07/17 08:29; Admin Dose 1 APPLIC; Start 03/30/17 at 12:00 IV Flush (NS 10 ml) 10 ml QAM IV Last administered on 04/07/17 08:30; Admin Dose 10 ML; Start 03/31/17 at 09:00 IV Flush 10 ml 10 ml PRN PRN IV FLUSH LINE; Start 03/30/17 at 15:00 Meropenem/Sodium Chloride 50 ml @ 100 mls/hr Q8 IVPB Last administered on 05:28; Admin Dose 100 MLS/HR; Start 04/04/17 at 14:00 Linezolid (Zyvox 600mg/D5W (Pmx)) 300 ml @ 300 mls/hr Q12 IVPB Last administered on 04/07/17 08:30; Admin Dose 300 MLS/HR; Start 04/04/17 at 12: 30 Enoxaparin Sodium (Lovenox) 30 mg DAILY SC Last administered on 04/07/17 09: 00; Admin Dose 30 MG; Start 04/04/17 at 13:30 Lansoprazole 30 mg 30 mg DAILY@06 GTB Last administered on 04/07/17 05:28; Admin Dose 30 MG; Start 04/05/17 at 06:00 Dextrose/Sodium Chloride 1,000 ml @ 50 mls/hr Q20H IV Last administered on 03:18; Admin Dose 50 MLS/HR; Start 04/04/17 at 15:30 Ferric Sodium Gluconate Complex/ Sodium Chloride (Ferrlecit/NS) 110 ml @ 100 mls/hr Q24H IVPB Last administered on 04/06/17 15:51; Admin Dose 100 MLS/HR; Start 04/05/17 at 14:00; Stop 04/07/17 at 15:05 RASTA HUGHES Apr 07, 2017 11:50
--- NOTE | 2017-04-07 12:01 | PDOCDIS ---
Discharge Instructions CONDITION Patient Condition: Stable HOME CARE INSTRUCTIONS: Special Diet: FIBERSOURCE TUBE FEEDING ACTIVITY: Activity Restrictions: Slowly Increase Activity FOLLOW UP/APPOINTMENTS Follow-up Plan [address] [place] SCHOOL/WORK RELEASE May return to School/Work with: With Restrictions LICO SALAS Apr 07, 2017 12:01
--- NOTE | 2017-04-07 12:01 | PN ---
LICO SALAS 04/07/17 1200: Date/Time of Note Date/Time of Note DATE: 04/07/17 TIME: 11:59 Assessment/Plan VTE Prophylaxis VTE Prophylaxis Intervention: ambulation Lines/Catheters IV Catheter Type (from Nrs): PORT A CATH Urinary Cath still in place: No Assessment/Plan Chief Complaint/Hosp Course 1. 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 Extracorporeal esophagogastric colonic bypass 3. Dysphagia and odynophagia. 4. Pancytopenia likely secondary to chemo/radiation> worsening again 5. Bronchitis 6. New GT in place 7. Cellulitis of abdominal wall with abscess forming/ 8. SIRS with abdominal wall small abscess, draining Problems: Assessment/Plan 1. Discharge pending 2. case management to prepare IV therapy at home per ID Subjective 24 Hr Interval Summary Constitutional: improved, no complaints Exam/Review of Systems Vital Signs Vitals Vital Signs Date Time Temp Pulse Resp B/P Pulse Ox O2 Delivery O2 Flow Rate FiO2 04/07/17 07:46 97.4 84 20 91/54 97 04/06/17 02:00 Room Air Intake and Output 04/06/17 04/06/17 04/07/17 15:00 23:00 07:00 Intake Total 300 ml 860 ml 1800 ml Balance 300 ml 860 ml 1800 ml Exam Constitutional: alert, oriented Neck: supple Respiratory: clear to auscultation Cardiovascular: regular rate and rhythm Gastrointestinal: other (GT with puss draining), soft, surgical scars Results Result Diagram: 04/06/17 0543 04/05/17 0606 Medications Medications Current Medications Acetaminophen (Tylenol Liquid) 650 mg Q4H PRN GTB PAIN AND OR ELEVATED TEMP Last administered on 04/04/17 14:54; Admin Dose 650 MG; Start 03/29/17 at 23: 30 Mupirocin (Bactroban) 1 applic BID TOP Last administered on 04/07/17 08:29; Admin Dose 1 APPLIC; Start 03/30/17 at 12:00 IV Flush (NS 10 ml) 10 ml QAM IV Last administered on 04/07/17 08:30; Admin Dose 10 ML; Start 03/31/17 at 09:00 IV Flush 10 ml 10 ml PRN PRN IV FLUSH LINE; Start 03/30/17 at 15:00 Meropenem/Sodium Chloride 50 ml @ 100 mls/hr Q8 IVPB Last administered on 05:28; Admin Dose 100 MLS/HR; Start 04/04/17 at 14:00 Linezolid (Zyvox 600mg/D5W (Pmx)) 300 ml @ 300 mls/hr Q12 IVPB Last administered on 04/07/17 08:30; Admin Dose 300 MLS/HR; Start 04/04/17 at 12: 30 Enoxaparin Sodium (Lovenox) 30 mg DAILY SC Last administered on 04/07/17 09: 00; Admin Dose 30 MG; Start 04/04/17 at 13:30 Lansoprazole 30 mg 30 mg DAILY@06 GTB Last administered on 04/07/17 05:28; Admin Dose 30 MG; Start 04/05/17 at 06:00 Dextrose/Sodium Chloride 1,000 ml @ 50 mls/hr Q20H IV Last administered on 03:18; Admin Dose 50 MLS/HR; Start 04/04/17 at 15:30 Ferric Sodium Gluconate Complex/ Sodium Chloride (Ferrlecit/NS) 110 ml @ 100 mls/hr Q24H IVPB Last administered on 04/06/17 15:51; Admin Dose 100 MLS/HR; Start 04/05/17 at 14:00; Stop 04/07/17 at 15:05 RENEE HAN MD 04/07/17 1501: Assessment/Plan Assessment/Plan Assessment/Plan Wait for final cx speciation per ID C/W Current abx for now, pt afebrile Exam/Review of Systems Results Result Diagram: 04/06/17 0543 04/05/17 0606 LICO SALAS Apr 07, 2017 12:00 RENEE HAN MD Apr 07, 2017 15:01
[2017-04-07] MEDS ORDERED: MUPI22OI2 TOP (12:05)
[2017-04-07] MEDS ORDERED: IRON1CAP3 GTB (12:05)
[2017-04-07 13:59] VITALS: BP 104/56; RESP 20
--- NOTE | 2017-04-07 14:20 | CONS ---
Date/Time of Note Date/Time of Note DATE: 04/07/17 TIME: 14:08 Assessment/Plan Assessment/Plan Chief Complaint/Hosp Course ID PROGRESS NOTE CURRENT ABX: DAY # => Zyvox + Merrem 04/06/17 0543 04/05/17 0606 24H INTERVAL SUMMARY * No fevers, WBC down 3.1 w/NEUTS# 1.7 => DC Planning in process, he tells me ABD wall cellulitis/abscess has improved, no longer painful w/retreat of erythema, skin still feels firm, hard under the peg, I see no drainage; however primary HARVEST MANAGER reported abscess draining 2 separate locations. * 04/04/17 CT A/P: A percutaneous gastrostomy tube is seen with tip in the gastric antrum. There are some inflammatory changes adjacent to the gastrostomy site. There is also a collection of gaseous debris is inferior to the gastrostomy site. This measures up to 2.2 x 2.5 cm in greatest axial dimensions. The patient also appears to be status post colonic interposition surgery with transplantation of the colon into the anterior subcutaneous chest. Numerous thickened small bowel loops are noted throughout the abdomen with surrounding mesenteric inflammatory changes.There is no evidence of intra- abdominal adenopathy or free fluid. * IMPRESSION:Small collection of gaseous debris inferior to a gastrostomy site , presumably a small abscess. Numerous thickened small bowel loops in the left abdomen compatible with enteritis. * 04/04/17 ABD Wound: WOUND CULTURE Preliminary WOUND CULTURE Preliminary Organism 1 PSEUDOMONAS AERUGINOSA QUANTITY 2+ Organism 2 CITROBACTER FREUNDII QUANTITY 1+ Organism 3 GRAM NEGATIVE SHAQUILLE QUANTITY ISOLATED FROM BROTH ONLY Organism 4 GRAM NEGATIVE [place]ILLE#2 QUANTITY SCANT GROWTH P.AERUG C FREUNDII M.I.C. RX M.I.C. RX --------- --- --------- --- AMIKACIN <=2 S AZTREONAM R CEFEPIME 16 I CEFOTAXIME S CEFTAZIDIME 16 I CIPROFLOXACIN I <=0.25 S GENTAMICIN <=1 S IMIPENEM 2 S LEVOFLOXACIN >=8 R <=0.12 S TOBRAMYCIN <=1 S <=1 S TRIMETHOPRIM/SULFAMETHOXAZOLE <=20 S PIPERACILLIN/TAZOBACTAM R PHYSICAL EXAMINATION: GENERAL: VSS, afebrile, NAD HEENT: Unremarkable NECK: Supple, trach midline CHEST: Equal chest rise bilaterally, without dyspnea on observation HEART: RRR ABDOMEN: Soft, NT EXT: Warm, SKIN: No rash, no diaphoresis ID ASSESSMENT: 66 yo M admit [facility]: 1. Systemic inflammatory response syndrome with fevers secondary to small abscess inferior to old GT site + Enteritis => STABLE * Repeat BCx (-)-> Status post coagulase-negative staph bacteremia. * 04/04/17 ABD Wound: WOUND CULTURE QUANTITY 1+ Organism 1 PSEUDOMONAS AERUGINOSA P.AERUG M.I.C. RX --------- --- AMIKACIN <=2 S AZTREONAM R CEFEPIME 16 I CEFTAZIDIME 16 I CIPROFLOXACIN I IMIPENEM 2 S LEVOFLOXACIN >=8 R TOBRAMYCIN <=1 S PIPERACILLIN/TAZOBACTAM R 2. Neutropenia w/pancytopenia = immunocompromised 2/2 #3 3. History of esophageal cancer status post esophagectomy, chemoradiation. 4. Right chest Port-A-Cath. 5. History of left lower extremity deep venous thrombosis. 6. Acute on chronic anemia. ( -)MRSA ABX ALLERGIES: KNDA INVASIVES: PIV, Port-A-Cath CURRENT ABX: => Zyvox + Merrem ID RECOMMENDATIONS/PLAN: 1. Continue ABX-> He will need minimum of 14 days IV ABX w/re-evaluation of resolution of non-draining ABD-wall abscess. * PSAR is resistant to Quinolones; hence he will need Merrem 500mg IV Q8H x 14 days + Doxy or Zyvox via GT x 14 days 2. Prefer to wait for final micro results which are pending prior to making final ABX recommendations, if CRE present he may need Aminoglycoside vs Colistin IV added. . Problems: Consultation Date/Type/Reason Admit Date/Time Mar 29, 2017 at 21:39 Initial Consult Date 03/31/17 Type of Consultation: ID Exam/Review of Systems Vital Signs Vitals Vital Signs Date Time Temp Pulse Resp B/P Pulse Ox O2 Delivery O2 Flow Rate FiO2 04/07/17 13:59 97.7 75 20 104/56 99 04/06/17 02:00 Room Air Intake and Output 04/06/17 04/06/17 04/07/17 15:00 23:00 07:00 Intake Total 300 ml 860 ml 1800 ml Balance 300 ml 860 ml 1800 ml Results Result Diagram: 04/06/17 0543 04/05/17 0606 Medications Medications Current Medications Acetaminophen (Tylenol Liquid) 650 mg Q4H PRN GTB PAIN AND OR ELEVATED TEMP Last administered on 04/04/17 14:54; Admin Dose 650 MG; Start 03/29/17 at 23: 30 Mupirocin (Bactroban) 1 applic BID TOP Last administered on 04/07/17 08:29; Admin Dose 1 APPLIC; Start 03/30/17 at 12:00 IV Flush (NS 10 ml) 10 ml QAM IV Last administered on 04/07/17 08:30; Admin Dose 10 ML; Start 03/31/17 at 09:00 IV Flush 10 ml 10 ml PRN PRN IV FLUSH LINE; Start 03/30/17 at 15:00 Meropenem/Sodium Chloride 50 ml @ 100 mls/hr Q8 IVPB Last administered on 13:51; Admin Dose 100 MLS/HR; Start 04/04/17 at 14:00 Linezolid (Zyvox 600mg/D5W (Pmx)) 300 ml @ 300 mls/hr Q12 IVPB Last administered on 04/07/17 08:30; Admin Dose 300 MLS/HR; Start 04/04/17 at 12: 30 Enoxaparin Sodium (Lovenox) 30 mg DAILY SC Last administered on 04/07/17 09: 00; Admin Dose 30 MG; Start 04/04/17 at 13:30 Lansoprazole 30 mg 30 mg DAILY@06 GTB Last administered on 04/07/17 05:28; Admin Dose 30 MG; Start 04/05/17 at 06:00 Dextrose/Sodium Chloride 1,000 ml @ 50 mls/hr Q20H IV Last administered on 03:18; Admin Dose 50 MLS/HR; Start 04/04/17 at 15:30 Ferric Sodium Gluconate Complex/ Sodium Chloride (Ferrlecit/NS) 110 ml @ 100 mls/hr Q24H IVPB Last administered on 04/06/17 15:51; Admin Dose 100 MLS/HR; Start 04/05/17 at 14:00; Stop 04/07/17 at 15:05 GUILHERME AMEZCUA NP Apr 07, 2017 14:18
[2017-04-07] MEDS: SOD FERRIC GLUC COMPLX 125 MG in SOD CHLORIDE 0.9% 100 ML IVPB SCH (14:49)
[2017-04-07 20:00] VITALS: BP 97/53; RESP 20
[2017-04-08 02:32] VITALS: BP 107/60; RESP 20
[2017-04-08] MEDS: LANSOPRAZOLE 30 MG CAP GTB SCH (05:51)
[2017-04-08] MEDS: MEROPENEM 500MG/50 ML (PMX) 50 ML IVPB SCH ×3 (05:51→22:03)
[2017-04-08 07:33] VITALS: BP 107/57; RESP 20
[2017-04-08] MEDS: LINEZOLID 600 MG/D5W (PMX) 300 ML IVPB SCH (10:09)
[2017-04-08] MEDS: MUPIROCIN 2% 22 GM OINT TOP SCH ×2 (10:13→22:03)
[2017-04-08] MEDS: ENOXAPARIN 30 MG/0.3 ML SYG SC SCH (10:23)
[2017-04-08 13:47] VITALS: BP 103/56; RESP 20
--- NOTE | 2017-04-08 15:16 | PN ---
DATE: 04/08/2017 SUBJECTIVE: The patient is alert, feels good. Denies pain, discomfort. No fevers. No labs this morning. MICROBIOLOGY: Abdominal abscess drainage grew Pseudomonas aeruginosa, Citrobacter freundii, Morganella and strep group F, all susceptible to Imipenem. PHYSICAL EXAMINATION: GENERAL: This is a well-nourished, well-developed 66-year-old [place] man who is in no distress. HEENT: Head atraumatic, normocephalic. Sclerae anicteric. Buccal mucosa pink. NECK: Supple. CHEST: Rise symmetrical. Breath sounds clear. HEART: S1, S2. ABDOMEN: Soft. Bowel tones present. EXTREMITIES: Without cyanosis. ASSESSMENT: 1. Status post abdominal wall abscess drainage. 2. Status post coagulase-negative Staphylococcus bacteremia. 3. History of esophageal cancer, status post esophagectomy and chemoradiation. 4. History of left lower extremity deep venous thrombosis. 5. Anemia. 6. Right chest Port-A-Cath. PLAN: The patient remains stable. We are going to change antibiotics to meropenem. Continue local skin care around G-tube site. Dictated By: CHANELL DAVIES EXTRA HAND for ABBY [place] MD NI/NTS Conf#: [id number] DID#: [id number] CC: KATHERINE ELDER MD;*EndCC* MTDD
--- NOTE | 2017-04-08 18:08 | PN ---
Date/Time of Note Date/Time of Note DATE: 04/08/17 TIME: 18:01 Assessment/Plan VTE Prophylaxis VTE Prophylaxis Intervention: ambulation Lines/Catheters IV [facility] Portacath Urinary Cath still in place: No Assessment/Plan Chief Complaint/Hosp Course Chief Complaint/Hosp Course Assessment: Infection of gastrostomy site/ Treated with antibiotics Accidental displacement of gastrostomy tube PEG 04/01/17 Impression: Uneventful percutaneous endoscopic gastrostomy tube placement Placement of [place] 20 gastrostomy tube Extracorporeal esophagogastric colon interposition Large obstructing esophageal CA in the [place] esophagus Esophageal CA in [place] esophagus Dysphagia/Odynophagia 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 Numerous thickened small bowel loops in the left abdomen compatible with enteritis. Gastrostomy tube site care QID and PRN with Betadine Continue antibiotics Continue to monitor H/H transfuse if less than 7.5 Pt seen in collaboration with Dr. Queen Subjective: Course reviewed with nursing staff Patient interviewed and examined All labs, imaging and other results reviewed The patient feels well, No fevers, denies discharge from G-tube site, pain and redness at the site is resolving. Pt continues with antibiotics for cellulitics and abscess at g-tube site. He denies abd pain nausea or vomiting. Discharge home is pending. PHYSICAL EXAMINATION: GENERAL: Well developed, well nourished, alert & oriented x 3, in no acute distress SKIN: No lesions, no stigmata chronic liver disease, no evidence of bleeding diathesis, g-tube site has granulation tissue, no discharge or swelling. LYMPHATIC: No palpable lymphadenopathy. HEAD: Normocephalic, atraumatic, no tenderness. EYES: Pupils equal reactive to light and accommodation, full extraocular movements, sclera clear, non-icteric, no discharge. EARS/NOSE AND THROAT: Ears normal, nose normal, oropharynx normal, oral membranes well hydrated without lesions. NECK: Extracorporeal esophagogastric colon interposition evident. CHEST: Extracorporeal esophagogastric colon interposition evident. Otherwise inspection within normal limits. CARDIOVASCULAR: Heart: Regular rate and rhythm, RESPIRATORY: Lungs clear to auscultation and percussion, no wheezing, no rubs GASTROINTESTINAL AND LIVER: Abdomen: Previous GT site almost completely closed. Otherwise soft, non tenderness, non-distended, no hernias, no masses, no organomegaly, no ascites, no guarding, no rebound tenderness, normoactive bowel sounds. Rectal: Deferred. GENITOURINARY: Male genitalia within normal limits. EXTREMITIES: No cyanosis, clubbing, edema to LLE Problems: Exam/Review of Systems Vital Signs Vitals Vital Signs Date Time Temp Pulse Resp B/P Pulse Ox O2 Delivery O2 Flow Rate FiO2 04/08/17 13:47 97.9 75 20 103/56 99 04/06/17 02:00 Room Air Intake and Output 04/07/17 04/07/17 04/08/17 14:59 22:59 06:59 Intake Total 550 ml 410 ml 500 ml Output Total 0 ml Balance 550 ml 410 ml 500 ml Results Result Diagram: 04/06/17 0543 04/05/17 0606 Medications Medications Current Medications Acetaminophen (Tylenol Liquid) 650 mg Q4H PRN GTB PAIN AND OR ELEVATED TEMP Last administered on 04/04/17 14:54; Admin Dose 650 MG; Start 03/29/17 at 23: 30 Mupirocin (Bactroban) 1 applic BID TOP Last administered on 04/08/17 10:13; Admin Dose 1 APPLIC; Start 03/30/17 at 12:00 IV Flush (NS 10 ml) 10 ml QAM IV Last administered on 04/08/17 09:30; Admin Dose 10 ML; Start 03/31/17 at 09:00 IV Flush 10 ml 10 ml PRN PRN IV FLUSH LINE; Start 03/30/17 at 15:00 Meropenem/Sodium Chloride (Merrem 500mg/50 ml(Pmx)) 50 ml @ 100 mls/hr Q8 IVPB Last administered on 04/08/17 16:21; Admin Dose 100 MLS/HR; Start 04/04/17 at 14:00 Enoxaparin Sodium (Lovenox) 30 mg DAILY SC Last administered on 04/08/17 10: 23; Admin Dose 30 MG; Start 04/04/17 at 13:30 Lansoprazole (Prevacid) 30 mg DAILY@06 GTB Last administered on 04/08/17 05: 51; Admin Dose 30 MG; Start 04/05/17 at 06:00 BOB VALADEZ NP Apr 08, 2017 18:08
[2017-04-08 20:00] VITALS: BP 99/58; RESP 20
--- NOTE | 2017-04-08 20:30 | PN ---
Date/Time of Note Date/Time of Note DATE: 04/08/17 TIME: 20:29 Assessment/Plan VTE Prophylaxis VTE Prophylaxis Intervention: other Lines/Catheters IV [facility] Portacath Urinary Cath still in place: No Assessment/Plan Chief Complaint/Hosp Course 1. 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 PEG PLACEMENT 3. Dysphagia and odynophagia. 4. Pancytopenia likely secondary to chemo/radiation> worsening again 5. Bronchitis 6. New GT in place 7. Cellulitis of abdominal wall with abscess forming plan antibiotic per id Problems: Subjective 24 Hr Interval Summary Respiratory: no complaints Cardiovascular: no complaints Gastrointestinal: No pain Exam/Review of Systems Vital Signs Vitals Vital Signs Date Time Temp Pulse Resp B/P Pulse Ox O2 Delivery O2 Flow Rate FiO2 04/08/17 13:47 97.9 75 20 103/56 99 04/06/17 02:00 Room Air Intake and Output 04/07/17 04/07/17 04/08/17 15:00 23:00 07:00 Intake Total 550 ml 460 ml 450 ml Output Total 0 ml Balance 550 ml 460 ml 450 ml Exam Neck: supple Respiratory: clear to auscultation Cardiovascular: regular rate and rhythm Gastrointestinal: bowel sounds (+), other (peg+), soft Results Result Diagram: 04/06/17 0543 04/05/17 0606 Medications Medications Current Medications Acetaminophen (Tylenol Liquid) 650 mg Q4H PRN GTB PAIN AND OR ELEVATED TEMP Last administered on 04/04/17 14:54; Admin Dose 650 MG; Start 03/29/17 at 23: 30 Mupirocin (Bactroban) 1 applic BID TOP Last administered on 04/08/17 10:13; Admin Dose 1 APPLIC; Start 03/30/17 at 12:00 IV Flush (NS 10 ml) 10 ml QAM IV Last administered on 04/08/17 09:30; Admin Dose 10 ML; Start 03/31/17 at 09:00 IV Flush 10 ml 10 ml PRN PRN IV FLUSH LINE; Start 03/30/17 at 15:00 Meropenem/Sodium Chloride (Merrem 500mg/50 ml(Pmx)) 50 ml @ 100 mls/hr Q8 IVPB Last administered on 04/08/17 16:21; Admin Dose 100 MLS/HR; Start 04/04/17 at 14:00 Enoxaparin Sodium (Lovenox) 30 mg DAILY SC Last administered on 04/08/17 10: 23; Admin Dose 30 MG; Start 04/04/17 at 13:30 Lansoprazole (Prevacid) 30 mg DAILY@06 GTB Last administered on 04/08/17 05: 51; Admin Dose 30 MG; Start 04/05/17 at 06:00 KATHERINE ELDER MD Apr 08, 2017 20:30
[2017-04-09 02:00] VITALS: BP 101/58; RESP 20
[2017-04-09] MEDS: LANSOPRAZOLE 30 MG CAP GTB SCH (06:04)
[2017-04-09] MEDS: MEROPENEM 500MG/50 ML (PMX) 50 ML IVPB SCH ×3 (06:07→22:20)
[2017-04-09 06:38] LABS: ABNORMAL IP MESSAGE 1; HEMATOCRIT 25.2 % (42.0-52.0); HEMOGLOBIN 8.3 g/dl (14.0-18.0); MEAN CORPUSCULAR HEMOGLOBIN 30.9 pg (29.0-33.0); MEAN CORPUSCULAR HGB CONC 32.9 g/dl (32.0-37.0); MEAN CORPUSCULAR VOLUME 93.7 fl (82.0-101.0); PLATELET COUNT 81 10^3/UL (140-415); POSITIVE DIFF @See below; RED BLOOD COUNT 2.69 10^6/ul (4.70-6.10); RED CELL DISTRIBUTION WIDTH 16.3 % (11.5-14.5); WHITE BLOOD COUNT 1.7 10^3/ul (4.8-10.8)
[2017-04-09 07:05] LABS: ALBUMIN 2.4 g/dl (3.3-4.9); ALBUMIN/GLOBULIN RATIO 0.8; BILIRUBIN,INDIRECT 0.3 mg/dl (0-1.1); BILIRUBIN,TOTAL 0.3 mg/dl (0.2-1.3); CALCIUM 8.3 mg/dl (8.4-10.2); CREATININE 0.58 mg/dl (0.61-1.24); MAGNESIUM 1.8 mg/dl (1.7-2.5); PHOSPHORUS 3.7 mg/dl (2.5-4.9); POTASSIUM 3.9 mmol/L (3.5-5.1); TOTAL PROTEIN 5.4 g/dl (6.1-8.1)
[2017-04-09 07:33] VITALS: BP 101/59; RESP 20
[2017-04-09 09:33] LABS: ANISOCYTOSIS 2+ (0-0); EOSINOPHILS % (M) 0 % (0-7); MICROCYTOSIS 2+ (0-0); MONOCYTES % (M) 8 % (0-11); MYELOCYTES % (M) 0 % (0-0); OVALOCYTES 1+ (0-0); PLATELET ESTIMATE DECREASED; POIKILOCYTOSIS 1+ (0-0); POLYCHROMASIA 3+ (0-0)
[2017-04-09] MEDS: MUPIROCIN 2% 22 GM OINT TOP SCH ×2 (10:00→22:20)
[2017-04-09] MEDS: ENOXAPARIN 30 MG/0.3 ML SYG SC SCH (10:10)
[2017-04-09 13:34] VITALS: BP 99/59; RESP 20
--- NOTE | 2017-04-09 14:18 | PN ---
Date/Time of Note Date/Time of Note DATE: 04/09/17 TIME: 14:12 Assessment/Plan VTE Prophylaxis VTE Prophylaxis Intervention: ambulation Lines/Catheters IV C[facility]ter Type (from [facility] portacath Urinary Cath still in place: No Assessment/Plan Chief Complaint/Hosp Course Chief Complaint/Hosp Course Assessment: Persistent cough with sputum possibly related to feeding Infection of gastrostomy site/ Treated with antibiotics Accidental displacement of gastrostomy tube PEG 04/01/17 Impression: Uneventful percutaneous endoscopic gastrostomy tube placement Placement of [place] 20 gastrostomy tube Extracorporeal esophagogastric colon interposition Large obstructing esophageal CA in the [place] esophagus Esophageal CA in [place] esophagus Dysphagia/Odynophagia 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 Numerous thickened small bowel loops in the left abdomen compatible with enteritis. Gastrostomy tube site care QID and PRN with Betadine Continue antibiotics Continue to monitor H/H transfuse if less than 7.5 Pt seen in collaboration with Dr. Queen Subjective: Course reviewed with nursing staff Patient interviewed and examined All labs, imaging and other results reviewed The patient c/o of persistent adductive productive cough. No fevers, G-tube site is non-painful, redness at the site is improving. Pt continues with antibiotics for cellulitics and abscess at g-tube site. He denies abd pain nausea or vomiting. Discharge home is pending. PHYSICAL EXAMINATION: GENERAL: Well developed, well nourished, alert & oriented x 3, in no acute distress SKIN: No lesions, no stigmata chronic liver disease, no evidence of bleeding diathesis, g-tube site has granulation tissue, no discharge or swelling. LYMPHATIC: No palpable lymphadenopathy. HEAD: Normocephalic, atraumatic, no tenderness. EYES: Pupils equal reactive to light and accommodation, full extraocular movements, sclera clear, non-icteric, no discharge. EARS/NOSE AND THROAT: Ears normal, nose normal, oropharynx normal, oral membranes well hydrated without lesions. NECK: Extracorporeal esophagogastric colon interposition evident. CHEST: Extracorporeal esophagogastric colon interposition evident. Otherwise inspection within normal limits. CARDIOVASCULAR: Heart: Regular rate and rhythm, RESPIRATORY: Lungs clear to auscultation and percussion, no wheezing, no rubs GASTROINTESTINAL AND LIVER: Abdomen: Previous GT site almost completely closed. Otherwise soft, non tenderness, non-distended, no hernias, no masses, no organomegaly, no ascites, no guarding, no rebound tenderness, normoactive bowel sounds. Rectal: Deferred. GENITOURINARY: Male genitalia within normal limits. EXTREMITIES: No cyanosis, clubbing, edema to LLE Problems: Exam/Review of Systems Vital Signs Vitals Vital Signs Date Time Temp Pulse Resp B/P Pulse Ox O2 Delivery O2 Flow Rate FiO2 04/09/17 13:34 98.2 78 20 99/59 98 04/06/17 02:00 Room Air Intake and Output 04/08/17 04/08/17 04/09/17 15:00 23:00 07:00 Intake Total 300 ml 50 ml 520 ml Output Total 0 ml Balance 300 ml 50 ml 520 ml Results Result Diagram: 04/09/17 0549 04/09/17 0549 Results 24 hrs Laboratory Tests Test 04/09/17 05:49 White Blood Count 1.7 L Red Blood Count 2.69 L Hemoglobin 8.3 L Hematocrit 25.2 L Mean Corpuscular Volume 93.7 Mean Corpuscular Hemoglobin 30.9 Mean Corpuscular Hemoglobin Concent 32.9 Red Cell Distribution Width 16.3 H Platelet Count 81 L Mean Platelet Volume 10.0 Neutrophils % Segmented Neutrophils % (Manual) 74 Band Neutrophils % (Manual) 3 Lymphocytes % Lymphocytes % (Manual) 15 Monocytes % Monocytes % (Manual) 8 Eosinophils % Eosinophils % (Manual) 0 Basophils % Myelocytes % (Manual) 0 Nucleated Red Blood Cells % 0.0 Neutrophils # Neutrophils # (Manual) 1.3 L Band Neutrophils # 0.0 Absolute Lymphocytes (Manual) 0.2 L Lymphocytes # Monocytes # Absolute Monocytes (Manual) 0.1 L Eosinophils # Basophils # Myelocytes # 0.0 Nucleated Red Blood Cells # Platelet Estimate DECREASED Polychromasia 3+ Poikilocytosis 1+ Anisocytosis 2+ Microcytosis 2+ Ovalocytes 1+ Sodium Level 141 Potassium Level 3.9 Chloride Level 105 Carbon Dioxide Level 29 Anion Gap 11 Blood Urea Nitrogen 7 Creatinine 0.58 L Glucose Level 127 Calcium Level 8.3 L Phosphorus Level 3.7 Magnesium Level 1.8 Total Bilirubin 0.3 Direct Bilirubin 0.00 Indirect Bilirubin 0.3 Aspartate Amino Transf (AST/SGOT) 17 Alanine Aminotransferase (ALT/SGPT) 23 Alkaline Phosphatase 82 Total Protein 5.4 L Albumin 2.4 L Globulin 3.00 Albumin/Globulin Ratio 0.80 Medications Medications Current Medications Acetaminophen (Tylenol Liquid) 650 mg Q4H PRN GTB PAIN AND OR ELEVATED TEMP Last administered on 04/04/17 14:54; Admin Dose 650 MG; Start 03/29/17 at 23: 30 Mupirocin (Bactroban) 1 applic BID TOP Last administered on 04/09/17 10:00; Admin Dose 1 APPLIC; Start 03/30/17 at 12:00 IV Flush (NS 10 ml) 10 ml QAM IV Last administered on 04/09/17 09:00; Admin Dose 10 ML; Start 03/31/17 at 09:00 IV Flush 10 ml 10 ml PRN PRN IV FLUSH LINE; Start 03/30/17 at 15:00 Meropenem/Sodium Chloride (Merrem 500mg/50 ml(Pmx)) 50 ml @ 100 mls/hr Q8 IVPB Last administered on 04/09/17 06:07; Admin Dose 100 MLS/HR; Start 04/04/17 at 14:00 Enoxaparin Sodium (Lovenox) 30 mg DAILY SC Last administered on 04/09/17 10: 10; Admin Dose 30 MG; Start 04/04/17 at 13:30 Lansoprazole (Prevacid) 30 mg DAILY@06 GTB Last administered on 04/09/17 06: 04; Admin Dose 30 MG; Start 04/05/17 at 06:00 BOB VALADEZ NP Apr 09, 2017 14:18
--- NOTE | 2017-04-09 14:34 | CONS ---
Date/Time of Note Date/Time of Note DATE: 04/09/17 TIME: 14:28 Assessment/Plan Assessment/Plan Chief Complaint/Hosp Course SUBJECTIVE: The patient is alert, feels good. Denies pain, discomfort. No fevers. Family at bedside MICROBIOLOGY: Abdominal abscess drainage grew Pseudomonas aeruginosa, Citrobacter freundii, Morganella and strep group F, all susceptible to Imipenem. Abx: Merrem PHYSICAL EXAMINATION: GENERAL: This is a well-nourished, well-developed 66-year-old [place] man who is in no distress. HEENT: Head atraumatic, normocephalic. Sclerae anicteric. Buccal mucosa pink. NECK: Supple. CHEST: Rise symmetrical. Breath sounds clear. HEART: S1, S2. ABDOMEN: Soft. Bowel tones present. EXTREMITIES: Without cyanosis. ASSESSMENT: 1. Status post abdominal wall abscess drainage. 2. Status post coagulase-negative Staphylococcus bacteremia. 3. History of esophageal cancer, status post esophagectomy and chemoradiation. 4. History of left lower extremity deep venous thrombosis. 5. Anemia. 6. Right chest Port-A-Cath. 7. Pancytopenia PLAN: The patient remains stable. Continue present care, antibiotics, local skin care around G-tube site. Consider to keep antibiotics for a total of 2 weeks. Follow gastroenterology recommendations. Discussed with family at bedside Problems: Consultation Date/Type/Reason Admit Date/Time Mar 29, 2017 at 21:39 Initial Consult Date 03/31/17 Type of Consultation: ID Exam/Review of Systems Vital Signs Vitals Vital Signs Date Time Temp Pulse Resp B/P Pulse Ox O2 Delivery O2 Flow Rate FiO2 04/09/17 13:34 98.2 78 20 99/59 98 04/06/17 02:00 Room Air Intake and Output 04/08/17 04/08/17 04/09/17 15:00 23:00 07:00 Intake Total 300 ml 50 ml 520 ml Output Total 0 ml Balance 300 ml 50 ml 520 ml Results Result Diagram: 04/09/17 0549 04/09/17 0549 Results 24 hrs Laboratory Tests Test 04/09/17 05:49 White Blood Count 1.7 L Red Blood Count 2.69 L Hemoglobin 8.3 L Hematocrit 25.2 L Mean Corpuscular Volume 93.7 Mean Corpuscular Hemoglobin 30.9 Mean Corpuscular Hemoglobin Concent 32.9 Red Cell Distribution Width 16.3 H Platelet Count 81 L Mean Platelet Volume 10.0 Neutrophils % Segmented Neutrophils % (Manual) 74 Band Neutrophils % (Manual) 3 Lymphocytes % Lymphocytes % (Manual) 15 Monocytes % Monocytes % (Manual) 8 Eosinophils % Eosinophils % (Manual) 0 Basophils % Myelocytes % (Manual) 0 Nucleated Red Blood Cells % 0.0 Neutrophils # Neutrophils # (Manual) 1.3 L Band Neutrophils # 0.0 Absolute Lymphocytes (Manual) 0.2 L Lymphocytes # Monocytes # Absolute Monocytes (Manual) 0.1 L Eosinophils # Basophils # Myelocytes # 0.0 Nucleated Red Blood Cells # Platelet Estimate DECREASED Polychromasia 3+ Poikilocytosis 1+ Anisocytosis 2+ Microcytosis 2+ Ovalocytes 1+ Sodium Level 141 Potassium Level 3.9 Chloride Level 105 Carbon Dioxide Level 29 Anion Gap 11 Blood Urea Nitrogen 7 Creatinine 0.58 L Glucose Level 127 Calcium Level 8.3 L Phosphorus Level 3.7 Magnesium Level 1.8 Total Bilirubin 0.3 Direct Bilirubin 0.00 Indirect Bilirubin 0.3 Aspartate Amino Transf (AST/SGOT) 17 Alanine Aminotransferase (ALT/SGPT) 23 Alkaline Phosphatase 82 Total Protein 5.4 L Albumin 2.4 L Globulin 3.00 Albumin/Globulin Ratio 0.80 Medications Medications Current Medications Acetaminophen (Tylenol Liquid) 650 mg Q4H PRN GTB PAIN AND OR ELEVATED TEMP Last administered on 04/04/17 14:54; Admin Dose 650 MG; Start 03/29/17 at 23: 30 Mupirocin (Bactroban) 1 applic BID TOP Last administered on 04/09/17 10:00; Admin Dose 1 APPLIC; Start 03/30/17 at 12:00 IV Flush (NS 10 ml) 10 ml QAM IV Last administered on 04/09/17 09:00; Admin Dose 10 ML; Start 03/31/17 at 09:00 IV Flush 10 ml 10 ml PRN PRN IV FLUSH LINE; Start 03/30/17 at 15:00 Meropenem/Sodium Chloride (Merrem 500mg/50 ml(Pmx)) 50 ml @ 100 mls/hr Q8 IVPB Last administered on 04/09/17 06:07; Admin Dose 100 MLS/HR; Start 04/04/17 at 14:00 Enoxaparin Sodium (Lovenox) 30 mg DAILY SC Last administered on 04/09/17 10: 10; Admin Dose 30 MG; Start 04/04/17 at 13:30 Lansoprazole (Prevacid) 30 mg DAILY@06 GTB Last administered on 04/09/17 06: 04; Admin Dose 30 MG; Start 04/05/17 at 06:00 Metoclopramide HCl (Reglan Liq) 10 mg Q8 PEG ; Start 04/09/17 at 22:00; Status UNV CHANELL DAVIES NP Apr 09, 2017 14:34
--- NOTE | 2017-04-09 19:13 | PN ---
Date/Time of Note Date/Time of Note DATE: 04/09/17 TIME: 19:11 Assessment/Plan VTE Prophylaxis VTE Prophylaxis Intervention: other Lines/Catheters IV Catheter Type (from Nrs): PICC Line Central line still needed: Yes Urinary Cath still in place: No Reason Cath still needed: other (indicate) Assessment/Plan Chief Complaint/Hosp Course 1. 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 PEG PLACEMENT 3. Dysphagia and odynophagia. 4. Pancytopenia likely secondary to chemo/radiation> worsening again 5. Bronchitis 6. New GT in place 7. Cellulitis of abdominal wall with abscess ON ANTIBIOTIC plan antibiotic per id WILL NEED SNF Problems: Subjective 24 Hr Interval Summary Respiratory: no complaints Cardiovascular: no complaints Gastrointestinal: No pain Exam/Review of Systems Vital Signs Vitals Vital Signs Date Time Temp Pulse Resp B/P Pulse Ox O2 Delivery O2 Flow Rate FiO2 04/09/17 13:34 98.2 78 20 99/59 98 04/06/17 02:00 Room Air Intake and Output 04/08/17 04/08/17 04/09/17 14:59 22:59 06:59 Intake Total 300 ml 50 ml 520 ml Output Total 0 ml Balance 300 ml 50 ml 520 ml Exam Respiratory: clear to auscultation Cardiovascular: regular rate and rhythm Gastrointestinal: bowel sounds (+), other (PEG+), soft Extremities: No edema Results Result Diagram: 04/09/17 0549 04/09/17 0549 Results 24 hrs Laboratory Tests Test 04/09/17 05:49 White Blood Count 1.7 L Red Blood Count 2.69 L Hemoglobin 8.3 L Hematocrit 25.2 L Mean Corpuscular Volume 93.7 Mean Corpuscular Hemoglobin 30.9 Mean Corpuscular Hemoglobin Concent 32.9 Red Cell Distribution Width 16.3 H Platelet Count 81 L Mean Platelet Volume 10.0 Neutrophils % Segmented Neutrophils % (Manual) 74 Band Neutrophils % (Manual) 3 Lymphocytes % Lymphocytes % (Manual) 15 Monocytes % Monocytes % (Manual) 8 Eosinophils % Eosinophils % (Manual) 0 Basophils % Myelocytes % (Manual) 0 Nucleated Red Blood Cells % 0.0 Neutrophils # Neutrophils # (Manual) 1.3 L Band Neutrophils # 0.0 Absolute Lymphocytes (Manual) 0.2 L Lymphocytes # Monocytes # Absolute Monocytes (Manual) 0.1 L Eosinophils # Basophils # Myelocytes # 0.0 Nucleated Red Blood Cells # Platelet Estimate DECREASED Polychromasia 3+ Poikilocytosis 1+ Anisocytosis 2+ Microcytosis 2+ Ovalocytes 1+ Sodium Level 141 Potassium Level 3.9 Chloride Level 105 Carbon Dioxide Level 29 Anion Gap 11 Blood Urea Nitrogen 7 Creatinine 0.58 L Glucose Level 127 Calcium Level 8.3 L Phosphorus Level 3.7 Magnesium Level 1.8 Total Bilirubin 0.3 Direct Bilirubin 0.00 Indirect Bilirubin 0.3 Aspartate Amino Transf (AST/SGOT) 17 Alanine Aminotransferase (ALT/SGPT) 23 Alkaline Phosphatase 82 Total Protein 5.4 L Albumin 2.4 L Globulin 3.00 Albumin/Globulin Ratio 0.80 Medications Medications Current Medications Acetaminophen (Tylenol Liquid) 650 mg Q4H PRN GTB PAIN AND OR ELEVATED TEMP Last administered on 04/04/17 14:54; Admin Dose 650 MG; Start 03/29/17 at 23: 30 Mupirocin (Bactroban) 1 applic BID TOP Last administered on 04/09/17 10:00; Admin Dose 1 APPLIC; Start 03/30/17 at 12:00 IV Flush (NS 10 ml) 10 ml QAM IV Last administered on 04/09/17 09:00; Admin Dose 10 ML; Start 03/31/17 at 09:00 IV Flush 10 ml 10 ml PRN PRN IV FLUSH LINE; Start 03/30/17 at 15:00 Meropenem/Sodium Chloride (Merrem 500mg/50 ml(Pmx)) 50 ml @ 100 mls/hr Q8 IVPB Last administered on 04/09/17 14:48; Admin Dose 100 MLS/HR; Start 04/04/17 at 14:00 Enoxaparin Sodium (Lovenox) 30 mg DAILY SC Last administered on 04/09/17 10: 10; Admin Dose 30 MG; Start 04/04/17 at 13:30 Lansoprazole (Prevacid) 30 mg DAILY@06 GTB Last administered on 04/09/17 06: 04; Admin Dose 30 MG; Start 04/05/17 at 06:00 Metoclopramide HCl (Reglan Liq) 10 mg Q8 PEG ; Start 04/09/17 at 22:00 KATHERINE ELDER MD Apr 09, 2017 19:13
[2017-04-09 19:25] VITALS: BP 98/56; RESP 18
[2017-04-09] MEDS: METOCLOPRAMIDE (1 MG/ML) 10 ML CUP PEG SCH (22:20)
[2017-04-10 01:37] VITALS: BP 98/58; RESP 18
[2017-04-10] MEDS: LANSOPRAZOLE 30 MG CAP GTB SCH (05:53)
[2017-04-10] MEDS: METOCLOPRAMIDE (1 MG/ML) 10 ML CUP PEG SCH ×3 (05:53→21:27)
[2017-04-10] MEDS: MEROPENEM 500MG/50 ML (PMX) 50 ML IVPB SCH ×3 (05:53→21:23)
[2017-04-10 06:40] LABS: ABNORMAL IP MESSAGE 1; HEMATOCRIT 25.1 % (42.0-52.0); HEMOGLOBIN 8.2 g/dl (14.0-18.0); MEAN CORPUSCULAR HEMOGLOBIN 30.5 pg (29.0-33.0); MEAN CORPUSCULAR HGB CONC 32.7 g/dl (32.0-37.0); MEAN CORPUSCULAR VOLUME 93.3 fl (82.0-101.0); MEAN PLATELET VOLUME 10.1 fl (7.4-10.4); PLATELET COUNT 90 10^3/UL (140-415); POSITIVE DIFF @See below; RED BLOOD COUNT 2.69 10^6/ul (4.70-6.10); RED CELL DISTRIBUTION WIDTH 16.6 % (11.5-14.5); WHITE BLOOD COUNT 1.5 10^3/ul (4.8-10.8)
[2017-04-10 07:19] VITALS: BP 98/57; RESP 18
[2017-04-10] MEDS: ENOXAPARIN 30 MG/0.3 ML SYG SC SCH (09:51)
[2017-04-10] MEDS: MUPIROCIN 2% 22 GM OINT TOP SCH ×2 (09:52→21:23)
[2017-04-10 11:41] LABS: ANISOCYTOSIS 2+ (0-0); BASOPHILS % (M) 1 % (0-2); MICROCYTOSIS 2+ (0-0); MONOCYTES % (M) 9 % (0-11); PLATELET ESTIMATE DECREASED; POLYCHROMASIA 3+ (0-0)
--- NOTE | 2017-04-10 14:14 | CONS ---
Date/Time of Note Date/Time of Note DATE: 04/10/17 TIME: 14:12 Assessment/Plan Assessment/Plan Chief Complaint/Hosp Course SUBJECTIVE: The patient is alert, feels good. Denies pain, discomfort. No fevers. MICROBIOLOGY: Abdominal abscess drainage grew Pseudomonas aeruginosa, Citrobacter freundii, Morganella and strep group F, all susceptible to Imipenem. Abx: Merrem PHYSICAL EXAMINATION: GENERAL: This is a well-nourished, well-developed 66-year-old [place] man who is in no distress. HEENT: Head atraumatic, normocephalic. Sclerae anicteric. Buccal mucosa pink. NECK: Supple. CHEST: Rise symmetrical. Breath sounds clear. HEART: S1, S2. ABDOMEN: Soft. Bowel tones present. EXTREMITIES: Without cyanosis. ASSESSMENT: 1. Status post abdominal wall abscess drainage. 2. Status post coagulase-negative Staphylococcus bacteremia. 3. History of esophageal cancer, status post esophagectomy and chemoradiation. 4. History of left lower extremity deep venous thrombosis. 5. Anemia. 6. Right chest Port-A-Cath. 7. Pancytopenia PLAN: The patient remains stable. Abdominal wall looks clean without drainage, will dc Merrem in am and observe DW staff Problems: Consultation Date/Type/Reason Admit Date/Time Mar 29, 2017 at 21:39 Initial Consult Date 03/31/17 Type of Consultation: ID Exam/Review of Systems Vital Signs Vitals Vital Signs Date Time Temp Pulse Resp B/P Pulse Ox O2 Delivery O2 Flow Rate FiO2 04/10/17 07:19 98.1 77 18 98/57 99 Intake and Output 04/09/17 04/09/17 04/10/17 15:00 23:00 07:00 Intake Total 100 ml 630 ml Balance 100 ml 630 ml Results Result Diagram: 04/10/17 0555 04/09/17 0549 Results 24 hrs Laboratory Tests Test 04/10/17 05:55 White Blood Count 1.5 L Red Blood Count 2.69 L Hemoglobin 8.2 L Hematocrit 25.1 L Mean Corpuscular Volume 93.3 Mean Corpuscular Hemoglobin 30.5 Mean Corpuscular Hemoglobin Concent 32.7 Red Cell Distribution Width 16.6 H Platelet Count 90 L Mean Platelet Volume 10.1 Neutrophils % Segmented Neutrophils % (Manual) 73 Band Neutrophils % (Manual) 1 Lymphocytes % Lymphocytes % (Manual) 17 Monocytes % Monocytes % (Manual) 9 Eosinophils % Basophils % Basophils % (Manual) 1 Nucleated Red Blood Cells % 0.0 Neutrophils # Neutrophils # (Manual) 1.1 L Band Neutrophils # 0.0 Absolute Lymphocytes (Manual) 0.2 L Lymphocytes # Monocytes # Absolute Monocytes (Manual) 0.1 L Eosinophils # Basophils # Basophils # (Manual) 0.0 Nucleated Red Blood Cells # Platelet Estimate DECREASED Polychromasia 3+ Anisocytosis 2+ Microcytosis 2+ Medications Medications Current Medications Acetaminophen (Tylenol Liquid) 650 mg Q4H PRN GTB PAIN AND OR ELEVATED TEMP Last administered on 04/04/17 14:54; Admin Dose 650 MG; Start 03/29/17 at 23: 30 Mupirocin (Bactroban) 1 applic BID TOP Last administered on 04/10/17 09:52; Admin Dose 1 APPLIC; Start 03/30/17 at 12:00 IV Flush (NS 10 ml) 10 ml QAM IV Last administered on 04/10/17 09:00; Admin Dose 10 ML; Start 03/31/17 at 09:00 IV Flush 10 ml 10 ml PRN PRN IV FLUSH LINE; Start 03/30/17 at 15:00 Meropenem/Sodium Chloride (Merrem 500mg/50 ml(Pmx)) 50 ml @ 100 mls/hr Q8 IVPB Last administered on 04/10/17 14:07; Admin Dose 100 MLS/HR; Start 04/04/17 at 14:00 Enoxaparin Sodium (Lovenox) 30 mg DAILY SC Last administered on 04/10/17 09: 51; Admin Dose 30 MG; Start 04/04/17 at 13:30 Lansoprazole (Prevacid) 30 mg DAILY@06 GTB Last administered on 04/10/17 05: 53; Admin Dose 30 MG; Start 04/05/17 at 06:00 Metoclopramide HCl (Reglan Liq) 10 mg Q8 PEG Last administered on 04/10/17 14 :07; Admin Dose 10 MG; Start 04/09/17 at 22:00 CHANELL DAVIES NP Apr 10, 2017 14:14
[2017-04-10 15:56] VITALS: BP 97/59; RESP 18
--- NOTE | 2017-04-10 18:47 | PN ---
Date/Time of Note Date/Time of Note DATE: 04/10/17 TIME: 18:45 Assessment/Plan VTE Prophylaxis VTE Prophylaxis Intervention: other Lines/Catheters IV Catheter Type (from Nrs): terrie cath Urinary Cath still in place: No Assessment/Plan Chief Complaint/Hosp Course 1. Esophageal Squamous CA in [place] esophagus s/p chemoradiotherapy 2. PEG PLACEMENT 3. Dysphagia and odynophagia. 4. Pancytopenia likely secondary to chemo/radiation 5. Bronchitis 6. New GT in place 7. Cellulitis of abdominal wall with abscess ON ANTIBIOTIC plan antibiotic per id WILL NEED SNF dr arnett called to see pt Problems: Subjective 24 Hr Interval Summary Respiratory: no complaints Cardiovascular: no complaints Gastrointestinal: passing stool, No diarrhea, No nausea, No pain Genitourinary: no complaints Musculoskeletal: no complaints Exam/Review of Systems Vital Signs Vitals Vital Signs Date Time Temp Pulse Resp B/P Pulse Ox O2 Delivery O2 Flow Rate FiO2 04/10/17 15:56 98.8 71 18 97/59 97 Intake and Output 04/09/17 04/09/17 04/10/17 15:00 23:00 07:00 Intake Total 100 ml 630 ml Balance 100 ml 630 ml Exam Neck: supple Respiratory: clear to auscultation Cardiovascular: regular rate and rhythm Gastrointestinal: bowel sounds (+), soft, No distended, No tender Extremities: No edema Results Result Diagram: 04/10/17 0555 04/09/17 0549 Results 24 hrs Laboratory Tests Test 04/10/17 05:55 White Blood Count 1.5 L Red Blood Count 2.69 L Hemoglobin 8.2 L Hematocrit 25.1 L Mean Corpuscular Volume 93.3 Mean Corpuscular Hemoglobin 30.5 Mean Corpuscular Hemoglobin Concent 32.7 Red Cell Distribution Width 16.6 H Platelet Count 90 L Mean Platelet Volume 10.1 Neutrophils % Segmented Neutrophils % (Manual) 73 Band Neutrophils % (Manual) 1 Lymphocytes % Lymphocytes % (Manual) 17 Monocytes % Monocytes % (Manual) 9 Eosinophils % Basophils % Basophils % (Manual) 1 Nucleated Red Blood Cells % 0.0 Neutrophils # Neutrophils # (Manual) 1.1 L Band Neutrophils # 0.0 Absolute Lymphocytes (Manual) 0.2 L Lymphocytes # Monocytes # Absolute Monocytes (Manual) 0.1 L Eosinophils # Basophils # Basophils # (Manual) 0.0 Nucleated Red Blood Cells # Platelet Estimate DECREASED Polychromasia 3+ Anisocytosis 2+ Microcytosis 2+ Medications Medications Current Medications Acetaminophen (Tylenol Liquid) 650 mg Q4H PRN GTB PAIN AND OR ELEVATED TEMP Last administered on 04/04/17 14:54; Admin Dose 650 MG; Start 03/29/17 at 23: 30 Mupirocin (Bactroban) 1 applic BID TOP Last administered on 04/10/17 09:52; Admin Dose 1 APPLIC; Start 03/30/17 at 12:00 IV Flush (NS 10 ml) 10 ml QAM IV Last administered on 04/10/17 09:00; Admin Dose 10 ML; Start 03/31/17 at 09:00 IV Flush 10 ml 10 ml PRN PRN IV FLUSH LINE; Start 03/30/17 at 15:00 Meropenem/Sodium Chloride (Merrem 500mg/50 ml(Pmx)) 50 ml @ 100 mls/hr Q8 IVPB Last administered on 04/10/17 14:07; Admin Dose 100 MLS/HR; Start 04/04/17 at 14:00; Stop 04/11/17 at 06:00 Enoxaparin Sodium (Lovenox) 30 mg DAILY SC Last administered on 04/10/17 09: 51; Admin Dose 30 MG; Start 04/04/17 at 13:30 Lansoprazole (Prevacid) 30 mg DAILY@06 GTB Last administered on 04/10/17 05: 53; Admin Dose 30 MG; Start 04/05/17 at 06:00 Metoclopramide HCl (Reglan Liq) 10 mg Q8 PEG Last administered on 04/10/17 14 :07; Admin Dose 10 MG; Start 04/09/17 at 22:00 KATHERINE ELDER MD Apr 10, 2017 18:47
[2017-04-10 19:19] VITALS: BP 96/58; RESP 18
[2017-04-11 02:00] VITALS: BP 106/64; PULSE 71; RESP 18
[2017-04-11] MEDS: MEROPENEM 500MG/50 ML (PMX) 50 ML IVPB SCH (06:25)
[2017-04-11] MEDS: LANSOPRAZOLE 30 MG CAP GTB SCH (06:25)
[2017-04-11] MEDS: METOCLOPRAMIDE (1 MG/ML) 10 ML CUP PEG SCH ×3 (06:25→21:31)
[2017-04-11 07:28] LABS: ABNORMAL IP MESSAGE 1; HEMOGLOBIN 7.9 g/dl (14.0-18.0); MEAN CORPUSCULAR HEMOGLOBIN 30.6 pg (29.0-33.0); MEAN CORPUSCULAR HGB CONC 32.9 g/dl (32.0-37.0); MEAN PLATELET VOLUME 10.2 fl (7.4-10.4); PLATELET COUNT 106 10^3/UL (140-415); POSITIVE DIFF @See below; RED BLOOD COUNT 2.58 10^6/ul (4.70-6.10); RED CELL DISTRIBUTION WIDTH 16.6 % (11.5-14.5)
[2017-04-11 08:06] VITALS: BP 105/58; PULSE 75; RESP 16
--- NOTE | 2017-04-11 09:01 | CONS ---
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 - pt clinically appears to be responding to therapy - last chemo was 3 weeks ago and radiation 2 weeks ago per patient - once sx stabilize he can complete the 15 fractions of radiation he has left as well as his remaining chemotherapy #Leukopenia -at first this may have been due to effects of chemo and radiation but not the leukopenia is more likely secondary to the antibiotics namely the meropenem -since the meropenem has been discontinued the WBC count is rising -peripheral smear was reviewed and there is no evidence of blasts dysplastic cells or schistocytes that would suggest another hematologic process #Anemia -secondary to chemotherapy and occult blood losses -agree with IV iron that was given as well as blood transfusion -continue to monitor -keep Hg > 8 #abdominal wall abscess drainage. -Abdominal abscess drainage grew Pseudomonas aeruginosa, Citrobacter freundii, Morganella and strep group F, all susceptible to Imipenem. -ID recs appreciate -pt now off antibiotics #Radiation Esophagitis -s/p PEG placement -continue tube feedings #LLE DVT, acute -continue on Low dose Lovenox -agree with this given patient's propensity for GI bleed Problems: Consultation Date/Type/Reason Admit Date/Time Mar 29, 2017 at 21:39 Date of Consultation: Apr 11, 2017 Type of Consultation: Oncology Reason for Consultation leukopenia Referring Provider: KATHERINE ELDER Hx of Present Illness 66-year-old male with esophageal cancer treated by Dr. Enamorado in [place]. Patient is status post esophagectomy with xtracorporeal esophagogastric colon interposition, currently on chemoradiation. Per notes last chemo was 1 week ago and last radiation was 03/29/2017. Patient was recently admitted for radiation esophagitis and was diagnosed with left lower extremity DVT. he is currently on Eliquis, GERD on Pepcid. Pt presented to [facility] ER on 03/30 with fatigue and light headedness. Hg was found to be 6.6. Pt had an endoscopy done on 04/01 where a percutaneous endoscopic gastrostomy tube was placed. Also seen was a large obstructing esophageal CA in the [place] esophagus. Pt is currently on meropenem for cellulitis around the Gtube. Since admission patient's WBC count has been low. We have been consulted for further evaluation. Of note patient's last chemotherapy was 3 weeks ago and radiation 2 weeks ago per the patient. Pt states he is able to swallow better since starting his treatment. Constitutional: poor po Eyes: no complaints ENT: no complaints Respiratory: no complaints Cardiovascular: no complaints Gastrointestinal: decreased appetite, other (using g tube, dysphagia) Genitourinary: no complaints Musculoskeletal: back pain, bone/joint pain Skin: no complaints Neurologic: no complaints Past Medical History Medical History: deep vein thrombosis, high cholesterol, hypertension, other ( esophageal cancer) Past Surgical History Extracorporeal esophagogastric colonic bypass Family History Significant Family History: no pertinent family hx Social History Alcohol Use: none Smoking Status: Never smoker Drug Use: none Exam/Review of Systems Vital Signs Vitals Vital Signs Date Time Temp Pulse Resp B/P Pulse Ox O2 Delivery O2 Flow Rate FiO2 04/11/17 08:06 97.9 75 16 105/58 94 04/11/17 02:00 Room Air Intake and Output 04/10/17 04/10/17 04/11/17 14:59 22:59 06:59 Intake Total 210 ml 520 ml 590 ml Balance 210 ml 520 ml 590 ml Exam Constitutional: alert, oriented Psych: no complaints Head: normocephalic Eyes: nl conjunctiva ENMT: nl external ears & nose Neck: non-tender, supple Respiratory: clear to auscultation Cardiovascular: regular rate and rhythm Gastrointestinal: other (G tube in place) Musculoskeletal: nl extremities to inspection, nl gait and stance Extremities: normal pulses Results Result Diagram: 04/11/17 0608 04/09/17 0549 Results 24 hrs Laboratory Tests Test 04/11/17 06:08 White Blood Count 2.0 #L Red Blood Count 2.58 L Hemoglobin 7.9 L Hematocrit 24.0 L Mean Corpuscular Volume 93.0 Mean Corpuscular Hemoglobin 30.6 Mean Corpuscular Hemoglobin Concent 32.9 Red Cell Distribution Width 16.6 H Platelet Count 106 L Mean Platelet Volume 10.2 Neutrophils % Lymphocytes % Monocytes % Eosinophils % Basophils % Nucleated Red Blood Cells % 0.0 Neutrophils # Lymphocytes # Monocytes # Eosinophils # Basophils # Nucleated Red Blood Cells # Medications Medications Current Medications Acetaminophen (Tylenol Liquid) 650 mg Q4H PRN GTB PAIN AND OR ELEVATED TEMP Last administered on 04/04/17t 14:54; Admin Dose 650 MG; Start 03/29/17 at 23: 30 Mupirocin (Bactroban) 1 applic BID TOP Last administered on 04/10/17 21:23; Admin Dose 1 APPLIC; Start 03/30/17 at 12:00 IV Flush (NS 10 ml) 10 ml QAM IV Last administered on 04/10/17 09:00; Admin Dose 10 ML; Start 03/31/17 at 09:00 IV Flush (NS 10 ml) 10 ml PRN PRN IV FLUSH LINE; Start 03/30/17 at 15:00 Enoxaparin Sodium (Lovenox) 30 mg DAILY SC Last administered on 04/10/17 09: 51; Admin Dose 30 MG; Start 04/04/17 at 13:30 Lansoprazole (Prevacid) 30 mg DAILY@06 GTB Last administered on 04/11/17 06: 25; Admin Dose 30 MG; Start 04/05/17 at 06:00 Metoclopramide HCl (Reglan Liq) 10 mg Q8 PEG Last administered on 04/11/17 06 :25; Admin Dose 10 MG; Start 04/09/17 at 22:00 ROSEMARY TOLENTINO M.D. Apr 11, 2017 08:49
[2017-04-11 09:10] LABS: ANISOCYTOSIS 1+ (0-0); METAMYELOCYTES %M 2 % (0-0); MONOCYTES % (M) 19 % (0-11); PLATELET ESTIMATE DECREASED; POIKILOCYTOSIS 1+ (0-0); POLYCHROMASIA 1+ (0-0)
[2017-04-11] MEDS: MUPIROCIN 2% 22 GM OINT TOP SCH ×2 (09:54→21:32)
[2017-04-11] MEDS: ENOXAPARIN 30 MG/0.3 ML SYG SC SCH (10:03)
--- NOTE | 2017-04-11 14:30 | CONS ---
Date/Time of Note Date/Time of Note DATE: 04/11/17 TIME: 14:29 Assessment/Plan Assessment/Plan Chief Complaint/Hosp Course SUBJECTIVE: The patient is alert, feels good. Denies pain, discomfort. No fevers. MICROBIOLOGY: Abdominal abscess drainage grew Pseudomonas aeruginosa, Citrobacter freundii, Morganella and strep==> s/p Merrem. PHYSICAL EXAMINATION: GENERAL: This is a well-nourished, well-developed 66-year-old [place] man who is in no distress. HEENT: Head atraumatic, normocephalic. Sclerae anicteric. Buccal mucosa pink. NECK: Supple. CHEST: Rise symmetrical. Breath sounds clear. HEART: S1, S2. ABDOMEN: Soft. Bowel tones present. EXTREMITIES: Without cyanosis. ASSESSMENT: 1. Status post abdominal wall abscess drainage. 2. Status post coagulase-negative Staphylococcus bacteremia. 3. History of esophageal cancer, status post esophagectomy and chemoradiation. 4. History of left lower extremity deep venous thrombosis. 5. Anemia. 6. Right chest Port-A-Cath. 7. Pancytopenia 8. Radiation esophagitis PLAN: The patient remains stable, off abx. Abdominal wall looks clean without drainage, continue present care, oncology rec-s noted DW staff DW pt/family Problems: Consultation Date/Type/Reason Admit Date/Time Mar 29, 2017 at 21:39 Initial Consult Date 03/31/17 Type of Consultation: id Referring Provider: KATHERINE ELDER MD Exam/Review of Systems Vital Signs Vitals Vital Signs Date Time Temp Pulse Resp B/P Pulse Ox O2 Delivery O2 Flow Rate FiO2 04/11/17 08:06 97.9 75 16 105/58 94 04/11/17 02:00 Room Air Intake and Output 04/10/17 04/10/17 04/11/17 14:59 22:59 06:59 Intake Total 210 ml 520 ml 590 ml Balance 210 ml 520 ml 590 ml Results Result Diagram: 04/11/17 0608 04/09/17 0549 Results 24 hrs Laboratory Tests Test 04/11/17 06:08 White Blood Count 2.0 #L Red Blood Count 2.58 L Hemoglobin 7.9 L Hematocrit 24.0 L Mean Corpuscular Volume 93.0 Mean Corpuscular Hemoglobin 30.6 Mean Corpuscular Hemoglobin Concent 32.9 Red Cell Distribution Width 16.6 H Platelet Count 106 L Mean Platelet Volume 10.2 Neutrophils % Segmented Neutrophils % (Manual) 53 Band Neutrophils % (Manual) 20 H Lymphocytes % Lymphocytes % (Manual) 7 L Monocytes % Monocytes % (Manual) 19 H Eosinophils % Basophils % Metamyelocytes % (manual) 2 H Nucleated Red Blood Cells % 0.0 Neutrophils # Neutrophils # (Manual) 1.1 L Band Neutrophils # 0.4 Absolute Lymphocytes (Manual) 0.1 L Lymphocytes # Monocytes # Absolute Monocytes (Manual) 0.3 Eosinophils # Basophils # Metamyelocytes # 0.0 Nucleated Red Blood Cells # Platelet Estimate DECREASED Polychromasia 1+ Poikilocytosis 1+ Anisocytosis 1+ Macrocytosis 1+ Medications Medications Current Medications Acetaminophen (Tylenol Liquid) 650 mg Q4H PRN GTB PAIN AND OR ELEVATED TEMP Last administered on 04/04/17 14:54; Admin Dose 650 MG; Start 03/29/17 at 23: 30 Mupirocin (Bactroban) 1 applic BID TOP Last administered on 04/11/17 09:54; Admin Dose 1 APPLIC; Start 03/30/17 at 12:00 IV Flush (NS 10 ml) 10 ml QAM IV Last administered on 04/11/17 09:54; Admin Dose 10 ML; Start 03/31/17 at 09:00 IV Flush (NS 10 ml) 10 ml PRN PRN IV FLUSH LINE; Start 03/30/17 at 15:00 Enoxaparin Sodium (Lovenox) 30 mg DAILY SC Last administered on 04/11/17 10: 03; Admin Dose 30 MG; Start 04/04/17 at 13:30 Lansoprazole (Prevacid) 30 mg DAILY@06 GTB Last administered on 04/11/17 06: 25; Admin Dose 30 MG; Start 04/05/17 at 06:00 Metoclopramide HCl (Reglan Liq) 10 mg Q8 PEG Last administered on 04/11/17 14 :09; Admin Dose 10 MG; Start 04/09/17 at 22:00 CHANELL DAVIES NP Apr 11, 2017 14:30
--- NOTE | 2017-04-11 16:22 | PN ---
Date/Time of Note Date/Time of Note DATE: 04/11/17 TIME: 16:12 Assessment/Plan VTE Prophylaxis VTE Prophylaxis Intervention: ambulation Lines/Catheters [facility] Type [facility]from [facility] port Urinary Cath still in place: No Assessment/Plan Chief Complaint/Hosp Course Chief Complaint/Hosp Course Assessment: Persistent cough with sputum - improving Infection of gastrostomy site/ Treated with antibiotics -resolved Accidental displacement of gastrostomy tube -new tube functioning well PEG 04/01/17 Impression: Uneventful percutaneous endoscopic gastrostomy tube placement Placement of [place] 20 gastrostomy tube 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 Numerous thickened small bowel loops in the left abdomen compatible with enteritis. Gastrostomy tube site care QID and PRN with Betadine Continue to monitor H/H transfuse if less than 7.5 Pt seen in collaboration with Dr. Queen Subjective: Course reviewed with nursing staff Patient interviewed and examined All labs, imaging and other results reviewed The patient states cough is improving. He is able to sleep at night . No fevers , G-tube site is non-painful, redness resolved. Pt completed the course of antibiotics for cellulitics and abscess at g-tube site. He denies abd pain nausea or vomiting. Remains neutropenic. Discharge home is pending. Patient is stable from GI standpoint. At this point will sign off to the hospitalist for further discharge home. Will consult if any problems will arise prior to discharge. PHYSICAL EXAMINATION: GENERAL: Well developed, well nourished, alert & oriented x 3, in no acute distress SKIN: No lesions, no stigmata chronic liver disease, no evidence of bleeding diathesis, g-tube site has granulation tissue, no discharge or swelling. LYMPHATIC: No palpable lymphadenopathy. HEAD: Normocephalic, atraumatic, no tenderness. EYES: Pupils equal reactive to light and accommodation, full extraocular movements, sclera clear, non-icteric, no discharge. EARS/NOSE AND THROAT: Ears normal, nose normal, oropharynx normal, oral membranes well hydrated without lesions. NECK: Extracorporeal esophagogastric colon interposition evident. CHEST: Extracorporeal esophagogastric colon interposition evident. Otherwise inspection within normal limits. CARDIOVASCULAR: Heart: Regular rate and rhythm, RESPIRATORY: Lungs clear to auscultation and percussion, no wheezing, no rubs GASTROINTESTINAL AND LIVER: Abdomen: Previous GT site almost completely closed. Otherwise soft, non tenderness, non-distended, no hernias, no masses, no organomegaly, no ascites, no guarding, no rebound tenderness, normoactive bowel sounds. Rectal: Deferred. GENITOURINARY: Male genitalia within normal limits. EXTREMITIES: No cyanosis, clubbing, edema to LLE Problems: Exam/Review of Systems Vital Signs Vitals Vital Signs Date Time Temp Pulse Resp B/P Pulse Ox O2 Delivery O2 Flow Rate FiO2 04/11/17 08:06 97.9 75 16 105/58 94 04/11/17 02:00 Room Air Intake and Output 04/10/17 04/10/17 04/11/17 14:59 22:59 06:59 Intake Total 210 ml 520 ml 590 ml Balance 210 ml 520 ml 590 ml Results Result Diagram: 04/11/17 0608 04/09/17 0549 Results 24 hrs Laboratory Tests Test 04/11/17 06:08 White Blood Count 2.0 #L Red Blood Count 2.58 L Hemoglobin 7.9 L Hematocrit 24.0 L Mean Corpuscular Volume 93.0 Mean Corpuscular Hemoglobin 30.6 Mean Corpuscular Hemoglobin Concent 32.9 Red Cell Distribution Width 16.6 H Platelet Count 106 L Mean Platelet Volume 10.2 Neutrophils % Segmented Neutrophils % (Manual) 53 Band Neutrophils % (Manual) 20 H Lymphocytes % Lymphocytes % (Manual) 7 L Monocytes % Monocytes % (Manual) 19 H Eosinophils % Basophils % Metamyelocytes % (manual) 2 H Nucleated Red Blood Cells % 0.0 Neutrophils # Neutrophils # (Manual) 1.1 L Band Neutrophils # 0.4 Absolute Lymphocytes (Manual) 0.1 L Lymphocytes # Monocytes # Absolute Monocytes (Manual) 0.3 Eosinophils # Basophils # Metamyelocytes # 0.0 Nucleated Red Blood Cells # Platelet Estimate DECREASED Polychromasia 1+ Poikilocytosis 1+ Anisocytosis 1+ Macrocytosis 1+ Medications Medications Current Medications Acetaminophen (Tylenol Liquid) 650 mg Q4H PRN GTB PAIN AND OR ELEVATED TEMP Last administered on 04/04/17 14:54; Admin Dose 650 MG; Start 03/29/17 at 23: 30 Mupirocin (Bactroban) 1 applic BID TOP Last administered on 04/11/17 09:54; Admin Dose 1 APPLIC; Start 03/30/17 at 12:00 IV Flush (NS 10 ml) 10 ml QAM IV Last administered on 04/11/17 09:54; Admin Dose 10 ML; Start 03/31/17 at 09:00 IV Flush (NS 10 ml) 10 ml PRN PRN IV FLUSH LINE; Start 03/30/17 at 15:00 Enoxaparin Sodium (Lovenox) 30 mg DAILY SC Last administered on 04/11/17 10: 03; Admin Dose 30 MG; Start 04/04/17 at 13:30 Lansoprazole (Prevacid) 30 mg DAILY@06 GTB Last administered on 04/11/17 06: 25; Admin Dose 30 MG; Start 04/05/17 at 06:00 Metoclopramide HCl (Reglan Liq) 10 mg Q8 PEG Last administered on 04/11/17 14 :09; Admin Dose 10 MG; Start 04/09/17 at 22:00 BOB VALADEZ NP Apr 11, 2017 16:22
--- NOTE | 2017-04-11 17:10 | PN ---
Date/Time of Note Date/Time of Note DATE: 04/11/17 TIME: 17:09 Assessment/Plan VTE Prophylaxis VTE Prophylaxis Intervention: other Lines/Catheters IV Catheter Type (from Nrs): port Urinary Cath still in place: No Assessment/Plan Chief Complaint/Hosp Course 1. Esophageal Squamous CA in [place] esophagus s/p chemoradiotherapy 2. PEG PLACEMENT 3. Dysphagia and odynophagia. 4. Pancytopenia likely secondary to chemo/radiation 5. Bronchitis 6. New GT in place 7. Cellulitis of abdominal wall with abscess ON ANTIBIOTIC plan off antibiotic ck cbc if ok home soon Problems: Subjective 24 Hr Interval Summary Subjective hx not possible: other (off antibiotic) Respiratory: no complaints Exam/Review of Systems Vital Signs Vitals Vital Signs Date Time Temp Pulse Resp B/P Pulse Ox O2 Delivery O2 Flow Rate FiO2 04/11/17 08:06 97.9 75 16 105/58 94 04/11/17 02:00 Room Air Intake and Output 04/10/17 04/10/17 04/11/17 15:00 23:00 07:00 Intake Total 210 ml 520 ml 590 ml Balance 210 ml 520 ml 590 ml Exam Neck: supple Respiratory: clear to auscultation Cardiovascular: regular rate and rhythm Gastrointestinal: soft Musculoskeletal: nl extremities to inspection Extremities: normal pulses Results Result Diagram: 04/11/17 0608 04/09/17 0549 Results 24 hrs Laboratory Tests Test 04/11/17 06:08 White Blood Count 2.0 #L Red Blood Count 2.58 L Hemoglobin 7.9 L Hematocrit 24.0 L Mean Corpuscular Volume 93.0 Mean Corpuscular Hemoglobin 30.6 Mean Corpuscular Hemoglobin Concent 32.9 Red Cell Distribution Width 16.6 H Platelet Count 106 L Mean Platelet Volume 10.2 Neutrophils % Segmented Neutrophils % (Manual) 53 Band Neutrophils % (Manual) 20 H Lymphocytes % Lymphocytes % (Manual) 7 L Monocytes % Monocytes % (Manual) 19 H Eosinophils % Basophils % Metamyelocytes % (manual) 2 H Nucleated Red Blood Cells % 0.0 Neutrophils # Neutrophils # (Manual) 1.1 L Band Neutrophils # 0.4 Absolute Lymphocytes (Manual) 0.1 L Lymphocytes # Monocytes # Absolute Monocytes (Manual) 0.3 Eosinophils # Basophils # Metamyelocytes # 0.0 Nucleated Red Blood Cells # Platelet Estimate DECREASED Polychromasia 1+ Poikilocytosis 1+ Anisocytosis 1+ Macrocytosis 1+ Medications Medications Current Medications Acetaminophen (Tylenol Liquid) 650 mg Q4H PRN GTB PAIN AND OR ELEVATED TEMP Last administered on 04/04/17 14:54; Admin Dose 650 MG; Start 03/29/17 at 23: 30 Mupirocin (Bactroban) 1 applic BID TOP Last administered on 04/11/17 09:54; Admin Dose 1 APPLIC; Start 03/30/17 at 12:00 IV Flush (NS 10 ml) 10 ml QAM IV Last administered on 04/11/17 09:54; Admin Dose 10 ML; Start 03/31/17 at 09:00 IV Flush (NS 10 ml) 10 ml PRN PRN IV FLUSH LINE; Start 03/30/17 at 15:00 Enoxaparin Sodium (Lovenox) 30 mg DAILY SC Last administered on 04/11/17 10: 03; Admin Dose 30 MG; Start 04/04/17 at 13:30 Lansoprazole (Prevacid) 30 mg DAILY@06 GTB Last administered on 04/11/17 06: 25; Admin Dose 30 MG; Start 04/05/17 at 06:00 Metoclopramide HCl (Reglan Liq) 10 mg Q8 PEG Last administered on 04/11/17 14 :09; Admin Dose 10 MG; Start 04/09/17 at 22:00 KATHERINE ELDER MD Apr 11, 2017 17:10
[2017-04-11 20:16] VITALS: BP 100/60; RESP 18
[2017-04-12 02:22] VITALS: BP 100/53; RESP 18
[2017-04-12] MEDS: LANSOPRAZOLE 30 MG CAP GTB SCH (05:49)
[2017-04-12] MEDS: METOCLOPRAMIDE (1 MG/ML) 10 ML CUP PEG SCH ×2 (05:49→15:51)
[2017-04-12 06:33] LABS: ABNORMAL IP MESSAGE 1; HEMATOCRIT 26.5 % (42.0-52.0); HEMOGLOBIN 8.7 g/dl (14.0-18.0); MEAN CORPUSCULAR HEMOGLOBIN 30.6 pg (29.0-33.0); MEAN CORPUSCULAR HGB CONC 32.8 g/dl (32.0-37.0); MEAN CORPUSCULAR VOLUME 93.3 fl (82.0-101.0); MEAN PLATELET VOLUME 9.4 fl (7.4-10.4); PLATELET COUNT 112 10^3/UL (140-415); POSITIVE DIFF @See below; RED BLOOD COUNT 2.84 10^6/ul (4.70-6.10); RED CELL DISTRIBUTION WIDTH 16.6 % (11.5-14.5); WHITE BLOOD COUNT 2.3 10^3/ul (4.8-10.8)
[2017-04-12 06:35] LABS: ALBUMIN 2.6 g/dl (3.3-4.9); ALBUMIN/GLOBULIN RATIO 0.83; BILIRUBIN,INDIRECT 0.3 mg/dl (0-1.1); BILIRUBIN,TOTAL 0.3 mg/dl (0.2-1.3); CALCIUM 8.5 mg/dl (8.4-10.2); CREATININE 0.58 mg/dl (0.61-1.24); TOTAL PROTEIN 5.7 g/dl (6.1-8.1)
[2017-04-12 07:22] VITALS: BP 93/58; RESP 18
[2017-04-12 08:18] LABS: ANISOCYTOSIS 2+ (0-0); MICROCYTOSIS 2+ (0-0); MONOCYTES % (M) 6 % (0-11); PLATELET ESTIMATE NORMAL; POIKILOCYTOSIS 1+ (0-0); TEAR DROP CELLS 1+ (0-0)
[2017-04-12] MEDS: MUPIROCIN 2% 22 GM OINT TOP SCH (08:44)
[2017-04-12] MEDS: ENOXAPARIN 30 MG/0.3 ML SYG SC SCH (08:49)
--- NOTE | 2017-04-12 11:17 | CONS ---
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 - pt clinically appears to be responding to therapy - last chemo was 3 weeks ago and radiation 2 weeks ago per patient - once sx stabilize he can complete the 15 fractions of radiation he has left as well as his remaining chemotherapy #Leukopenia -at first this may have been due to effects of chemo and radiation but not the leukopenia is more likely secondary to the antibiotics namely the meropenem -since the meropenem has been discontinued the WBC count continues to rise -peripheral smear was reviewed and there is no evidence of blasts dysplastic cells or schistocytes that would suggest another hematologic process #Anemia -secondary to chemotherapy and occult blood losses -agree with IV iron that was given as well as blood transfusion -continue to monitor -keep Hg > 8 #abdominal wall abscess drainage. -Abdominal abscess drainage grew Pseudomonas aeruginosa, Citrobacter freundii, Morganella and strep group F, all susceptible to Imipenem. -ID recs appreciate -pt now off antibiotics #Radiation Esophagitis -s/p PEG placement -continue tube feedings #LLE DVT, acute -continue on Low dose Lovenox -agree with this given patient's propensity for GI bleed Problems: Consultation Date/Type/Reason Admit Date/Time Mar 29, 2017 at 21:39 Initial Consult Date 04/11/17 Type of Consultation: oncology Reason for Consultation esophageal cancer Referring Provider: KATHERINE ELDER MD 24 HR Interval Summary Free Text/Dictation WBC count rising. feels better. no fevers, using G tube Exam/Review of Systems Vital Signs Vitals Vital Signs Date Time Temp Pulse Resp B/P Pulse Ox O2 Delivery O2 Flow Rate FiO2 04/12/17 07:22 97.5 74 18 93/58 95 04/11/17 02:00 Room Air Intake and Output 04/11/17 04/11/17 04/12/17 15:00 23:00 07:00 Intake Total 350 ml 0 ml Output Total 400 ml Balance -50 ml 0 ml Exam Constitutional: alert, oriented Psych: no complaints Head: normocephalic Eyes: nl conjunctiva ENMT: nl external ears & nose Neck: non-tender, supple Respiratory: clear to auscultation Cardiovascular: regular rate and rhythm Gastrointestinal: other (G tube in place) Musculoskeletal: nl extremities to inspection Extremities: normal pulses Results Result Diagram: 04/12/17 0518 04/12/17 0518 Results 24 hrs Laboratory Tests Test 04/12/17 05:18 White Blood Count 2.3 L Red Blood Count 2.84 L Hemoglobin 8.7 L Hematocrit 26.5 L Mean Corpuscular Volume 93.3 Mean Corpuscular Hemoglobin 30.6 Mean Corpuscular Hemoglobin Concent 32.8 Red Cell Distribution Width 16.6 H Platelet Count 112 L Mean Platelet Volume 9.4 Neutrophils % Segmented Neutrophils % (Manual) 72 Band Neutrophils % (Manual) 2 Lymphocytes % Lymphocytes % (Manual) 20 Monocytes % Monocytes % (Manual) 6 Eosinophils % Basophils % Nucleated Red Blood Cells % 0.0 Neutrophils # Neutrophils # (Manual) 1.7 Band Neutrophils # 0.0 Absolute Lymphocytes (Manual) 0.4 L Lymphocytes # Monocytes # Absolute Monocytes (Manual) 0.1 L Eosinophils # Basophils # Nucleated Red Blood Cells # Platelet Estimate NORMAL Poikilocytosis 1+ Anisocytosis 2+ Microcytosis 2+ Tear Drop Cells 1+ Sodium Level 140 Potassium Level 4.0 Chloride Level 103 Carbon Dioxide Level 31 Anion Gap 10 Blood Urea Nitrogen 11 Creatinine 0.58 L Glucose Level 97 Calcium Level 8.5 Total Bilirubin 0.3 Direct Bilirubin 0.00 Indirect Bilirubin 0.3 Aspartate Amino Transf (AST/SGOT) 23 Alanine Aminotransferase (ALT/SGPT) 30 Alkaline Phosphatase 83 Total Protein 5.7 L Albumin 2.6 L Globulin 3.10 Albumin/Globulin Ratio 0.83 Medications Medications Current Medications Acetaminophen (Tylenol Liquid) 650 mg Q4H PRN GTB PAIN AND OR ELEVATED TEMP Last administered on 04/04/17 14:54; Admin Dose 650 MG; Start 03/29/17 at 23: 30 Mupirocin (Bactroban) 1 applic BID TOP Last administered on 04/12/17 08:44; Admin Dose 1 APPLIC; Start 03/30/17 at 12:00 IV Flush (NS 10 ml) 10 ml QAM IV Last administered on 04/12/17 09:19; Admin Dose 10 ML; Start 03/31/17 at 09:00 IV Flush (NS 10 ml) 10 ml PRN PRN IV FLUSH LINE; Start 03/30/17 at 15:00 Enoxaparin Sodium (Lovenox) 30 mg DAILY SC Last administered on 04/12/17 08:49 ; Admin Dose 30 MG; Start 04/04/17 at 13:30 Lansoprazole (Prevacid) 30 mg DAILY@06 GTB Last administered on 04/12/17 05:49 ; Admin Dose 30 MG; Start 04/05/17 at 06:00 Metoclopramide HCl (Reglan Liq) 10 mg Q8 PEG Last administered on 04/12/17 05: 49; Admin Dose 10 MG; Start 04/09/17 at 22:00 ROSEMARY TOLENTINO M.D. Apr 12, 2017 11:17
--- NOTE | 2017-04-12 13:01 | CONS ---
Date/Time of Note Date/Time of Note DATE: 04/12/17 TIME: 13:01 Assessment/Plan Assessment/Plan Chief Complaint/Hosp Course SUBJECTIVE: The patient is alert, feels good. Denies pain, discomfort. No fevers. MICROBIOLOGY: Abdominal abscess drainage grew Pseudomonas aeruginosa, Citrobacter freundii, Morganella and strep==> s/p Merrem. PHYSICAL EXAMINATION: GENERAL: This is a well-nourished, well-developed 66-year-old [place] man who is in no distress. HEENT: Head atraumatic, normocephalic. Sclerae anicteric. Buccal mucosa pink. NECK: Supple. CHEST: Rise symmetrical. Breath sounds clear. HEART: S1, S2. ABDOMEN: Soft. Bowel tones present. EXTREMITIES: Without cyanosis. ASSESSMENT: 1. Status post abdominal wall abscess drainage. 2. Status post coagulase-negative Staphylococcus bacteremia. 3. History of esophageal cancer, status post esophagectomy and chemoradiation. 4. History of left lower extremity deep venous thrombosis. 5. Anemia. 6. Right chest Port-A-Cath. 7. Pancytopenia 8. Radiation esophagitis PLAN: The patient remains stable, off abx. Abdominal wall looks clean without drainage, continue present care, f/u oncology rec-s DW patient Problems: Consultation Date/Type/Reason Admit Date/Time Mar 29, 2017 at 21:39 Initial Consult Date 03/31/17 Type of Consultation: id Referring Provider: KATHERINE ELDER MD Exam/Review of Systems Vital Signs Vitals Vital Signs Date Time Temp Pulse Resp B/P Pulse Ox O2 Delivery O2 Flow Rate FiO2 04/12/17 07:22 97.5 74 18 93/58 95 04/11/17 02:00 Room Air Intake and Output 04/11/17 04/11/17 04/12/17 15:00 23:00 07:00 Intake Total 350 ml 0 ml Output Total 400 ml Balance -50 ml 0 ml Results Result Diagram: 04/12/1718 04/12/1718 Results 24 hrs Laboratory Tests Test 04/12/17 05:18 White Blood Count 2.3 L Red Blood Count 2.84 L Hemoglobin 8.7 L Hematocrit 26.5 L Mean Corpuscular Volume 93.3 Mean Corpuscular Hemoglobin 30.6 Mean Corpuscular Hemoglobin Concent 32.8 Red Cell Distribution Width 16.6 H Platelet Count 112 L Mean Platelet Volume 9.4 Neutrophils % Segmented Neutrophils % (Manual) 72 Band Neutrophils % (Manual) 2 Lymphocytes % Lymphocytes % (Manual) 20 Monocytes % Monocytes % (Manual) 6 Eosinophils % Basophils % Nucleated Red Blood Cells % 0.0 Neutrophils # Neutrophils # (Manual) 1.7 Band Neutrophils # 0.0 Absolute Lymphocytes (Manual) 0.4 L Lymphocytes # Monocytes # Absolute Monocytes (Manual) 0.1 L Eosinophils # Basophils # Nucleated Red Blood Cells # Platelet Estimate NORMAL Poikilocytosis 1+ Anisocytosis 2+ Microcytosis 2+ Tear Drop Cells 1+ Sodium Level 140 Potassium Level 4.0 Chloride Level 103 Carbon Dioxide Level 31 Anion Gap 10 Blood Urea Nitrogen 11 Creatinine 0.58 L Glucose Level 97 Calcium Level 8.5 Total Bilirubin 0.3 Direct Bilirubin 0.00 Indirect Bilirubin 0.3 Aspartate Amino Transf (AST/SGOT) 23 Alanine Aminotransferase (ALT/SGPT) 30 Alkaline Phosphatase 83 Total Protein 5.7 L Albumin 2.6 L Globulin 3.10 Albumin/Globulin Ratio 0.83 Medications Medications Current Medications Acetaminophen (Tylenol Liquid) 650 mg Q4H PRN GTB PAIN AND OR ELEVATED TEMP Last administered on 04/04/17 14:54; Admin Dose 650 MG; Start 03/29/17 at 23: 30 Mupirocin (Bactroban) 1 applic BID TOP Last administered on 04/12/17 08:44; Admin Dose 1 APPLIC; Start 03/30/17 at 12:00 IV Flush (NS 10 ml) 10 ml QAM IV Last administered on 04/12/17 09:19; Admin Dose 10 ML; Start 03/31/17 at 09:00 IV Flush (NS 10 ml) 10 ml PRN PRN IV FLUSH LINE; Start 03/30/17 at 15:00 Enoxaparin Sodium (Lovenox) 30 mg DAILY SC Last administered on 04/12/17 08:49 ; Admin Dose 30 MG; Start 04/04/17 at 13:30 Lansoprazole (Prevacid) 30 mg DAILY@06 GTB Last administered on 04/12/17 05:49 ; Admin Dose 30 MG; Start 04/05/17 at 06:00 Metoclopramide HCl (Reglan Liq) 10 mg Q8 PEG Last administered on 04/12/17 05: 49; Admin Dose 10 MG; Start 04/09/17 at 22:00 CHANELL DAVIES NP Apr 12, 2017 13:01
[2017-04-12 13:47] VITALS: BP 97/58; RESP 16
--- NOTE | 2017-04-12 14:26 | PN ---
Date/Time of Note Date/Time of Note DATE: 04/12/17 TIME: 14:26 Assessment/Plan VTE Prophylaxis VTE Prophylaxis Intervention: ambulation Lines/Catheters IV [facility]ter Type (from [facility] port cath Urinary Cath still in place: No Assessment/Plan Chief Complaint/Hosp Course 1. Esophageal Squamous CA in [place] esophagus s/p chemoradiotherapy last given on 03/29/17 2. Extracorporeal esophagogastric colonic bypass 3. Dysphagia and odynophagia. 4. Pancytopenia likely secondary to chemo/radiation> worsening again 5. Bronchitis 6. New GT in place 7. Cellulitis of abdominal wall with abscess forming/ 8. SIRS with abdominal wall small abscess, draining Problems: Assessment/Plan 1. Possible discharge today 2. continue current treatment Subjective 24 Hr Interval Summary Constitutional: improved, no complaints Exam/Review of Systems Vital Signs Vitals Vital Signs Date Time Temp Pulse Resp B/P Pulse Ox O2 Delivery O2 Flow Rate FiO2 04/12/17 13:47 98.2 81 16 97/58 98 04/11/17 02:00 Room Air Intake and Output 04/11/17 04/11/17 04/12/17 15:00 23:00 07:00 Intake Total 350 ml 0 ml Output Total 400 ml Balance -50 ml 0 ml Exam Constitutional: alert, oriented ENMT: nl external ears & nose Neck: supple Respiratory: clear to auscultation Cardiovascular: regular rate and rhythm Gastrointestinal: other (GT ), soft, surgical scars (no discharge) Results Result Diagram: 04/12/17 0518 04/12/17 0518 Results 24 hrs Laboratory Tests Test 04/12/17 05:18 White Blood Count 2.3 L Red Blood Count 2.84 L Hemoglobin 8.7 L Hematocrit 26.5 L Mean Corpuscular Volume 93.3 Mean Corpuscular Hemoglobin 30.6 Mean Corpuscular Hemoglobin Concent 32.8 Red Cell Distribution Width 16.6 H Platelet Count 112 L Mean Platelet Volume 9.4 Neutrophils % Segmented Neutrophils % (Manual) 72 Band Neutrophils % (Manual) 2 Lymphocytes % Lymphocytes % (Manual) 20 Monocytes % Monocytes % (Manual) 6 Eosinophils % Basophils % Nucleated Red Blood Cells % 0.0 Neutrophils # Neutrophils # (Manual) 1.7 Band Neutrophils # 0.0 Absolute Lymphocytes (Manual) 0.4 L Lymphocytes # Monocytes # Absolute Monocytes (Manual) 0.1 L Eosinophils # Basophils # Nucleated Red Blood Cells # Platelet Estimate NORMAL Poikilocytosis 1+ Anisocytosis 2+ Microcytosis 2+ Tear Drop Cells 1+ Sodium Level 140 Potassium Level 4.0 Chloride Level 103 Carbon Dioxide Level 31 Anion Gap 10 Blood Urea Nitrogen 11 Creatinine 0.58 L Glucose Level 97 Calcium Level 8.5 Total Bilirubin 0.3 Direct Bilirubin 0.00 Indirect Bilirubin 0.3 Aspartate Amino Transf (AST/SGOT) 23 Alanine Aminotransferase (ALT/SGPT) 30 Alkaline Phosphatase 83 Total Protein 5.7 L Albumin 2.6 L Globulin 3.10 Albumin/Globulin Ratio 0.83 Medications Medications Current Medications Acetaminophen (Tylenol Liquid) 650 mg Q4H PRN GTB PAIN AND OR ELEVATED TEMP Last administered on 04/04/17 14:54; Admin Dose 650 MG; Start 03/29/17 at 23: 30 Mupirocin (Bactroban) 1 applic BID TOP Last administered on 04/12/17 08:44; Admin Dose 1 APPLIC; Start 03/30/17 at 12:00 IV Flush (NS 10 ml) 10 ml QAM IV Last administered on 04/12/17 09:19; Admin Dose 10 ML; Start 03/31/17 at 09:00 IV Flush (NS 10 ml) 10 ml PRN PRN IV FLUSH LINE; Start 03/30/17 at 15:00 Enoxaparin Sodium (Lovenox) 30 mg DAILY SC Last administered on 04/12/17 08:49 ; Admin Dose 30 MG; Start 04/04/17 at 13:30 Lansoprazole (Prevacid) 30 mg DAILY@06 GTB Last administered on 04/12/17 05:49 ; Admin Dose 30 MG; Start 04/05/17 at 06:00 Metoclopramide HCl (Reglan Liq) 10 mg Q8 PEG Last administered on 04/12/17 05: 49; Admin Dose 10 MG; Start 04/09/17 at 22:00 LICO SALAS Apr 12, 2017 14:26
[2017-04-12] MEDS ORDERED: LANS30CA GTB (18:08)
[2017-04-12] MEDS ORDERED: UDREG PEG (18:08)
[2017-04-12] MEDS ORDERED: IPRA3AMP HHN (18:08)
[2017-04-12] MEDS ORDERED: HEPARIN (100 UNITS/ML) 5 ML SYG CATHETER ONE (18:30)
== END 2017-04-12 18:55 | disposition home or self-care (01) | DRG 809 ==
LOC: E/R 16:41 → MS2 21:39
PROVIDERS: ADMIT Internal Medicine Nephrology; ATTEND Internal Medicine Nephrology
PROC: 30233N1 Transfusion of Nonautologous Red Blood Cells into Peripheral Vein, Percutaneous Approach (ICD-10-PCS; principal; 2017-03-29)
PROC: 0DH63UZ Insertion of Feeding Device into Stomach, Percutaneous Approach (ICD-10-PCS; 2017-04-01)
PROC: 0H97XZX Drainage of Abdomen Skin, External Approach, Diagnostic (ICD-10-PCS; 2017-04-01)
DX: D61.810 Antineoplastic chemotherapy induced pancytopenia (principal); C15.4 Malignant neoplasm of middle third of esophagus; R13.10 Dysphagia, unspecified; R65.10 Systemic inflammatory response syndrome (SIRS) of non-infectious origin without acute organ dysfunction; Z43.1 Encounter for attention to gastrostomy; L02.211 Cutaneous abscess of abdominal wall; L03.311 Cellulitis of abdominal wall; J40 Bronchitis, not specified as acute or chronic; Z79.02 Long term (current) use of antithrombotics/antiplatelets; Z86.718 Personal history of other venous thrombosis and embolism; K20.8 Other esophagitis; B96.5 Pseudomonas (aeruginosa) (mallei) (pseudomallei) as the cause of diseases classified elsewhere; B96.89 Other specified bacterial agents as the cause of diseases classified elsewhere
CPT/HCPCS: 36415; 36430; 71010; 74170; 80048; 80053; 81003; 82962; 83735; 84100; 85025; 85610; 85730; 86850; 86900; 86901; 86920; 87040; 87070; 87081; 87086; 93005; C9113; J0690; J1642; J1650; J2001; J2185; J2765; J2916; J3010; J3475; J3480; J7040; J7042; J7050; P9016; Q9967

== ENCOUNTER 2017-12-04 10:03 | Day surgery (SDC) | END 2017-12-04 14:42 | disposition home or self-care (01) ==

== ENCOUNTER 2018-01-08 14:01 | Inpatient (IN) | END 2018-01-27 13:38 | disposition short-term general hospital (02) | DRG 871 ==